=== PATIENT | female | born 1985 | race African-American/Black ===

== ENCOUNTER 2016-05-04 | Emergency (ER) | payer OTHER ==
--- NOTE | 2016-05-04 10:44 | ED ---
General Adult HPI - General Chief complaint: Dental/Oral Stated complaint: tooth pain Time Seen by Provider: 05/04/16 10:00 Source: patient, RN notes reviewed Mode of arrival: ambulatory Limitations: no limitations - History of Present Illness Initial comments: This is a 31-year-old female who presents emergency Department complaining of tooth pain. The tooth that is painful is the left bottom molar. Patient states been hurting for a few days but she is unable to get into her dentist until later this week. Patient denies any injury to that area. Patient denies any swelling patient denies any drainage. Patient denies any fever or chills. - Related Data Previous Rx's Medication Instructions Recorded Amoxicillin 500 mg PO Q8H #30 capsule 05/04/16 Ibuprofen [Motrin] 800 mg PO Q6HR PRN #20 tab 05/04/16 traMADol HCl [Ultram] 50 mg PO Q6H PRN #10 tab 05/04/16 Allergies Allergy/AdvReac Type Severity Reaction Status Date / Time No Known Allergies Allergy Verified 05/04/16 09:46 Review of Systems ROS Statement: Those systems with pertinent positive or pertinent negative responses have been documented in the HPI. ROS Other: All systems not noted in ROS Statement are negative. Past Medical History Past Medical History: No Reported History Additional Past Medical History / Comment(s): KIDNEY STONES History of Any Multi-Drug Resistant Organisms: None Reported Past Surgical History: Section, Cholecystectomy, Tubal Ligation Past Psychological History: Depression Smoking Status: Current every day smoker Past Alcohol Use History: Occasional Past Drug Use History: None Reported General Exam - General Exam Comments Initial Comments: GENERAL Patient is well-developed and well-nourished. I went into the room and the patient was sleeping I had to wake her up. EYES Patient's pupils are equal and round. Extraocular motion is intact Mouth Patient left lower molar had caries but it did not appear to be swollen around it and there was no abscess noted. SKIN Unremarkable NEURO The patient is alert and oriented 3 PYSCH Patient has normal interpersonal interactions. Limitations: no limitations Course Vital Signs 05/04/16 05/04/16 09:31 10:08 Temperature 98.3 F 97.8 F Pulse Rate 79 Respiratory 18 Rate Blood Pressure 104/56 O2 Sat by Pulse 100 Oximetry Disposition Clinical Impression: Dental caries, Pain, dental Disposition: HOME SELF-CARE Condition: Good Instructions: Dental Caries (ED), Toothache (ED) Additional Instructions: Patient needs to follow-up with a dentist. Prescriptions: Amoxicillin 500 mg PO Q8H #30 capsule Ibuprofen [Motrin] 800 mg PO Q6HR PRN #20 tab PRN Reason: Pain traMADol HCl [Ultram] 50 mg PO Q6H PRN #10 tab PRN Reason: When necessary for pain Referrals: None,Stated [Primary Care Provider] - 1-2 days Time of Disposition: 10:44
== END 2016-05-04 11:16 | disposition home or self-care (01) ==
CPT/HCPCS: 99282

== ENCOUNTER 2016-10-19 16:38 | Emergency (ER) | payer OTHER ==
[2016-10-19 16:56] VITALS: BP 124/81; PULSE 94; RESP 20; TEMP 99.3
--- NOTE | 2016-10-19 17:04 | ED ---
ENT HPI - General Chief complaint: Dental/Oral Stated complaint: Dental Pain Time Seen by Provider: 10/19/16 16:56 Source: patient, RN notes reviewed Mode of arrival: ambulatory Limitations: no limitations - History of Present Illness Initial comments: 31-year-old female presents to the emergency department with a chief complaint of right-sided dental pain. Patient states that this has been going on for the past week or so. She went to [facility] last night he started her on antibiotics as well as pain medication. Patient states that she was concerned because she still having pain. Patient denies any fever or chills. Patient denies any radiation in to the neck. Patient denies any pain over closing the mouth. Patient states that she has had a dentist appointment in a few weeks. Patient states she is wondering if she may be there something more she can take for the pain and discomfort. Patient denies any recent fever, chills, shortness of breath, chest pain, back pain, abdominal pain, nausea vomiting, numbness or tingling, dysuria or hematuria, constipation or diarrhea, headaches or visual changes, or any other current symptoms. - Related Data Previous Rx's Medication Instructions Recorded Ibuprofen [Motrin] 600 mg PO Q6HR PRN #20 tab 10/19/16 Allergies Allergy/AdvReac Type Severity Reaction Status Date / Time No Known Allergies Allergy Verified 10/19/16 16:57 Review of Systems ROS Statement: Those systems with pertinent positive or pertinent negative responses have been documented in the HPI. ROS Other: All systems not noted in ROS Statement are negative. Past Medical History Past Medical History: No Reported History Additional Past Medical History / Comment(s): KIDNEY STONES History of Any Multi-Drug Resistant Organisms: None Reported Past Surgical History: Section, Cholecystectomy, Tubal Ligation Past Psychological History: Depression Smoking Status: Current every day smoker Past Alcohol Use History: Occasional Past Drug Use History: None Reported General Exam Limitations: no limitations General appearance: alert, in no apparent distress Head exam: Present: atraumatic, normocephalic, normal inspection Eye exam: Present: normal appearance, PERRL, EOMI. Absent: scleral icterus, conjunctival injection, periorbital swelling ENT exam: Present: normal exam, mucous membranes moist, other (no sign of dental abscess. Patient does appear to have dental caries. No fracture noted.) Neck exam: Present: normal inspection. Absent: tenderness, meningismus, lymphadenopathy Respiratory exam: Present: normal lung sounds bilaterally. Absent: respiratory distress, wheezes, rales, rhonchi, stridor Cardiovascular Exam: Present: regular rate, normal rhythm, normal heart sounds. Absent: systolic murmur, diastolic murmur, rubs, gallop, clicks Neurological exam: Present: alert, oriented X3 Psychiatric exam: Present: normal affect, normal mood Skin exam: Present: warm, dry, intact, normal color. Absent: rash Course Vital Signs 10/19/16 16:55 Temperature 99.3 F Pulse Rate 94 Respiratory 20 Rate Blood Pressure 124/81 O2 Sat by Pulse 99 Oximetry Medical Decision Making - Medical Decision Making 31-year-old female presents emergency Department chief complaint of right-sided dental pain. At this time we did give the patient prescription for Motrin. We discussed continuing the antibiotic she was given as well as the other pain medication. We discussed return parameters and follow-up and all questions. They stated they understood and the on agreement with plan. This time they will be discharged home. Disposition Clinical Impression: Pain, dental Disposition: HOME SELF-CARE Condition: Stable Instructions: Toothache (ED) Additional Instructions: Please use medication as discussed. Please follow up with family doctor if symptoms have not improved over the next two days. Please return to the emergency room if your symptoms increase or worsen or for any other concerns. [facility] [place] [address] [phone] (existing clients only) For new clients: [phone] 1st consult: $50 (includes Xrays) Usually 30% less then private dentist for visits after. [employer] Have to pay $50 for Xrays anmd rest is covered. [phone] Prescriptions: Ibuprofen [Motrin] 600 mg PO Q6HR PRN #20 tab PRN Reason: Pain Referrals: Carla Rizvi MD [STAFF PHYSICIAN] - 1-2 days Time of Disposition: 17:04
== END 2016-10-19 17:17 | disposition home or self-care (01) ==
LOC: EC 16:38
DX: K02.9 Dental caries, unspecified (principal); K08.89 Other specified disorders of teeth and supporting structures; F17.200 Nicotine dependence, unspecified, uncomplicated
CPT/HCPCS: 99282

== ENCOUNTER 2016-12-12 14:03 | Emergency (ER) | payer OTHER ==
[2016-12-12] MEDS ORDERED: CIPROFLOXACIN 0.3% OPHTH SOLN 2.5 ML BTL BOTH EYES STA (14:17)
[2016-12-12 14:20] VITALS: BP 131/74; PULSE 73; RESP 20; TEMP 98.6
--- NOTE | 2016-12-12 14:45 | ED ---
Eye Problem HPI - General Chief complaint: Eye Problems Stated complaint: Poss Downing Eye Time Seen by Provider: 12/12/16 14:17 Source: patient, RN notes reviewed, old records reviewed Mode of arrival: ambulatory Limitations: no limitations - History of Present Illness Initial comments: Patient is a 31-year-old female chief complaint of being that she has pink eye. She reports that she has been having increased drainage from both of her eyes for the past 2 days. She reports is also started after she saw her children. She denies any visual changes. Patient reports that she had surgery on her eyes when she was in her to correct a lazy eye. - Related Data Previous Rx's Medication Instructions Recorded Ciprofloxacin Ophth Soln [Cipro 1 drops BOTH EYES Q4HR #1 bottle 12/12/16 Ophth Soln] Allergies Allergy/AdvReac Type Severity Reaction Status Date / Time No Known Allergies Allergy Verified 12/12/16 14:22 Review of Systems ROS Statement: Those systems with pertinent positive or pertinent negative responses have been documented in the HPI. ROS Other: All systems not noted in ROS Statement are negative. Past Medical History Past Medical History: No Reported History Additional Past Medical History / Comment(s): KIDNEY STONES History of Any Multi-Drug Resistant Organisms: None Reported Past Surgical History: Section, Cholecystectomy, Tubal Ligation Past Psychological History: Depression Smoking Status: Current every day smoker Past Alcohol Use History: Occasional Past Drug Use History: None Reported General Exam - General Exam Comments Initial Comments: 31-year-old female. No acute distress. Limitations: no limitations General appearance: alert, in no apparent distress Head exam: Present: atraumatic, normocephalic, normal inspection Eye exam: Present: normal appearance, PERRL, EOMI, conjunctival injection ( Minor bilateral conjunctival injection.). Absent: scleral icterus, periorbital swelling ENT exam: Present: normal exam, normal oropharynx, mucous membranes dry, mucous membranes moist Neck exam: Present: normal inspection. Absent: tenderness, meningismus, lymphadenopathy Respiratory exam: Present: normal lung sounds bilaterally. Absent: respiratory distress, wheezes, rales, rhonchi, stridor Cardiovascular Exam: Present: regular rate, normal rhythm, normal heart sounds. Absent: systolic murmur, diastolic murmur, rubs, gallop, clicks GI/Abdominal exam: Present: soft, normal bowel sounds. Absent: distended, tenderness, guarding, rebound, rigid Extremities exam: Present: normal inspection, full ROM, normal capillary refill. Absent: tenderness, pedal edema, joint swelling, calf tenderness Back exam: Present: normal inspection Neurological exam: Present: alert, oriented X3, CN II-XII intact Psychiatric exam: Present: normal affect, normal mood Skin exam: Present: warm, dry, intact, normal color. Absent: rash Course Vital Signs 12/12/16 14:15 Temperature 98.6 F Pulse Rate 73 Respiratory 20 Rate Blood Pressure 131/74 O2 Sat by Pulse 100 Oximetry Disposition Clinical Impression: Conjunctivitis Disposition: HOME SELF-CARE Condition: Good Instructions: Conjunctivitis (ED) Additional Instructions: Patient has a follow-up with the emergency medical technician/driver in the next 1-2 days. Return to emergency department if any alarming signs or symptoms occur. Prescriptions: Ciprofloxacin Ophth Soln [Cipro Ophth Soln] 1 drops BOTH EYES Q4HR #1 bottle Referrals: None,Stated [Primary Care Provider] - 1-2 days Maynor Yeh MD [STAFF PHYSICIAN] - 1-2 days Time of Disposition: 14:46
== END 2016-12-12 15:00 | disposition home or self-care (01) ==
LOC: EC 14:03
DX: H10.9 Unspecified conjunctivitis (principal); F17.200 Nicotine dependence, unspecified, uncomplicated
CPT/HCPCS: 99283

== ENCOUNTER 2017-02-17 10:10 | Emergency (ER) | payer OTHER ==
--- NOTE | 2017-02-17 11:10 | ED ---
General Adult HPI - General Chief complaint: Upper Respiratory Infection Stated complaint: bad cough/tooth ache Time Seen by Provider: 02/17/17 10:20 Source: patient, RN notes reviewed Mode of arrival: ambulatory Limitations: no limitations - History of Present Illness Initial comments: This is a 32-year-old female who presents emergency department for she's had a cough for 2 weeks and coughing up green sputum. Patient states she hasn't had a fever and she hasn't been short of breath but she cannot stop coughing. Coughing up sputum. Patient denies any chest pain or palpitations. Patient states she also has been anemic in the past about 5 months ago she needed blood. Patient states she is post to follow-up with her MACHINE CEMENTER and she has not. Patient states she continues to have heavy cycles. Patient states occasionally she gets up and she is a little dizzy but other than that she feels normal. - Related Data Previous Rx's Medication Instructions Recorded Azithromycin [Zithromax Tri-Gorge] 500 mg PO DAILY #3 tab 02/17/17 Allergies Allergy/AdvReac Type Severity Reaction Status Date / Time No Known Allergies Allergy Verified 02/17/17 10:28 Review of Systems ROS Statement: Those systems with pertinent positive or pertinent negative responses have been documented in the HPI. ROS Other: All systems not noted in ROS Statement are negative. Past Medical History Past Medical History: No Reported History Additional Past Medical History / Comment(s): KIDNEY STONES History of Any Multi-Drug Resistant Organisms: None Reported Past Surgical History: Section, Cholecystectomy, Tubal Ligation Past Psychological History: Depression Smoking Status: Current every day smoker Past Alcohol Use History: Occasional Past Drug Use History: None Reported General Exam - General Exam Comments Initial Comments: GENERAL: Patient is well-developed and well-nourished. Patient is nontoxic and well- hydrated and is in no acute distress. ENT: Neck is soft and supple. No significant lymphadenopathy is noted. Oropharynx is clear. Moist mucous membranes. Neck has full range of motion without eliciting any pain. There is no thyroid enlargement and no masses were felt. EYES: The sclera were anicteric and conjunctiva were pink and moist. Extraocular movements were intact and pupils were equal round and reactive to light. Eyelids were unremarkable. PULMONARY: Unlabored respirations. Good breath sounds bilaterally. No audible rales rhonchi or wheezing was noted. CARDIOVASCULAR: There is a regular rate and rhythm without any murmurs gallops or rubs. ABDOMEN: Soft and nontender with normal bowel sounds. No palpable organomegaly was noted. There is no palpable pulsatile mass. SKIN: Skin is clear with no lesions or rashes and otherwise unremarkable. NEUROLOGIC: Patient is alert and oriented x3. Cranial nerves II through XII are grossly intact. Motor and sensory are also intact. Normal speech, volume and content. Symmetrical smile. Cerebellar exam grossly intact. MUSCULOSKELETAL: Normal extremities with adequate strength and full range of motion. LYMPHATICS: No significant lymphadenopathy is noted PSYCHIATRIC: Normal psychiatric evaluation. Limitations: no limitations Course Vital Signs 02/17/17 10:18 Temperature 98.0 F Pulse Rate 74 Respiratory 18 Rate Blood Pressure 121/60 O2 Sat by Pulse 100 Oximetry Medical Decision Making - Medical Decision Making Patient's hemoglobin was 8.0. Patient states she's been chronically anemic but she hasn't followed up like she was told to. - Lab Data Result diagrams: 02/17/17 11:04 Lab Results 02/17/17 Range/Units 11:04 WBC 8.1 (3.8-10.6) k/uL RBC 3.66 L (3.80-5.40) m/uL Hgb 8.0 L (11.4-16.0) gm/dL Hct 29.1 L (34.0-46.0) % MCV 79.4 L (80.0-100.0) fL MCH 21.8 L (25.0-35.0) pg MCHC 27.4 L (31.0-37.0) g/dL RDW 15.8 H (11.5-15.5) % Plt Count 338 (150-450) k/uL Neutrophils % 60 % Lymphocytes % 30 % Monocytes % 5 % Eosinophils % 2 % Basophils % 0 % Neutrophils # 4.8 (1.3-7.7) k/uL Lymphocytes # 2.4 (1.0-4.8) k/uL Monocytes # 0.4 (0-1.0) k/uL Eosinophils # 0.2 (0-0.7) k/uL Basophils # 0.0 (0-0.2) k/uL Hypochromasia Marked Disposition Clinical Impression: Bronchitis, Chronic anemia Disposition: HOME SELF-CARE Condition: Good Instructions: Acute Bronchitis (ED) Additional Instructions: Patient needs to follow-up with an MACHINE CEMENTER as soon as possible. Patient is to return to the emergency department if she has any syncopal or near syncopal episodes or her symptoms worsen. Patient is also to return to the emergency department if her vaginal bleeding becomes worse. Patient also needs to get a primary medical care doctor and we gave her some names that she could possibly follow up with. Prescriptions: Azithromycin [Zithromax Tri-Gorge] 500 mg PO DAILY #3 tab Referrals: None,Stated [Primary Care Provider] - 1-2 days Time of Disposition: 11:32
[2017-02-17 11:13] LABS: Basophils % (A) 0 %; CH 21.8; CHCM 27.6; Eosinophils # (A) 0.2 k/uL (0-0.7); Eosinophils % (A) 2 %; HCT 29.1 % (34.0-46.0); HDW 2.45; Hypochromasia Marked; Luc % (Auto) 3; Lymphocytes # (A) 2.4 k/uL (1.0-4.8); Lymphocytes % (A) 30 %; MCH 21.8 pg (25.0-35.0); MCHC 27.4 g/dL (31.0-37.0); MCV 79.4 fL (80.0-100.0); Mean Platelet Volume 7.7; Monocytes # (A) 0.4 k/uL (0-1.0); Monocytes % (A) 5 %; Neutrophils # (A) 4.8 k/uL (1.3-7.7); Neutrophils % (A) 60 %; RBC 3.66 m/uL (3.80-5.40); RDW 15.8 % (11.5-15.5); WBC 8.1 k/uL (3.8-10.6); WBC (Perox) 7.96
[2017-02-17 11:43] VITALS: BP 107/59; PULSE 71; RESP 15; TEMP 97.4
== END 2017-02-17 12:03 | disposition home or self-care (01) ==
LOC: EC 10:10
DX: J40 Bronchitis, not specified as acute or chronic (principal); D64.9 Anemia, unspecified; F17.200 Nicotine dependence, unspecified, uncomplicated
CPT/HCPCS: 36415; 85025; 99283

== ENCOUNTER 2017-02-19 11:08 | Emergency (ER) | payer OTHER ==
[2017-02-19] MEDS ORDERED: HYDROcodone/APAP 5-325MG 1 EACH TAB PO STA (11:40)
[2017-02-19] MEDS ORDERED: IBUPROFEN 600 MG TAB PO STA (11:40)
[2017-02-19] MEDS ORDERED: AMOXICILLIN 875 MG TAB PO STA (11:40)
--- NOTE | 2017-02-19 11:50 | ED ---
General Adult HPI - General Chief complaint: Recheck/Abnormal Lab/Rx Stated complaint: DENTAL PAIN Time Seen by Provider: 02/19/17 11:25 Source: patient, RN notes reviewed Mode of arrival: ambulatory Limitations: no limitations - History of Present Illness Initial comments: This is a 32-year-old female who presents emergency Department with a past medical history significant for anemia. Patient states she was here the other day and she was anemic and she continues to be dizzy but no worse than she normally has been patient states she was trying to get an OB to decrease her menstrual flow so she is not chronically anemic. Patient comes in today however for ental pain in the bottom molar area. Patient states it started last night and has gotten worse today. Patient denies any area of swelling patient denies any fever patient denies any drainage. Patient states it hurts to touch or chew on. - Related Data Home Medications Medication Instructions Recorded Confirmed Ibuprofen [Motrin] 800 mg PO BID PRN 02/19/17 02/19/17 Previous Rx's Medication Instructions Recorded Amoxicillin 500 mg PO Q8H #30 capsule 02/19/17 Hydrocodone/Acetaminophen [Braggadocio 1 each PO Q4HR PRN #10 tab 02/19/17 5-325] Ibuprofen [Motrin] 600 mg PO Q6HR PRN #20 tab 02/19/17 Allergies Allergy/AdvReac Type Severity Reaction Status Date / Time No Known Allergies Allergy Verified 02/19/17 12:15 Review of Systems ROS Statement: Those systems with pertinent positive or pertinent negative responses have been documented in the HPI. ROS Other: All systems not noted in ROS Statement are negative. Past Medical History Past Medical History: No Reported History Additional Past Medical History / Comment(s): KIDNEY STONES History of Any Multi-Drug Resistant Organisms: None Reported Past Surgical History: Section, Cholecystectomy, Tubal Ligation Past Psychological History: Depression Smoking Status: Current every day smoker Past Alcohol Use History: None Reported Past Drug Use History: None Reported General Exam - General Exam Comments Initial Comments: GENERAL Patient is well-developed and well-nourished. Patient is in mild distress. EYES Patient's pupils are equal and round. Extraocular motion is intact MOUTH Patient complains of right lower molar pain no area of fluctuance nor swelling no drainage noted SKIN Unremarkable NEURO The patient is alert and oriented 3 PYSCH Patient has normal interpersonal interactions. MUSCULOSKELETAL All 4 times and full range of motion Limitations: no limitations Course Vital Signs 02/19/17 11:25 Temperature 98.1 F Pulse Rate 74 Respiratory 16 Rate Blood Pressure 118/57 O2 Sat by Pulse 100 Oximetry Medical Decision Making - Medical Decision Making patient's hemoglobin 7.8 it was 8 on her last visit. She knows that she needs to follow up with [facility] so that she can reduce the amount of bleeding during her menstrual cycles. - Lab Data Result diagrams: 02/19/17 11:48 Lab Results 02/19/17 Range/Units 11:48 WBC 8.1 (3.8-10.6) k/uL RBC 3.58 L (3.80-5.40) m/uL Hgb 7.8 L (11.4-16.0) gm/dL Hct 27.3 L (34.0-46.0) % MCV 76.2 L (80.0-100.0) fL MCH 21.9 L (25.0-35.0) pg MCHC 28.7 L (31.0-37.0) g/dL RDW 16.9 H (11.5-15.5) % Plt Count 337 (150-450) k/uL Neutrophils % 63 % Lymphocytes % 27 % Monocytes % 5 % Eosinophils % 2 % Basophils % 0 % Neutrophils # 5.1 (1.3-7.7) k/uL Lymphocytes # 2.2 (1.0-4.8) k/uL Monocytes # 0.4 (0-1.0) k/uL Eosinophils # 0.2 (0-0.7) k/uL Basophils # 0.0 (0-0.2) k/uL Hypochromasia Marked Anisocytosis Slight Microcytosis Slight Disposition Clinical Impression: Pain, dental Disposition: HOME SELF-CARE Condition: Good Instructions: Toothache (ED) Prescriptions: Amoxicillin 500 mg PO Q8H #30 capsule Hydrocodone/Acetaminophen [Braggadocio 5-325] 1 each PO Q4HR PRN #10 tab PRN Reason: Pain Ibuprofen [Motrin] 600 mg PO Q6HR PRN #20 tab PRN Reason: For pain Referrals: None,Stated [Primary Care Provider] - 1-2 days Time of Disposition: 12:25
[2017-02-19 12:11] LABS: Anisocytosis Slight; Basophils % (A) 0 %; CH 21.5; CHCM 28.3; Eosinophils # (A) 0.2 k/uL (0-0.7); Eosinophils % (A) 2 %; HCT 27.3 % (34.0-46.0); HDW 2.52; HGB 7.8 gm/dL (11.4-16.0); Hypochromasia Marked; Luc # (Auto) 0.19; Luc % (Auto) 2; Lymphocytes # (A) 2.2 k/uL (1.0-4.8); Lymphocytes % (A) 27 %; MCH 21.9 pg (25.0-35.0); MCHC 28.7 g/dL (31.0-37.0); MCV 76.2 fL (80.0-100.0); Mean Platelet Volume 8.6; Microcytosis Slight; Monocytes # (A) 0.4 k/uL (0-1.0); Monocytes % (A) 5 %; Neutrophils # (A) 5.1 k/uL (1.3-7.7); Neutrophils % (A) 63 %; RBC 3.58 m/uL (3.80-5.40); RDW 16.9 % (11.5-15.5); WBC 8.1 k/uL (3.8-10.6); WBC (Perox) 7.81
[2017-02-19 12:38] VITALS: BP 107/64; PULSE 72; RESP 15; TEMP 97.2
== END 2017-02-19 12:39 | disposition home or self-care (01) ==
LOC: EC 11:08
DX: K08.89 Other specified disorders of teeth and supporting structures (principal); R42 Dizziness and giddiness; F17.200 Nicotine dependence, unspecified, uncomplicated
CPT/HCPCS: 36415; 85025; 99283

== ENCOUNTER 2017-08-01 18:31 | Emergency (ER) | payer OTHER ==
[2017-08-01] MEDS ORDERED: KETOROLAC 30 MG/ML 1 ML VIAL IVP STA (19:08)
[2017-08-01] MEDS ORDERED: ONDANSETRON 4 MG/2 ML VIAL IVP STA (19:08)
[2017-08-01] MEDS ORDERED: SODIUM CHLORIDE 0.9% 1,000 ML IV STA (19:08)
--- NOTE | 2017-08-01 19:11 | ED ---
Abdominal Pain HPI - General Chief Complaint: Abdominal Pain Stated Complaint: Abd Pain Time Seen by Provider: 08/01/17 18:46 Source: patient, RN notes reviewed, old records reviewed Mode of arrival: ambulatory Limitations: no limitations - History of Present Illness Initial Comments: 32-year-old female persist emergency department states she complaint lower abdominal pain and cramping. She's been having 1 month of heavy vaginal bleeding. She's been off of her to push off for the past few months. Patient states that she has had no fevers or chills. She reports no vomiting. She states sometimes she feels dizzy and lightheaded. She reports that she is supposed to take iron pills that she is not taking them. She is at a postop from her PCP at the [facility]. She denies any dysuria hematuria. Normal bowel habits. - Related Data Home Medications Medication Instructions Recorded Confirmed buPROPion XL [Wellbutrin Xl] 150 mg PO DAILY 08/01/17 08/01/17 Previous Rx's Medication Instructions Recorded Ferrous Sulfate [Iron] 325 mg PO DAILY #20 tablet 08/01/17 traMADol HCl [Ultram] 50 mg PO Q4H PRN #12 tab 08/01/17 Allergies Allergy/AdvReac Type Severity Reaction Status Date / Time No Known Allergies Allergy Verified 08/01/17 19:20 Review of Systems ROS Statement: Those systems with pertinent positive or pertinent negative responses have been documented in the HPI. ROS Other: All systems not noted in ROS Statement are negative. Past Medical History Past Medical History: No Reported History Additional Past Medical History / Comment(s): KIDNEY STONES History of Any Multi-Drug Resistant Organisms: None Reported Past Surgical History: Section, Cholecystectomy, Tubal Ligation Past Psychological History: Depression Smoking Status: Current every day smoker Past Alcohol Use History: None Reported Past Drug Use History: None Reported General Exam - General Exam Comments Initial Comments: 32-year-old female. Alert and oriented. No acute distress. Limitations: no limitations General appearance: alert, in no apparent distress Head exam: Present: atraumatic, normocephalic, normal inspection Eye exam: Present: normal appearance, PERRL, EOMI. Absent: scleral icterus, conjunctival injection, periorbital swelling ENT exam: Present: normal exam, mucous membranes moist Neck exam: Present: normal inspection. Absent: tenderness, meningismus, lymphadenopathy Respiratory exam: Present: normal lung sounds bilaterally Cardiovascular Exam: Present: regular rate, normal rhythm, normal heart sounds. Absent: systolic murmur, diastolic murmur, rubs, gallop, clicks GI/Abdominal exam: Present: soft, tenderness (Suprapubic tenderness or lower quadrant tenderness.), normal bowel sounds. Absent: distended, guarding, rebound, rigid Extremities exam: Present: normal inspection, full ROM, normal capillary refill. Absent: tenderness, pedal edema, joint swelling, calf tenderness Back exam: Present: normal inspection Neurological exam: Present: alert, oriented X3, CN II-XII intact Psychiatric exam: Present: normal affect, normal mood Skin exam: Present: warm, dry, intact, normal color. Absent: rash Course Vital Signs 08/01/17 08/01/17 18:34 20:09 Temperature 97.3 F L Pulse Rate 62 51 L Respiratory 18 18 Rate Blood Pressure 113/73 107/72 O2 Sat by Pulse 99 100 Oximetry Medical Decision Making - Medical Decision Making Patient is a 32-year-old female presents raise her arm into complaint of abdominal pain, heavy vaginal bleeding for the past month. She reports the pains worsen or right lower quadrant. No dysuria. Patient was supposed to be on the double shop that she's been off it for the past few months. Patient's given IV fluids and lab work obtained. Normal hemoglobin. She has not been taking her iron pills. Patient's ultrasound shows evidence of a large ovarian cyst measuring 4 cm x 4 cm. Patient reported these results. We'll discharge this time with the patient for a referral for gynecology. She needs to be started back on her hormones. Discussed return parameters. All questions answered. Discharged with a short course of pain medicine. - Lab Data Result diagrams: 08/01/17 19:18 08/01/17 19:18 Lab Results 08/01/17 08/01/17 08/01/17 Range/Units 19:18 19:18 19:18 WBC 7.2 (3.8-10.6) k/uL RBC 4.23 (3.80-5.40) m/uL Hgb 10.7 L (11.4-16.0) gm/dL Hct 35.4 (34.0-46.0) % MCV 83.7 (80.0-100.0) fL MCH 25.3 (25.0-35.0) pg MCHC 30.2 L (31.0-37.0) g/dL RDW 14.7 (11.5-15.5) % Plt Count 254 (150-450) k/uL Neutrophils % 57 % Lymphocytes % 35 % Monocytes % 5 % Eosinophils % 2 % Basophils % 0 % Neutrophils # 4.1 (1.3-7.7) k/uL Lymphocytes # 2.5 (1.0-4.8) k/uL Monocytes # 0.4 (0-1.0) k/uL Eosinophils # 0.2 (0-0.7) k/uL Basophils # 0.0 (0-0.2) k/uL Hypochromasia Slight PT (9.0-12.0) sec INR (<1.2) APTT (22.0-30.0) sec Sodium 142 (137-145) mmol/L Potassium 3.9 (3.5-5.1) mmol/L Chloride 107 (98-107) mmol/L Carbon Dioxide 22 (22-30) mmol/L Anion Gap 13 mmol/L BUN 8 (7-17) mg/dL Creatinine 0.77 (0.52-1.04) mg/dL Est GFR (CKD-EPI)AfAm >90 (>60 ml/min/1.73 sqM) Est GFR (CKD-EPI)NonAf >90 (>60 ml/min/1.73 sqM) Glucose 96 (74-99) mg/dL Calcium 8.9 (8.4-10.2) mg/dL Total Bilirubin 0.3 (0.2-1.3) mg/dL AST 19 (14-36) U/L ALT 18 (9-52) U/L Alkaline Phosphatase 40 (38-126) U/L Total Protein 6.6 (6.3-8.2) g/dL Albumin 3.9 (3.5-5.0) g/dL Amylase 48 (30-110) U/L Lipase 173 (23-300) U/L Urine Color Urine Appearance (Clear) Urine pH (5.0-8.0) Ur Specific [place] (1.001-1.035) Urine Protein (Negative) Urine Glucose (UA) (Negative) Urine Ketones (Negative) Urine Blood (Negative) Urine Nitrite (Negative) Urine Bilirubin (Negative) Urine Urobilinogen (<2.0) mg/dL Ur Leukocyte Esterase (Negative) Urine RBC (0-5) /hpf Urine WBC (0-5) /hpf Ur Squamous Epith Cells (0-4) /hpf Calcium Oxalate Crystal (None) /hpf Hyaline Casts (0-2) /lpf Urine Mucus (None) /hpf Urine HCG, Qual Not Detected (Not Detectd) 08/01/17 08/01/17 Range/Units 19:18 19:18 WBC (3.8-10.6) k/uL RBC (3.80-5.40) m/uL Hgb (11.4-16.0) gm/dL Hct (34.0-46.0) % MCV (80.0-100.0) fL MCH (25.0-35.0) pg MCHC (31.0-37.0) g/dL RDW (11.5-15.5) % Plt Count (150-450) k/uL Neutrophils % % Lymphocytes % % Monocytes % % Eosinophils % % Basophils % % Neutrophils # (1.3-7.7) k/uL Lymphocytes # (1.0-4.8) k/uL Monocytes # (0-1.0) k/uL Eosinophils # (0-0.7) k/uL Basophils # (0-0.2) k/uL Hypochromasia PT 10.2 (9.0-12.0) sec INR 1.0 (<1.2) APTT 27.5 (22.0-30.0) sec Sodium (137-145) mmol/L Potassium (3.5-5.1) mmol/L Chloride (98-107) mmol/L Carbon Dioxide (22-30) mmol/L Anion Gap mmol/L BUN (7-17) mg/dL Creatinine (0.52-1.04) mg/dL Est GFR (CKD-EPI)AfAm (>60 ml/min/1.73 sqM) Est GFR (CKD-EPI)NonAf (>60 ml/min/1.73 sqM) Glucose (74-99) mg/dL Calcium (8.4-10.2) mg/dL Total Bilirubin (0.2-1.3) mg/dL AST (14-36) U/L ALT (9-52) U/L Alkaline Phosphatase (38-126) U/L Total Protein (6.3-8.2) g/dL Albumin (3.5-5.0) g/dL Amylase (30-110) U/L Lipase (23-300) U/L Urine Color Yellow Urine Appearance Cloudy H (Clear) Urine pH 5.5 (5.0-8.0) Ur Specific [place] 1.023 (1.001-1.035) Urine Protein Trace H (Negative) Urine Glucose (UA) Negative (Negative) Urine Ketones Negative (Negative) Urine Blood Moderate H (Negative) Urine Nitrite Negative (Negative) Urine Bilirubin Negative (Negative) Urine Urobilinogen <2.0 (<2.0) mg/dL Ur Leukocyte Esterase Moderate H (Negative) Urine RBC 10 H (0-5) /hpf Urine WBC 36 H (0-5) /hpf Ur Squamous Epith Cells 7 H (0-4) /hpf Calcium Oxalate Crystal Few H (None) /hpf Hyaline Casts 4 H (0-2) /lpf Urine Mucus Many H (None) /hpf Urine HCG, Qual (Not Detectd) - Radiology Data Radiology results: report reviewed Tiny endometrial echogenic foci could be a blood clot. Right large ovarian cyst. Slightly increased compared to old exam. Mild free fluid in the cul-de- sac. Right ovary measures 4.2 x 2.8 x 4.0 measured centimeters. Disposition Clinical Impression: Right ovarian cyst, Menorrhagia Disposition: HOME SELF-CARE Condition: Good Instructions: Ovarian Cyst (ED) Additional Instructions: Patient advised to follow-up with primary care provider and DEBT MANAGEMENT COUNSELOR. Return to the emergency department if any alarming signs or symptoms occur. Prescriptions: Ferrous Sulfate [Iron] 325 mg PO DAILY #20 tablet traMADol HCl [Ultram] 50 mg PO Q4H PRN #12 tab PRN Reason: Pain Is patient prescribed a controlled substance at d/c from ED?: No If prescribed controlled substance>3 days was MAPS reviewed?: No When asked, does pt state using other controlled substances?: No Referrals: Mariangel Schofield MD [Primary Care Provider] - 1-2 days Keyla Pan DO [Doctor of Osteopathic Medicine] - 1-2 days Time of Disposition: 20:51
[2017-08-01 19:34] LABS: Basophils % (A) 0 %; Eosinophils # (A) 0.2 k/uL (0-0.7); Eosinophils % (A) 2 %; HCT 35.4 % (34.0-46.0); HGB 10.7 gm/dL (11.4-16.0); Hypochromasia Slight; Lymphocytes # (A) 2.5 k/uL (1.0-4.8); Lymphocytes % (A) 35 %; MCH 25.3 pg (25.0-35.0); MCHC 30.2 g/dL (31.0-37.0); MCV 83.7 fL (80.0-100.0); Mean Platelet Volume 9.3; Monocytes # (A) 0.4 k/uL (0-1.0); Monocytes % (A) 5 %; Neutrophils # (A) 4.1 k/uL (1.3-7.7); Neutrophils % (A) 57 %; Platelet Count 254 k/uL (150-450); RBC 4.23 m/uL (3.80-5.40); RDW 14.7 % (11.5-15.5); WBC 7.2 k/uL (3.8-10.6)
[2017-08-01 19:38] LABS: Appearance,Urine Cloudy (Clear); Bilirubin,Urine Negative (Negative); Blood,Urine Moderate (Negative); Calcium Oxalate Crystals,Urine Few /hpf; Color,Urine Yellow; Glucose,Urine (UA) Negative (Negative); Hyaline Casts,Urine 4 /lpf (0-2); Ketones,Urine Negative (Negative); Leukocyte Esterase,Urine Moderate (Negative); Mucus,Urine Many /hpf; Nitrite,Urine Negative (Negative); PH, Urine 5.5 (5.0-8.0); Protein,Urine Trace (Negative); RBC,Urine 10 /hpf (0-5); Specific Gravity,Urine 1.023 (1.001-1.035); Squamous Epithelial Cell,Urine 7 /hpf (0-4); Urobilinogen,Urine <2.0 mg/dL (<2.0); WBC,Urine 36 /hpf (0-5)
[2017-08-01 19:43] LABS: ALT 18 U/L (9-52); AST 19 U/L (14-36); Albumin 3.9 g/dL (3.5-5.0); Alkaline Phosphatase 40 U/L (38-126); Amylase 48 U/L (30-110); Anion Gap 13 mmol/L; Blood Urea Nitrogen 8 mg/dL (7-17); Calcium 8.9 mg/dL (8.4-10.2); Carbon Dioxide 22 mmol/L (22-30); Chloride 107 mmol/L (98-107); Glucose 96 mg/dL (74-99); Lipase 173 U/L (23-300); Potassium 3.9 mmol/L (3.5-5.1); Sodium 142 mmol/L (137-145); Total Bilirubin 0.3 mg/dL (0.2-1.3); Total Protein 6.6 g/dL (6.3-8.2)
[2017-08-01 20:07] LABS: Partial Thromboplastin Time 27.5 sec (22.0-30.0); Prothrombin Time 10.2 sec (9.0-12.0)
[2017-08-01 20:11] VITALS: BP 107/72
--- NOTE | 2017-08-01 20:12 | US ---
EXAMINATION TYPE: US transvaginal DATE OF EXAM: 08/01/2017 COMPARISON: 01/31/2016 CLINICAL HISTORY: Pain. Pain and bleeding TECHNIQUE: Transvaginal (TV). EXAM MEASUREMENTS: Uterus: 8.8 x 4.7 x 6.4 cm Endometrial Stripe: 0.5 cm Right Ovary: 5.3 x 3.5 x 4.7 cm Left Ovary: 3.8 x 2.6 x 2.8 cm 1. Uterus: Anteverted Echogenic foci seen measuring .3 x .2 x .5 cm 2. Endometrium: wnl 3. Right Ovary: Cystic area seen measuring 4.2 x 2.8 x 4.0 cm increased in size from previous. 4. Left Ovary: Follicles seen Spectral, color and waveform doppler imaging shows good arterial and venous flow within the ovaries ; there is no evidence for ovarian torsion. 5. Bilateral Adnexa: wnl 6. Posterior cul-de-sac: Free fluid visualized. IMPRESSION: Tiny endometrial echogenic foci could be blood clot. Large right ovarian cyst. This is in creased slightly compared to old exam. Mild free fluid in the cul-de-sac.
[2017-08-01 21:05] VITALS: PULSE 60; RESP 19; TEMP 97
== END 2017-08-01 21:08 | disposition home or self-care (01) ==
LOC: EC 18:31
DX: N83.201 Unspecified ovarian cyst, right side (principal); N92.0 Excessive and frequent menstruation with regular cycle; F32.9 Major depressive disorder, single episode, unspecified; F17.200 Nicotine dependence, unspecified, uncomplicated; Z87.442 Personal history of urinary calculi; Z90.49 Acquired absence of other specified parts of digestive tract; Z98.51 Tubal ligation status; Z79.899 Other long term (current) drug therapy
CPT/HCPCS: 99284; 96374; 96375; 36415; 86900; 86901; 80053; 82150; 83690; 85025; 85610; 85730; 86850; 81001; 81025; 93975; 76830; J2405; J1885

== ENCOUNTER 2017-08-20 22:51 | Emergency (ER) | payer OTHER ==
[2017-08-20] MEDS ORDERED: ONDANSETRON 4 MG/2 ML VIAL IVP STA (23:14)
[2017-08-20] MEDS ORDERED: SODIUM CHLORIDE 0.9% 500 ML IV STA (23:14)
--- NOTE | 2017-08-20 23:25 | ED ---
General Adult HPI - General Chief complaint: Abdominal Pain Stated complaint: Abd pain Time Seen by Provider: 08/20/17 23:05 Source: patient, RN notes reviewed Mode of arrival: ambulatory Limitations: no limitations - History of Present Illness Initial comments: 32-year-old female presented for evaluation of epigastric abdominal pain. Pain began approximately 24 hours ago. Patient has had several episodes of vomiting. Denies any right upper quadrant pain. Denies any lower abdominal pain. She has had some vaginal bleeding, she is uncertain if she may be . She has been diagnosed with ovarian cyst and has had some intermittent vaginal bleeding. This is not her primary concern. She is concerned about her epigastric abdominal pain. Which is constant and dull in nature. - Related Data Home Medications Medication Instructions Recorded Confirmed buPROPion XL [Wellbutrin Xl] 150 mg PO DAILY 08/01/17 08/01/17 Previous Rx's Medication Instructions Recorded Ferrous Sulfate [Iron] 325 mg PO DAILY #20 tablet 08/01/17 traMADol HCl [Ultram] 50 mg PO Q4H PRN #12 tab 08/01/17 Allergies Allergy/AdvReac Type Severity Reaction Status Date / Time No Known Allergies Allergy Verified 08/20/17 22:57 Review of Systems ROS Statement: Those systems with pertinent positive or pertinent negative responses have been documented in the HPI. ROS Other: All systems not noted in ROS Statement are negative. Past Medical History Past Medical History: No Reported History Additional Past Medical History / Comment(s): KIDNEY STONES History of Any Multi-Drug Resistant Organisms: None Reported Past Surgical History: Section, Cholecystectomy, Tubal Ligation Past Psychological History: Depression Smoking Status: Current every day smoker Past Alcohol Use History: None Reported Past Drug Use History: None Reported General Exam Limitations: no limitations General appearance: alert, in no apparent distress Head exam: Present: atraumatic, normocephalic Eye exam: Present: normal appearance, PERRL ENT exam: Present: mucous membranes moist Neck exam: Present: normal inspection. Absent: tenderness, meningismus Respiratory exam: Present: normal lung sounds bilaterally. Absent: respiratory distress, wheezes Cardiovascular Exam: Present: regular rate, normal rhythm GI/Abdominal exam: Present: soft, tenderness (Mild epigastric tenderness, no right upper quadrant tenderness). Absent: distended Extremities exam: Present: normal inspection, normal capillary refill. Absent: pedal edema Neurological exam: Present: alert, oriented X3, CN II-XII intact. Absent: motor sensory deficit Psychiatric exam: Present: normal affect, normal mood Skin exam: Present: warm, dry, intact. Absent: cyanosis, diaphoretic Course Vital Signs 08/20/17 22:54 Temperature 98.1 F Pulse Rate 67 Respiratory 16 Rate Blood Pressure 123/76 O2 Sat by Pulse 99 Oximetry - Reevaluation(s) Reevaluation #1: 08/21/17 00:48 On reevaluation, patient is feeling better, no episodes of vomiting. Medical Decision Making - Medical Decision Making Laboratory studies reviewed with blood cell count normal, hemoglobin is 11 which is improved. CMP unremarkable. Patient does have her 30 rbc's on urinalysis with 74 white blood cells. This may be resulting from her vaginal bleeding. However there is more than predicted white blood cells. She is having no dysuria or urinary symptoms. Culture will be obtained. X-ray is negative for obstruction or free air. Past surgical history of cholecystectomy. Patient is feeling better on reevaluation, she will be discharged home - Lab Data Result diagrams: 08/20/17 23:32 08/20/17 23:32 Lab Results 08/20/17 08/20/17 08/20/17 Range/Units 23:32 23:32 23:32 WBC 9.0 (3.8-10.6) k/uL RBC 4.27 (3.80-5.40) m/uL Hgb 11.0 L (11.4-16.0) gm/dL Hct 36.2 (34.0-46.0) % MCV 84.9 (80.0-100.0) fL MCH 25.8 (25.0-35.0) pg MCHC 30.4 L (31.0-37.0) g/dL RDW 15.0 (11.5-15.5) % Plt Count 260 (150-450) k/uL Neutrophils % 57 % Lymphocytes % 36 % Monocytes % 4 % Eosinophils % 1 % Basophils % 0 % Neutrophils # 5.1 (1.3-7.7) k/uL Lymphocytes # 3.2 (1.0-4.8) k/uL Monocytes # 0.4 (0-1.0) k/uL Eosinophils # 0.1 (0-0.7) k/uL Basophils # 0.0 (0-0.2) k/uL Hypochromasia Slight Sodium 145 (137-145) mmol/L Potassium 4.5 (3.5-5.1) mmol/L Chloride 108 H (98-107) mmol/L Carbon Dioxide 23 (22-30) mmol/L Anion Gap 14 mmol/L BUN 18 H (7-17) mg/dL Creatinine 0.90 (0.52-1.04) mg/dL Est GFR (CKD-EPI)AfAm >90 (>60 ml/min/1.73 sqM) Est GFR (CKD-EPI)NonAf 85 (>60 ml/min/1.73 sqM) Glucose 95 (74-99) mg/dL Calcium 9.4 (8.4-10.2) mg/dL Total Bilirubin 0.5 (0.2-1.3) mg/dL AST 28 (14-36) U/L ALT 25 (9-52) U/L Alkaline Phosphatase 45 (38-126) U/L Total Protein 7.3 (6.3-8.2) g/dL Albumin 4.2 (3.5-5.0) g/dL Amylase 72 (30-110) U/L Lipase 234 (23-300) U/L Urine Color Urine Appearance (Clear) Urine pH (5.0-8.0) Ur Specific [place] (1.001-1.035) Urine Protein (Negative) Urine Glucose (UA) (Negative) Urine Ketones (Negative) Urine Blood (Negative) Urine Nitrite (Negative) Urine Bilirubin (Negative) Urine Urobilinogen (<2.0) mg/dL Ur Leukocyte Esterase (Negative) Urine RBC (0-5) /hpf Urine WBC (0-5) /hpf Urine Mucus (None) /hpf Urine HCG, Qual Not Detected (Not Detectd) 08/20/17 Range/Units 23:32 WBC (3.8-10.6) k/uL RBC (3.80-5.40) m/uL Hgb (11.4-16.0) gm/dL Hct (34.0-46.0) % MCV (80.0-100.0) fL MCH (25.0-35.0) pg MCHC (31.0-37.0) g/dL RDW (11.5-15.5) % Plt Count (150-450) k/uL Neutrophils % % Lymphocytes % % Monocytes % % Eosinophils % % Basophils % % Neutrophils # (1.3-7.7) k/uL Lymphocytes # (1.0-4.8) k/uL Monocytes # (0-1.0) k/uL Eosinophils # (0-0.7) k/uL Basophils # (0-0.2) k/uL Hypochromasia Sodium (137-145) mmol/L Potassium (3.5-5.1) mmol/L Chloride (98-107) mmol/L Carbon Dioxide (22-30) mmol/L Anion Gap mmol/L BUN (7-17) mg/dL Creatinine (0.52-1.04) mg/dL Est GFR (CKD-EPI)AfAm (>60 ml/min/1.73 sqM) Est GFR (CKD-EPI)NonAf (>60 ml/min/1.73 sqM) Glucose (74-99) mg/dL Calcium (8.4-10.2) mg/dL Total Bilirubin (0.2-1.3) mg/dL AST (14-36) U/L ALT (9-52) U/L Alkaline Phosphatase (38-126) U/L Total Protein (6.3-8.2) g/dL Albumin (3.5-5.0) g/dL Amylase (30-110) U/L Lipase (23-300) U/L Urine Color Yellow Urine Appearance Clear (Clear) Urine pH 6.5 (5.0-8.0) Ur Specific [place] 1.026 (1.001-1.035) Urine Protein Trace H (Negative) Urine Glucose (UA) Negative (Negative) Urine Ketones Negative (Negative) Urine Blood Large H (Negative) Urine Nitrite Negative (Negative) Urine Bilirubin Negative (Negative) Urine Urobilinogen 2.0 (<2.0) mg/dL Ur Leukocyte Esterase Moderate H (Negative) Urine RBC 130 H (0-5) /hpf Urine WBC 74 H (0-5) /hpf Urine Mucus Few H (None) /hpf Urine HCG, Qual (Not Detectd) Disposition Clinical Impression: Abdominal pain Disposition: HOME SELF-CARE Condition: Good Instructions: Abdominal Pain (ED) Is patient prescribed a controlled substance at d/c from ED?: No Referrals: Mariangel Schofield MD [Primary Care Provider] - 1-2 days Time of Disposition: 00:49
[2017-08-20 23:44] LABS: Basophils % (A) 0 %; Eosinophils # (A) 0.1 k/uL (0-0.7); Eosinophils % (A) 1 %; HCT 36.2 % (34.0-46.0); Hypochromasia Slight; Lymphocytes # (A) 3.2 k/uL (1.0-4.8); Lymphocytes % (A) 36 %; MCH 25.8 pg (25.0-35.0); MCHC 30.4 g/dL (31.0-37.0); MCV 84.9 fL (80.0-100.0); Mean Platelet Volume 9.3; Monocytes # (A) 0.4 k/uL (0-1.0); Monocytes % (A) 4 %; Neutrophils # (A) 5.1 k/uL (1.3-7.7); Neutrophils % (A) 57 %; Platelet Count 260 k/uL (150-450); RBC 4.27 m/uL (3.80-5.40)
[2017-08-20 23:56] LABS: ALT 25 U/L (9-52); AST 28 U/L (14-36); Albumin 4.2 g/dL (3.5-5.0); Alkaline Phosphatase 45 U/L (38-126); Amylase 72 U/L (30-110); Anion Gap 14 mmol/L; Blood Urea Nitrogen 18 mg/dL (7-17); Calcium 9.4 mg/dL (8.4-10.2); Carbon Dioxide 23 mmol/L (22-30); Chloride 108 mmol/L (98-107); Glucose 95 mg/dL (74-99); Lipase 234 U/L (23-300); Potassium 4.5 mmol/L (3.5-5.1); Sodium 145 mmol/L (137-145); Total Bilirubin 0.5 mg/dL (0.2-1.3); Total Protein 7.3 g/dL (6.3-8.2)
[2017-08-21 00:02] LABS: Appearance,Urine Clear (Clear); Bilirubin,Urine Negative (Negative); Blood,Urine Large (Negative); Color,Urine Yellow; Glucose,Urine (UA) Negative (Negative); Ketones,Urine Negative (Negative); Leukocyte Esterase,Urine Moderate (Negative); Mucus,Urine Few /hpf; Nitrite,Urine Negative (Negative); PH, Urine 6.5 (5.0-8.0); Protein,Urine Trace (Negative); RBC,Urine 130 /hpf (0-5); Specific Gravity,Urine 1.026 (1.001-1.035); WBC,Urine 74 /hpf (0-5)
--- NOTE | 2017-08-21 00:42 | XR ---
History abdominal pain. Comparison 03/29/2016. Technique 2 views. Upright abdomen. FINDINGS: There are clips from cholecystectomy. Lung bases are clear. Bowel gas pattern is normal. There is no sign of intestinal obstruction or pneumoperitoneum. Fecal pattern is normal. There is no evidence of a mass. There are no pathologic calcifications over the kidneys. CONCLUSION: Nonacute abdomen. No change.
[2017-08-21 01:16] VITALS: BP 113/58; PULSE 89; RESP 18; TEMP 98.7
== END 2017-08-21 01:16 | disposition home or self-care (01) ==
LOC: EC 22:51
DX: R10.13 Epigastric pain (principal); R11.10 Vomiting, unspecified; N93.9 Abnormal uterine and vaginal bleeding, unspecified; N83.209 Unspecified ovarian cyst, unspecified side; F32.9 Major depressive disorder, single episode, unspecified; F17.200 Nicotine dependence, unspecified, uncomplicated; Z79.899 Other long term (current) drug therapy; Z90.49 Acquired absence of other specified parts of digestive tract; Z98.51 Tubal ligation status
CPT/HCPCS: 36415; 80053; 82150; 83690; 85025; 81001; 81025; 87086; 74018; 99284; 96374; J2405

== ENCOUNTER 2017-08-27 19:56 | Emergency (ER) | payer OTHER ==
[2017-08-27 20:21] VITALS: BP 123/73; PULSE 64; RESP 18; TEMP 98.6
--- NOTE | 2017-08-27 21:25 | ED ---
ENT HPI - General Chief complaint: Dental/Oral Stated complaint: dental pain Time Seen by Provider: 08/27/17 21:15 Source: patient, RN notes reviewed Mode of arrival: ambulatory Limitations: no limitations - History of Present Illness Initial comments: This is a 32-year-old female who presents to the emergency department with chief complaint of dental pain. Patient states that approximately 3 days ago she fractured a left upper tooth. She states that since that time she has developed pain. Denies any drainage. Denies fevers or chills. She states that she does have an appointment scheduled with her dentist on September 08. She states that she has been taking ibuprofen with minimal relief. States that she has taken penicillin VK in the past with success. Denies chest pain or shortness of breath, abdominal pain, nausea or vomiting, radiation of pain to jaw or neck. - Related Data Home Medications Medication Instructions Recorded Confirmed buPROPion XL [Wellbutrin Xl] 150 mg PO DAILY 08/01/17 08/01/17 Previous Rx's Medication Instructions Recorded Ferrous Sulfate [Iron] 325 mg PO DAILY #20 tablet 08/01/17 traMADol HCl [Ultram] 50 mg PO Q4H PRN #12 tab 08/01/17 Penicillin V Potassium [Pen Vee K] 500 mg PO QID 10 Days tab 08/27/17 Allergies Allergy/AdvReac Type Severity Reaction Status Date / Time No Known Allergies Allergy Verified 08/27/17 20:21 Review of Systems ROS Statement: Those systems with pertinent positive or pertinent negative responses have been documented in the HPI. ROS Other: All systems not noted in ROS Statement are negative. Past Medical History Past Medical History: No Reported History Additional Past Medical History / Comment(s): KIDNEY STONES History of Any Multi-Drug Resistant Organisms: None Reported Past Surgical History: Section, Cholecystectomy, Tubal Ligation Past Psychological History: Depression Smoking Status: Current every day smoker Past Alcohol Use History: Occasional Past Drug Use History: None Reported General Exam - General Exam Comments Initial Comments: General: Awake and alert, well-developed; in no apparent distress. HEENT: Head atraumatic, normocephalic. Pupils are equal, round and reactive to light. Extraocular movements intact. Oropharynx moist without erythema or exudate. Tooth #12 is fractured. This is tender on palpation. No masses or areas of fluctuance on palpation of gumline. Neck: Supple. Normal ROM. Cardiovascular: Regular rate and rhythm. No murmurs, rubs or gallops. Chest symmetrical. Respiratory: Lungs clear to auscultation bilaterally. No wheezes, rales or rhonchi. Normal respiratory effort with no use of accessory muscles. Musculoskeletal: Normal ROM, no tenderness bilateral upper and lower extremities. Ambulating normally. Skin: [place], warm and dry without rashes or lesions. Neurological: Alert and oriented x3. CN II-XII grossly intact. Speech is fluent and answers are appropriate. No focal neuro deficits. Psychiatric: Normal mood and affect. No overt signs of depression or anxiety noted. Limitations: no limitations Course Vital Signs 08/27/17 20:20 Temperature 98.6 F Pulse Rate 64 Respiratory 18 Rate Blood Pressure 123/73 O2 Sat by Pulse 100 Oximetry Medical Decision Making - Medical Decision Making This is a 32-year-old female who presents to the emergency department with chief complaint of dental pain. Patient fractured tooth #12 approximately 3 days ago. She is now complaining of pain. No masses or areas of fluctuance noted. Patient will be started on penicillin VK. Recommended alternating use of Tylenol and Motrin for pain relief. She does have a follow-up appointment with her dentist scheduled for the end of the month. Recommended following up as scheduled. Patient's vital signs are stable and she is in no acute distress. She'll be discharged home at this time. All questions answered. Disposition Clinical Impression: Fracture of tooth Disposition: HOME SELF-CARE Condition: Good Instructions: Toothache (ED) Additional Instructions: May alternate the use of Tylenol and ibuprofen for pain relief. Please follow up with your dentist as scheduled. Please take medications as prescribed. Please follow up with primary care provider within 1-2 days. Return to emergency department if symptoms should worsen or any concerns arise. Prescriptions: Penicillin V Potassium [Pen Vee K] 500 mg PO QID 10 Days tab Is patient prescribed a controlled substance at d/c from ED?: No Referrals: Mariangel Schofield MD [Primary Care Provider] - 1-2 days Time of Disposition: 21:25
== END 2017-08-27 21:31 | disposition home or self-care (01) ==
LOC: EC 19:56
DX: S02.5XXA Fracture of tooth (traumatic), initial encounter for closed fracture (principal); F32.9 Major depressive disorder, single episode, unspecified; F17.200 Nicotine dependence, unspecified, uncomplicated; Z79.899 Other long term (current) drug therapy
CPT/HCPCS: 99282

== ENCOUNTER 2017-09-08 11:36 | Emergency (ER) | payer OTHER ==
--- NOTE | 2017-09-08 12:00 | ED ---
General Adult HPI - General Chief complaint: Chest Pain Stated complaint: Chest Pain Time Seen by Provider: 09/08/17 11:37 Source: patient, EMS, RN notes reviewed, old records reviewed Mode of arrival: EMS Limitations: no limitations - History of Present Illness Initial comments: 32 -year-old female presenting with right-sided thoracic chest pain and back pain. Patient denies any injury. Pain began approximately one hour prior to arrival. She did note some right anterior chest pain associated with this right arm pain. Denies any central chest pain. Denies difficulty breathing. Denies abdominal pain nausea or vomiting. Denies hematuria or dysuria. Denies fever or chills. Denies cough. - Related Data Previous Rx's Medication Instructions Recorded Ibuprofen [Motrin] 600 mg PO Q8HR PRN #24 tab 09/08/17 Allergies Allergy/AdvReac Type Severity Reaction Status Date / Time No Known Allergies Allergy Verified 09/08/17 12:31 Review of Systems ROS Statement: Those systems with pertinent positive or pertinent negative responses have been documented in the HPI. ROS Other: All systems not noted in ROS Statement are negative. Past Medical History Past Medical History: No Reported History Additional Past Medical History / Comment(s): KIDNEY STONES, PCOS History of Any Multi-Drug Resistant Organisms: None Reported Past Surgical History: Section, Cholecystectomy, Tubal Ligation Past Psychological History: Depression Smoking Status: Current every day smoker Past Alcohol Use History: Occasional Past Drug Use History: None Reported General Exam Limitations: no limitations General appearance: alert, in no apparent distress Head exam: Present: atraumatic, normocephalic Eye exam: Present: normal appearance, PERRL, EOMI ENT exam: Present: normal exam Neck exam: Present: normal inspection. Absent: tenderness, meningismus Respiratory exam: Present: normal lung sounds bilaterally. Absent: respiratory distress, wheezes, rales Cardiovascular Exam: Present: regular rate, normal rhythm GI/Abdominal exam: Present: soft. Absent: distended, tenderness Extremities exam: Present: normal inspection, normal capillary refill, other ( Right upper extremity, 2+ radial pulse, normal range of motion, no swelling or signs of infection). Absent: pedal edema Back exam: Present: paraspinal tenderness (Low thoracic paraspinal tenderness to palpation, no midline tenderness) Neurological exam: Present: alert, oriented X3, CN II-XII intact. Absent: motor sensory deficit Psychiatric exam: Present: normal affect, normal mood Skin exam: Present: warm, dry, intact. Absent: cyanosis, diaphoretic Course Vital Signs 09/08/17 09/08/17 11:37 13:15 Temperature 98.9 F Pulse Rate 67 73 Respiratory 18 18 Rate Blood Pressure 110/64 95/53 O2 Sat by Pulse 98 97 Oximetry EKG Findings - EKG Comments: EKG Findings:: EKG: Normal sinus rhythm, low voltage QRS no ST segment elevation. Ventricular rate 63, [place] interval 162 QRS duration 86, QTC 437 Medical Decision Making - Medical Decision Making 32-year-old female with thoracic paraspinal back pain. She did report some radiation to the right side of her chest and was brought in by EMS with chief complaint of chest pain. Pain originates in her back. It is worse with movement. It is reproducible on exam. Chest workup is obtained as patient did report this right-sided chest pain. This shows normal EKG chest x-ray is negative, no bony abnormality seen on chest x-ray. White blood cell count is 8.4, hemoglobin is 10.4 which appear stable for this patient. CMP within normal limits. Urinalysis is clear no signs of infection or hematuria, urine is negative. Patient will be prescribed Motrin. She will follow-up with her primary care physician. - Lab Data Result diagrams: 09/08/17 11:49 09/08/17 11:49 Lab Results 09/08/17 09/08/17 09/08/17 Range/Units 11:49 11:49 11:49 WBC 8.4 (3.8-10.6) k/uL RBC 3.85 (3.80-5.40) m/uL Hgb 10.4 L (11.4-16.0) gm/dL Hct 32.2 L (34.0-46.0) % MCV 83.7 (80.0-100.0) fL MCH 27.0 (25.0-35.0) pg MCHC 32.3 (31.0-37.0) g/dL RDW 15.0 (11.5-15.5) % Plt Count 239 (150-450) k/uL Neutrophils % 62 % Lymphocytes % 31 % Monocytes % 5 % Eosinophils % 1 % Basophils % 0 % Neutrophils # 5.2 (1.3-7.7) k/uL Lymphocytes # 2.6 (1.0-4.8) k/uL Monocytes # 0.4 (0-1.0) k/uL Eosinophils # 0.1 (0-0.7) k/uL Basophils # 0.0 (0-0.2) k/uL Hypochromasia Slight PT (9.0-12.0) sec INR (<1.2) APTT (22.0-30.0) sec Sodium 143 (137-145) mmol/L Potassium 3.6 (3.5-5.1) mmol/L Chloride 109 H (98-107) mmol/L Carbon Dioxide 21 L (22-30) mmol/L Anion Gap 13 mmol/L BUN 10 (7-17) mg/dL Creatinine 0.70 (0.52-1.04) mg/dL Est GFR (CKD-EPI)AfAm >90 (>60 ml/min/1.73 sqM) Est GFR (CKD-EPI)NonAf >90 (>60 ml/min/1.73 sqM) Glucose 98 (74-99) mg/dL Calcium 9.1 (8.4-10.2) mg/dL Magnesium 2.0 (1.6-2.3) mg/dL Total Bilirubin 0.8 (0.2-1.3) mg/dL AST 20 (14-36) U/L ALT 27 (9-52) U/L Alkaline Phosphatase 43 (38-126) U/L Total Creatine Kinase 89 (30-135) U/L CK-MB (CK-2) <0.2 (0.0-2.4) ng/mL CK-MB (CK-2) Rel Index Troponin I <0.012 (0.000-0.034) ng/mL Total Protein 6.5 (6.3-8.2) g/dL Albumin 3.7 (3.5-5.0) g/dL Urine Color Urine Appearance (Clear) Urine pH (5.0-8.0) Ur Specific [place] (1.001-1.035) Urine Protein (Negative) Urine Glucose (UA) (Negative) Urine Ketones (Negative) Urine Blood (Negative) Urine Nitrite (Negative) Urine Bilirubin (Negative) Urine Urobilinogen (<2.0) mg/dL Ur Leukocyte Esterase (Negative) Urine RBC (0-5) /hpf Urine WBC (0-5) /hpf Ur Squamous Epith Cells (0-4) /hpf Urine Mucus (None) /hpf Urine HCG, Qual (Not Detectd) 09/08/17 09/08/17 09/08/17 Range/Units 11:49 12:45 12:45 WBC (3.8-10.6) k/uL RBC (3.80-5.40) m/uL Hgb (11.4-16.0) gm/dL Hct (34.0-46.0) % MCV (80.0-100.0) fL MCH (25.0-35.0) pg MCHC (31.0-37.0) g/dL RDW (11.5-15.5) % Plt Count (150-450) k/uL Neutrophils % % Lymphocytes % % Monocytes % % Eosinophils % % Basophils % % Neutrophils # (1.3-7.7) k/uL Lymphocytes # (1.0-4.8) k/uL Monocytes # (0-1.0) k/uL Eosinophils # (0-0.7) k/uL Basophils # (0-0.2) k/uL Hypochromasia PT 10.9 (9.0-12.0) sec INR 1.1 (<1.2) APTT 27.0 (22.0-30.0) sec Sodium (137-145) mmol/L Potassium (3.5-5.1) mmol/L Chloride (98-107) mmol/L Carbon Dioxide (22-30) mmol/L Anion Gap mmol/L BUN (7-17) mg/dL Creatinine (0.52-1.04) mg/dL Est GFR (CKD-EPI)AfAm (>60 ml/min/1.73 sqM) Est GFR (CKD-EPI)NonAf (>60 ml/min/1.73 sqM) Glucose (74-99) mg/dL Calcium (8.4-10.2) mg/dL Magnesium (1.6-2.3) mg/dL Total Bilirubin (0.2-1.3) mg/dL AST (14-36) U/L ALT (9-52) U/L Alkaline Phosphatase (38-126) U/L Total Creatine Kinase (30-135) U/L CK-MB (CK-2) (0.0-2.4) ng/mL CK-MB (CK-2) Rel Index Troponin I (0.000-0.034) ng/mL Total Protein (6.3-8.2) g/dL Albumin (3.5-5.0) g/dL Urine Color Yellow Urine Appearance Clear (Clear) Urine pH 7.0 (5.0-8.0) Ur Specific [place] 1.019 (1.001-1.035) Urine Protein Negative (Negative) Urine Glucose (UA) Negative (Negative) Urine Ketones Negative (Negative) Urine Blood Negative (Negative) Urine Nitrite Negative (Negative) Urine Bilirubin Negative (Negative) Urine Urobilinogen 3.0 (<2.0) mg/dL Ur Leukocyte Esterase Small H (Negative) Urine RBC 1 (0-5) /hpf Urine WBC 9 H (0-5) /hpf Ur Squamous Epith Cells <1 (0-4) /hpf Urine Mucus Occasional H (None) /hpf Urine HCG, Qual Not Detected (Not Detectd) Disposition Clinical Impression: Back pain, Mechanical back pain Disposition: HOME SELF-CARE Instructions: Chest Pain (ED), Back Pain (ED) Prescriptions: Ibuprofen [Motrin] 600 mg PO Q8HR PRN #24 tab PRN Reason: Pain Is patient prescribed a controlled substance at d/c from ED?: No Referrals: Mariangel Schofield MD [Primary Care Provider] - 1-2 days Time of Disposition: 14:24
[2017-09-08 12:01] LABS: Basophils % (A) 0 %; Eosinophils # (A) 0.1 k/uL (0-0.7); Eosinophils % (A) 1 %; HCT 32.2 % (34.0-46.0); HGB 10.4 gm/dL (11.4-16.0); Hypochromasia Slight; Lymphocytes # (A) 2.6 k/uL (1.0-4.8); Lymphocytes % (A) 31 %; MCHC 32.3 g/dL (31.0-37.0); MCV 83.7 fL (80.0-100.0); Monocytes # (A) 0.4 k/uL (0-1.0); Monocytes % (A) 5 %; Neutrophils # (A) 5.2 k/uL (1.3-7.7); Neutrophils % (A) 62 %; Platelet Count 239 k/uL (150-450); RBC 3.85 m/uL (3.80-5.40); WBC 8.4 k/uL (3.8-10.6)
[2017-09-08 12:08] LABS: ALT 27 U/L (9-52); AST 20 U/L (14-36); Albumin 3.7 g/dL (3.5-5.0); Alkaline Phosphatase 43 U/L (38-126); Anion Gap 13 mmol/L; Blood Urea Nitrogen 10 mg/dL (7-17); Calcium 9.1 mg/dL (8.4-10.2); Carbon Dioxide 21 mmol/L (22-30); Chloride 109 mmol/L (98-107); Glucose 98 mg/dL (74-99); Potassium 3.6 mmol/L (3.5-5.1); Sodium 143 mmol/L (137-145); Total Bilirubin 0.8 mg/dL (0.2-1.3); Total Protein 6.5 g/dL (6.3-8.2)
[2017-09-08 12:14] LABS: INR 1.1 (<1.2); Prothrombin Time 10.9 sec (9.0-12.0)
[2017-09-08 12:31] LABS: Creatine Kinase 89 U/L (30-135)
[2017-09-08 12:44] LABS: Creatine Kinase MB <0.2 ng/mL (0.0-2.4); Troponin I <0.012 ng/mL (0.000-0.034)
[2017-09-08 13:04] LABS: Appearance,Urine Clear (Clear); Bilirubin,Urine Negative (Negative); Blood,Urine Negative (Negative); Color,Urine Yellow; Glucose,Urine (UA) Negative (Negative); Ketones,Urine Negative (Negative); Leukocyte Esterase,Urine Small (Negative); Mucus,Urine Occasional /hpf; Nitrite,Urine Negative (Negative); Protein,Urine Negative (Negative); RBC,Urine 1 /hpf (0-5); Specific Gravity,Urine 1.019 (1.001-1.035); Squamous Epithelial Cell,Urine <1 /hpf (0-4); WBC,Urine 9 /hpf (0-5)
--- NOTE | 2017-09-08 13:38 | XR ---
EXAMINATION TYPE: XR chest 2V DATE OF EXAM: 09/08/2017 COMPARISON: 02/18/2016 HISTORY: Chest and abdominal pain TECHNIQUE: Frontal and lateral views of the chest are obtained. FINDINGS: There is no focal air space opacity, pleural effusion, or pneumothorax seen. The cardiac silhouette size is within normal limits. The osseous structures are intact. IMPRESSION: No acute cardiopulmonary process, unchanged from the prior.
--- NOTE | 2017-09-08 13:53 | XR ---
Abdomen HISTORY: Pain Frontal view of the abdomen on 2 images correlated to prior exam 08/21/2017 There is no interval change. Mild spinal curvature noted. No evident bowel obstruction or pneumoperit oneum. Lung bases are clear. IMPRESSION: No significant abnormalities evident.
[2017-09-08 14:33] VITALS: BP 97/56; PULSE 60; RESP 16; TEMP 97.9
== END 2017-09-08 14:33 | disposition home or self-care (01) ==
LOC: EC 11:36
DX: M54.6 Pain in thoracic spine (principal); R07.89 Other chest pain; M79.601 Pain in right arm; F17.200 Nicotine dependence, unspecified, uncomplicated
CPT/HCPCS: 36415; 71046; 74018; 80053; 81001; 81025; 82550; 82553; 83735; 84484; 85025; 85610; 85730; 93005; 99285

== ENCOUNTER 2017-10-01 20:43 | Emergency (ER) | payer OTHER ==
[2017-10-01 21:19] VITALS: BP 115/76; PULSE 62; RESP 18; TEMP 98.4
--- NOTE | 2017-10-01 22:07 | ED ---
General Adult HPI - General Chief complaint: Dental/Oral Stated complaint: tooth ache Time Seen by Provider: 10/01/17 21:36 Source: patient, RN notes reviewed Mode of arrival: ambulatory Limitations: no limitations - History of Present Illness Initial comments: 32-year-old female presents to the emergency department for chief complaint of tooth pain 2 days. Patient states it is painful with hot and cold and to touch. Patient has been taking Motrin and Tylenol which helps somewhat with the pain. Patient denies swelling in the face. Patient denies difficulty swallowing or trouble breathing. Patient denies pain or stiffness in the neck. Patient states she does have a dentist and an appointment in 3 weeks. Patient denies fevers or chills at home. Patient has no other complaints at this time including shortness of breath, chest pain, abdominal pain, nausea or vomiting, headache, or visual changes. - Related Data Previous Rx's Medication Instructions Recorded Ibuprofen [Motrin] 600 mg PO Q8HR PRN #24 tab 09/08/17 Penicillin V Potassium [Pen Vee K] 500 mg PO Q6H 10 Days tablet 10/01/17 Allergies Allergy/AdvReac Type Severity Reaction Status Date / Time No Known Allergies Allergy Verified 10/01/17 21:19 Review of Systems ROS Statement: Those systems with pertinent positive or pertinent negative responses have been documented in the HPI. ROS Other: All systems not noted in ROS Statement are negative. Past Medical History Past Medical History: No Reported History Additional Past Medical History / Comment(s): KIDNEY STONES, PCOS History of Any Multi-Drug Resistant Organisms: None Reported Past Surgical History: Section, Cholecystectomy, Tubal Ligation Past Psychological History: Depression Smoking Status: Current every day smoker Past Alcohol Use History: Occasional Past Drug Use History: None Reported General Exam Limitations: no limitations General appearance: alert, in no apparent distress Head exam: Present: atraumatic, normocephalic, normal inspection Eye exam: Present: normal appearance, PERRL, EOMI. Absent: scleral icterus, conjunctival injection, periorbital swelling ENT exam: Present: mucous membranes moist, TM's normal bilaterally, normal external ear exam. Absent: normal oropharynx (Patient has a fractured tooth 31. No drainable abscess noted. Uvula midline. Throat patent), other (No swelling of the jaw face or neck) Neck exam: Present: normal inspection, full ROM (Full flexion and extension and rotation of the neck.). Absent: tenderness (No tenderness in the anterior or posterior neck. No tenderness in the cervical spine.), meningismus, lymphadenopathy Respiratory exam: Present: normal lung sounds bilaterally. Absent: respiratory distress, wheezes, rales, rhonchi, stridor Cardiovascular Exam: Present: regular rate, normal rhythm, normal heart sounds. Absent: systolic murmur, diastolic murmur, rubs, gallop, clicks Course Vital Signs 10/01/17 21:13 Temperature 98.4 F Pulse Rate 62 Respiratory 18 Rate Blood Pressure 115/76 O2 Sat by Pulse 99 Oximetry Medical Decision Making - Medical Decision Making 32-year-old female presents to the emergency department for a chief complaint of dental pain 2 days. Patient states she has a cracked tooth. Patient denies fevers or chills at home. No pain or stiffness in the neck. No swelling in the face. On exam there is a fractured tooth 31. No drainable abscess noted. Patient is afebrile in the emergency department. She will be treated with penicillin. She is to continue Motrin and Tylenol for pain. She is aware she can use ice as well on the area. Patient will try to call dentist to move appointment up. She will return to the emergency Department if she develops any worsening symptoms. Return precautions were discussed. Disposition Clinical Impression: Tooth infection Disposition: HOME SELF-CARE Condition: Good Instructions: Toothache (ED) Additional Instructions: Please take antibiotic as directed. Continue to take both Motrin and Tylenol for pain. Please follow-up with dentist at your appointment. Try to see if they will move the appointment up. Return to the emergency department if you have any worsening symptoms including fever or pain/stiffness in the neck. Prescriptions: Penicillin V Potassium [Pen Vee K] 500 mg PO Q6H 10 Days tablet Is patient prescribed a controlled substance at d/c from ED?: No Referrals: Joe Mendieta DO [STAFF PHYSICIAN] - 1-2 days Time of Disposition: 22:04
== END 2017-10-01 22:13 | disposition home or self-care (01) ==
LOC: EC 20:43
DX: K04.7 Periapical abscess without sinus (principal); S02.5XXA Fracture of tooth (traumatic), initial encounter for closed fracture; F17.200 Nicotine dependence, unspecified, uncomplicated; X58.XXXA Exposure to other specified factors, initial encounter
CPT/HCPCS: 99282

== ENCOUNTER 2018-01-14 17:39 | Emergency (ER) | payer OTHER ==
[2018-01-14 17:57] VITALS: BP 112/82; PULSE 64; RESP 20; TEMP 98.7
[2018-01-14] MEDS ORDERED: SODIUM CHLORIDE 0.9% 1,000 ML IV STA (19:57)
--- NOTE | 2018-01-15 15:14 | ED ---
General Adult HPI - General Chief complaint: Dizziness Stated complaint: Syncope/Dizzy/Finger Injury Time Seen by Provider: 01/14/18 19:38 Source: patient, RN notes reviewed Mode of arrival: ambulatory Limitations: no limitations - History of Present Illness Initial comments: 33-year-old female with a past medical history of PCOS and kidney stones presents to the emergency department for a chief complaint of syncope and hand injury. Patient states she has been feeling dizzy and was walking down stairs when she became syncopal. Patient states she believes she lost consciousness. Patient states she fell down about 5 stairs injuring her left hand. She states her left third finger is hurting her the most. Patient denies neck pain or head pain. Patient denies any back pain. Patient denies any headache. Patient has no other complaints at this time including shortness of breath, chest pain, abdominal pain, nausea or vomiting, headache, or visual changes. - Related Data Previous Rx's Medication Instructions Recorded Ibuprofen [Motrin] 600 mg PO Q8HR PRN #24 tab 09/08/17 Penicillin V Potassium [Pen Vee K] 500 mg PO Q6H 10 Days tablet 10/01/17 Allergies Allergy/AdvReac Type Severity Reaction Status Date / Time No Known Allergies Allergy Verified 01/14/18 17:57 Review of Systems ROS Statement: Those systems with pertinent positive or pertinent negative responses have been documented in the HPI. ROS Other: All systems not noted in ROS Statement are negative. Past Medical History Past Medical History: No Reported History Additional Past Medical History / Comment(s): KIDNEY STONES, PCOS History of Any Multi-Drug Resistant Organisms: None Reported Past Surgical History: Section, Cholecystectomy, Tubal Ligation Past Psychological History: Depression Smoking Status: Current every day smoker Past Alcohol Use History: Occasional Past Drug Use History: None Reported General Exam Limitations: no limitations General appearance: alert, in no apparent distress Head exam: Present: atraumatic, normocephalic, normal inspection Eye exam: Present: normal appearance, PERRL, EOMI. Absent: scleral icterus, conjunctival injection, periorbital swelling ENT exam: Present: normal exam, normal oropharynx, mucous membranes moist, TM's normal bilaterally, normal external ear exam Neck exam: Present: normal inspection, full ROM. Absent: tenderness, meningismus, lymphadenopathy Respiratory exam: Present: normal lung sounds bilaterally. Absent: respiratory distress, wheezes, rales, rhonchi, stridor Cardiovascular Exam: Present: regular rate, normal rhythm, normal heart sounds. Absent: systolic murmur, diastolic murmur, rubs, gallop, clicks GI/Abdominal exam: Present: soft, normal bowel sounds. Absent: distended, tenderness, guarding, rebound, rigid Extremities exam: Present: tenderness (Tenderness of the proximal phalanx of the left third digit. No scaphoid tenderness), normal capillary refill ( Capillary refill less than 2 seconds and radial pulse 2+), joint swelling (Mild edema noted over the left third proximal phalanx.), other (Sensation intact in the left upper extremity). Absent: full ROM (Patient has limited flexion of the left third finger. Otherwise full range of motion in the left hand. Full extension of the left third finger.) Neurological exam: Present: alert, oriented X3, CN II-XII intact Expanded Patient oriented to: Present: person, place, time Speech: Present: fluid speech Cranial nerves: EOM's Intact: Normal, Tongue Deviation: Normal, Nystagmus: Normal, Facial Sensation: Normal Cerebellar function: Finger to Nose: Normal, Heel to Hdez: Normal, Romberg: Normal Upper motor neuron: Pronator Drift: Normal Sensory exam: Upper Extremity Light Touch: Normal, Upper Extremity Pin Prick: Normal, Lower Extremity Light Touch: Normal, Lower Extremity Pin Prick: Normal Motor strength exam: RUE: 5, LUE: 5, RLE: 5, LLE: 5 Eye Response: (4) open spontaneously Motor Response: (6) obeys commands Verbal Response: (5) oriented Randall Total: 15 Psychiatric exam: Present: normal affect, normal mood Course Vital Signs 01/14/18 17:55 Temperature 98.7 F Pulse Rate 64 Respiratory 20 Rate Blood Pressure 112/82 O2 Sat by Pulse 99 Oximetry Medical Decision Making - Medical Decision Making CBC, CMP, urinalysis, hCG, x-rays and CT were ordered. Patient left before labs were drawn or imaging was started. Disposition Clinical Impression: Syncope Narrative: patient left ER without telling any staff Disposition: Left Against Medical Advice Referrals: None,Stated [Primary Care Provider] - 1-2 days Time of Disposition: 15:12
== END 2018-01-14 20:45 | disposition left against medical advice (07) ==
LOC: EC 17:39
DX: R55 Syncope and collapse (principal); R60.0 Localized edema; S69.92XA Unspecified injury of left wrist, hand and finger(s), initial encounter; F17.200 Nicotine dependence, unspecified, uncomplicated; W10.9XXA Fall (on) (from) unspecified stairs and steps, initial encounter; Y93.01 Activity, walking, marching and hiking
CPT/HCPCS: 99284

== ENCOUNTER 2018-02-09 12:40 | Emergency (ER) | payer OTHER ==
[2018-02-09 12:55] VITALS: BP 127/76; PULSE 76; RESP 18; TEMP 98.4
--- NOTE | 2018-02-09 13:04 | ED ---
Upper Extremity HPI - General Chief Complaint: Extremity Injury, Upper Stated Complaint: Finger pain Time Seen by Provider: 02/09/18 12:49 Source: patient, RN notes reviewed Mode of arrival: ambulatory Limitations: no limitations - History of Present Illness Initial Comments: This a 33-year-old female presents emergency department for evaluation of her right hand third digit finger. Patient states she injured it 2 weeks ago while at work. Patient states that she needs a letter stating that she can return to work for her finger pain. Patient states that machine came down and clamp dominant. She states that it was sore along the DIP region but she has no pain just for range of motion denies any paresthesias states that she has no complaints but need to return to work note - Related Data Previous Rx's Medication Instructions Recorded Ibuprofen [Motrin] 600 mg PO Q8HR PRN #24 tab 09/08/17 Penicillin V Potassium [Pen Vee K] 500 mg PO Q6H 10 Days tablet 10/01/17 Allergies Allergy/AdvReac Type Severity Reaction Status Date / Time No Known Allergies Allergy Verified 01/14/18 17:57 Review of Systems ROS Statement: Those systems with pertinent positive or pertinent negative responses have been documented in the HPI. ROS Other: All systems not noted in ROS Statement are negative. Past Medical History Past Medical History: No Reported History Additional Past Medical History / Comment(s): KIDNEY STONES, PCOS History of Any Multi-Drug Resistant Organisms: None Reported Past Surgical History: Section, Cholecystectomy, Tubal Ligation Past Psychological History: Depression Smoking Status: Current every day smoker Past Alcohol Use History: Occasional Past Drug Use History: None Reported General Exam General appearance: alert, in no apparent distress Respiratory exam: Present: normal lung sounds bilaterally. Absent: respiratory distress, wheezes, rales, rhonchi, stridor Cardiovascular Exam: Present: regular rate, normal rhythm, normal heart sounds. Absent: systolic murmur, diastolic murmur, rubs, gallop, clicks Extremities exam: Present: other (Right hand third digit full range of motion nontender neurovascular intact no obvious deformity Refill less than 2 seconds of all digits full strength) Course Vital Signs 02/09/18 12:52 Temperature 98.4 F Pulse Rate 76 Respiratory 18 Rate Blood Pressure 127/76 O2 Sat by Pulse 98 Oximetry Medical Decision Making - Medical Decision Making 33-year-old female presented for re-evaluation of her finger injury. Patient has no symptoms patient will be discharged with return to work note. Disposition Clinical Impression: Sprain of finger, right Disposition: HOME SELF-CARE Condition: Stable Instructions: Hand Sprain (ED) Additional Instructions: Please return to the Emergency Department if symptoms worsen or any other concerns. Is patient prescribed a controlled substance at d/c from ED?: No Referrals: None,Stated [Primary Care Provider] - 1-2 days Time of Disposition: 13:04
== END 2018-02-09 13:21 | disposition home or self-care (01) ==
LOC: EC 12:40
DX: S63.612A Unspecified sprain of right middle finger, initial encounter (principal); F17.200 Nicotine dependence, unspecified, uncomplicated; Z90.49 Acquired absence of other specified parts of digestive tract; Z98.51 Tubal ligation status; X58.XXXA Exposure to other specified factors, initial encounter; Y92.69 Other specified industrial and construction area as the place of occurrence of the external cause; Y99.0 Civilian activity done for income or pay
CPT/HCPCS: 99283

== ENCOUNTER 2018-03-08 15:06 | Emergency (ER) | payer OTHER ==
[2018-03-08 15:16] VITALS: BP 108/73; PULSE 60; RESP 20; TEMP 97.3
--- NOTE | 2018-03-08 15:54 | ED ---
URI HPI - General Chief Complaint: Upper Respiratory Infection Stated Complaint: Sore throat Time Seen by Provider: 03/08/18 15:24 Source: patient, RN notes reviewed Mode of arrival: ambulatory Limitations: no limitations - History of Present Illness Initial Comments: 33-year-old female presents emergency Department chief complaint cough congestion. Patient states symptoms have been present for last 5-6 days with no improvement. She states are worsening. She has tried Mucinex, Robitussin. She states she's had multiple sick contacts. No fever no chills. She states she has no chest pain or shortness of breath. Primary complains of nasal congestion sore throat. She states sore throat improves for the day. Patient has normal drug ALLERGIES. - Related Data Previous Rx's Medication Instructions Recorded Amoxicillin/Potassium Clav 1 tab PO Q12HR #20 tab 03/08/18 [Augmentin 875-125 Tablet] Allergies Allergy/AdvReac Type Severity Reaction Status Date / Time coconut Allergy Unknown Verified 03/08/18 15:16 Review of Systems ROS Statement: Those systems with pertinent positive or pertinent negative responses have been documented in the HPI. ROS Other: All systems not noted in ROS Statement are negative. Past Medical History Past Medical History: No Reported History Additional Past Medical History / Comment(s): KIDNEY STONES, PCOS History of Any Multi-Drug Resistant Organisms: None Reported Past Surgical History: Section, Cholecystectomy, Tubal Ligation Past Psychological History: Depression Smoking Status: Current every day smoker Past Alcohol Use History: Occasional Past Drug Use History: None Reported General Exam Limitations: no limitations General appearance: alert, in no apparent distress Head exam: Present: atraumatic, normocephalic, normal inspection Eye exam: Present: normal appearance, PERRL, EOMI. Absent: scleral icterus, conjunctival injection, periorbital swelling ENT exam: Present: mucous membranes moist, TM's normal bilaterally, normal external ear exam. Absent: normal oropharynx (Postnasal drainage) Neck exam: Present: normal inspection, full ROM. Absent: tenderness, meningismus, lymphadenopathy Respiratory exam: Present: normal lung sounds bilaterally. Absent: respiratory distress, wheezes, rales, rhonchi, stridor Cardiovascular Exam: Present: regular rate, normal rhythm, normal heart sounds. Absent: systolic murmur, diastolic murmur, rubs, gallop, clicks GI/Abdominal exam: Present: soft, normal bowel sounds. Absent: distended, tenderness, guarding, rebound, rigid Neurological exam: Present: alert, oriented X3, CN II-XII intact Skin exam: Present: warm, dry, intact, normal color. Absent: rash Course Vital Signs 03/08/18 15:14 Temperature 97.3 F L Pulse Rate 60 Respiratory 20 Rate Blood Pressure 108/73 O2 Sat by Pulse 99 Oximetry Medical Decision Making - Medical Decision Making 33-year-old female presented from for URI symptoms. Patient was treated for acute sinusitis, bronchitis. Patient started on Augmentin. Patient will continue tjyh-fdk-hjkmift medications. Return parameters were discussed. Disposition Clinical Impression: Bronchitis, Sinusitis Disposition: HOME SELF-CARE Condition: Stable Instructions: Upper Respiratory Infection (ED) Additional Instructions: Please return to the Emergency Department if symptoms worsen or any other concerns. Prescriptions: Amoxicillin/Potassium Clav [Augmentin 875-125 Tablet] 1 tab PO Q12HR #20 tab Is patient prescribed a controlled substance at d/c from ED?: No Referrals: None,Stated [Primary Care Provider] - 1-2 days Time of Disposition: 15:54
== END 2018-03-08 15:59 | disposition home or self-care (01) ==
LOC: EC 15:06
DX: J40 Bronchitis, not specified as acute or chronic (principal); J32.9 Chronic sinusitis, unspecified; F17.200 Nicotine dependence, unspecified, uncomplicated; Z91.018 Allergy to other foods
CPT/HCPCS: 99282

== ENCOUNTER 2018-03-30 03:51 | Emergency (ER) | payer OTHER ==
--- NOTE | 2018-03-30 04:06 | ED ---
Lower Extremity Injury HPI - General Chief Complaint: Extremity Injury, Lower Stated Complaint: ankle pain Time Seen by Provider: 03/30/18 04:05 Source: patient Mode of arrival: ambulatory Limitations: no limitations - History of Present Illness Initial Comments: Patient is a obese 33-year-old female who since the emergency department today for evaluation of left ankle pain. Patient had a ankle fracture last month, she is subsequently placed in a boot, patient states that today she did not want to wear her boot so she took it off. She says while he stepped off a curb funny and reports that she rolled her ankle. She's noticed some swelling and worsening pain in her ankle and wanted to have it reevaluated to ensure she didn 't break it again. - Related Data Home Medications Medication Instructions Recorded Confirmed QUEtiapine FUMARATE [SEROquel XR] 50 mg PO HS 03/30/18 03/30/18 buPROPion XL [Wellbutrin Xl] 150 mg PO DAILY 03/30/18 03/30/18 Allergies Allergy/AdvReac Type Severity Reaction Status Date / Time coconut Allergy Unknown Verified 03/08/18 15:16 Review of Systems ROS Statement: Those systems with pertinent positive or pertinent negative responses have been documented in the HPI. ROS Other: All systems not noted in ROS Statement are negative. Past Medical History Past Medical History: No Reported History Additional Past Medical History / Comment(s): KIDNEY STONES, PCOS History of Any Multi-Drug Resistant Organisms: None Reported Past Surgical History: Section, Cholecystectomy, Tubal Ligation Past Psychological History: Depression Smoking Status: Current every day smoker Past Alcohol Use History: Occasional Past Drug Use History: None Reported General Exam - General Exam Comments Initial Comments: Physical Exam GENERAL: Patient is well-developed and well-nourished. Patient is nontoxic and well- hydrated and is in no distress. HENT: Normocephalic, Atraumatic. EYES: PERRL, EOMI PULMONARY: Unlabored respirations. No audible rales rhonchi or wheezing was noted. CARDIOVASCULAR: There is a regular rate and rhythm without any murmurs gallops or rubs. ABDOMEN: Soft and nontender with normal bowel sounds. SKIN: Skin is clear with no lesions or rashes and otherwise unremarkable. : Deferred NEUROLOGIC: Patient is alert and oriented x3. Moving all extremities spontaneously MUSCULOSKELETAL: Normal extremities with adequate strength and full range of motion. Swelling of the left ankle, tenderness over the ATF PSYCHIATRIC: Normal psychiatric evaluation. Limitations: no limitations Limitations: no limitations Course Vital Signs 03/30/18 03/30/18 03:55 04:14 Temperature 97.7 F 97.8 F Pulse Rate 69 63 Respiratory 18 18 Rate Blood Pressure 103/71 117/67 O2 Sat by Pulse 100 99 Oximetry Medical Decision Making - Medical Decision Making The patient was seen and evaluated history is obtained from the patient X-ray was obtained which revealed no acute fracture or soft tissue swelling consistent with a sprain Patient does have booted bedside, was advised to wear the boot and follow-up with orthopedics. Rest, ice, compression and elevation were discussed. All questions pertaining to care were answered and the patient was discharged home in stable condition. Disposition Clinical Impression: Ankle sprain and strain Disposition: HOME SELF-CARE Instructions: Ankle Sprain (ED) Is patient prescribed a controlled substance at d/c from ED?: No Referrals: Mariangel Schofield MD [Primary Care Provider] - 1-2 days [facility] [Provider Group] - 1-2 days Time of Disposition: 04:43
--- NOTE | 2018-03-30 04:25 | XR ---
EXAMINATION TYPE: XR ankle limited LT DATE OF EXAM: 03/30/2018 COMPARISON: 02/23/2018 HISTORY: Ankle pain TECHNIQUE: 3 views. FINDINGS: There is soft tissue swelling over the lateral malleolus. Ankle mortise is anatomic. I see no fractu re nor dislocation. IMPRESSION: Soft tissue swelling. No fracture. Small plantar calcaneal spur.
[2018-03-30 05:10] VITALS: BP 123/73; PULSE 82; RESP 16; TEMP 98
== END 2018-03-30 05:10 | disposition home or self-care (01) ==
LOC: EC 03:51
DX: S96.912A Strain of unspecified muscle and tendon at ankle and foot level, left foot, initial encounter (principal); S93.402A Sprain of unspecified ligament of left ankle, initial encounter; F32.9 Major depressive disorder, single episode, unspecified; E66.9 Obesity, unspecified; Z68.32 Body mass index [BMI] 32.0-32.9, adult; F17.200 Nicotine dependence, unspecified, uncomplicated; Z79.899 Other long term (current) drug therapy; Z91.018 Allergy to other foods; X50.1XXA Overexertion from prolonged static or awkward postures, initial encounter
CPT/HCPCS: 99283

== ENCOUNTER → 2018-05-23 | Outpatient (CLI) | payer OTHER ==
[2018-05-23 10:04] LABS: Basophils # (A) 0.1 k/uL (0-0.2); Basophils % (A) 1 %; Eosinophils # (A) 0.2 k/uL (0-0.7); Eosinophils % (A) 2 %; HCT 32.3 % (34.0-46.0); HGB 9.6 gm/dL (11.4-16.0); Hypochromasia Marked; Lymphocytes % (A) 36 %; MCH 24.7 pg (25.0-35.0); MCHC 29.7 g/dL (31.0-37.0); MCV 83.2 fL (80.0-100.0); Mean Platelet Volume 8.5; Monocytes # (A) 0.3 k/uL (0-1.0); Monocytes % (A) 4 %; Neutrophils # (A) 4.6 k/uL (1.3-7.7); Neutrophils % (A) 56 %; Platelet Count 263 k/uL (150-450); RBC 3.88 m/uL (3.80-5.40); RDW 15.2 % (11.5-15.5); WBC 8.3 k/uL (3.8-10.6)
[2018-05-23 15:55] LABS: Albumin/Globulin Ratio 1.67 (1.60-3.17); Anion Gap 7.2 mmol/L (4.00-12.00); Carbon Dioxide 24.8 mmol/L (21.6-31.8); Globulin 2.4 g/dL (1.6-3.3); LDL Cholesterol,Calculated 53.4 mg/dL (0.0-131.0); Total Bilirubin 0.4 mg/dL (0.3-1.2); Total Protein 6.4 g/dL (6.2-8.2); VLDL Calculation 11.6 mg/dL (5.00-40.00)
[2018-05-23 16:55] LABS: HIV 1 AB Non-Reactive (Non-Reactive); HIV AB P24 Non-Reactive (Non-Reactive); HIV P24 AG Non-Reactive (Non-Reactive)
== END | disposition home or self-care (01) ==
LOC: LABWHC1 09:06
PROVIDERS: ATTEND Nurse Practitioner Family
DX: K59.01 Slow transit constipation (principal); F41.8 Other specified anxiety disorders; Z72.51 High risk heterosexual behavior
CPT/HCPCS: 36415; 80053; 80061; 82306; 84439; 84443; 85025; 86592; 86780; 87390

== ENCOUNTER 2018-08-29 08:56 | Emergency (ER) | payer OTHER ==
[2018-08-29] MEDS ORDERED: KETOROLAC 30 MG/ML 1 ML VIAL IVP STA (09:18)
[2018-08-29] MEDS ORDERED: PANTOPRAZOLE 40 MG/10 ML VIAL IVP STA (09:18)
[2018-08-29] MEDS ORDERED: SODIUM CHLORIDE 0.9% 1,000 ML IV STA (09:18)
[2018-08-29] MEDS ORDERED: ONDANSETRON 4 MG/2 ML VIAL IVP STA (09:18)
[2018-08-29] MEDS ORDERED: MAG HYDROX/AL HYDROX/SIMETH 30 ML, HYOSCYAMINE ELIXIR 10 ML, CIMETIDINE HCL 300 MG, LID... PO STA ×4 (09:20)
--- NOTE | 2018-08-29 09:27 | ED ---
Abdominal Pain HPI - General Chief Complaint: Abdominal Pain Stated Complaint: side & back pain Time Seen by Provider: 08/29/18 09:06 Source: patient, RN notes reviewed, old records reviewed Mode of arrival: ambulatory Limitations: no limitations - History of Present Illness Initial Comments: 33-year-old female presents unresponsive for evaluation for right upper quadrant and back pain. Patient states the symptoms started over the past 3 days. Patie nt history of kidney stones and PCOS. Patient states that her gallbladder is removed. She complains of nausea. She denies any associated waxing waning symptoms, and states that her pain feels different than previous kidney stones. Patient states that she's had normal urination and normal stools. Patient states that she has had frequent heartburn. She denies any chest pain or associated shortness of breath. - Related Data Previous Rx's Medication Instructions Recorded Cephalexin [Keflex] 500 mg PO Q8HR #30 cap 08/29/18 Famotidine [Pepcid] 20 mg PO BID #20 tablet 08/29/18 Ibuprofen [Motrin] 600 mg PO Q8HR PRN #20 tab 08/29/18 Ondansetron Odt [Zofran Odt] 4 mg PO Q8HR PRN #20 tab 08/29/18 Allergies Allergy/AdvReac Type Severity Reaction Status Date / Time coconut Allergy Unknown Verified 08/29/18 09:36 Review of Systems ROS Statement: Those systems with pertinent positive or pertinent negative responses have been documented in the HPI. ROS Other: All systems not noted in ROS Statement are negative. Past Medical History Past Medical History: No Reported History Additional Past Medical History / Comment(s): KIDNEY STONES, PCOS History of Any Multi-Drug Resistant Organisms: None Reported Past Surgical History: Section, Cholecystectomy, Tubal Ligation Past Psychological History: Depression Smoking Status: Current every day smoker Past Alcohol Use History: Occasional Past Drug Use History: None Reported General Exam - General Exam Comments Initial Comments: 33-year-old female. Alert and oriented. No distress. Limitations: no limitations Head exam: Present: atraumatic, normocephalic, normal inspection Eye exam: Present: normal appearance, PERRL, EOMI. Absent: scleral icterus, conjunctival injection, periorbital swelling ENT exam: Present: normal exam, mucous membranes moist Neck exam: Present: normal inspection. Absent: tenderness, meningismus, lymphadenopathy Respiratory exam: Present: normal lung sounds bilaterally. Absent: respiratory distress, wheezes, rales, rhonchi, stridor Cardiovascular Exam: Present: regular rate, normal rhythm, normal heart sounds. Absent: systolic murmur, diastolic murmur, rubs, gallop, clicks GI/Abdominal exam: Present: soft, tenderness (Epigastric tenderness, right upper quadrant and right flank tenderness), normal bowel sounds. Absent: distended, guarding, rebound, rigid Extremities exam: Present: normal inspection, full ROM, normal capillary refill. Absent: tenderness, pedal edema, joint swelling, calf tenderness Back exam: Present: normal inspection Neurological exam: Present: alert, oriented X3, CN II-XII intact Psychiatric exam: Present: normal affect, normal mood Skin exam: Present: warm, dry, intact, normal color. Absent: rash Course Vital Signs 08/29/18 09:03 Temperature 98.2 F Pulse Rate 69 Respiratory 20 Rate Blood Pressure 120/77 O2 Sat by Pulse 99 Oximetry Medical Decision Making - Medical Decision Making 33-year-old female presents today for evaluation for right sided back pain and abdominal pain and epigastric pain. She also complains of GERD-like symptoms. Patient was started on IV fluids labwork obtained. Urinalysis is positive for blood and white blood cells. Culture completed. Blood work was otherwise unremarkable. Surgical history includes tube ligation, no concern for at this time. Patient with significant hematuria and concern for infection CT was ordered to check for possible stone. At this time there is no obstructing stone she does have evidence of a prominent uterus and this renal lesion. Discussed further evaluation with ultrasound and Patient informed of this and can follow-up with her primary care doctor out patiently for the ultrasounds. Patient will be treated this time for pyelonephritis with Keflex given 2 g of Rocephin and emergency department. All questions were answered and return parameters were discussed. Discharging the Patient on an temperature medicine, antibiotic and Zofran. - Lab Data Result diagrams: 08/29/18 09:28 08/29/18 09:28 Lab Results 08/29/18 08/29/18 08/29/18 Range/Units 09:28 09:28 09:28 WBC 10.2 (3.8-10.6) k/uL RBC 4.07 (3.80-5.40) m/uL Hgb 9.9 L (11.4-16.0) gm/dL Hct 33.2 L (34.0-46.0) % MCV 81.8 (80.0-100.0) fL MCH 24.4 L (25.0-35.0) pg MCHC 29.9 L (31.0-37.0) g/dL RDW 15.2 (11.5-15.5) % Plt Count 254 (150-450) k/uL Neutrophils % 67 % Lymphocytes % 23 % Monocytes % 5 % Eosinophils % 2 % Basophils % 0 % Neutrophils # 6.9 (1.3-7.7) k/uL Lymphocytes # 2.4 (1.0-4.8) k/uL Monocytes # 0.5 (0-1.0) k/uL Eosinophils # 0.2 (0-0.7) k/uL Basophils # 0.0 (0-0.2) k/uL Hypochromasia Marked PT (9.0-12.0) sec INR (<1.2) APTT (22.0-30.0) sec Sodium 139 (137-145) mmol/L Potassium 4.2 (3.5-5.1) mmol/L Chloride 109 H (98-107) mmol/L Carbon Dioxide 24 (22-30) mmol/L Anion Gap 6 mmol/L BUN 19 H (7-17) mg/dL Creatinine 0.89 (0.52-1.04) mg/dL Est GFR (CKD-EPI)AfAm >90 (>60 ml/min/1.73 sqM) Est GFR (CKD-EPI)NonAf 86 (>60 ml/min/1.73 sqM) Glucose 89 (74-99) mg/dL Calcium 8.9 (8.4-10.2) mg/dL Total Bilirubin 0.4 (0.2-1.3) mg/dL AST 16 (14-36) U/L ALT 16 (9-52) U/L Alkaline Phosphatase 49 (38-126) U/L Total Protein 6.8 (6.3-8.2) g/dL Albumin 3.8 (3.5-5.0) g/dL Amylase 64 (30-110) U/L Lipase 255 (23-300) U/L Urine Color Yellow Urine Appearance Cloudy H (Clear) Urine pH 5.5 (5.0-8.0) Ur Specific [place] 1.028 (1.001-1.035) Urine Protein Trace H (Negative) Urine Glucose (UA) Negative (Negative) Urine Ketones Negative (Negative) Urine Blood Moderate H (Negative) Urine Nitrite Positive H (Negative) Urine Bilirubin Negative (Negative) Urine Urobilinogen <2.0 (<2.0) mg/dL Ur Leukocyte Esterase Small H (Negative) Urine RBC 170 H (0-5) /hpf Urine WBC 40 H (0-5) /hpf Ur Squamous Epith Cells 2 (0-4) /hpf Urine Bacteria Occasional H (None) /hpf Urine Mucus Rare H (None) /hpf 08/29/18 Range/Units 09:28 WBC (3.8-10.6) k/uL RBC (3.80-5.40) m/uL Hgb (11.4-16.0) gm/dL Hct (34.0-46.0) % MCV (80.0-100.0) fL MCH (25.0-35.0) pg MCHC (31.0-37.0) g/dL RDW (11.5-15.5) % Plt Count (150-450) k/uL Neutrophils % % Lymphocytes % % Monocytes % % Eosinophils % % Basophils % % Neutrophils # (1.3-7.7) k/uL Lymphocytes # (1.0-4.8) k/uL Monocytes # (0-1.0) k/uL Eosinophils # (0-0.7) k/uL Basophils # (0-0.2) k/uL Hypochromasia PT 9.6 (9.0-12.0) sec INR 0.9 (<1.2) APTT 26.1 (22.0-30.0) sec Sodium (137-145) mmol/L Potassium (3.5-5.1) mmol/L Chloride (98-107) mmol/L Carbon Dioxide (22-30) mmol/L Anion Gap mmol/L BUN (7-17) mg/dL Creatinine (0.52-1.04) mg/dL Est GFR (CKD-EPI)AfAm (>60 ml/min/1.73 sqM) Est GFR (CKD-EPI)NonAf (>60 ml/min/1.73 sqM) Glucose (74-99) mg/dL Calcium (8.4-10.2) mg/dL Total Bilirubin (0.2-1.3) mg/dL AST (14-36) U/L ALT (9-52) U/L Alkaline Phosphatase (38-126) U/L Total Protein (6.3-8.2) g/dL Albumin (3.5-5.0) g/dL Amylase (30-110) U/L Lipase (23-300) U/L Urine Color Urine Appearance (Clear) Urine pH (5.0-8.0) Ur Specific [place] (1.001-1.035) Urine Protein (Negative) Urine Glucose (UA) (Negative) Urine Ketones (Negative) Urine Blood (Negative) Urine Nitrite (Negative) Urine Bilirubin (Negative) Urine Urobilinogen (<2.0) mg/dL Ur Leukocyte Esterase (Negative) Urine RBC (0-5) /hpf Urine WBC (0-5) /hpf Ur Squamous Epith Cells (0-4) /hpf Urine Bacteria (None) /hpf Urine Mucus (None) /hpf - Radiology Data Radiology results: report reviewed 1 mm nonobstructing left renal calculus. Uterus appears prominent to correlate with pelvic ultrasound. Nonspecific gas pattern with no evidence of obstruction. Appendix is normal. Indeterminate left renal lesion by noncontrast technique. Ultrasound suggested. Disposition Clinical Impression: Epigastric abdominal pain, Pyelonephritis, Lesion of left [place] kidney Disposition: HOME SELF-CARE Condition: Good Instructions (If sedation given, give patient instructions): Urinary Tract Infe ction in Women (ED), Epigastric Pain (ED) Additional Instructions: Patient advised to take antibiotics as prescribed. Follow-up with your primary care physician about outpatient US of kidney and uterus. Return to the emergency department if any alarming signs or symptoms occur. Prescriptions: Cephalexin [Keflex] 500 mg PO Q8HR #30 cap Ibuprofen [Motrin] 600 mg PO Q8HR PRN #20 tab PRN Reason: Pain Famotidine [Pepcid] 20 mg PO BID #20 tablet Ondansetron Odt [Zofran Odt] 4 mg PO Q8HR PRN #20 tab PRN Reason: Nausea Is patient prescribed a controlled substance at d/c from ED?: No Referrals: Kendell Mejia Jr, [Primary Care Provider] - 1-2 days Time of Disposition: 11:34
[2018-08-29 09:49] LABS: Basophils % (A) 0 %; Eosinophils # (A) 0.2 k/uL (0-0.7); Eosinophils % (A) 2 %; HCT 33.2 % (34.0-46.0); HGB 9.9 gm/dL (11.4-16.0); Hypochromasia Marked; Lymphocytes # (A) 2.4 k/uL (1.0-4.8); Lymphocytes % (A) 23 %; MCH 24.4 pg (25.0-35.0); MCHC 29.9 g/dL (31.0-37.0); MCV 81.8 fL (80.0-100.0); Monocytes # (A) 0.5 k/uL (0-1.0); Monocytes % (A) 5 %; Neutrophils # (A) 6.9 k/uL (1.3-7.7); Neutrophils % (A) 67 %; Platelet Count 254 k/uL (150-450); RBC 4.07 m/uL (3.80-5.40); RDW 15.2 % (11.5-15.5); WBC 10.2 k/uL (3.8-10.6)
[2018-08-29 09:59] LABS: ALT 16 U/L (9-52); AST 16 U/L (14-36); Albumin 3.8 g/dL (3.5-5.0); Alkaline Phosphatase 49 U/L (38-126); Amylase 64 U/L (30-110); Anion Gap 6 mmol/L; Blood Urea Nitrogen 19 mg/dL (7-17); Calcium 8.9 mg/dL (8.4-10.2); Carbon Dioxide 24 mmol/L (22-30); Chloride 109 mmol/L (98-107); Glucose 89 mg/dL (74-99); Lipase 255 U/L (23-300); Potassium 4.2 mmol/L (3.5-5.1); Sodium 139 mmol/L (137-145); Total Bilirubin 0.4 mg/dL (0.2-1.3); Total Protein 6.8 g/dL (6.3-8.2)
[2018-08-29 10:18] LABS: INR 0.9 (<1.2); Partial Thromboplastin Time 26.1 sec (22.0-30.0); Prothrombin Time 9.6 sec (9.0-12.0)
--- NOTE | 2018-08-29 10:18 | XR ---
KUB HISTORY: Abdominal pain Frontal KUB submitted on 2 images, comparison to prior exam 09/08/2017 Surgical clips present in the right upper quadrant. Lung bases are clear. No evident pneumoperitoneum or bowel obstruction. There is mild spinal curvature. No pathologic calcification evident. Bone mine ralization is normal. There is retained fecal debris within the colon. IMPRESSION: Nonobstructive bowel gas pattern.
[2018-08-29 10:23] LABS: Appearance,Urine Cloudy (Clear); Bacteria,Urine Occasional /hpf; Bilirubin,Urine Negative (Negative); Blood,Urine Moderate (Negative); Color,Urine Yellow; Glucose,Urine (UA) Negative (Negative); Ketones,Urine Negative (Negative); Leukocyte Esterase,Urine Small (Negative); Mucus,Urine Rare /hpf; Nitrite,Urine Positive (Negative); PH, Urine 5.5 (5.0-8.0); Protein,Urine Trace (Negative); RBC,Urine 170 /hpf (0-5); Specific Gravity,Urine 1.028 (1.001-1.035); Squamous Epithelial Cell,Urine 2 /hpf (0-4); Urobilinogen,Urine <2.0 mg/dL (<2.0); WBC,Urine 40 /hpf (0-5)
[2018-08-29] MEDS ORDERED: cefTRIAXone IN SWFI 1,000 MG/10 ML SYRINGE IVP STA ×2 (10:25→10:26)
--- NOTE | 2018-08-29 11:11 | CT ---
EXAMINATION TYPE: CT abdomen pelvis wo con DATE OF EXAM: 08/29/2018 COMPARISON: None HISTORY: Back and flank pain with hematuria CT DLP: 835.7 mGycm Automated exposure control for dose reduction was used. TECHNIQUE: Helical acquisition of images was performed from the lung bases through the pelvis. FINDINGS: LUNG BASES: No significant abnormality is appreciated. LIVER/GB: Postcholecystectomy changes noted.. PANCREAS: No significant abnormality is seen. SPLEEN: No significant abnormality is seen. ADRENALS: No significant abnormality is seen. KIDNEYS: Punctate 1 mm calcification left kidney. There is a 2 cm hypodense lesion anterior margin le ft kidney indeterminate by noncontrast technique. No hydronephrosis.. ADENOPATHY: None visualized. OSSEOUS STRUCTURES: No significant abnormality is seen. BOWEL: No significant abnormality is seen. OTHER: Uterus appears prominent in size shape and should be correlated with pelvic ultrasound. IMPRESSION: 1. 1 mm nonobstructing left renal calculus. 2. Uterus appears prominent in size correlate with pelvic ultrasound. 3. Nonspecific gas pattern with no evidence of obstruction. Appendix normal. 4. Indeterminate left renal lesion by noncontrast technique. Ultrasound suggested.
[2018-08-29 11:54] VITALS: BP 129/68; PULSE 72; RESP 19; TEMP 97.8
== END 2018-08-29 11:54 | disposition home or self-care (01) ==
LOC: EC 08:56
DX: N12 Tubulo-interstitial nephritis, not specified as acute or chronic (principal); N28.9 Disorder of kidney and ureter, unspecified; F17.200 Nicotine dependence, unspecified, uncomplicated; Z91.018 Allergy to other foods; Z90.49 Acquired absence of other specified parts of digestive tract; Z98.51 Tubal ligation status
CPT/HCPCS: 36415; 80053; 82150; 83690; 85025; 85610; 85730; 81001; 87086; 87077; 87186; 74018; 74176; 99285; 96374; 96375 ×3; 96361; J2405; J0696; J1885; C9113

== ENCOUNTER 2018-10-24 15:33 | Emergency (ER) | payer OTHER ==
[2018-10-24 15:53] VITALS: BP 111/77; PULSE 78; RESP 18; TEMP 98.1
[2018-10-24] MEDS ORDERED: IPRATROPIUM-ALBUTEROL 3 ML NEB INHALATION STA (16:22)
--- NOTE | 2018-10-24 16:45 | XR ---
EXAMINATION: XR chest 2V DATE AND TIME: 10/24/2018 4:36 PM CLINICAL INDICATION: PHH; Pain TECHNIQUE: Departmental protocol COMPARISON: 09/08/2017 FINDINGS: The lungs are clear. The pleural spaces are negative. The cardiac silhouette is not enlarged. The remainder of the mediastinal silhouette is unremarkable. The skeletal structures and soft tissues are negative for acute findings. IMPRESSION: NO ACUTE PROCESS.
--- NOTE | 2018-10-24 17:48 | ED ---
URI HPI - General Chief Complaint: Upper Respiratory Infection Stated Complaint: Sore throat Time Seen by Provider: 10/24/18 16:17 Source: patient, RN notes reviewed Mode of arrival: ambulatory Limitations: no limitations - History of Present Illness Initial Comments: 33-year-old female presents to the emergency determine for chief complaint of cold. Patient states she has had a nonproductive cough for about 3 days. States she is also having a sore throat but denies any difficulty swallowing. Patient also complains of congestion and ear pressure. Denies any shortness of breath. Denies any chest pain. Denies any history of asthma but does admit to smoking.Patient has no other complaints at this time including shortness of breath, chest pain, abdominal pain, nausea or vomiting, headache, or visual changes. - Related Data Previous Rx's Medication Instructions Recorded predniSONE 50 mg PO DAILY #5 tablet 10/24/18 Allergies Allergy/AdvReac Type Severity Reaction Status Date / Time coconut Allergy Unknown Verified 10/24/18 17:05 Review of Systems ROS Statement: Those systems with pertinent positive or pertinent negative responses have been documented in the HPI. ROS Other: All systems not noted in ROS Statement are negative. Past Medical History Past Medical History: No Reported History Additional Past Medical History / Comment(s): KIDNEY STONES, PCOS History of Any Multi-Drug Resistant Organisms: None Reported Past Surgical History: Section, Cholecystectomy, Tubal Ligation Past Psychological History: Depression Smoking Status: Current every day smoker Past Alcohol Use History: Occasional Past Drug Use History: None Reported General Exam Limitations: no limitations General appearance: alert, in no apparent distress Head exam: Present: atraumatic, normocephalic, normal inspection Eye exam: Present: normal appearance, PERRL, EOMI. Absent: scleral icterus, conjunctival injection, periorbital swelling ENT exam: Present: normal exam, normal oropharynx, mucous membranes moist, TM's normal bilaterally, normal external ear exam Neck exam: Present: normal inspection, full ROM. Absent: tenderness, meningismus, lymphadenopathy Respiratory exam: Present: decreased breath sounds (Lungs sound tight bilaterally). Absent: respiratory distress, wheezes, rales, rhonchi, stridor Cardiovascular Exam: Present: regular rate, normal rhythm, normal heart sounds. Absent: systolic murmur, diastolic murmur, rubs, gallop, clicks GI/Abdominal exam: Present: soft, normal bowel sounds. Absent: distended, tenderness, guarding, rebound, rigid Neurological exam: Present: alert, oriented X3, CN II-XII intact Psychiatric exam: Present: normal affect, normal mood Course Vital Signs 10/24/18 15:51 Temperature 98.1 F Pulse Rate 78 Respiratory 18 Rate Blood Pressure 111/77 O2 Sat by Pulse 98 Oximetry Medical Decision Making - Medical Decision Making 33-year-old female presents to the emergency department for upper respiratory infection. Patient states she has had coughs or throat congestion for 3 days. No shortness of breath or chest pain. Vitals are stable. On exam lungs do sound diminished without wheezing. Patient is a smoker. Discussed smoking cessation for greater than 3 minutes with patient. Group A rapid strep is negative, culture pending. Chest x-ray shows no acute process. Patient was given a breathing treatment which did help her to feel somewhat better with her cough. Given diminished lung sounds patient will be given a steroid prescription. She will follow up with primary care in 1-2 days. She'll return here if she has any worsening symptoms. - Lab Data Lab Results 10/24/18 Range/Units 16:22 Group A Strep Rapid Negative (Negative) Disposition Clinical Impression: Cough Disposition: HOME SELF-CARE Condition: Good Instructions (If sedation given, give patient instructions): Upper Respiratory Infection (ED) Additional Instructions: Please take steroid as directed. Continue to take leon-xhy-izoivam cold medications. Please follow up with primary care in 1-2 days. Return here to the emergency Department if you're having any worsening symptoms. Prescriptions: predniSONE 50 mg PO DAILY #5 tablet Is patient prescribed a controlled substance at d/c from ED?: No Referrals: Kendell Mejia Jr, DO [Primary Care Provider] - 1-2 days Time of Disposition: 17:46
== END 2018-10-24 18:10 | disposition home or self-care (01) ==
LOC: EC 15:33
DX: R05 Cough (principal); R09.89 Other specified symptoms and signs involving the circulatory and respiratory systems; F17.200 Nicotine dependence, unspecified, uncomplicated; Z71.6 Tobacco abuse counseling; Z91.018 Allergy to other foods
CPT/HCPCS: 71046; 87081; 87430; 94640; 99284; 99406

== ENCOUNTER 2018-12-16 17:41 | Emergency (ER) | payer OTHER ==
[2018-12-16] MEDS ORDERED: SODIUM CHLORIDE 0.9% 500 ML 500 ML IV STA (17:58)
[2018-12-16 18:33] LABS: Appearance,Urine Cloudy (Clear); Bacteria,Urine Rare /hpf; Bilirubin,Urine Negative (Negative); Blood,Urine Trace (Negative); Color,Urine Yellow; Glucose,Urine (UA) Negative (Negative); Ketones,Urine Negative (Negative); Leukocyte Esterase,Urine Small (Negative); Mucus,Urine Few /hpf; Nitrite,Urine Negative (Negative); PH, Urine 6.5 (5.0-8.0); Protein,Urine Trace (Negative); RBC,Urine 3 /hpf (0-5); Specific Gravity,Urine 1.027 (1.001-1.035); Squamous Epithelial Cell,Urine 7 /hpf (0-4); WBC,Urine 12 /hpf (0-5)
[2018-12-16 18:36] LABS: ALT 13 U/L (9-52); AST 22 U/L (14-36); African American GFR (CKD) >90 (>60 ml/min/1.73 sqM); Albumin 4.2 g/dL (3.5-5.0); Alkaline Phosphatase 48 U/L (38-126); Anion Gap 10 mmol/L; Blood Urea Nitrogen 14 mg/dL (7-17); Calcium 9.3 mg/dL (8.4-10.2); Carbon Dioxide 24 mmol/L (22-30); Chloride 107 mmol/L (98-107); Glucose 106 mg/dL (74-99); Potassium 4.5 mmol/L (3.5-5.1); Sodium 141 mmol/L (137-145); Total Bilirubin 0.5 mg/dL (0.2-1.3); Total Protein 7.6 g/dL (6.3-8.2)
[2018-12-16 18:40] LABS: Anisocytosis Slight; Basophils # (A) 0.1 k/uL (0-0.2); Basophils % (A) 0 %; Eosinophils # (A) 0.2 k/uL (0-0.7); Eosinophils % (A) 1 %; HCT 32.8 % (34.0-46.0); HGB 10.3 gm/dL (11.4-16.0); Hypochromasia Slight; Lymphocytes % (A) 19 %; MCH 24.9 pg (25.0-35.0); MCHC 31.4 g/dL (31.0-37.0); MCV 79.1 fL (80.0-100.0); Mean Platelet Volume 8.3; Microcytosis Slight; Monocytes # (A) 0.4 k/uL (0-1.0); Monocytes % (A) 4 %; Neutrophils # (A) 7.7 k/uL (1.3-7.7); Neutrophils % (A) 73 %; Platelet Count 330 k/uL (150-450); RBC 4.15 m/uL (3.80-5.40); RDW 16.1 % (11.5-15.5); WBC 10.6 k/uL (3.8-10.6)
--- NOTE | 2018-12-16 18:46 | XR ---
EXAMINATION TYPE: XR KUB DATE OF EXAM: 12/16/2018 COMPARISON: 08/29/2018 HISTORY: Abdominal pain and bloating TECHNIQUE: 2 views upright FINDINGS: There is no sign of intestinal obstruction or pneumoperitoneum. Fecal pattern is normal. Th ere are clips from cholecystectomy. Lung bases are clear. IMPRESSION: Nonacute abdomen. No change.
--- NOTE | 2018-12-16 19:00 | ED ---
General Adult HPI - General Chief complaint: Abdominal Pain Stated complaint: abdominal pain Time Seen by Provider: 12/16/18 17:54 Source: patient, RN notes reviewed, old records reviewed Mode of arrival: ambulatory Limitations: no limitations - History of Present Illness Initial comments: 33-year-old female patient past history significant for cholecystectomy, tubal ligation presents ED chief complaint of approximately 3 days of bloating, mild nausea and waxing and waning vague epigastric, right upper quadrant pain. Patient also reports some vaginal bleeding. Patient reported that she is not her menses. Patient denies any dysuria. Patient denies any concern for STD. Patient states there is no chance she can be . Patient denies any other complaints at this time. Systemic: Pt denies fatigue, fever/chills, rash. Pt denies weakness, night sweats, weight loss. Neuro: Pt denies headache, visual disturbances, syncope or pre-syncope. HEENT: Pt denies ocular discharge or irritation, otalgia, rhinorrhea, pharyngitis or notable lymphadenopathy. Cardiopulmonary: Pt denies chest pain, SOB, heart palpitations, dyspnea on exertion. Abdominal/GI: Pt denies n/v/d. : Pt denies dysuria, burning w/ urination, frequency/urgency. Denies new onset urinary or bowel incontinence. MSK: Pt denies myalgia, loss of strength or function in extremities. Neuro: Pt denies new onset weakness, paresthesias. - Related Data Previous Rx's Medication Instructions Recorded predniSONE 50 mg PO DAILY #5 tablet 10/24/18 Allergies Allergy/AdvReac Type Severity Reaction Status Date / Time coconut Allergy Unknown Verified 10/24/18 17:05 Review of Systems ROS Statement: Those systems with pertinent positive or pertinent negative responses have been documented in the HPI. ROS Other: All systems not noted in ROS Statement are negative. Past Medical History Past Medical History: No Reported History Additional Past Medical History / Comment(s): KIDNEY STONES, PCOS History of Any Multi-Drug Resistant Organisms: None Reported Past Surgical History: Section, Cholecystectomy, Tubal Ligation Past Psychological History: Depression Smoking Status: Current every day smoker Past Alcohol Use History: Occasional Past Drug Use History: None Reported General Exam - General Exam Comments Initial Comments: Constitutional: NAD, AOX3, Pt has pleasant affect. HEENT: NC/AT, trachea midline, neck supple, no lymphadenopathy. Posterior pharynx non erythematous, without exudates. External ears appear normal, without discharge. Mucous membranes moist. Eyes PERRLA, EOM intact. There is no scleral icterus. No pallor noted. Cardiopulmonary: RRR, no murmurs, rubs or gallops, no JVD noted. Lungs CTAB in anterior and posterior [place]. No peripheral edema. Abdominal exam: Abdomen soft and non-distended. Abdomen non-tender to palpation in all 4 quadrants. Bowel sounds active in LLQ. No hepatosplenomegaly. No ecchymosis Neuro: CN II-XII grossly intact. No nuchal rigidity. No raccon eyes, no montenegro sign, no hemotympanum. No cervical spinal tenderness. MSK: No posterior calf tenderness bilaterally, homans sign negative bilaterally. Posterior tibialis and radial pulse +2 bilaterally. Sensation intact in upper and lower extremities. Full active ROM in upper and lower extremities, 5/5 st regnth. Limitations: no limitations Course Vital Signs 12/16/18 17:48 Temperature 98.9 F Pulse Rate 79 Respiratory 18 Rate Blood Pressure 121/79 O2 Sat by Pulse 99 Oximetry Medical Decision Making - Medical Decision Making 33-year-old female patient past history significant for cholecystectomy, tubal ligation presents ED chief complaint of approximately 3 days of bloating, mild nausea and waxing and waning vague epigastric, right upper quadrant pain. Patient also reports some vaginal bleeding. Patient reported that she is not her menses. Patient denies any dysuria. Patient denies any concern for STD. Patient states there is no chance she can be . Patient denies any other complaints at this time. Patient vital signs stable, afebrile. Physical exam didn't display acute pathology. Patient was recommended and declined pelvic exam. CBC, CMP non-impressive. HCG negative. UA contaminated. KUB did not display acute process. Patient will be discharged, follow-up with [facility] [employer] [facility] and primary care provider. Patient return here if condition worsens. Case discussed with Dr. Silva. - Lab Data Result diagrams: 12/16/18 18:12 12/16/18 18:12 Lab Results 12/16/18 12/16/18 12/16/18 Range/Units 18:12 18:12 18:12 WBC 10.6 (3.8-10.6) k/uL RBC 4.15 (3.80-5.40) m/uL Hgb 10.3 L (11.4-16.0) gm/dL Hct 32.8 L (34.0-46.0) % MCV 79.1 L (80.0-100.0) fL MCH 24.9 L (25.0-35.0) pg MCHC 31.4 (31.0-37.0) g/dL RDW 16.1 H (11.5-15.5) % Plt Count 330 (150-450) k/uL Neutrophils % 73 % Lymphocytes % 19 % Monocytes % 4 % Eosinophils % 1 % Basophils % 0 % Neutrophils # 7.7 (1.3-7.7) k/uL Lymphocytes # 2.0 (1.0-4.8) k/uL Monocytes # 0.4 (0-1.0) k/uL Eosinophils # 0.2 (0-0.7) k/uL Basophils # 0.1 (0-0.2) k/uL Hypochromasia Slight Anisocytosis Slight Microcytosis Slight Sodium 141 (137-145) mmol/L Potassium 4.5 (3.5-5.1) mmol/L Chloride 107 (98-107) mmol/L Carbon Dioxide 24 (22-30) mmol/L Anion Gap 10 mmol/L BUN 14 (7-17) mg/dL Creatinine 0.75 (0.52-1.04) mg/dL Est GFR (CKD-EPI)AfAm >90 (>60 ml/min/1.73 sqM) Est GFR (CKD-EPI)NonAf >90 (>60 ml/min/1.73 sqM) Glucose 106 H (74-99) mg/dL Plasma Lactic Acid Yoni 1.5 (0.7-2.0) mmol/L Calcium 9.3 (8.4-10.2) mg/dL Total Bilirubin 0.5 (0.2-1.3) mg/dL AST 22 (14-36) U/L ALT 13 (9-52) U/L Alkaline Phosphatase 48 (38-126) U/L Total Protein 7.6 (6.3-8.2) g/dL Albumin 4.2 (3.5-5.0) g/dL Lipase 190 (23-300) U/L Urine Color Urine Appearance (Clear) Urine pH (5.0-8.0) Ur Specific [place] (1.001-1.035) Urine Protein (Negative) Urine Glucose (UA) (Negative) Urine Ketones (Negative) Urine Blood (Negative) Urine Nitrite (Negative) Urine Bilirubin (Negative) Urine Urobilinogen (<2.0) mg/dL Ur Leukocyte Esterase (Negative) Urine RBC (0-5) /hpf Urine WBC (0-5) /hpf Ur Squamous Epith Cells (0-4) /hpf Urine Bacteria (None) /hpf Urine Mucus (None) /hpf Urine HCG, Qual (Not Detectd) 12/16/18 12/16/18 Range/Units 18:22 18:22 WBC (3.8-10.6) k/uL RBC (3.80-5.40) m/uL Hgb (11.4-16.0) gm/dL Hct (34.0-46.0) % MCV (80.0-100.0) fL MCH (25.0-35.0) pg MCHC (31.0-37.0) g/dL RDW (11.5-15.5) % Plt Count (150-450) k/uL Neutrophils % % Lymphocytes % % Monocytes % % Eosinophils % % Basophils % % Neutrophils # (1.3-7.7) k/uL Lymphocytes # (1.0-4.8) k/uL Monocytes # (0-1.0) k/uL Eosinophils # (0-0.7) k/uL Basophils # (0-0.2) k/uL Hypochromasia Anisocytosis Microcytosis Sodium (137-145) mmol/L Potassium (3.5-5.1) mmol/L Chloride (98-107) mmol/L Carbon Dioxide (22-30) mmol/L Anion Gap mmol/L BUN (7-17) mg/dL Creatinine (0.52-1.04) mg/dL Est GFR (CKD-EPI)AfAm (>60 ml/min/1.73 sqM) Est GFR (CKD-EPI)NonAf (>60 ml/min/1.73 sqM) Glucose (74-99) mg/dL Plasma Lactic Acid Yoni (0.7-2.0) mmol/L Calcium (8.4-10.2) mg/dL Total Bilirubin (0.2-1.3) mg/dL AST (14-36) U/L ALT (9-52) U/L Alkaline Phosphatase (38-126) U/L Total Protein (6.3-8.2) g/dL Albumin (3.5-5.0) g/dL Lipase (23-300) U/L Urine Color Yellow Urine Appearance Cloudy H (Clear) Urine pH 6.5 (5.0-8.0) Ur Specific [place] 1.027 (1.001-1.035) Urine Protein Trace H (Negative) Urine Glucose (UA) Negative (Negative) Urine Ketones Negative (Negative) Urine Blood Trace H (Negative) Urine Nitrite Negative (Negative) Urine Bilirubin Negative (Negative) Urine Urobilinogen 2.0 (<2.0) mg/dL Ur Leukocyte Esterase Small H (Negative) Urine RBC 3 (0-5) /hpf Urine WBC 12 H (0-5) /hpf Ur Squamous Epith Cells 7 H (0-4) /hpf Urine Bacteria Rare H (None) /hpf Urine Mucus Few H (None) /hpf Urine HCG, Qual Not Detected (Not Detectd) Disposition Clinical Impression: Abdominal pain, Vaginal bleeding Disposition: HOME SELF-CARE Condition: Stable Instructions (If sedation given, give patient instructions): Abdominal Pain (ED) Additional Instructions: Patient to adhere to previously discussed treatment plan and will take med ication(s) as directed. Patient to follow up with PCP in 1-2 days. Patient to return to ED if symptoms do not improve. Follow-up with primary care provider and [facility] [employer] [facility]. Return to ER if condition wor sens in any way. Is patient prescribed a controlled substance at d/c from ED?: No Referrals: Mariangel Schofield MD [Primary Care Provider] - 1-2 days Keyla Pan DO [Doctor of Osteopathic Medicine] - 1-2 days
[2018-12-16 19:38] VITALS: BP 117/79; PULSE 75; RESP 19; TEMP 98.5
== END 2018-12-16 19:38 | disposition home or self-care (01) ==
LOC: EC 17:41
DX: N93.9 Abnormal uterine and vaginal bleeding, unspecified (principal); R10.13 Epigastric pain; R10.11 Right upper quadrant pain; R11.0 Nausea; F17.200 Nicotine dependence, unspecified, uncomplicated; Z91.018 Allergy to other foods; Z90.49 Acquired absence of other specified parts of digestive tract; Z98.51 Tubal ligation status; Z53.20 Procedure and treatment not carried out because of patient's decision for unspecified reasons
CPT/HCPCS: 36415; 74018; 80053; 81001; 81025; 83605; 83690; 85025; 96360; 99284

== ENCOUNTER 2019-05-15 02:47 | Emergency (ER) | payer OTHER ==
[2019-05-15 02:57] VITALS: BP 120/83; PULSE 68; RESP 20; TEMP 97.9
[2019-05-15] MEDS ORDERED: KETOROLAC 30 MG/ML 1 ML VIAL IVP STA (03:17)
--- NOTE | 2019-05-15 03:41 | ED ---
General Adult HPI - General Chief complaint: Extremity Injury, Lower Stated complaint: R leg pain Time Seen by Provider: 05/15/19 03:11 Source: patient Mode of arrival: ambulatory Limitations: no limitations - History of Present Illness Initial comments: This patient is a 34-year-old woman with 2 main complaints. She states that for a number weeks she has been feeling fatigued and at times a little bit lightheaded. She states that she has history of previous anemia and is concerned that her blood counts may be dipping again. She states that she does have heavy periods and this is felt to be the cause of her anemia. She has not noted any change in bowel movements, including no bloody or dark tarry stools. No hematemesis or vomiting of coffee-ground material. She states the main thing that brought her here is that she is having some pains in the right calf and she was concerned about possibility of developing a blood clot there. Patient did not have any injury that she recalls to the right leg. She does not have weakness or numbness of the extremity. No chest symptoms, including no chest pain, shortness of breath, palpitations, hemoptysis. Onset/Timin -: days(s) Location: right, lower extremity Radiation: non-radiation Quality: aching Consistency: constant Improves with: none Worsens with: none Associated Symptoms: denies other symptoms Treatments Prior to Arrival: none - Related Data Previous Rx's Medication Instructions Recorded predniSONE 50 mg PO DAILY #5 tablet 10/24/18 Cyclobenzaprine [Flexeril] 10 mg PO TID PRN #15 tab 05/15/19 Ferrous Sulfate [Iron] 325 mg PO DAILY #20 tablet 05/15/19 Allergies Allergy/AdvReac Type Severity Reaction Status Date / Time coconut Allergy Unknown Verified 05/15/19 02:57 Review of Systems ROS Statement: Those systems with pertinent positive or pertinent negative responses have been documented in the HPI. ROS Other: All systems not noted in ROS Statement are negative. Constitutional: Denies: fever, chills, weakness Respiratory: Denies: cough, dyspnea, hemoptysis Cardiovascular: Denies: chest pain, palpitations, syncope Gastrointestinal: Denies: abdominal pain, vomiting, diarrhea, hematemesis, melena, hematochezia Musculoskeletal: Denies: back pain Neurological: Denies: headache, weakness, numbness Hematological/Lymphatic: Denies: easy bleeding Past Medical History Past Medical History: No Reported History Additional Past Medical History / Comment(s): KIDNEY STONES, PCOS History of Any Multi-Drug Resistant Organisms: None Reported Past Surgical History: Section, Cholecystectomy, Tubal Ligation Past Psychological History: Depression Smoking Status: Current every day smoker Past Alcohol Use History: Occasional Past Drug Use History: None Reported General Exam Limitations: no limitations General appearance: alert, in no apparent distress Head exam: Present: atraumatic, normocephalic Eye exam: Present: normal appearance. Absent: scleral icterus, conjunctival injection ENT exam: Present: normal oropharynx Respiratory exam: Present: normal lung sounds bilaterally. Absent: respiratory distress, wheezes, rales, rhonchi, stridor Cardiovascular Exam: Present: regular rate, normal rhythm, normal heart sounds. Absent: systolic murmur, diastolic murmur, rubs, gallop GI/Abdominal exam: Present: soft. Absent: distended, tenderness, guarding, rebound, rigid, mass Extremities exam: Present: normal inspection, full ROM, normal capillary refill, calf tenderness (Right leg), other (There is no palpable cord or Homans sign.). Absent: pedal edema Neurological exam: Present: alert. Absent: motor sensory deficit Skin exam: Present: warm, dry, intact, normal color. Absent: rash Course Vital Signs 05/15/19 02:52 Temperature 97.9 F Pulse Rate 68 Respiratory 20 Rate Blood Pressure 120/83 O2 Sat by Pulse 98 Oximetry Medical Decision Making - Lab Data Result diagrams: 05/15/19 03:45 05/15/19 03:45 Lab Results 05/15/19 05/15/19 05/15/19 Range/Units 03:45 03:45 03:45 WBC 9.3 (3.8-10.6) k/uL RBC 4.00 (3.80-5.40) m/uL Hgb 9.9 L (11.4-16.0) gm/dL Hct 32.9 L (34.0-46.0) % MCV 82.1 (80.0-100.0) fL MCH 24.7 L (25.0-35.0) pg MCHC 30.1 L (31.0-37.0) g/dL RDW 15.1 (11.5-15.5) % Plt Count 310 (150-450) k/uL Neutrophils % 60 % Lymphocytes % 31 % Monocytes % 4 % Eosinophils % 2 % Basophils % 1 % Neutrophils # 5.6 (1.3-7.7) k/uL Lymphocytes # 2.9 (1.0-4.8) k/uL Monocytes # 0.4 (0-1.0) k/uL Eosinophils # 0.2 (0-0.7) k/uL Basophils # 0.1 (0-0.2) k/uL Hypochromasia Moderate D-Dimer (<0.60) mg/L FEU Sodium 141 (137-145) mmol/L Potassium 3.8 (3.5-5.1) mmol/L Chloride 108 H (98-107) mmol/L Carbon Dioxide 25 (22-30) mmol/L Anion Gap 8 mmol/L BUN 13 (7-17) mg/dL Creatinine 0.90 (0.52-1.04) mg/dL Est GFR (CKD-EPI)AfAm >90 (>60 ml/min/1.73 sqM) Est GFR (CKD-EPI)NonAf 84 (>60 ml/min/1.73 sqM) Glucose 112 H (74-99) mg/dL Calcium 9.2 (8.4-10.2) mg/dL CK-MB (CK-2) 0.6 (0.0-2.4) ng/mL 05/15/19 Range/Units 03:45 WBC (3.8-10.6) k/uL RBC (3.80-5.40) m/uL Hgb (11.4-16.0) gm/dL Hct (34.0-46.0) % MCV (80.0-100.0) fL MCH (25.0-35.0) pg MCHC (31.0-37.0) g/dL RDW (11.5-15.5) % Plt Count (150-450) k/uL Neutrophils % % Lymphocytes % % Monocytes % % Eosinophils % % Basophils % % Neutrophils # (1.3-7.7) k/uL Lymphocytes # (1.0-4.8) k/uL Monocytes # (0-1.0) k/uL Eosinophils # (0-0.7) k/uL Basophils # (0-0.2) k/uL Hypochromasia D-Dimer 0.44 (<0.60) mg/L FEU Sodium (137-145) mmol/L Potassium (3.5-5.1) mmol/L Chloride (98-107) mmol/L Carbon Dioxide (22-30) mmol/L Anion Gap mmol/L BUN (7-17) mg/dL Creatinine (0.52-1.04) mg/dL Est GFR (CKD-EPI)AfAm (>60 ml/min/1.73 sqM) Est GFR (CKD-EPI)NonAf (>60 ml/min/1.73 sqM) Glucose (74-99) mg/dL Calcium (8.4-10.2) mg/dL CK-MB (CK-2) (0.0-2.4) ng/mL Disposition Clinical Impression: Anemia, Muscle strain Disposition: HOME SELF-CARE Condition: Good Instructions (If sedation given, give patient instructions): Muscle Strain (ED), Anemia (ED) Prescriptions: Cyclobenzaprine [Flexeril] 10 mg PO TID PRN #15 tab PRN Reason: Pain Ferrous Sulfate [Iron] 325 mg PO DAILY #20 tablet Is patient prescribed a controlled substance at d/c from ED?: No Referrals: Mariangel Schofield MD [Primary Care Provider] - 1-2 days
[2019-05-15 03:53] LABS: Basophils # (A) 0.1 k/uL (0-0.2); Basophils % (A) 1 %; Eosinophils # (A) 0.2 k/uL (0-0.7); Eosinophils % (A) 2 %; HCT 32.9 % (34.0-46.0); HGB 9.9 gm/dL (11.4-16.0); Hypochromasia Moderate; Lymphocytes # (A) 2.9 k/uL (1.0-4.8); Lymphocytes % (A) 31 %; MCH 24.7 pg (25.0-35.0); MCHC 30.1 g/dL (31.0-37.0); MCV 82.1 fL (80.0-100.0); Mean Platelet Volume 9.3; Monocytes # (A) 0.4 k/uL (0-1.0); Monocytes % (A) 4 %; Neutrophils # (A) 5.6 k/uL (1.3-7.7); Neutrophils % (A) 60 %; Platelet Count 310 k/uL (150-450); RDW 15.1 % (11.5-15.5); WBC 9.3 k/uL (3.8-10.6)
[2019-05-15 04:01] LABS: African American GFR (CKD) >90 (>60 ml/min/1.73 sqM); Anion Gap 8 mmol/L; Blood Urea Nitrogen 13 mg/dL (7-17); Calcium 9.2 mg/dL (8.4-10.2); Carbon Dioxide 25 mmol/L (22-30); Chloride 108 mmol/L (98-107); Glucose 112 mg/dL (74-99); Non-African American GFR(CKD) 84 (>60 ml/min/1.73 sqM); Potassium 3.8 mmol/L (3.5-5.1); Sodium 141 mmol/L (137-145)
== END 2019-05-15 04:44 | disposition home or self-care (01) ==
LOC: EC 02:47
DX: S86.911A Strain of unspecified muscle(s) and tendon(s) at lower leg level, right leg, initial encounter (principal); D64.9 Anemia, unspecified; N92.0 Excessive and frequent menstruation with regular cycle; F17.200 Nicotine dependence, unspecified, uncomplicated; Z91.018 Allergy to other foods; X50.9XXA Other and unspecified overexertion or strenuous movements or postures, initial encounter
CPT/HCPCS: 36415; 85379; 80048; 82553; 85025; 96374; 99283; J1885

== ENCOUNTER 2019-05-30 12:42 | Emergency (ER) | payer OTHER ==
[2019-05-30 12:45] VITALS: RESP 18
[2019-05-30] MEDS ORDERED: IPRATROPIUM-ALBUTEROL 3 ML NEB INHALATION STA (12:56)
[2019-05-30] MEDS ORDERED: ACETAMINOPHEN TAB 500 MG TAB PO STA (12:56)
--- NOTE | 2019-05-30 13:02 | ED ---
General Adult HPI - General Chief complaint: Fever Stated complaint: FEVER Time Seen by Provider: 05/30/19 12:44 Source: patient, EMS, RN notes reviewed Mode of arrival: EMS Limitations: no limitations - History of Present Illness Initial comments: 34 year old female with a past medical history of cholecystectomy, tubal ligation presents to the emergency department for a chief complaint of cough. Patient states she has had a cough for 5 days. States she has also had congestion. The patient has felt febrile but has not checked for a fever. She denies any chest pain. She does admit to mild shortness of breath. Patient states she has continued to smoke a her illness. She did try Mucinex without improvement. Patient has no other complaints at this time including chest pain, abdominal pain, nausea or vomiting, headache, or visual changes. - Related Data Previous Rx's Medication Instructions Recorded predniSONE 50 mg PO DAILY #5 tablet 10/24/18 Cyclobenzaprine [Flexeril] 10 mg PO TID PRN #15 tab 05/15/19 Ferrous Sulfate [Iron] 325 mg PO DAILY #20 tablet 05/15/19 Allergies Allergy/AdvReac Type Severity Reaction Status Date / Time coconut Allergy Unknown Verified 05/15/19 02:57 Review of Systems ROS Statement: Those systems with pertinent positive or pertinent negative responses have been documented in the HPI. ROS Other: All systems not noted in ROS Statement are negative. Past Medical History Past Medical History: No Reported History Additional Past Medical History / Comment(s): KIDNEY STONES, PCOS History of Any Multi-Drug Resistant Organisms: None Reported Past Surgical History: Section, Cholecystectomy, Tubal Ligation Past Psychological History: Depression Smoking Status: Current every day smoker Past Alcohol Use History: None Reported Past Drug Use History: None Reported General Exam Limitations: no limitations General appearance: alert, in no apparent distress Head exam: Present: atraumatic, normocephalic, normal inspection Eye exam: Present: normal appearance, PERRL, EOMI. Absent: scleral icterus, conjunctival injection, periorbital swelling ENT exam: Present: normal exam, mucous membranes moist, normal external ear exam Neck exam: Present: normal inspection, full ROM. Absent: tenderness, meningismus, lymphadenopathy Respiratory exam: Present: wheezes (Minimal wheezing noted). Absent: respiratory distress, rales, rhonchi, stridor Cardiovascular Exam: Present: regular rate, normal rhythm, normal heart sounds. Absent: systolic murmur, diastolic murmur, rubs, gallop, clicks GI/Abdominal exam: Present: soft, normal bowel sounds. Absent: distended, tenderness, guarding, rebound, rigid Neurological exam: Present: alert Course Vital Signs 05/30/19 05/30/19 05/30/19 12:42 12:45 13:00 Temperature 99.8 F H Pulse Rate 89 Respiratory 18 18 Rate Blood Pressure 119/84 O2 Sat by Pulse 99 Oximetry 05/30/19 05/30/19 13:03 13:10 Temperature Pulse Rate 90 90 Respiratory Rate Blood Pressure O2 Sat by Pulse Oximetry Procedures - Smoking Cessation Time Spent Discussing Smoking Cessation w/Patient (Minutes): 3 Patient Acknowledges Need for Cessation: Yes Medical Decision Making - Medical Decision Making Vitals are stable. Patient is well-appearing. She does have cough noted. There is minimal wheeze on exam. Patient was given DuoNeb. Discussed smoking cessation. No respiratory distress. Influenza B is detected. Chest x-ray shows findings stable compared to prior exam. There is no focal airspace opacity, pleural effusion, or pneumothorax. There is questionable prominence of pulmonary artery, patient will follow up with primary care for this. Patient was given Tylenol for fever. I recommended that she continue Motrin and Tylenol for fever. Patient is outside of the window of recommended Tamiflu initiation at this point. However she will be given steroids and an inhaler. Patient did not want to wait for these and it would get them filled at the pharmacy here in the hospital. She will return with any worsening symptoms. - Lab Data Lab Results 05/30/19 Range/Units 12:48 Influenza Type A RNA Not Detected (Not Detectd) Influenza Type B (PCR) Detected H (Not Detectd) Disposition Clinical Impression: Influenza Disposition: ADMITTED IP TO THIS HOSP Condition: Good Instructions (If sedation given, give patient instructions): Fever in Adults (ED), Influenza (ED) Additional Instructions: Please take tylenol for fever. Plenty of fluids. Follow-up with primary care for this as well as to review chest x-ray results. Return to the emergency department if you have any worsening symptoms. Is patient prescribed a controlled substance at d/c from ED?: No Referrals: Mariangel Schofield MD [Primary Care Provider] - 1-2 days Time of Disposition: 14:03
--- NOTE | 2019-05-30 13:38 | XR ---
EXAMINATION TYPE: XR chest 2V DATE OF EXAM: 05/30/2019 COMPARISON: Prior chest x-ray 10/24/2018 HISTORY: Shortness of breath, cough and fever TECHNIQUE: Frontal and lateral views of the chest are obtained. FINDINGS: There is no focal air space opacity, pleural effusion, or pneumothorax seen. The cardiac silhouette size is within normal limits. The osseous structures are intact, possible spinal curvatu re as on prior. There is questionable prominence of pulmonary artery. Surgical clips are present in t he right upper quadrant. IMPRESSION: Findings are stable compared to prior exam. No acute cardiopulmonary disease, additional findings above.
[2019-05-30 14:33] VITALS: BP 131/82; PULSE 82; TEMP 98
== END 2019-05-30 14:33 | disposition other institution (70) ==
LOC: EC 12:42
DX: J10.1 Influenza due to other identified influenza virus with other respiratory manifestations (principal); F17.200 Nicotine dependence, unspecified, uncomplicated; Z91.018 Allergy to other foods
CPT/HCPCS: 71046; 87502; 94640; 99285; 99406

== ENCOUNTER 2019-07-31 07:37 | Emergency (ER) | payer OTHER ==
[2019-07-31 07:42] VITALS: BP 135/93; PULSE 80; TEMP 97.8
[2019-07-31] MEDS ORDERED: ERYTHROMYCIN 5 MG/GM OPHTH OINT 3.5 GM TUBE LEFT EYE STA (08:06)
--- NOTE | 2019-07-31 08:08 | ED ---
General Adult HPI - General Chief complaint: Eye Problems Stated complaint: Eye Problems Time Seen by Provider: 07/31/19 07:43 Source: patient, RN notes reviewed Mode of arrival: ambulatory Limitations: no limitations - History of Present Illness Initial comments: Patient is a pleasant 34-year-old female presenting to the emergency Department with complaints of swelling of her left lower eyelid. Onset of symptoms was around 3 days ago and has worsened since that time. Patient does have some discomfort. No change in vision. The eyeball itself does not cause her problems. She has noticed no changes to the eyeball itself. No history of similar symptoms previously. Patient has used occasional warm compresses. No trauma. No fevers. No history of similar symptoms previously. - Related Data Previous Rx's Medication Instructions Recorded predniSONE 50 mg PO DAILY #5 tablet 10/24/18 Cyclobenzaprine [Flexeril] 10 mg PO TID PRN #15 tab 05/15/19 Ferrous Sulfate [Iron] 325 mg PO DAILY #20 tablet 05/15/19 Albuterol Inhaler (Bulk) [Ventolin 1 - 2 puff INHALATION Q6HR PRN #1 05/30/19 Hfa Inhaler (Bulk)] inhaler predniSONE 50 mg PO DAILY #5 tablet 05/30/19 Erythromycin Ophth Oint [Romycin 1 applic LEFT EYE QID #1 tube 07/31/19 Ophth Oint] Allergies Allergy/AdvReac Type Severity Reaction Status Date / Time coconut Allergy Unknown Verified 07/31/19 07:42 Review of Systems ROS Statement: Those systems with pertinent positive or pertinent negative responses have been documented in the HPI. ROS Other: All systems not noted in ROS Statement are negative. Constitutional: Denies: fever Eyes: Reports: as per HPI. Denies: eye discharge, vision change ENT: Denies: ear pain Respiratory: Denies: dyspnea Cardiovascular: Denies: chest pain Endocrine: Denies: fatigue Gastrointestinal: Denies: abdominal pain Genitourinary: Denies: dysuria Musculoskeletal: Denies: back pain Skin: Denies: rash Neurological: Denies: weakness Past Medical History Past Medical History: No Reported History Additional Past Medical History / Comment(s): KIDNEY STONES, PCOS History of Any Multi-Drug Resistant Organisms: None Reported Past Surgical History: Section, Cholecystectomy, Tubal Ligation Past Psychological History: Depression Smoking Status: Former smoker Past Alcohol Use History: None Reported Past Drug Use History: None Reported General Exam Limitations: no limitations General appearance: alert, in no apparent distress Head exam: Present: normocephalic Eye exam: Present: PERRL, EOMI, other (Lower medial eyelid with mild swelling and tenderness.). Absent: scleral icterus, conjunctival injection Neck exam: Present: normal inspection Respiratory exam: Present: normal lung sounds bilaterally Cardiovascular Exam: Present: regular rate, normal rhythm Neurological exam: Present: alert, CN II-XII intact Psychiatric exam: Present: normal affect, normal mood Skin exam: Present: normal color. Absent: rash Course Vital Signs 07/31/19 07:39 Temperature 97.8 F Pulse Rate 80 Respiratory 18 Rate Blood Pressure 135/93 O2 Sat by Pulse 98 Oximetry Disposition Clinical Impression: Stye Disposition: HOME SELF-CARE Condition: Stable Instructions (If sedation given, give patient instructions): Mariely (ED) Additional Instructions: Please follow-up with primary care physician in the next couple days for recheck. Return for visual changes, increased pain or swelling, fever, worsening or change in symptoms or other concerns. Continue warm compresses hourly Prescriptions: Erythromycin Ophth Oint [Romycin Ophth Oint] 1 applic LEFT EYE QID #1 tube Is patient prescribed a controlled substance at d/c from ED?: No Referrals: Mariangel Schofield MD [Primary Care Provider] - 1-2 days Time of Disposition: 08:07
[2019-07-31 08:24] VITALS: RESP 20
== END 2019-07-31 08:25 | disposition home or self-care (01) ==
LOC: EC 07:37
DX: H00.015 Hordeolum externum left lower eyelid (principal); Z91.018 Allergy to other foods; Z87.891 Personal history of nicotine dependence
CPT/HCPCS: 99283

== ENCOUNTER 2019-11-25 11:30 | Emergency (ER) | payer OTHER ==
[2019-11-25 11:36] VITALS: BP 101/71; PULSE 67; RESP 18; TEMP 98.4
[2019-11-25] MEDS ORDERED: KETOROLAC 15 MG/ML 1 ML VIAL IM STA (11:55)
--- NOTE | 2019-11-25 12:02 | ED ---
ENT HPI - General Chief complaint: Dental/Oral Stated complaint: Face Swelling Time Seen by Provider: 11/25/19 11:43 Source: patient Mode of arrival: ambulatory Limitations: no limitations - History of Present Illness Initial comments: Patient is a 34-year-old female presenting to emergency Department with complaints of left-sided facial swelling and pain started 2 days ago. She states she feels like it is coming from her tooth on the left side. She denies any fever, chills, nausea, vomiting. She states she has not seen a dentist. She denies being this time. She denies taking any pain medicines today. She has no further complaints at this time. Upon arrival to the ER, her vital signs are stable, afebrile. - Related Data Previous Rx's Medication Instructions Recorded predniSONE 50 mg PO DAILY #5 tablet 10/24/18 Cyclobenzaprine [Flexeril] 10 mg PO TID PRN #15 tab 05/15/19 Ferrous Sulfate [Iron] 325 mg PO DAILY #20 tablet 05/15/19 Albuterol Inhaler (Mhu) [Ventolin 1 - 2 puff INHALATION Q6HR PRN #1 05/30/19 Hfa Inhaler (Mhu)] inhaler predniSONE 50 mg PO DAILY #5 tablet 05/30/19 Erythromycin Ophth Oint [Romycin 1 applic LEFT EYE QID #1 tube 07/31/19 Ophth Oint] Hydrocodone/Acetaminophen [[place] 1 tab PO Q6HR PRN #10 tab 11/25/19 5-325] Penicillin V Potassium [Pen Vee K] 500 mg PO QID 7 Days #28 tablet 11/25/19 Allergies Allergy/AdvReac Type Severity Reaction Status Date / Time coconut Allergy Unknown Verified 11/25/19 11:36 Review of Systems ROS Statement: Those systems with pertinent positive or pertinent negative responses have been documented in the HPI. ROS Other: All systems not noted in ROS Statement are negative. Past Medical History Past Medical History: No Reported History Additional Past Medical History / Comment(s): KIDNEY STONES, PCOS History of Any Multi-Drug Resistant Organisms: None Reported Past Surgical History: Section, Cholecystectomy, Tubal Ligation Past Psychological History: Depression Smoking Status: Current every day smoker Past Alcohol Use History: Occasional Past Drug Use History: None Reported General Exam - General Exam Comments Initial Comments: GENERAL: Patient is well-developed and well-nourished. Patient is nontoxic and in no acute distress. HEAD: Atraumatic, normocephalic. EYES: Pupils equal round and reactive to light, extraocular movements intact, sclera anicteric, conjunctiva are normal. Eyelids were unremarkable. ENT: TMs normal, nares patent, oropharynx clear without exudates. Moist mucous membranes. Patient has erythema and pain with palpation on the upper left gum line, a top tooth #13-14. No visible abscess seen. Many dental caries. NECK: Normal range of motion, supple without lymphadenopathy or JVD. LUNGS: Unlabored respirations. Breath sounds clear to auscultation bilaterally and equal. No wheezes rales or rhonchi. HEART: Regular rate and rhythm without murmurs, rubs or gallops. ABDOMEN: Soft, nontender, normoactive bowel sounds. No guarding, no rebound. No masses appreciated. : Deferred MUSCULOSKELETAL: Normal extremities with adequate strength and normal range of motion, no pitting or edema. No clubbing or cyanosis. NEUROLOGICAL: Patient is alert and oriented x 3. Normal speech, normal gait. PSYCH: Normal mood, normal affect. SKIN: Warm, Dry, normal turgor, no rashes or lesions noted. Limitations: no limitations Course Vital Signs 11/25/19 11:34 Temperature 98.4 F Pulse Rate 67 Respiratory 18 Rate Blood Pressure 101/71 O2 Sat by Pulse 100 Oximetry Medical Decision Making - Medical Decision Making Patient is a 34-year-old female here for left sided dental pain and mild facial swelling 2 days. Her vital signs are stable, afebrile. There is no visible abscess seen on exam. Patient will be started on penicillin VK as well as pain medicine. I did discuss alternating with ibuprofen. She will be given Toradol injection here in the ER. She needs to follow up with a dentist soon as possible. Patient is in agreement with this plan of care. She is stable for discharge. Return parameters were discussed with the patient she verbalized understanding. Case discussed with Dr. Salazar. Disposition Clinical Impression: Dental abscess, Dental caries Disposition: HOME SELF-CARE Condition: Stable Instructions (If sedation given, give patient instructions): Dental Abscess (ED) Additional Instructions: Please return to the Emergency Department if symptoms worsen or any other concerns. Take antibiotic as prescribed. May alternate pain medicine with ibuprofen. Apply ice packs to the area. Follow-up with dentist. Please follow up with the [facility] dental [facility]. [facility] [place] [address]. Phone number for new patients or [phone] for existing patients. Prescriptions: Hydrocodone/Acetaminophen [[place] 5-325] 1 tab PO Q6HR PRN #10 tab PRN Reason: Pain Penicillin V Potassium [Pen Vee K] 500 mg PO QID 7 Days #28 tablet Is patient prescribed a controlled substance at d/c from ED?: Yes When asked, does pt state using other controlled substances?: No If prescribed controlled substance>3 days was MAPS reviewed?: Prescribed <3 Days If opioid is for acute pain is fill amount 7 days or less?: Yes If Rx opioid, was Start Talking consent form obtained?: Yes Referrals: Mariangel Schofield MD [Primary Care Provider] - 1-2 days
== END 2019-11-25 12:23 | disposition home or self-care (01) ==
LOC: EC 11:30
DX: K04.7 Periapical abscess without sinus (principal); K02.9 Dental caries, unspecified; F17.200 Nicotine dependence, unspecified, uncomplicated; Z91.018 Allergy to other foods
CPT/HCPCS: 96372; 99283; J1885

== ENCOUNTER 2019-11-28 10:23 | Emergency (ER) | payer OTHER ==
[2019-11-28] MEDS ORDERED: KETOROLAC 15 MG/ML 1 ML VIAL IM STA (10:37)
[2019-11-28] MEDS ORDERED: LIDOCAINE/EPINEPHR/TETRACAINE 5 ML BOTTLE TOPICAL STA (10:37)
--- NOTE | 2019-11-28 10:47 | ED ---
General Adult HPI - General Source: patient, RN notes reviewed Mode of arrival: ambulatory Limitations: no limitations <Martin Rosenthal - Last Filed: 11/28/19 11:24> <Agustina Marques - Last Filed: 11/28/19 22:37> - General Chief complaint: Dental/Oral Stated complaint: Facial swelling/ abscess tooth Time Seen by Provider: 11/28/19 10:30 - History of Present Illness Initial comments: 34-year-old female with a past medical history of kidney stones, [facility] presents to the emergency room for a chief complaint of dental pain. Patient reports she has had left upper dental for about 5 days now. States she was seen here 3 days ago and started on penicillin. States it has not seemed to help and she continues to have swelling in the upper face. She denies fevers or chills. Patient states she is taking [place] without relief. patient denies neck pain, fevers, trismus. Patient has no other complaints at this time including shortness of breath, chest pain, abdominal pain, nausea or vomiting, headache, or visual changes. (Martin Rosenthal) - Related Data Home Medications Medication Instructions Recorded Confirmed Ondansetron Odt [Zofran Odt] 4 mg PO Q8HR PRN 11/28/19 11/28/19 Previous Rx's Medication Instructions Recorded Hydrocodone/Acetaminophen [[place] 1 tab PO Q6HR PRN #10 tab 11/25/19 5-325] Penicillin V Potassium [Pen Vee K] 500 mg PO QID 7 Days #28 tablet 11/25/19 Clindamycin [Cleocin] 300 mg PO Q8H 7 Days #42 cap 11/28/19 Ibuprofen [Motrin] 600 mg PO Q8HR PRN #20 tab 11/28/19 Allergies Allergy/AdvReac Type Severity Reaction Status Date / Time coconut Allergy Unknown Verified 11/28/19 10:51 Review of Systems ROS Other: All systems not noted in ROS Statement are negative. <Martin Rosenthal - Last Filed: 11/28/19 11:24> ROS Other: All systems not noted in ROS Statement are negative. <Agustina Marques - Last Filed: 11/28/19 22:37> ROS Statement: Those systems with pertinent positive or pertinent negative responses have been documented in the HPI. Past Medical History Past Medical History: No Reported History Additional Past Medical History / Comment(s): KIDNEY STONES, PCOS History of Any Multi-Drug Resistant Organisms: None Reported Past Surgical History: Section, Cholecystectomy, Tubal Ligation Past Psychological History: Depression Smoking Status: Current every day smoker Past Alcohol Use History: Occasional Past Drug Use History: None Reported <Martin Rosenthal - Last Filed: 11/28/19 11:24> General Exam Limitations: no limitations General appearance: alert, in no apparent distress Head exam: Present: atraumatic, normocephalic, normal inspection Eye exam: Present: normal appearance, PERRL, EOMI. Absent: scleral icterus, conjunctival injection, periorbital swelling ENT exam: Present: normal exam, mucous membranes moist, TM's normal bilaterally, normal external ear exam. Absent: normal oropharynx (patient is abscess noted above tooth 13) Neck exam: Present: normal inspection, full ROM. Absent: tenderness, meningismus, lymphadenopathy Respiratory exam: Present: normal lung sounds bilaterally. Absent: respiratory distress, wheezes, rales, rhonchi, stridor Cardiovascular Exam: Present: regular rate, normal rhythm, normal heart sounds. Absent: systolic murmur, diastolic murmur, rubs, gallop, clicks Neurological exam: Present: alert <Martin Rosenthal - Last Filed: 11/28/19 11:24> Course Vital Signs 11/28/19 11/28/19 10:26 11:39 Temperature 98.3 F 98.1 F Pulse Rate 67 62 Respiratory 18 19 Rate Blood Pressure 121/85 125/99 O2 Sat by Pulse 100 99 Oximetry Procedures - Incision & Drainage Consent Obtained: verbal consent Indication: dental Site: oral I&D Drainage Obtained: Pus, Blood Patient Tolerated Procedure: well, no complications <Martin Rosenthal P - Last Filed: 11/28/19 11:24> Medical Decision Making <Martin Rosenthal - Last Filed: 11/28/19 11:24> <Agustina Marques - Last Filed: 11/28/19 22:37> - Medical Decision Making 18-gauge needle was used to incise the abscess above tooth 13. Pus was expelled. patient denies any chance of , Toradol given. patient was started on clindamycin, recommended discontinuing penicillin. (Martin Rosenthal) I was available for consultation in the emergency department. The history and physical exam were done by the midlevel provider. I was consulted for this patients care. I reviewed the case with the midlevel provider and based on their presentation of the patient, I agree with the assessment, medical decision making and plan of care as documented. Chart was dictated using [employer] dictation software. Attempts were made to correct any dictation errors however some typographical errors may persist. Patient was seen during a national state of emergency due to the Covid-19 pandemic. (Agustina Marques) Disposition Is patient prescribed a controlled substance at d/c from ED?: No Time of Disposition: 11:25 <Martin Rosenthal - Last Filed: 11/28/19 11:24> <Agustina Marques - Last Filed: 11/28/19 22:37> Clinical Impression: Dental abscess Disposition: HOME SELF-CARE Condition: Good Instructions (If sedation given, give patient instructions): Dental Abscess (ED) Additional Instructions: please discontinue penicillin. Take clindamycin instead. take Motrin and Tylenol for pain. Follow-up with your dentist as soon as possible. Return to the emergency room if you have any worsening symptoms. Prescriptions: Clindamycin [Cleocin] 300 mg PO Q8H 7 Days #42 cap Ibuprofen [Motrin] 600 mg PO Q8HR PRN #20 tab PRN Reason: Pain Referrals: Mariangel Schofield MD [Primary Care Provider] - 1-2 days
[2019-11-28 11:40] VITALS: BP 125/99; PULSE 62; RESP 19; TEMP 98.1
== END 2019-11-28 11:35 | disposition home or self-care (01) ==
LOC: EC 10:23
DX: K04.7 Periapical abscess without sinus (principal); F17.200 Nicotine dependence, unspecified, uncomplicated; Z91.018 Allergy to other foods
CPT/HCPCS: 99282; 41800; 96372; J1885

== ENCOUNTER 2020-01-08 15:49 | Emergency (ER) | payer OTHER ==
[2020-01-08 15:53] VITALS: BP 132/83; PULSE 69; RESP 18; TEMP 98.2
--- NOTE | 2020-01-08 16:15 | ED ---
General Adult HPI - General Chief complaint: Dental/Oral Stated complaint: dental abscess Time Seen by Provider: 01/08/20 15:54 Source: patient, RN notes reviewed Mode of arrival: ambulatory Limitations: no limitations - History of Present Illness Initial comments: 34-year-old female with a past medical history of kidney stones, PCOS presents for dental pain. Patient reports that she keeps getting dental infections in the same spot. States she was last on antibiotics 6 weeks ago. States that did treat her infection however about 5 days ago it started again. Patient denies fevers or chills, neck stiffness, difficulty swallowing, or trismus. Patient states she did have an appointment with her dentist however could not get a ride so did not attend.Patient has no other complaints at this time including shortness of breath, chest pain, abdominal pain, nausea or vomiting, headache, or visual changes. - Related Data Home Medications Medication Instructions Recorded Confirmed Ondansetron Odt [Zofran Odt] 4 mg PO Q8HR PRN 11/28/19 11/28/19 Previous Rx's Medication Instructions Recorded Hydrocodone/Acetaminophen [[place] 1 tab PO Q6HR PRN #10 tab 11/25/19 5-325] Penicillin V Potassium [Pen Vee K] 500 mg PO QID 7 Days #28 tablet 11/25/19 Clindamycin [Cleocin] 300 mg PO Q8H 7 Days #42 cap 11/28/19 Ibuprofen [Motrin] 600 mg PO Q8HR PRN #20 tab 11/28/19 Clindamycin [Cleocin] 300 mg PO Q8H 7 Days #42 cap 01/08/20 Allergies Allergy/AdvReac Type Severity Reaction Status Date / Time coconut Allergy Unknown Verified 11/28/19 10:51 Penicillins Allergy Rash/Hives Verified 01/08/20 15:53 Review of Systems ROS Statement: Those systems with pertinent positive or pertinent negative responses have been documented in the HPI. ROS Other: All systems not noted in ROS Statement are negative. Past Medical History Past Medical History: No Reported History Additional Past Medical History / Comment(s): KIDNEY STONES, PCOS History of Any Multi-Drug Resistant Organisms: None Reported Past Surgical History: Section, Cholecystectomy, Tubal Ligation Past Psychological History: Depression Smoking Status: Current every day smoker Past Alcohol Use History: Occasional Past Drug Use History: None Reported General Exam Limitations: no limitations General appearance: alert, in no apparent distress Head exam: Present: atraumatic, normocephalic, normal inspection Eye exam: Present: normal appearance, PERRL, EOMI. Absent: scleral icterus, conjunctival injection, periorbital swelling ENT exam: Present: normal exam, mucous membranes moist, TM's normal bilaterally, normal external ear exam. Absent: normal oropharynx (abscess at tooth 11, no trismus, neck stiffness, sublingual edema.) Neck exam: Present: normal inspection, full ROM. Absent: tenderness, meningismus, lymphadenopathy Respiratory exam: Present: normal lung sounds bilaterally. Absent: respiratory distress, wheezes, rales, rhonchi, stridor Cardiovascular Exam: Present: regular rate, normal rhythm, normal heart sounds. Absent: systolic murmur, diastolic murmur, rubs, gallop, clicks Course Vital Signs 01/08/20 15:50 Temperature 98.2 F Pulse Rate 69 Respiratory 18 Rate Blood Pressure 132/83 O2 Sat by Pulse 100 Oximetry Procedures - Incision & Drainage Consent Obtained: verbal consent Indication: dental abscess Site: oral Size (cm): 1 I&D Drainage Obtained: Pus Patient Tolerated Procedure: well, no complications (18 G needle used) Medical Decision Making - Medical Decision Making 18-gauge needle was used to incise and drain small abscess above tooth 11 which did expel purulent material. Patient was again started on clindamycin. She was last on the 6 weeks ago but is ALLERGIC to penicillin and does not know her reaction. At this point I discussed with patient that this is going to keep coming back and we cannot keep putting her on clindamycin as this does have GI side effects. Patient is agreeable to following up with her dentist as she likely needs a root canal. She is already established with a dentist. Patient will return here for any worsening symptoms in the meantime. Disposition Clinical Impression: Dental abscess Disposition: HOME SELF-CARE Condition: Good Instructions (If sedation given, give patient instructions): Dental Abscess (ED) Additional Instructions: Please follow-up with your dentist as soon as possible. Take antibiotic as directed. Return to the emergency room for any worsening symptoms. Prescriptions: Clindamycin [Cleocin] 300 mg PO Q8H 7 Days #42 cap Is patient prescribed a controlled substance at d/c from ED?: No Referrals: Mariangel Schofield MD [Primary Care Provider] - 1-2 days Time of Disposition: 16:13
== END 2020-01-08 16:23 | disposition home or self-care (01) ==
LOC: EC 15:49
DX: K04.7 Periapical abscess without sinus (principal); F17.200 Nicotine dependence, unspecified, uncomplicated; Z88.0 Allergy status to penicillin; Z91.018 Allergy to other foods; Z90.49 Acquired absence of other specified parts of digestive tract
CPT/HCPCS: 10060; 99282

== ENCOUNTER 2020-06-17 12:56 | Emergency (ER) | payer OTHER ==
[2020-06-17 13:23] VITALS: BP 129/83; PULSE 73; RESP 16; TEMP 98
[2020-06-17] MEDS ORDERED: MAG HYDROX/AL HYDROX/SIMETH 30 ML, HYOSCYAMINE ELIXIR 10 ML, LIDOCAINE VISCOUS 2% 10 ML PO STA ×3 (14:02)
--- NOTE | 2020-06-17 14:17 | ED ---
General Adult HPI - General Chief complaint: Fall Stated complaint: fall, arm/rib pain Time Seen by Provider: 06/17/20 13:29 Source: patient Mode of arrival: ambulatory Limitations: no limitations - History of Present Illness Initial comments: Patient is a 35-year-old female presenting to the emergency department with 2 separate complaints. Patient states she has a history of GERD and is having a lot of burning in her stomach. Patient states she does not take any medications for this. Patient is also complaining of rib pain after she fell a few days ago. Patient went to [facility] yesterday for same complaint, she did have x-rays which revealed no fractures. She still having some discomfort. She denies any fever or chills, no nausea or vomiting, no lower abdominal pain, no fever or chills. She has no further complaints. - Related Data Home Medications Medication Instructions Recorded Confirmed Ondansetron Odt [Zofran Odt] 4 mg PO Q8HR PRN 11/28/19 11/28/19 Previous Rx's Medication Instructions Recorded Hydrocodone/Acetaminophen [[place] 1 tab PO Q6HR PRN #10 tab 11/25/19 5-325] Penicillin V Potassium [Pen Vee K] 500 mg PO QID 7 Days #28 tablet 11/25/19 Clindamycin [Cleocin] 300 mg PO Q8H 7 Days #42 cap 11/28/19 Ibuprofen [Motrin] 600 mg PO Q8HR PRN #20 tab 11/28/19 Clindamycin [Cleocin] 300 mg PO Q8H 7 Days #42 cap 01/08/20 Omeprazole 20 mg PO DAILY #30 tablet. 06/17/20 Allergies Allergy/AdvReac Type Severity Reaction Status Date / Time coconut Allergy Unknown Verified 06/17/20 13:23 Penicillins Allergy Rash/Hives Verified 06/17/20 13:23 Review of Systems ROS Statement: Those systems with pertinent positive or pertinent negative responses have been documented in the HPI. ROS Other: All systems not noted in ROS Statement are negative. Past Medical History Past Medical History: No Reported History Additional Past Medical History / Comment(s): KIDNEY STONES, PCOS History of Any Multi-Drug Resistant Organisms: None Reported Past Surgical History: Section, Cholecystectomy, Tubal Ligation Past Psychological History: Depression Smoking Status: Current every day smoker Past Alcohol Use History: Occasional Past Drug Use History: None Reported General Exam - General Exam Comments Initial Comments: GENERAL: Patient is well-developed and well-nourished. Patient is nontoxic and in no acute distress. HEAD: Atraumatic, normocephalic. EYES: Pupils equal round and reactive to light, extraocular movements intact, sclera anicteric, conjunctiva are normal. Eyelids were unremarkable. ENT: TMs normal, nares patent, oropharynx clear without exudates. Moist mucous membranes. NECK: Normal range of motion, supple without lymphadenopathy or JVD. LUNGS: Unlabored respirations. Breath sounds clear to auscultation bilaterally and equal. No wheezes rales or rhonchi. HEART: Regular rate and rhythm without murmurs, rubs or gallops. ABDOMEN: Soft, mild pain in the epigastric region, no other areas of pain, normoactive bowel sounds. No guarding, no rebound. No masses appreciated. : Deferred MUSCULOSKELETAL: Normal extremities with adequate strength and normal range of motion, no pitting or edema. No clubbing or cyanosis. Pain with palpation of the right lateral ribs, no bruising. NEUROLOGICAL: Patient is alert and oriented x 3. Motor and sensory are also intact. Cranial nerves II through XII grossly intact. Symmetrical smile. Normal speech, normal gait. PSYCH: Normal mood, normal affect. SKIN: Warm, Dry, normal turgor, no rashes or lesions noted. Limitations: no limitations Course Vital Signs 06/17/20 13:20 Temperature 98.0 F Pulse Rate 73 Respiratory 16 Rate Blood Pressure 129/83 O2 Sat by Pulse 99 Oximetry Medical Decision Making - Medical Decision Making Patient 35-year-old female here with complaints of increase in her GERD symptoms, burning in her stomach as well as right lateral rib pain after she fell 3 days ago. She has already received x-rays of her right ribs, no fractures. I discussed with patient that her GERD is a chronic issue and she needs to be on medication for this. She states she has not seen a GI specialist for this. I will give her a GI cocktail here. We also discussed her rib contusion which will be painful for a few weeks. Recommended ibuprofen for that or Tylenol. She can use ice to the area. I will give her GI referral. She is stable for discharge and she is in agreement with this plan of care. He verbalized understanding. Case discussed Dr. Pena. Disposition Clinical Impression: Contusion of rib on right side, Chronic GERD Disposition: HOME SELF-CARE Condition: Stable Instructions (If sedation given, give patient instructions): Rib Contusion (ED) Additional Instructions: Please return to the Emergency Department if symptoms worsen or any other concerns. Use ice on the ribs, tylenol/motrin for pain Recommend omeprazole for your GERD. Follow-up with GI. Prescriptions: Omeprazole 20 mg PO DAILY #30 tablet.dr Is patient prescribed a controlled substance at d/c from ED?: No Referrals: Mariangel Schofield MD [Primary Care Provider] - 1-2 days Daron Segura MD [STAFF PHYSICIAN] - 1-2 days
== END 2020-06-17 14:43 | disposition home or self-care (01) ==
LOC: EC 12:56
DX: S20.211A Contusion of right front wall of thorax, initial encounter (principal); K21.9 Gastro-esophageal reflux disease without esophagitis; F17.200 Nicotine dependence, unspecified, uncomplicated; Z79.1 Long term (current) use of non-steroidal anti-inflammatories (NSAID); Z88.0 Allergy status to penicillin; Z79.899 Other long term (current) drug therapy; W19.XXXA Unspecified fall, initial encounter
CPT/HCPCS: 99283

== ENCOUNTER 2020-07-04 18:34 | Emergency (ER) | payer OTHER ==
[2020-07-04 18:52] VITALS: RESP 18
--- NOTE | 2020-07-04 19:40 | ED ---
General Adult HPI - General Chief complaint: Shortness of Breath Stated complaint: Covid exposure, headache, bodyaches Time Seen by Provider: 07/04/20 18:55 Source: patient, RN notes reviewed, old records reviewed Mode of arrival: ambulatory Limitations: no limitations - History of Present Illness Initial comments: 35-year-old female presenting for evaluation of cough, sore throat, nasal congestion, myalgia. Patient states that her mother was recently diagnosed with coronavirus. She states she's had symptoms for the past several days. No significant vomiting or diarrhea. She has cough but no dyspnea. She does complain of a headache as well as fever and chills. She is otherwise healthy with no chronic medical conditions. - Related Data Home Medications Medication Instructions Recorded Confirmed Ondansetron Odt [Zofran Odt] 4 mg PO Q8HR PRN 11/28/19 11/28/19 Previous Rx's Medication Instructions Recorded Hydrocodone/Acetaminophen [[place] 1 tab PO Q6HR PRN #10 tab 11/25/19 5-325] Penicillin V Potassium [Pen Vee K] 500 mg PO QID 7 Days #28 tablet 11/25/19 Clindamycin [Cleocin] 300 mg PO Q8H 7 Days #42 cap 11/28/19 Ibuprofen [Motrin] 600 mg PO Q8HR PRN #20 tab 11/28/19 Clindamycin [Cleocin] 300 mg PO Q8H 7 Days #42 cap 01/08/20 Omeprazole 20 mg PO DAILY #30 tablet. 06/17/20 Allergies Allergy/AdvReac Type Severity Reaction Status Date / Time coconut Allergy Unknown Verified 06/17/20 13:23 Penicillins Allergy Rash/Hives Verified 06/17/20 13:23 Review of Systems ROS Statement: Those systems with pertinent positive or pertinent negative responses have been documented in the HPI. ROS Other: All systems not noted in ROS Statement are negative. Past Medical History Past Medical History: No Reported History Additional Past Medical History / Comment(s): KIDNEY STONES, PCOS History of Any Multi-Drug Resistant Organisms: None Reported Past Surgical History: Section, Cholecystectomy, Tubal Ligation Past Psychological History: Depression Smoking Status: Current every day smoker Past Alcohol Use History: Occasional Past Drug Use History: None Reported General Exam Limitations: no limitations General appearance: alert, in no apparent distress Head exam: Present: atraumatic, normocephalic Eye exam: Present: normal appearance, PERRL ENT exam: Present: normal exam Neck exam: Present: normal inspection. Absent: tenderness, meningismus Respiratory exam: Present: normal lung sounds bilaterally. Absent: respiratory distress, wheezes Cardiovascular Exam: Present: regular rate, normal rhythm GI/Abdominal exam: Present: soft. Absent: distended, tenderness, guarding Extremities exam: Present: normal inspection, normal capillary refill. Absent: pedal edema Neurological exam: Present: alert, oriented X3, CN II-XII intact. Absent: motor sensory deficit Psychiatric exam: Present: normal affect, normal mood Skin exam: Present: warm, dry, intact. Absent: cyanosis, diaphoretic Course Vital Signs 07/04/20 07/04/20 18:49 19:13 Temperature 98.7 F Pulse Rate 72 Respiratory 18 18 Rate Blood Pressure 124/85 O2 Sat by Pulse 100 Oximetry Medical Decision Making - Medical Decision Making 35-year-old female with concern for coronavirus. Patient well-appearing with stable vitals. No respiratory distress, no hypoxia, lungs are clear. Patient is positive for coronavirus. She will quarantine at home. She will return with any respiratory issues. - Lab Data Lab Results 07/04/20 Range/Units 19:13 Coronavirus (PCR) Detected A (Not Detectd) Disposition Clinical Impression: COVID-19 Disposition: HOME SELF-CARE Condition: Good Instructions (If sedation given, give patient instructions): Coronavirus Disease 2019 (COVID-19) Is patient prescribed a controlled substance at d/c from ED?: No Referrals: Mariangel Schofield MD [Primary Care Provider] - 1-2 days Time of Disposition: 19:40
[2020-07-04 19:52] VITALS: BP 112/70; PULSE 80; TEMP 98.6
== END 2020-07-04 19:51 | disposition home or self-care (01) ==
LOC: EC 18:34
DX: U07.1 COVID-19 (principal); F32.9 Major depressive disorder, single episode, unspecified; F17.200 Nicotine dependence, unspecified, uncomplicated; Z88.0 Allergy status to penicillin
CPT/HCPCS: 87635; 99284

== ENCOUNTER 2020-11-17 16:35 | Emergency (ER) | payer OTHER ==
[2020-11-17 17:44] VITALS: TEMP 98.5
[2020-11-17 18:07] LABS: Basophils # (A) 0.1 k/uL (0-0.2); Basophils % (A) 1 %; Eosinophils # (A) 0.3 k/uL (0-0.7); Eosinophils % (A) 2 %; HCT 36.7 % (34.0-46.0); HGB 11.4 gm/dL (11.4-16.0); Hypochromasia Moderate; Lymphocytes # (A) 2.9 k/uL (1.0-4.8); Lymphocytes % (A) 27 %; MCH 25.2 pg (25.0-35.0); MCHC 31.1 g/dL (31.0-37.0); MCV 81.1 fL (80.0-100.0); Mean Platelet Volume 10.3; Monocytes # (A) 0.5 k/uL (0-1.0); Monocytes % (A) 5 %; Neutrophils # (A) 6.6 k/uL (1.3-7.7); Neutrophils % (A) 63 %; Platelet Count 303 k/uL (150-450); RBC 4.52 m/uL (3.80-5.40); RDW 14.7 % (11.5-15.5); WBC 10.6 k/uL (3.8-10.6)
[2020-11-17 18:16] LABS: Albumin 4.4 g/dL (3.5-5.0); Calcium 9.5 mg/dL (8.4-10.2); Potassium 3.9 mmol/L (3.5-5.1); Total Bilirubin 0.6 mg/dL (0.2-1.3); Total Protein 7.7 g/dL (6.3-8.2)
[2020-11-17 19:00] LABS: Appearance,Urine Clear (Clear); Bilirubin,Urine Negative (Negative); Blood,Urine Negative (Negative); Color,Urine Yellow; Glucose,Urine (UA) Negative (Negative); Ketones,Urine Negative (Negative); Leukocyte Esterase,Urine Negative (Negative); Nitrite,Urine Negative (Negative); Protein,Urine Trace (Negative); Specific Gravity,Urine 1.034 (1.001-1.035)
[2020-11-17 19:18] VITALS: RESP 18
[2020-11-17] MEDS ORDERED: KETOROLAC 15 MG/ML 1 ML VIAL IVP STA (19:32)
--- NOTE | 2020-11-17 21:11 | CT ---
EXAMINATION TYPE: CT abdomen pelvis w con DATE OF EXAM: 11/17/2020 COMPARISON: CT abdomen pelvis 08/29/2018 HISTORY: RLQ pain CT DLP: 1679.5 mGycm Automated exposure control for dose reduction was used. TECHNIQUE: Helical acquisition of images was performed from the lung bases through the pelvis. CONTRAST: Performed without Oral Contrast and with IV Contrast, patient injected with 100 mL of Isovue 300. FINDINGS: LUNG BASES: No significant abnormality is appreciated. LIVER/GB: Subcentimeter densities similar to prior. Cholecystectomy. PANCREAS: No significant abnormality is seen. SPLEEN: No significant abnormality is seen. ADRENALS: No significant abnormality is seen. KIDNEYS: Hypodensities of the bilateral kidneys some of which are too small to characterize but are f avored to represent cysts. No hydronephrosis. There is decompressed limiting assessment. FREE AIR: No free air is visualized. RETROPERITONEAL ADENOPATHY: None visualized REPRODUCTIVE ORGANS: The uterus appears prominent in size similar to prior. URINARY BLADDER: Decompressed. PELVIC ADENOPATHY: None OSSEOUS STRUCTURES: No significant abnormality is seen. BOWEL: Nondilated loops of large and small bowel. The appendix is visualized and is nondilated. OTHER: Fat-containing umbilical hernia. IMPRESSION: NO ACUTE PROCESS IN THE ABDOMEN OR PELVIS.
[2020-11-17 21:43] VITALS: BP 123/78; PULSE 68
--- NOTE | 2020-11-18 00:52 | ED ---
General Adult HPI - General Chief complaint: Nausea/Vomiting/Diarrhea Stated complaint: ovarian cyst Source: patient Mode of arrival: ambulatory Limitations: no limitations - History of Present Illness Initial comments: 35-year-old previously healthy female presents emergency room with reported right lower quadrant abdominal pain. She reports to brown vaginal discharge and diarrhea. Patient is concerned that the diarrhea is coming from her vagina. States that the symptoms started today while she was out shopping. Denies dysuria, hematuria or difficulty voiding. Admits concern for and sexually transmitted infections. Denies any fevers or chills. No nausea or vomiting. Did not take any medications for her symptoms. No history of similar in the past. No other alleviating, precipitating or modifying factors - Related Data Home Medications Medication Instructions Recorded Confirmed No Known Home Medications 11/17/20 11/17/20 Allergies Allergy/AdvReac Type Severity Reaction Status Date / Time coconut Allergy Unknown Verified 11/17/20 20:39 Penicillins Allergy Rash/Hives Verified 11/17/20 20:39 Review of Systems ROS Statement: Those systems with pertinent positive or pertinent negative responses have been documented in the HPI. ROS Other: All systems not noted in ROS Statement are negative. Past Medical History Past Medical History: No Reported History Additional Past Medical History / Comment(s): KIDNEY STONES, PCOS, History of Any Multi-Drug Resistant Organisms: None Reported Past Surgical History: Section, Cholecystectomy, Tubal Ligation Past Psychological History: Depression Smoking Status: Current every day smoker Past Alcohol Use History: Occasional Past Drug Use History: Marijuana General Exam Limitations: no limitations General appearance: alert, in no apparent distress Head exam: Present: atraumatic, normocephalic, normal inspection Eye exam: Present: normal appearance, PERRL, EOMI. Absent: scleral icterus, conjunctival injection, periorbital swelling ENT exam: Present: normal exam, mucous membranes moist Neck exam: Present: normal inspection. Absent: tenderness, meningismus, lymphadenopathy Respiratory exam: Present: normal lung sounds bilaterally. Absent: respiratory distress, wheezes, rales, rhonchi, stridor Cardiovascular Exam: Present: regular rate, normal rhythm, normal heart sounds. Absent: systolic murmur, diastolic murmur, rubs, gallop, clicks GI/Abdominal exam: Present: soft, normal bowel sounds. Absent: distended, tenderness, guarding, rebound, rigid Extremities exam: Present: normal inspection, full ROM, normal capillary refill. Absent: tenderness, pedal edema, joint swelling, calf tenderness Back exam: Present: normal inspection Neurological exam: Present: alert, oriented X3, CN II-XII intact Psychiatric exam: Present: normal affect, normal mood Skin exam: Present: warm, dry, intact, normal color. Absent: rash Course Vital Signs 11/17/20 11/17/20 17:40 21:00 Temperature 98.5 F Pulse Rate 63 68 Respiratory 18 Rate Blood Pressure 124/95 123/78 O2 Sat by Pulse 100 100 Oximetry Medical Decision Making - Medical Decision Making Upon arrival patient is placed into room 6. A thorough history and physical exam is performed. IV is established. Patient was given a dose of Toradol for pain control. Laboratory says her conducted and patient provides a urine sample. She did go over for CT of her abdomen and pelvis to evaluate for fistula. A CT is negative for any acute process. I did go back into the room to discuss results with the patient and perform a pelvic exam. Patient has eloped. - Lab Data Result diagrams: 11/17/20 17:58 11/17/20 17:58 Lab Results 11/17/20 11/17/20 11/17/20 Range/Units 17:58 17:58 18:48 WBC 10.6 (3.8-10.6) k/uL RBC 4.52 (3.80-5.40) m/uL Hgb 11.4 (11.4-16.0) gm/dL Hct 36.7 (34.0-46.0) % MCV 81.1 (80.0-100.0) fL MCH 25.2 (25.0-35.0) pg MCHC 31.1 (31.0-37.0) g/dL RDW 14.7 (11.5-15.5) % Plt Count 303 (150-450) k/uL MPV 10.3 Neutrophils % 63 % Lymphocytes % 27 % Monocytes % 5 % Eosinophils % 2 % Basophils % 1 % Neutrophils # 6.6 (1.3-7.7) k/uL Lymphocytes # 2.9 (1.0-4.8) k/uL Monocytes # 0.5 (0-1.0) k/uL Eosinophils # 0.3 (0-0.7) k/uL Basophils # 0.1 (0-0.2) k/uL Hypochromasia Moderate Sodium 139 (137-145) mmol/L Potassium 3.9 (3.5-5.1) mmol/L Chloride 107 (98-107) mmol/L Carbon Dioxide 23 (22-30) mmol/L Anion Gap 9 mmol/L BUN 13 (7-17) mg/dL Creatinine 0.98 (0.52-1.04) mg/dL Est GFR (CKD-EPI)AfAm 86 (>60 ml/min/1.73 sqM) Est GFR (CKD-EPI)NonAf 75 (>60 ml/min/1.73 sqM) Glucose 110 H (74-99) mg/dL Calcium 9.5 (8.4-10.2) mg/dL Total Bilirubin 0.6 (0.2-1.3) mg/dL AST 28 (14-36) U/L ALT 16 (4-34) U/L Alkaline Phosphatase 65 (38-126) U/L Total Protein 7.7 (6.3-8.2) g/dL Albumin 4.4 (3.5-5.0) g/dL Amylase 59 (30-110) U/L Lipase 190 (23-300) U/L Urine Color Yellow Urine Appearance Clear (Clear) Urine pH 6.0 (5.0-8.0) Ur Specific [place] 1.034 (1.001-1.035) Urine Protein Trace H (Negative) Urine Glucose (UA) Negative (Negative) Urine Ketones Negative (Negative) Urine Blood Negative (Negative) Urine Nitrite Negative (Negative) Urine Bilirubin Negative (Negative) Urine Urobilinogen 2.0 (<2.0) mg/dL Ur Leukocyte Esterase Negative (Negative) Urine HCG, Qual (Not Detectd) 11/17/20 Range/Units 18:48 WBC (3.8-10.6) k/uL RBC (3.80-5.40) m/uL Hgb (11.4-16.0) gm/dL Hct (34.0-46.0) % MCV (80.0-100.0) fL MCH (25.0-35.0) pg MCHC (31.0-37.0) g/dL RDW (11.5-15.5) % Plt Count (150-450) k/uL MPV Neutrophils % % Lymphocytes % % Monocytes % % Eosinophils % % Basophils % % Neutrophils # (1.3-7.7) k/uL Lymphocytes # (1.0-4.8) k/uL Monocytes # (0-1.0) k/uL Eosinophils # (0-0.7) k/uL Basophils # (0-0.2) k/uL Hypochromasia Sodium (137-145) mmol/L Potassium (3.5-5.1) mmol/L Chloride (98-107) mmol/L Carbon Dioxide (22-30) mmol/L Anion Gap mmol/L BUN (7-17) mg/dL Creatinine (0.52-1.04) mg/dL Est GFR (CKD-EPI)AfAm (>60 ml/min/1.73 sqM) Est GFR (CKD-EPI)NonAf (>60 ml/min/1.73 sqM) Glucose (74-99) mg/dL Calcium (8.4-10.2) mg/dL Total Bilirubin (0.2-1.3) mg/dL AST (14-36) U/L ALT (4-34) U/L Alkaline Phosphatase (38-126) U/L Total Protein (6.3-8.2) g/dL Albumin (3.5-5.0) g/dL Amylase (30-110) U/L Lipase (23-300) U/L Urine Color Urine Appearance (Clear) Urine pH (5.0-8.0) Ur Specific [place] (1.001-1.035) Urine Protein (Negative) Urine Glucose (UA) (Negative) Urine Ketones (Negative) Urine Blood (Negative) Urine Nitrite (Negative) Urine Bilirubin (Negative) Urine Urobilinogen (<2.0) mg/dL Ur Leukocyte Esterase (Negative) Urine HCG, Qual Not Detected (Not Detectd) Disposition Clinical Impression: Diarrhea, Abdominal pain Disposition: HOME SELF-CARE Condition: Stable Instructions (If sedation given, give patient instructions): Abdominal Pain (ED) Is patient prescribed a controlled substance at d/c from ED?: No Referrals: Mariangel Schofield MD [Primary Care Provider] - 1-2 days
== END 2020-11-17 21:36 | disposition home or self-care (01) ==
LOC: EC 16:35
DX: R19.7 Diarrhea, unspecified (principal); R10.31 Right lower quadrant pain; N89.8 Other specified noninflammatory disorders of vagina; F32.9 Major depressive disorder, single episode, unspecified; F12.90 Cannabis use, unspecified, uncomplicated; F17.200 Nicotine dependence, unspecified, uncomplicated; Z87.442 Personal history of urinary calculi; Z88.0 Allergy status to penicillin; Z90.49 Acquired absence of other specified parts of digestive tract
CPT/HCPCS: 36415; 80053; 82150; 83690; 85025; 81003; 81025; 74177; 99284; 96374; J1885; Q9967

== ENCOUNTER 2020-12-16 10:37 | Emergency (ER) | payer OTHER ==
[2020-12-16 10:48] VITALS: BP 129/91; PULSE 80; RESP 18; TEMP 97.8
[2020-12-16] MEDS ORDERED: CEPHALEXIN 500MG STARTER PACK 4 CAP BTL PO STA (11:33)
[2020-12-16] MEDS ORDERED: SULFAMETH-TMP DS STARTER PACK 2 TAB BTL PO STA (11:36)
[2020-12-16] MEDS ORDERED: IBUPROFEN 600 MG TAB PO STA (11:37)
--- NOTE | 2020-12-16 11:38 | ED ---
General Adult HPI - General Chief complaint: Skin/Abscess/Foreign Body Stated complaint: Injury-Head Time Seen by Provider: 12/16/20 11:04 Source: patient, RN notes reviewed Mode of arrival: ambulatory Limitations: no limitations - History of Present Illness Initial comments: 35-year-old female with a past medical history of kidney stones, PCOS presents to the emergency room for a chief complaint of scalp irritation. Patient states she noticed a bump on her scalp yesterday. States it is painful to touch. States it hurts to lay on. Patient denies fevers or chills. Denies headache. Patient has no other complaints at this time including shortness of breath, chest pain, abdominal pain, nausea or vomiting, headache, or visual changes. - Related Data Previous Rx's Medication Instructions Recorded Sulfamethox-Tmp 800-160Mg [Bactrim 1 tab PO Q12HR 7 Days #14 tab 12/16/20 DS 800-160 mg] Allergies Allergy/AdvReac Type Severity Reaction Status Date / Time coconut Allergy Unknown Verified 12/16/20 10:48 Penicillins Allergy Rash/Hives Verified 12/16/20 10:48 Review of Systems ROS Statement: Those systems with pertinent positive or pertinent negative responses have been documented in the HPI. ROS Other: All systems not noted in ROS Statement are negative. Past Medical History Past Medical History: No Reported History Additional Past Medical History / Comment(s): KIDNEY STONES, PCOS, History of Any Multi-Drug Resistant Organisms: None Reported Past Surgical History: Section, Cholecystectomy, Tubal Ligation Past Psychological History: Depression Smoking Status: Current every day smoker Past Alcohol Use History: Occasional Past Drug Use History: Marijuana General Exam Limitations: no limitations General appearance: alert, in no apparent distress Head exam: Present: atraumatic, other (She has a small less than 1 cm nodule noted on the back of the scalp without any erythema. No fluctuance.) Eye exam: Present: normal appearance, PERRL, EOMI. Absent: scleral icterus, conjunctival injection ENT exam: Present: normal exam, mucous membranes moist Neck exam: Present: normal inspection, full ROM. Absent: tenderness Respiratory exam: Present: normal lung sounds bilaterally. Absent: respiratory distress, wheezes Cardiovascular Exam: Present: regular rate, normal rhythm, normal heart sounds GI/Abdominal exam: Present: soft, normal bowel sounds. Absent: distended, tenderness Course Vital Signs 12/16/20 10:43 Temperature 97.8 F Pulse Rate 80 Respiratory 18 Rate Blood Pressure 129/91 O2 Sat by Pulse 98 Oximetry Medical Decision Making - Medical Decision Making Patient is 7 nodule notice scalp. There is no fluctuance or erythema. Patient likely has a folliculitis. However as it is in her hair we will treat her with oral antibiotics. She will need to follow up with primary care. She'll return here for any worsening symptoms. Disposition Clinical Impression: Folliculitis, Skin nodule Disposition: HOME SELF-CARE Condition: Good Instructions (If sedation given, give patient instructions): Folliculitis (ED) Prescriptions: Sulfamethox-Tmp 800-160Mg [Bactrim DS 800-160 mg] 1 tab PO Q12HR 7 Days #14 tab Is patient prescribed a controlled substance at d/c from ED?: No Referrals: Mariangel Schofield MD [Primary Care Provider] - 1-2 days Steve Humphrey MD [STAFF PHYSICIAN] - 1-2 days Time of Disposition: 11:36
== END 2020-12-16 12:05 | disposition home or self-care (01) ==
LOC: EC 10:37
DX: L73.8 Other specified follicular disorders (principal); R22.0 Localized swelling, mass and lump, head; F32.9 Major depressive disorder, single episode, unspecified; F17.200 Nicotine dependence, unspecified, uncomplicated; F12.90 Cannabis use, unspecified, uncomplicated; Z88.0 Allergy status to penicillin; Z87.442 Personal history of urinary calculi; Z90.49 Acquired absence of other specified parts of digestive tract; Z98.51 Tubal ligation status
CPT/HCPCS: 99282

== ENCOUNTER 2020-12-17 15:04 | Emergency (ER) | payer OTHER ==
[2020-12-17 15:31] VITALS: BP 132/99; PULSE 79; RESP 18; TEMP 98
[2020-12-17] MEDS ORDERED: ONDANSETRON 4 MG ODT STARTER PACK 2 TAB BTL PO STA (16:20)
[2020-12-17] MEDS ORDERED: KETOROLAC 15 MG/ML 1 ML VIAL IM STA (16:20)
--- NOTE | 2020-12-17 16:25 | ED ---
Recheck HPI - General Chief Complaint: Recheck/Abnormal Lab/Rx Stated Complaint: Revisit Headache Time Seen by Provider: 12/17/20 15:34 Source: patient Mode of arrival: ambulatory Limitations: no limitations - History of Present Illness Initial Comments: Patient is a 35-year-old female presenting to the emergency department for a recheck of bumps on the back of her head. Patient states she was here yesterday for same complaint, was told was folliculitis, started on antibiotics.. She continues to have a headache and the bump seems to be more painful. Patient was started on Bactrim yesterday, she has been unable to tolerate the medication due to nausea and vomiting. Patient denies any fevers or chills, no abdominal pain. She states she did not try any Tylenol or Motrin yet today. She has no further complaints. - Related Data Previous Rx's Medication Instructions Recorded Sulfamethox-Tmp 800-160Mg [Bactrim 1 tab PO Q12HR 7 Days #14 tab 12/16/20 DS 800-160 mg] Cephalexin [Keflex] 500 mg PO Q6HR 5 Days #20 cap 12/17/20 Allergies Allergy/AdvReac Type Severity Reaction Status Date / Time coconut Allergy Unknown Verified 12/17/20 15:29 Penicillins Allergy Rash/Hives Verified 12/17/20 15:29 Review of Systems ROS Statement: Those systems with pertinent positive or pertinent negative responses have been documented in the HPI. ROS Other: All systems not noted in ROS Statement are negative. Past Medical History Past Medical History: No Reported History Additional Past Medical History / Comment(s): KIDNEY STONES, PCOS, History of Any Multi-Drug Resistant Organisms: None Reported Past Surgical History: Section, Cholecystectomy, Tubal Ligation Past Psychological History: Depression Smoking Status: Current every day smoker Past Alcohol Use History: Occasional Past Drug Use History: Marijuana General Exam - General Exam Comments Initial Comments: GENERAL: Patient is well-developed and well-nourished. Patient is nontoxic and in no acute distress. HEAD: Atraumatic, normocephalic. EYES: Pupils equal round and reactive to light, extraocular movements intact, sclera anicteric, conjunctiva are normal. Eyelids were unremarkable. ENT: Moist mucous membranes. NECK: Normal range of motion, supple without lymphadenopathy or JVD. LUNGS: Unlabored respirations. Breath sounds clear to auscultation bilaterally and equal. No wheezes rales or rhonchi. HEART: Regular rate and rhythm without murmurs, rubs or gallops. ABDOMEN: Soft, nontender, normoactive bowel sounds. No guarding, no rebound. No masses appreciated. : Deferred MUSCULOSKELETAL: Normal extremities with adequate strength and normal range of motion, no pitting or edema. No clubbing or cyanosis. NEUROLOGICAL: Patient is alert and oriented x 3. Motor and sensory are also intact. Cranial nerves II through XII grossly intact. Symmetrical smile. Normal speech, normal gait. PSYCH: Normal mood, normal affect. SKIN: Warm, Dry, normal turgor, no rashes. Patient does have a known large follicle in the posterior scalp, there is some mild erythema, induration, no fluctuance or abscess noted. There is some mild drainage from this. Consistent with folliculitis. Limitations: no limitations Course Vital Signs 12/17/20 15:29 Temperature 98.0 F Pulse Rate 79 Respiratory 18 Rate Blood Pressure 132/99 O2 Sat by Pulse 98 Oximetry Medical Decision Making - Medical Decision Making She is a 35-year-old female here for recheck of a bump in the back of her head. She states antibiotics that she was prescribed yesterday is making her nauseous. She still has a headache. Patient's scalp was rechecked, this is consistent with folliculitis. I will switch patient's antibiotic, give her something for pain today as well as nausea. She'll follow-up with her primary care physician. She is in agreement with this plan of care and is stable for discharge. Disposition Clinical Impression: Skin nodule, Folliculitis Disposition: HOME SELF-CARE Condition: Stable Instructions (If sedation given, give patient instructions): Folliculitis (ED) Additional Instructions: Please return to the Emergency Department if symptoms worsen or any other concerns. Take antibiotics as prescribed. Take Tylenol or Motrin for headaches. May take Zofran for every 8 hours for nausea. Use warm compresses to the area to allow for drainage. Follow-up with your PCP. Prescriptions: Cephalexin [Keflex] 500 mg PO Q6HR 5 Days #20 cap Is patient prescribed a controlled substance at d/c from ED?: No Referrals: Mariangel Schofield MD [Primary Care Provider] - 1-2 days Time of Disposition: 16:24
== END 2020-12-17 17:06 | disposition home or self-care (01) ==
LOC: EC 15:04
DX: L73.9 Follicular disorder, unspecified (principal); F17.200 Nicotine dependence, unspecified, uncomplicated; F12.90 Cannabis use, unspecified, uncomplicated
CPT/HCPCS: 96372; 99283; J1885; S0119

== ENCOUNTER 2021-01-29 03:52 | Emergency (ER) | payer OTHER ==
[2021-01-29 03:56] VITALS: BP 131/79; PULSE 72; RESP 18; TEMP 97.9
[2021-01-29] MEDS ORDERED: Acetaminophen-Codeine 300-30mg TAB PO STA (03:58)
[2021-01-29] MEDS ORDERED: ACET/COD 300 MG/30 MG STARTER PACK 6 TAB BTL PO STA (03:58)
--- NOTE | 2021-01-29 03:58 | ED ---
ENT HPI - General Chief complaint: Dental/Oral Stated complaint: Dental Pain Time Seen by Provider: 01/29/21 03:54 Source: patient, RN notes reviewed, old records reviewed Mode of arrival: ambulatory Limitations: no limitations - History of Present Illness Initial comments: This is a 36-year-old female. Patient presents today for evaluation dental pain severe dental pain with history of dental disease dental caries and dental abscess. Patient has otherwise no significant complaints able to eat and drink without difficulty has no fevers. Patient is no medical history takes no significant medications MD complaint: tooth pain -: days(s) Location: tooth # Severity: severe Severity scale (1-10): 9 Quality: stabbing Consistency: constant Improves with: none Worsens with: none Context- Dental: history of dental caries, poor dental care Associated Symptoms: sore throat - Related Data Previous Rx's Medication Instructions Recorded Sulfamethox-Tmp 800-160Mg [Bactrim 1 tab PO Q12HR 7 Days #14 tab 12/16/20 DS 800-160 mg] Cephalexin [Keflex] 500 mg PO Q6HR 5 Days #20 cap 12/17/20 Clindamycin [Cleocin] 450 mg PO Q6H #28 cap 01/29/21 Allergies Allergy/AdvReac Type Severity Reaction Status Date / Time coconut Allergy Unknown Verified 01/29/21 03:56 Penicillins Allergy Rash/Hives Verified 01/29/21 03:56 Review of Systems ROS Statement: Those systems with pertinent positive or pertinent negative responses have been documented in the HPI. ROS Other: All systems not noted in ROS Statement are negative. Past Medical History Past Medical History: No Reported History Additional Past Medical History / Comment(s): KIDNEY STONES, PCOS, MRSA in mouth 01/29 History of Any Multi-Drug Resistant Organisms: MRSA Date of last positivie culture/infection: 12/29/20 MDRO Source:: mouth Past Surgical History: Section, Cholecystectomy, Tubal Ligation Past Psychological History: Depression Smoking Status: Current every day smoker Past Alcohol Use History: Occasional Past Drug Use History: Marijuana General Exam General appearance: alert, in no apparent distress Head exam: Present: atraumatic, normocephalic, normal inspection Eye exam: Present: normal appearance, PERRL, EOMI. Absent: scleral icterus, conjunctival injection, periorbital swelling ENT exam: Present: normal exam, mucous membranes moist, other (Severe rear molar pain) Neck exam: Present: normal inspection. Absent: tenderness, meningismus, lymphadenopathy Respiratory exam: Present: normal lung sounds bilaterally. Absent: respiratory distress, wheezes, rales, rhonchi, stridor Cardiovascular Exam: Present: regular rate, normal rhythm, normal heart sounds. Absent: systolic murmur, diastolic murmur, rubs, gallop, clicks GI/Abdominal exam: Present: soft, normal bowel sounds. Absent: distended, tenderness, guarding, rebound, rigid Extremities exam: Present: normal inspection, full ROM, normal capillary refill. Absent: tenderness, pedal edema, joint swelling, calf tenderness Back exam: Present: normal inspection Neurological exam: Present: alert, oriented X3, CN II-XII intact Psychiatric exam: Present: normal affect, normal mood Skin exam: Present: warm, dry, intact, normal color. Absent: rash Course Vital Signs 01/29/21 01/29/21 03:54 04:23 Temperature 97.9 F 97.9 F Pulse Rate 72 72 Respiratory 18 18 Rate Blood Pressure 131/79 131/79 O2 Sat by Pulse 98 98 Oximetry - Reevaluation(s) Reevaluation #1: Medical record is reviewed Patient symptoms are improved here in the ER Patient informed of results questions are answered Medical Decision Making - Medical Decision Making 36 female given pain control and antibiotics for dental abscess. At this time patient's in no distress and can be discharged home Disposition Clinical Impression: Pain, dental, Dental abscess, Dental caries Disposition: HOME SELF-CARE Condition: Good Instructions (If sedation given, give patient instructions): Dental Abscess (ED), Toothache (ED) Prescriptions: Clindamycin [Cleocin] 450 mg PO Q6H #28 cap Is patient prescribed a controlled substance at d/c from ED?: No Referrals: Mariangel Schofield MD [Primary Care Provider] - 1-2 days
[2021-01-29] MEDS ORDERED: IBUPROFEN 800 MG TAB PO STA (03:59)
[2021-01-29] MEDS: PENICILLIN VK 500MG STARTER 4 TAB BTL PO STA ×2 (04:09→04:22)
[2021-01-29] MEDS: PENICILLIN V POTASSIUM 250 MG TAB PO STA ×2 (04:10→04:22)
[2021-01-29] MEDS ORDERED: CLINDAMYCIN 150 MG CAP PO STA (04:13)
== END 2021-01-29 04:24 | disposition home or self-care (01) ==
LOC: EC 03:52
DX: K04.7 Periapical abscess without sinus (principal); K02.9 Dental caries, unspecified; F32.9 Major depressive disorder, single episode, unspecified; F17.200 Nicotine dependence, unspecified, uncomplicated; F12.90 Cannabis use, unspecified, uncomplicated; Z88.0 Allergy status to penicillin; Z87.442 Personal history of urinary calculi; Z90.49 Acquired absence of other specified parts of digestive tract; Z98.51 Tubal ligation status
CPT/HCPCS: 99282

== ENCOUNTER 2021-02-24 13:40 | Emergency (ER) | payer OTHER ==
[2021-02-24 14:27] VITALS: RESP 20; TEMP 98.8
[2021-02-24] MEDS ORDERED: KETOROLAC 15 MG/ML 1 ML VIAL IVP STA (16:58)
[2021-02-24] MEDS ORDERED: SODIUM CHLORIDE 0.9% 1,000 ML IV STA (16:58)
[2021-02-24] MEDS ORDERED: ONDANSETRON 4 MG/2 ML VIAL IVP STA (16:58)
[2021-02-24 17:22] LABS: Basophils % (A) 0 %; Eosinophils # (A) 0.1 k/uL (0-0.7); Eosinophils % (A) 1 %; HCT 32.9 % (34.0-46.0); Hypochromasia Slight; Lymphocytes # (A) 1.4 k/uL (1.0-4.8); Lymphocytes % (A) 14 %; MCH 24.3 pg (25.0-35.0); MCHC 30.5 g/dL (31.0-37.0); MCV 79.8 fL (80.0-100.0); Mean Platelet Volume 9.7; Monocytes # (A) 0.9 k/uL (0-1.0); Monocytes % (A) 9 %; Neutrophils # (A) 7.4 k/uL (1.3-7.7); Neutrophils % (A) 73 %; Platelet Count 221 k/uL (150-450); RBC 4.12 m/uL (3.80-5.40); RDW 14.4 % (11.5-15.5); WBC 10.2 k/uL (3.8-10.6)
[2021-02-24 17:38] LABS: ALT 21 U/L (4-34); AST 28 U/L (14-36); African American GFR (CKD) >90 (>60 ml/min/1.73 sqM); Alkaline Phosphatase 58 U/L (38-126); Amylase 46 U/L (30-110); Anion Gap 9 mmol/L; Blood Urea Nitrogen 9 mg/dL (7-17); Carbon Dioxide 22 mmol/L (22-30); Chloride 102 mmol/L (98-107); Glucose 132 mg/dL (74-99); Lipase 88 U/L (23-300); Non-African American GFR(CKD) >90 (>60 ml/min/1.73 sqM); Sodium 133 mmol/L (137-145); Total Bilirubin 0.7 mg/dL (0.2-1.3); Total Protein 7.5 g/dL (6.3-8.2)
[2021-02-24 17:42] LABS: Appearance,Urine Cloudy (Clear); Bacteria,Urine Many /hpf; Bilirubin,Urine Negative (Negative); Blood,Urine Moderate (Negative); Color,Urine Yellow; Glucose,Urine (UA) Negative (Negative); Ketones,Urine Negative (Negative); Leukocyte Esterase,Urine Large (Negative); Mucus,Urine Many /hpf; Nitrite,Urine Negative (Negative); Protein,Urine 1+ (Negative); RBC,Urine 5 /hpf (0-5); Specific Gravity,Urine 1.021 (1.001-1.035); Squamous Epithelial Cell,Urine 4 /hpf (0-4); WBC,Urine >182 /hpf (0-5)
--- NOTE | 2021-02-24 18:07 | XR ---
EXAMINATION TYPE: XR KUB DATE OF EXAM: 02/24/2021 5:25 PM CLINICAL HISTORY: Abdominal pain TECHNIQUE: Upright images of the abdomen and pelvis were obtained COMPARISON: 12/16/2018. FINDINGS: There is oral contrast versus radiopaque ingested oral material within the transverse colon . Nonspecific bowel gas pattern. No pneumoperitoneum. Right upper quadrant surgical clips. The lung b ases are clear. The osseous structures are intact. IMPRESSION: Nonspecific bowel gas pattern. Oral contrast versus radiopaque ingested material within the transvers e colon.
[2021-02-24] MEDS ORDERED: cefTRIAXone IN SWFI 1,000 MG/10 ML SYRINGE IVP STA (18:12)
--- NOTE | 2021-02-24 18:34 | ED ---
Abdominal Pain HPI - General Chief Complaint: Abdominal Pain Stated Complaint: ABD Pain,Headache Time Seen by Provider: 02/24/21 16:51 Source: patient, RN notes reviewed Mode of arrival: ambulatory Limitations: no limitations - History of Present Illness Initial Comments: Patient is a 36-year-old female complaining of generalized upper abdomen pain wrapping from side to side. She notes she was seen at [facility] 2 days ago got a computed tomography scan of labs with no acute findings or abnormal labs. She was told to take Tylenol for pain. Patient presents today with the same pain with no relief. She denied taking anything at home for the pain. She is otherwise well-appearing sitting up in bed playing on her phone. She denied any chest pain shortness of breath headache nausea vomiting diarrhea constipation fever fatigue chills. - Related Data Previous Rx's Medication Instructions Recorded Sulfamethox-Tmp 800-160Mg [Bactrim 1 each PO Q12HR #14 tab 02/24/21 Ds] Allergies Allergy/AdvReac Type Severity Reaction Status Date / Time coconut Allergy Unknown Verified 02/24/21 18:15 Penicillins Allergy Rash/Hives Verified 02/24/21 18:15 Review of Systems ROS Statement: Those systems with pertinent positive or pertinent negative responses have been documented in the HPI. ROS Other: All systems not noted in ROS Statement are negative. Past Medical History Past Medical History: No Reported History Additional Past Medical History / Comment(s): KIDNEY STONES, PCOS, MRSA in mouth 01/29 History of Any Multi-Drug Resistant Organisms: MRSA Date of last positivie culture/infection: 12/29/20 MDRO Source:: mouth Past Surgical History: Section, Cholecystectomy, Tubal Ligation Past Psychological History: Depression Smoking Status: Current every day smoker Past Alcohol Use History: Occasional Past Drug Use History: Marijuana General Exam Limitations: no limitations General appearance: alert, in no apparent distress, obese Head exam: Present: atraumatic, normocephalic, normal inspection Eye exam: Present: normal appearance, PERRL, EOMI. Absent: scleral icterus, conjunctival injection, periorbital swelling ENT exam: Present: normal exam, mucous membranes moist Neck exam: Present: normal inspection Respiratory exam: Present: normal lung sounds bilaterally. Absent: respiratory distress, wheezes, rales, rhonchi, stridor Cardiovascular Exam: Present: regular rate, normal rhythm, normal heart sounds. Absent: systolic murmur, diastolic murmur, rubs, gallop, clicks GI/Abdominal exam: Present: soft, normal bowel sounds. Absent: distended, tenderness, guarding, rebound, rigid Extremities exam: Present: normal inspection, full ROM, normal capillary refill. Absent: tenderness, pedal edema, joint swelling, calf tenderness Neurological exam: Present: alert, oriented X3 Psychiatric exam: Present: normal affect, normal mood Skin exam: Present: warm, dry, intact, normal color. Absent: rash Course Vital Signs 02/24/21 14:24 Temperature 98.8 F Pulse Rate 85 Respiratory 20 Rate Blood Pressure 90/58 O2 Sat by Pulse 98 Oximetry Medical Decision Making - Medical Decision Making 36-year-old female complaining of upper abdominal pain cough. Labs, Covid test, KUB, 1 L normal saline, 50 mg of Toradol, 4 mg of Zofran ordered. Labs: CBC and CMP unremarkable, urinalysis shows large amounts of white blood cells. 1 g Rocephin ordered. Antibiotics sent to pharmacy. Case discussed with Dr. Gutiérrez, patient can discharge home. Patient's vital signs are stable and she is agreeable with discharge home. - Lab Data Result diagrams: 02/24/21 17:06 02/24/21 17:06 Lab Results 02/24/21 02/24/21 02/24/21 Range/Units 17:06 17:06 17:06 WBC 10.2 (3.8-10.6) k/uL RBC 4.12 (3.80-5.40) m/uL Hgb 10.0 L (11.4-16.0) gm/dL Hct 32.9 L (34.0-46.0) % MCV 79.8 L (80.0-100.0) fL MCH 24.3 L (25.0-35.0) pg MCHC 30.5 L (31.0-37.0) g/dL RDW 14.4 (11.5-15.5) % Plt Count 221 (150-450) k/uL MPV 9.7 Neutrophils % 73 % Lymphocytes % 14 % Monocytes % 9 % Eosinophils % 1 % Basophils % 0 % Neutrophils # 7.4 (1.3-7.7) k/uL Lymphocytes # 1.4 (1.0-4.8) k/uL Monocytes # 0.9 (0-1.0) k/uL Eosinophils # 0.1 (0-0.7) k/uL Basophils # 0.0 (0-0.2) k/uL Hypochromasia Slight Sodium (137-145) mmol/L Potassium (3.5-5.1) mmol/L Chloride (98-107) mmol/L Carbon Dioxide (22-30) mmol/L Anion Gap mmol/L BUN (7-17) mg/dL Creatinine (0.52-1.04) mg/dL Est GFR (CKD-EPI)AfAm (>60 ml/min/1.73 sqM) Est GFR (CKD-EPI)NonAf (>60 ml/min/1.73 sqM) Glucose (74-99) mg/dL Calcium (8.4-10.2) mg/dL Total Bilirubin (0.2-1.3) mg/dL AST (14-36) U/L ALT (4-34) U/L Alkaline Phosphatase (38-126) U/L Total Protein (6.3-8.2) g/dL Albumin (3.5-5.0) g/dL Amylase (30-110) U/L Lipase (23-300) U/L Urine Color Yellow Urine Appearance Cloudy H (Clear) Urine pH 6.0 (5.0-8.0) Ur Specific [place] 1.021 (1.001-1.035) Urine Protein 1+ H (Negative) Urine Glucose (UA) Negative (Negative) Urine Ketones Negative (Negative) Urine Blood Moderate H (Negative) Urine Nitrite Negative (Negative) Urine Bilirubin Negative (Negative) Urine Urobilinogen 6.0 (<2.0) mg/dL Ur Leukocyte Esterase Large H (Negative) Urine RBC 5 (0-5) /hpf Urine WBC >182 H (0-5) /hpf Urine WBC Clumps Occasional H (None) /hpf Ur Squamous Epith Cells 4 (0-4) /hpf Urine Bacteria Many H (None) /hpf Urine Mucus Many H (None) /hpf Urine HCG, Qual Not Detected (Not Detectd) Coronavirus (PCR) (Not Detectd) 02/24/21 02/24/21 Range/Units 17:06 17:06 WBC (3.8-10.6) k/uL RBC (3.80-5.40) m/uL Hgb (11.4-16.0) gm/dL Hct (34.0-46.0) % MCV (80.0-100.0) fL MCH (25.0-35.0) pg MCHC (31.0-37.0) g/dL RDW (11.5-15.5) % Plt Count (150-450) k/uL MPV Neutrophils % % Lymphocytes % % Monocytes % % Eosinophils % % Basophils % % Neutrophils # (1.3-7.7) k/uL Lymphocytes # (1.0-4.8) k/uL Monocytes # (0-1.0) k/uL Eosinophils # (0-0.7) k/uL Basophils # (0-0.2) k/uL Hypochromasia Sodium 133 L (137-145) mmol/L Potassium 4.0 (3.5-5.1) mmol/L Chloride 102 (98-107) mmol/L Carbon Dioxide 22 (22-30) mmol/L Anion Gap 9 mmol/L BUN 9 (7-17) mg/dL Creatinine 0.80 (0.52-1.04) mg/dL Est GFR (CKD-EPI)AfAm >90 (>60 ml/min/1.73 sqM) Est GFR (CKD-EPI)NonAf >90 (>60 ml/min/1.73 sqM) Glucose 132 H (74-99) mg/dL Calcium 9.0 (8.4-10.2) mg/dL Total Bilirubin 0.7 (0.2-1.3) mg/dL AST 28 (14-36) U/L ALT 21 (4-34) U/L Alkaline Phosphatase 58 (38-126) U/L Total Protein 7.5 (6.3-8.2) g/dL Albumin 4.0 (3.5-5.0) g/dL Amylase 46 (30-110) U/L Lipase 88 (23-300) U/L Urine Color Urine Appearance (Clear) Urine pH (5.0-8.0) Ur Specific [place] (1.001-1.035) Urine Protein (Negative) Urine Glucose (UA) (Negative) Urine Ketones (Negative) Urine Blood (Negative) Urine Nitrite (Negative) Urine Bilirubin (Negative) Urine Urobilinogen (<2.0) mg/dL Ur Leukocyte Esterase (Negative) Urine RBC (0-5) /hpf Urine WBC (0-5) /hpf Urine WBC Clumps (None) /hpf Ur Squamous Epith Cells (0-4) /hpf Urine Bacteria (None) /hpf Urine Mucus (None) /hpf Urine HCG, Qual (Not Detectd) Coronavirus (PCR) Not Detected (Not Detectd) - Radiology Data Radiology results: report reviewed, image reviewed KUB: Nonspecific bowel gas pattern. Oral contrast versus radiopaque ingested material within the transverse colon. Disposition Clinical Impression: Pyelonephritis Disposition: HOME SELF-CARE Condition: Stable Instructions (If sedation given, give patient instructions): Urinary Tract Infection in Women (ED) Additional Instructions: Please return to the Emergency Department if symptoms worsen or any other c oncerns. Follow-up with primary care 1-2 days. Take antibiotics as prescribed until complete. Is patient prescribed a controlled substance at d/c from ED?: No Referrals: Mariangel Schofield MD [Primary Care Provider] - 1-2 days Time of Disposition: 18:33
[2021-02-24] MEDS ORDERED: SULFAMETHOX-TMP 800-160MG 1 EACH TAB PO STA (18:45)
[2021-02-24 18:55] VITALS: BP 106/70; PULSE 88
== END 2021-02-24 18:55 | disposition home or self-care (01) ==
LOC: EC 13:40
DX: N12 Tubulo-interstitial nephritis, not specified as acute or chronic (principal); F32.A Depression, unspecified; F17.200 Nicotine dependence, unspecified, uncomplicated; F12.90 Cannabis use, unspecified, uncomplicated; Z88.0 Allergy status to penicillin; Z87.442 Personal history of urinary calculi; Z90.49 Acquired absence of other specified parts of digestive tract; Z98.51 Tubal ligation status; Z20.822 Contact with and (suspected) exposure to COVID-19
CPT/HCPCS: 99284; 96374; 96375; 96361 ×2; 36415; 80053; 82150; 83690; 85025; 81001; 81025; 87086; 87635; 74018; J2405; J1885; 87077; 87186

== ENCOUNTER 2021-04-14 00:44 | Emergency (ER) | payer OTHER ==
[2021-04-14] MEDS ORDERED: traMADol 50 MG TAB PO STA (01:57)
[2021-04-14] MEDS ORDERED: IBUPROFEN 400 MG TAB PO STA (01:57)
--- NOTE | 2021-04-14 02:36 | ED ---
URI HPI - General Chief Complaint: Upper Respiratory Infection Stated Complaint: Weakness,Cough Time Seen by Provider: 04/14/21 00:52 Source: patient, EMS Mode of arrival: EMS Limitations: no limitations - History of Present Illness MD Complaint: fever, cough, rhinorrhea, nasal congestion Onset/Timin -: days(s) Consistency: constant Improves With: nothing Worsens With: nothing Context: sick contacts Associated Symptoms: fever, chills, myalgias, headache, rhinorrhea, nasal congestion Treatments Prior to Arrival: none - Related Data Previous Rx's Medication Instructions Recorded Sulfamethox-Tmp 800-160Mg [Bactrim 1 each PO Q12HR #14 tab 02/24/21 Ds] Allergies Allergy/AdvReac Type Severity Reaction Status Date / Time coconut Allergy Unknown Verified 04/14/21 00:51 Penicillins Allergy Rash/Hives Verified 04/14/21 00:51 Review of Systems ROS Statement: Those systems with pertinent positive or pertinent negative responses have been documented in the HPI. ROS Other: All systems not noted in ROS Statement are negative. Constitutional: Reports: fever, chills ENT: Reports: congestion Respiratory: Reports: cough. Denies: dyspnea, wheezes, hemoptysis Cardiovascular: Denies: chest pain, palpitations Gastrointestinal: Denies: abdominal pain, nausea, vomiting, diarrhea Genitourinary: Denies: dysuria, hematuria Musculoskeletal: Denies: back pain Skin: Denies: rash Neurological: Denies: headache, weakness, numbness Past Medical History Past Medical History: No Reported History Additional Past Medical History / Comment(s): KIDNEY STONES, PCOS, MRSA in mouth 01/29 History of Any Multi-Drug Resistant Organisms: MRSA Date of last positivie culture/infection: 12/29/20 MDRO Source:: mouth Past Surgical History: Section, Cholecystectomy, Tubal Ligation Past Psychological History: Depression Smoking Status: Current every day smoker Past Alcohol Use History: Occasional Past Drug Use History: Marijuana General Exam Limitations: no limitations General appearance: alert, in no apparent distress Head exam: Present: atraumatic, normocephalic Eye exam: Present: normal appearance. Absent: scleral icterus, conjunctival injection Neck exam: Present: normal inspection Respiratory exam: Present: normal lung sounds bilaterally. Absent: respiratory distress, wheezes, rales, rhonchi, stridor Cardiovascular Exam: Present: regular rate, normal rhythm, normal heart sounds. Absent: systolic murmur, diastolic murmur, rubs, gallop GI/Abdominal exam: Present: soft. Absent: distended, tenderness, guarding, rebound, rigid, mass Extremities exam: Present: normal inspection, normal capillary refill. Absent: pedal edema, calf tenderness Back exam: Present: normal inspection. Absent: CVA tenderness (R), CVA tenderness (L) Neurological exam: Present: alert Skin exam: Present: warm, dry, intact, normal color. Absent: rash Course Vital Signs 04/14/21 04/14/21 04/14/21 00:48 01:16 03:16 Temperature 100.9 F H 98.4 F Pulse Rate 87 99 78 Respiratory 24 15 18 Rate Blood Pressure 115/77 115/75 108/72 O2 Sat by Pulse 96 98 98 Oximetry Medical Decision Making - Lab Data Lab Results 04/14/21 04/14/21 Range/Units 01:08 01:08 Coronavirus (PCR) Detected A (Not Detectd) Influenza Type A RNA Not Detected (Not Detectd) Influenza Type B (PCR) Not Detected (Not Detectd) Disposition Clinical Impression: COVID-19, Mood disorder Disposition: HOME SELF-CARE Condition: Good Instructions (If sedation given, give patient instructions): Coronavirus Disease 2019 (COVID-19), Mood Disorders (ED) Is patient prescribed a controlled substance at d/c from ED?: No Referrals: Mariangel Schofield MD [Primary Care Provider] - 1-2 days
[2021-04-14 03:17] VITALS: PULSE 78; RESP 18; TEMP 98.4
[2021-04-14 03:19] VITALS: BP 108/72
== END 2021-04-14 03:16 | disposition home or self-care (01) ==
LOC: EC 00:44
DX: U07.1 COVID-19 (principal); F39 Unspecified mood [affective] disorder; F32.A Depression, unspecified; F17.200 Nicotine dependence, unspecified, uncomplicated; F12.90 Cannabis use, unspecified, uncomplicated; Z88.0 Allergy status to penicillin; Z87.442 Personal history of urinary calculi; Z90.49 Acquired absence of other specified parts of digestive tract; Z98.51 Tubal ligation status
CPT/HCPCS: 82075; 87502; 87635; 99284

== ENCOUNTER 2021-05-30 15:44 | Emergency (ER) | payer OTHER ==
[2021-05-30 16:06] VITALS: BP 132/92; PULSE 78; RESP 18; TEMP 98.3
[2021-05-30] MEDS ORDERED: LIDOCAINE 5% PATCH TOPICAL STA (17:39)
--- NOTE | 2021-05-30 17:47 | ED ---
General Adult HPI - General Chief complaint: Extremity Injury, Lower Stated complaint: L leg swelling Time Seen by Provider: 05/30/21 17:27 Source: patient Mode of arrival: ambulatory Limitations: no limitations - History of Present Illness Initial comments: This 36-year-old female presents to the emergency department with lateral side of left leg pain that began last night, chest pain that began today and generalized abdominal pain that began today. Patient states left leg pain is painful to touch along the outside of her left leg, she states it does run all the way down to just above her ankle. Patient denies ever having sciatica in her past. Patient states she does notice the lateral side of her left leg by her thigh does seem a little bit more swollen than her other thigh. After asking questions about her leg pain, patient also states that she has been experiencing episodic chest pain along with abdominal pain that began earlier this morning. Patient states her leg pain along with her chest pain is 8/10. Patient describes the pain as being right in the middle of her chest and aching. Patient states his abdominal pain is generalized and cannot locate one specific spot. Patient denies any shortness of breath, nausea, vomiting, diarrhea, back pain, loss of bowel or bladder, change in bowel or bladder habits, dizziness, lightheadedness, headache, change in vision, blurred vision. - Related Data Previous Rx's Medication Instructions Recorded Sulfamethox-Tmp 800-160Mg [Bactrim 1 each PO Q12HR #14 tab 02/24/21 Ds] Allergies Allergy/AdvReac Type Severity Reaction Status Date / Time coconut Allergy Unknown Verified 05/30/21 16:02 Penicillins Allergy Rash/Hives Verified 05/30/21 16:02 Review of Systems ROS Statement: Those systems with pertinent positive or pertinent negative responses have been documented in the HPI. ROS Other: All systems not noted in ROS Statement are negative. Past Medical History Past Medical History: No Reported History Additional Past Medical History / Comment(s): KIDNEY STONES, PCOS, MRSA in mouth 01/29 History of Any Multi-Drug Resistant Organisms: MRSA Date of last positivie culture/infection: 12/29/20 MDRO Source:: mouth Past Surgical History: Section, Cholecystectomy, Tubal Ligation Past Psychological History: Depression Smoking Status: Current every day smoker Past Alcohol Use History: Occasional Past Drug Use History: None Reported General Exam Limitations: no limitations General appearance: alert, in no apparent distress Head exam: Present: atraumatic, normocephalic Eye exam: Present: normal appearance, PERRL, EOMI Pupils: Present: normal accommodation ENT exam: Present: mucous membranes moist Neck exam: Present: full ROM. Absent: tenderness, meningismus, lymphadenopathy, thyromegaly Respiratory exam: Present: normal lung sounds bilaterally. Absent: respiratory distress, wheezes, rales, rhonchi, stridor Cardiovascular Exam: Present: regular rate, normal rhythm, normal heart sounds. Absent: systolic murmur, diastolic murmur, rubs, gallop, clicks GI/Abdominal exam: Present: soft, normal bowel sounds, other (No tenderness to palpation). Absent: distended, tenderness, guarding, rebound, rigid Extremities exam: Present: normal inspection, full ROM, tenderness (Lateral side of left leg tender to palpation just below left hip down to ankle. No calf tenderness to palpation. No erythema, warmth, swelling or any sign of infection present), normal capillary refill. Absent: pedal edema, joint swelling, calf tenderness Back exam: Present: normal inspection. Absent: tenderness, CVA tenderness (R), CVA tenderness (L), muscle spasm, paraspinal tenderness, vertebral tenderness Neurological exam: Present: alert, oriented X3, CN II-XII intact Psychiatric exam: Present: normal affect, normal mood Skin exam: Present: warm, dry, intact, normal color. Absent: rash Course Vital Signs 05/30/21 16:02 Temperature 98.3 F Pulse Rate 78 Respiratory 18 Rate Blood Pressure 132/92 O2 Sat by Pulse 100 Oximetry Medical Decision Making - Medical Decision Making This 36-year-old female presented to the emergency department with left lateral leg pain, chest pain and abdominal pain. Patient eloped before IV placement or any imaging was obtained. Patient was stable, AAOx3. Patient was able to comprehend everything that I told her and I did review testing and imaging that we were going to perform before patient left. Patient was able to make her own decisions. Patient did not inform us before leaving. She did likely have sciatica, however without labs and imaging I'm not sure the cause of chest pain or abdominal pain. Disposition Clinical Impression: Sciatica, Chest pain, Abdominal pain Disposition: Left Against Medical Advice Condition: Stable Instructions (If sedation given, give patient instructions): Abdominal Pain (ED), Chest Pain (ED), Sciatica (ED) Is patient prescribed a controlled substance at d/c from ED?: No Referrals: Mariangel Schofield MD [Primary Care Provider] - 1-2 days
[2021-05-30] MEDS ORDERED: SODIUM CHLORIDE 0.9% 1,000 ML IV STA (18:03)
[2021-05-30] MEDS ORDERED: ASPIRIN 81 MG PO STA (18:03)
[2021-05-30] MEDS ORDERED: ONDANSETRON 4 MG/2 ML VIAL IVP STA (18:03)
[2021-05-30] MEDS ORDERED: MAG HYDROX/AL HYDROX/SIMETH 30 ML, HYOSCYAMINE ELIXIR 10 ML, LIDOCAINE VISCOUS 2% 10 ML PO STA ×3 (18:16)
== END 2021-05-30 18:40 | disposition left against medical advice (07) ==
LOC: EC 15:44
DX: M62.838 Other muscle spasm (principal); R07.9 Chest pain, unspecified; R10.84 Generalized abdominal pain; F17.200 Nicotine dependence, unspecified, uncomplicated
CPT/HCPCS: 99284

== ENCOUNTER 2021-07-02 17:28 | Emergency (ER) | payer OTHER ==
[2021-07-02 18:53] VITALS: BP 115/77; PULSE 68; RESP 18; TEMP 98
== END 2021-07-02 19:19 ==
LOC: EC 17:28
DX: Z53.21 Procedure and treatment not carried out due to patient leaving prior to being seen by health care provider (principal)
CPT/HCPCS: 99499

== ENCOUNTER 2021-10-25 16:44 | Emergency (ER) | payer OTHER ==
[2021-10-25 17:54] LABS: Appearance,Urine Cloudy (Clear); Bilirubin,Urine Negative (Negative); Blood,Urine Negative (Negative); Color,Urine Yellow; Glucose,Urine (UA) Negative (Negative); Hyaline Casts,Urine 9 /lpf (0-2); Ketones,Urine Trace (Negative); Leukocyte Esterase,Urine Moderate (Negative); Mucus,Urine Many /hpf; Nitrite,Urine Positive (Negative); Protein,Urine 1+ (Negative); RBC,Urine 12 /hpf (0-5); Specific Gravity,Urine 1.029 (1.001-1.035); Squamous Epithelial Cell,Urine 28 /hpf (0-4); WBC,Urine 16 /hpf (0-5)
--- NOTE | 2021-10-25 18:10 | XR ---
EXAMINATION TYPE: XR KUB DATE OF EXAM: 10/25/2021 COMPARISON: 02/24/2021 HISTORY: Abdominal pain TECHNIQUE: 2 views upright FINDINGS: There is no sign of intestinal obstruction or pneumoperitoneum. Fecal pattern is normal. No evidence of a mass. There are no pathologic calcifications over the kidneys. There are clips from ch olecystectomy. Lung bases are clear. IMPRESSION: Nonacute abdomen. No change.
[2021-10-25] MEDS ORDERED: SODIUM CHLORIDE 0.9% 2,000 ML IV STA (19:26)
[2021-10-25] MEDS ORDERED: ONDANSETRON 4 MG/2 ML VIAL IVP STA (19:27)
[2021-10-25] MEDS ORDERED: HYDROmorphone 0.5 MG/0.5 ML SYRINGE IVP STA (19:27)
[2021-10-25 21:12] LABS: Basophils % (A) 0 %; Eosinophils # (A) 0.1 k/uL (0-0.7); Eosinophils % (A) 1 %; HGB 10.8 gm/dL (11.4-16.0); Hypochromasia Marked; Lymphocytes # (A) 2.6 k/uL (1.0-4.8); Lymphocytes % (A) 25 %; MCV 79.8 fL (80.0-100.0); Mean Platelet Volume 9.4; Monocytes # (A) 0.3 k/uL (0-1.0); Monocytes % (A) 3 %; Neutrophils % (A) 69 %; Platelet Count 339 k/uL (150-450); RBC 4.52 m/uL (3.80-5.40); RDW 15.6 % (11.5-15.5); WBC 10.1 k/uL (3.8-10.6)
[2021-10-25 21:38] LABS: ALT 16 U/L (4-34); AST 26 U/L (14-36); African American GFR (CKD) >90 (>60 ml/min/1.73 sqM); Albumin 4.6 g/dL (3.5-5.0); Alkaline Phosphatase 63 U/L (38-126); Amylase 72 U/L (30-110); Anion Gap 10 mmol/L; Blood Urea Nitrogen 11 mg/dL (7-17); Calcium 9.7 mg/dL (8.4-10.2); Carbon Dioxide 24 mmol/L (22-30); Chloride 105 mmol/L (98-107); Glucose 94 mg/dL (74-99); Lipase 242 U/L (23-300); Non-African American GFR(CKD) 88 (>60 ml/min/1.73 sqM); Sodium 139 mmol/L (137-145); Total Bilirubin 0.4 mg/dL (0.2-1.3)
--- NOTE | 2021-10-25 22:24 | CT ---
EXAMINATION TYPE: CT abdomen pelvis wo con DATE OF EXAM: 10/25/2021 COMPARISON: 11/17/2020 HISTORY: lower abd pian CT DLP: 1131.4 mGycm Automated exposure control for dose reduction was used. Images obtained from the diaphragm to the floor the pelvis with no contrast. Lung bases are clear. No pleural effusion. Heart size is normal. There is no pericardial effusion. Li soy spleen and stomach pancreas appear intact. There are clips from cholecystectomy. The bile ducts a re not dilated. There is no adrenal mass. Kidneys have normal size. There is 3 cm cortical cyst anterior left kidney. No retroperitoneal adenopathy. No hydronephrosis. Appendix is lateral and appears normal. Ureters ar e not dilated. Bladder distends smoothly. No inguinal hernia. The uterus is anteverted. No pelvic mas s. No free fluid in the pelvis. There is no mesenteric edema. No ascites or free air. No sign of a bowel obstruction. The lumbar vert ebrae have normal alignment. Posterior elements are intact with no compression fracture. The bony pel vis is intact. Hip joints are intact. IMPRESSION: Normal appendix. Small left renal cortical cyst. No sign of acute abdomen and pelvis. No adverse olivas ge compared to old exam.
[2021-10-25] MEDS ORDERED: SULFAMETHOX-TMP 800-160MG 1 EACH TAB PO STA (22:30)
--- NOTE | 2021-10-25 22:34 | ED ---
Abdominal Pain HPI - General Chief Complaint: Abdominal Pain Stated Complaint: Abd Pain Time Seen by Provider: 10/25/21 18:55 Source: patient Mode of arrival: ambulatory Limitations: no limitations - History of Present Illness Initial Comments: Patient is a 36-year-old female with past medical history significant for urinary tract infection, kidney stones, tubal ligation, and hysterectomy who presents to the emergency department with a chief complaint of lower abdominal pain. Patient states the symptoms started 2 days ago in the right and left lower abdomen, severe in nature. Reports nausea without vomiting. She denies fever, chills, shortness of breath, chest pain, back pain, and blood in the urine. Does admit to burning with urination and increased urinary urgency. Denies history of kidney infection. Last bowel movement was yesterday which patient states was normal in volume and consistency, nonbloody. - Related Data Previous Rx's Medication Instructions Recorded Phenazopyridine [Pyridium] 200 mg PO TID #12 tablet 10/25/21 Sulfamethox-Tmp 800-160Mg [Bactrim 1 each PO Q12HR 3 Days #6 tab 10/25/21 Ds] Allergies Allergy/AdvReac Type Severity Reaction Status Date / Time coconut Allergy Unknown Verified 10/25/21 21:33 Penicillins Allergy Rash/Hives Verified 10/25/21 21:33 Review of Systems ROS Statement: Those systems with pertinent positive or pertinent negative responses have been documented in the HPI. ROS Other: All systems not noted in ROS Statement are negative. Past Medical History Past Medical History: No Reported History Additional Past Medical History / Comment(s): KIDNEY STONES, PCOS, MRSA in mouth 01/29 History of Any Multi-Drug Resistant Organisms: MRSA Date of last positivie culture/infection: 12/29/20 MDRO Source:: mouth Past Surgical History: Section, Cholecystectomy, Tubal Ligation Past Psychological History: Depression Smoking Status: Current every day smoker Past Alcohol Use History: Occasional Past Drug Use History: None Reported General Exam Limitations: no limitations General appearance: alert, in no apparent distress Head exam: Present: atraumatic, normocephalic, normal inspection Eye exam: Present: normal appearance, PERRL, EOMI. Absent: scleral icterus, conjunctival injection, periorbital swelling Respiratory exam: Present: normal lung sounds bilaterally. Absent: respiratory distress, wheezes, rales, rhonchi, stridor Cardiovascular Exam: Present: regular rate, normal rhythm, normal heart sounds. Absent: systolic murmur, diastolic murmur, rubs, gallop, clicks GI/Abdominal exam: Present: soft, tenderness (RLQ), normal bowel sounds. Absent: distended, guarding, rebound, rigid Back exam: Absent: CVA tenderness (R), CVA tenderness (L) Neurological exam: Present: alert, oriented X3, CN II-XII intact Psychiatric exam: Present: normal affect, normal mood Skin exam: Present: warm, dry, intact, normal color. Absent: rash Course Vital Signs 10/25/21 10/25/21 17:25 23:19 Temperature 98.9 F 97.6 F Pulse Rate 71 82 Respiratory 20 18 Rate Blood Pressure 125/85 132/102 O2 Sat by Pulse 98 98 Oximetry Medical Decision Making - Medical Decision Making This is a 36-year-old female who presents with lower abdominal pain and nausea. Thorough history and examination were performed. Patient is well-appearing. Vitals stable. Afebrile. The abdomen is soft. There is moderate tenderness to palpation of the right lower quadrant. At this time acute abdominal process cannot be ruled out. I will obtain laboratory studies and CT of the abdomen and pelvis with contrast. Nurses were unable to obtain IV access. Dr. Wilson was able to obtain IV access ultrasound-guided. Labs were drawn however patient stated the IV was too painful for IV contrast CT. CT of the abdomen and pelvis without contrast was obtained. CBC and CMP are relatively unremarkable. Urinalysis likely indicated of infection with positive nitrites however is contaminated by squamous cells. CT of the abdomen and pelvis is negative for acute process. Results discussed with patient. Patient has penicillin allergy. She will be discharged with Bactrim and Pyridium for urinary tract infection. She is to follow-up with primary care provider in one to 2 days. Return parameters discussed. Patient verbalizes understanding and is agreeable to this plan. Dr. Wilson is my attending. - Lab Data Result diagrams: 10/25/21 21:02 10/25/21 21:02 Lab Results 10/25/21 10/25/21 10/25/21 Range/Units 17:41 17:42 21:02 WBC 10.1 (3.8-10.6) k/uL RBC 4.52 (3.80-5.40) m/uL Hgb 10.8 L (11.4-16.0) gm/dL Hct 36.0 (34.0-46.0) % MCV 79.8 L (80.0-100.0) fL MCH 24.0 L (25.0-35.0) pg MCHC 30.0 L (31.0-37.0) g/dL RDW 15.6 H (11.5-15.5) % Plt Count 339 (150-450) k/uL MPV 9.4 Neutrophils % 69 % Lymphocytes % 25 % Monocytes % 3 % Eosinophils % 1 % Basophils % 0 % Neutrophils # 7.0 (1.3-7.7) k/uL Lymphocytes # 2.6 (1.0-4.8) k/uL Monocytes # 0.3 (0-1.0) k/uL Eosinophils # 0.1 (0-0.7) k/uL Basophils # 0.0 (0-0.2) k/uL Hypochromasia Marked Sodium (137-145) mmol/L Potassium (3.5-5.1) mmol/L Chloride (98-107) mmol/L Carbon Dioxide (22-30) mmol/L Anion Gap mmol/L BUN (7-17) mg/dL Creatinine (0.52-1.04) mg/dL Est GFR (CKD-EPI)AfAm (>60 ml/min/1.73 sqM) Est GFR (CKD-EPI)NonAf (>60 ml/min/1.73 sqM) Glucose (74-99) mg/dL Calcium (8.4-10.2) mg/dL Total Bilirubin (0.2-1.3) mg/dL AST (14-36) U/L ALT (4-34) U/L Alkaline Phosphatase (38-126) U/L Total Protein (6.3-8.2) g/dL Albumin (3.5-5.0) g/dL Amylase (30-110) U/L Lipase (23-300) U/L Urine Color Yellow Urine Appearance Cloudy H (Clear) Urine pH 6.0 (5.0-8.0) Ur Specific [place] 1.029 (1.001-1.035) Urine Protein 1+ H (Negative) Urine Glucose (UA) Negative (Negative) Urine Ketones Trace H (Negative) Urine Blood Negative (Negative) Urine Nitrite Positive H (Negative) Urine Bilirubin Negative (Negative) Urine Urobilinogen 2.0 (<2.0) mg/dL Ur Leukocyte Esterase Moderate H (Negative) Urine RBC 12 H (0-5) /hpf Urine WBC 16 H (0-5) /hpf Ur Squamous Epith Cells 28 H (0-4) /hpf Hyaline Casts 9 H (0-2) /lpf Urine Mucus Many H (None) /hpf Urine HCG, Qual Not Detected (Not Detectd) 10/25/21 Range/Units 21:02 WBC (3.8-10.6) k/uL RBC (3.80-5.40) m/uL Hgb (11.4-16.0) gm/dL Hct (34.0-46.0) % MCV (80.0-100.0) fL MCH (25.0-35.0) pg MCHC (31.0-37.0) g/dL RDW (11.5-15.5) % Plt Count (150-450) k/uL MPV Neutrophils % % Lymphocytes % % Monocytes % % Eosinophils % % Basophils % % Neutrophils # (1.3-7.7) k/uL Lymphocytes # (1.0-4.8) k/uL Monocytes # (0-1.0) k/uL Eosinophils # (0-0.7) k/uL Basophils # (0-0.2) k/uL Hypochromasia Sodium 139 (137-145) mmol/L Potassium 4.0 (3.5-5.1) mmol/L Chloride 105 (98-107) mmol/L Carbon Dioxide 24 (22-30) mmol/L Anion Gap 10 mmol/L BUN 11 (7-17) mg/dL Creatinine 0.86 (0.52-1.04) mg/dL Est GFR (CKD-EPI)AfAm >90 (>60 ml/min/1.73 sqM) Est GFR (CKD-EPI)NonAf 88 (>60 ml/min/1.73 sqM) Glucose 94 (74-99) mg/dL Calcium 9.7 (8.4-10.2) mg/dL Total Bilirubin 0.4 (0.2-1.3) mg/dL AST 26 (14-36) U/L ALT 16 (4-34) U/L Alkaline Phosphatase 63 (38-126) U/L Total Protein 8.0 (6.3-8.2) g/dL Albumin 4.6 (3.5-5.0) g/dL Amylase 72 (30-110) U/L Lipase 242 (23-300) U/L Urine Color Urine Appearance (Clear) Urine pH (5.0-8.0) Ur Specific [place] (1.001-1.035) Urine Protein (Negative) Urine Glucose (UA) (Negative) Urine Ketones (Negative) Urine Blood (Negative) Urine Nitrite (Negative) Urine Bilirubin (Negative) Urine Urobilinogen (<2.0) mg/dL Ur Leukocyte Esterase (Negative) Urine RBC (0-5) /hpf Urine WBC (0-5) /hpf Ur Squamous Epith Cells (0-4) /hpf Hyaline Casts (0-2) /lpf Urine Mucus (None) /hpf Urine HCG, Qual (Not Detectd) Disposition Clinical Impression: Urinary tract infection Disposition: HOME SELF-CARE Condition: Good Instructions (If sedation given, give patient instructions): Urinary Tract Infection in Women (ED) Additional Instructions: Take antibiotic as directed. Use Pyridium for pain. Follow-up with primary care provider in one to 2 days. Return to the emergency department if you experience new, concerning, or worsening symptoms. Prescriptions: Sulfamethox-Tmp 800-160Mg [Bactrim Ds] 1 each PO Q12HR 3 Days #6 tab Phenazopyridine [Pyridium] 200 mg PO TID #12 tablet Is patient prescribed a controlled substance at d/c from ED?: No Referrals: Mariangel Schofield MD [Primary Care Provider] - 1-2 days Time of Disposition: 22:34
[2021-10-25] MEDS ORDERED: PHENAZOPYRIDINE 200 MG TAB PO STA (22:35)
[2021-10-25 23:20] VITALS: BP 132/102; PULSE 82; RESP 18; TEMP 97.6
== END 2021-10-25 23:20 | disposition home or self-care (01) ==
LOC: EC 16:44
DX: N39.0 Urinary tract infection, site not specified (principal); F17.200 Nicotine dependence, unspecified, uncomplicated; Z88.0 Allergy status to penicillin; Z91.018 Allergy to other foods
CPT/HCPCS: 36415; 80053; 82150; 83690; 85025; 81001; 81025; 87086; 87077; 87186; 74018; 74176; 99284; 96374; 96375; 96361; J2405; J1170

== ENCOUNTER 2021-10-29 14:51 | Observation (INO) | payer OTHER ==
[2021-10-29] MEDS ORDERED: PANTOPRAZOLE 40 MG/10 ML VIAL IVP STA (15:22)
[2021-10-29] MEDS ORDERED: ONDANSETRON 4 MG/2 ML VIAL IVP STA (15:23)
[2021-10-29] MEDS ORDERED: SODIUM CHLORIDE 0.9% 1,000 ML IV STA (15:23)
[2021-10-29] MEDS ORDERED: KETOROLAC 15 MG/ML 1 ML VIAL IVP STA (15:23)
[2021-10-29] MEDS ORDERED: cefTRIAXone IN SWFI 1,000 MG/10 ML SYRINGE IVP STA (15:26)
--- NOTE | 2021-10-29 16:25 | ED ---
Abdominal Pain HPI - General Chief Complaint: Abdominal Pain Stated Complaint: Abdominal Pain, Lower back Pain Time Seen by Provider: 10/29/21 15:12 Source: patient Mode of arrival: wheelchair Limitations: no limitations - History of Present Illness Initial Comments: 36-year-old female presents emergency department for epigastric pain. States that the pain started this morning when she awoke. The last night she was drinking heavily because it was her brother's birthday. States that she normally does not drink daily. She had 2 episodes of vomiting this morning. Nonbilious and nonbloody. Pain does not radiate. She was in the emergency department on the for lower abdominal pain which she states has now migrated up to her back. She was diagnosed with urinary tract infection and started on Bactrim. Received a call today stating that her antibiotic needed be adjusted as her culture results showed resistance to Bactrim. She has not s tarted taking any medication. She did not attempt to take any medications for her epigastric pain. She is status post cholecystectomy. No history of peptic ulcers. Has never had an EGD. No other alleviating, or modifying factors. - Related Data Previous Rx's Medication Instructions Recorded Calcium Carbonate [Tums] 500 mg PO TID PRN tab 10/30/21 Cephalexin [Keflex] 500 mg PO Q8HR 4 Days #12 cap 10/30/21 Pantoprazole [Protonix] 40 mg PO DAILY 30 Days #30 tab 10/30/21 Allergies Allergy/AdvReac Type Severity Reaction Status Date / Time coconut Allergy Unknown Verified 11/02/21 13:49 Penicillins Allergy Rash/Hives Verified 11/02/21 13:49 Review of Systems ROS Statement: Those systems with pertinent positive or pertinent negative responses have been documented in the HPI. ROS Other: All systems not noted in ROS Statement are negative. Past Medical History Past Medical History: No Reported History Additional Past Medical History / Comment(s): KIDNEY STONES, PCOS, MRSA in mouth 01/29 History of Any Multi-Drug Resistant Organisms: MRSA Date of last positivie culture/infection: 12/29/20 MDRO Source:: mouth Past Surgical History: Section, Cholecystectomy, Tubal Ligation Past Psychological History: Depression Smoking Status: Current every day smoker Past Alcohol Use History: Occasional Past Drug Use History: None Reported - Past Family History Mother Family Medical History: Liver Disease General Exam Limitations: no limitations General appearance: alert, in no apparent distress Head exam: Present: atraumatic, normocephalic, normal inspection Eye exam: Present: normal appearance, PERRL, EOMI. Absent: scleral icterus, conjunctival injection, periorbital swelling ENT exam: Present: normal exam, mucous membranes moist Neck exam: Present: normal inspection. Absent: tenderness, meningismus, lymphadenopathy Respiratory exam: Present: normal lung sounds bilaterally. Absent: respiratory distress, wheezes, rales, rhonchi, stridor Cardiovascular Exam: Present: regular rate, normal rhythm, normal heart sounds. Absent: systolic murmur, diastolic murmur, rubs, gallop, clicks GI/Abdominal exam: Present: soft, tenderness (Epigastric), normal bowel sounds. Absent: distended, guarding, rebound, rigid Extremities exam: Present: normal inspection, full ROM, normal capillary refill. Absent: tenderness, pedal edema, joint swelling, calf tenderness Back exam: Present: normal inspection Neurological exam: Present: alert, oriented X3, CN II-XII intact Psychiatric exam: Present: normal affect, normal mood Skin exam: Present: warm, dry, intact, normal color. Absent: rash Course Vital Signs 10/29/21 10/29/21 10/29/21 15:05 17:16 19:06 Temperature 98.0 F Pulse Rate 60 54 L 60 Respiratory 22 18 17 Rate Blood Pressure 106/64 117/67 114/71 O2 Sat by Pulse 99 100 100 Oximetry 10/29/21 20:00 Temperature Pulse Rate 60 Respiratory 16 Rate Blood Pressure 122/78 O2 Sat by Pulse 100 Oximetry Medical Decision Making - Medical Decision Making Upon arrival patient was placed in room 23. A thorough history and physical exam was performed. IV access was established. Patient was given a liter bolus of normal saline, 15 mg of Toradol, 4 mg of Zofran, 40 mg of Protonix and 1 g of Rocephin for her UTI. Laboratory studies are repeated. Patient is reevaluated and continues to have epigastric pain and nausea. She was given a dose of morphine 4 mg and a GI cocktail. Patient reevaluated once again. Complains of continued pain, nausea and addition of chest pain. EKG and trop onin obtained at this time. Did recommend admission for inability to control her symptoms. Patient agreed to this. Spoke with Dr. Wilkins who will admit the patient. - Lab Data Result diagrams: 10/30/21 04:15 10/30/21 04:15 Lab Results 10/29/21 10/29/21 10/29/21 Range/Units 14:00 16:00 16:00 WBC 9.2 (3.8-10.6) k/uL RBC 4.40 (3.80-5.40) m/uL Hgb 10.1 L (11.4-16.0) gm/dL Hct 34.6 (34.0-46.0) % MCV 78.5 L (80.0-100.0) fL MCH 22.9 L (25.0-35.0) pg MCHC 29.2 L (31.0-37.0) g/dL RDW 15.7 H (11.5-15.5) % Plt Count 290 (150-450) k/uL MPV 9.2 Neutrophils % 55 % Lymphocytes % 34 % Monocytes % 5 % Eosinophils % 2 % Basophils % 1 % Neutrophils # 5.1 (1.3-7.7) k/uL Lymphocytes # 3.2 (1.0-4.8) k/uL Monocytes # 0.5 (0-1.0) k/uL Eosinophils # 0.2 (0-0.7) k/uL Basophils # 0.1 (0-0.2) k/uL Hypochromasia Marked Microcytosis Slight Sodium 137 (137-145) mmol/L Potassium 4.0 (3.5-5.1) mmol/L Chloride 107 (98-107) mmol/L Carbon Dioxide 21 L (22-30) mmol/L Anion Gap 9 mmol/L BUN 13 (7-17) mg/dL Creatinine 0.81 (0.52-1.04) mg/dL Est GFR (CKD-EPI)AfAm >90 (>60 ml/min/1.73 sqM) Est GFR (CKD-EPI)NonAf >90 (>60 ml/min/1.73 sqM) Glucose 85 (74-99) mg/dL Plasma Lactic Acid [place] (0.7-2.0) mmol/L Calcium 9.4 (8.4-10.2) mg/dL Total Bilirubin 0.8 (0.2-1.3) mg/dL AST 23 (14-36) U/L ALT 14 (4-34) U/L Alkaline Phosphatase 62 (38-126) U/L Troponin I (0.000-0.034) ng/mL Total Protein 7.6 (6.3-8.2) g/dL Albumin 4.1 (3.5-5.0) g/dL Lipase 167 (23-300) U/L Urine Color Urine Appearance (Clear) Urine pH (5.0-8.0) Ur Specific [place] (1.001-1.035) Urine Protein (Negative) Urine Glucose (UA) (Negative) Urine Ketones (Negative) Urine Blood (Negative) Urine Nitrite (Negative) Urine Bilirubin (Negative) Urine Urobilinogen (<2.0) mg/dL Ur Leukocyte Esterase (Negative) Urine RBC (0-5) /hpf Urine WBC (0-5) /hpf Ur Squamous Epith Cells (0-4) /hpf Urine Bacteria (None) /hpf Urine Mucus (None) /hpf 10/29/21 10/29/21 10/29/21 Range/Units 16:00 16:00 16:18 WBC (3.8-10.6) k/uL RBC (3.80-5.40) m/uL Hgb (11.4-16.0) gm/dL Hct (34.0-46.0) % MCV (80.0-100.0) fL MCH (25.0-35.0) pg MCHC (31.0-37.0) g/dL RDW (11.5-15.5) % Plt Count (150-450) k/uL MPV Neutrophils % % Lymphocytes % % Monocytes % % Eosinophils % % Basophils % % Neutrophils # (1.3-7.7) k/uL Lymphocytes # (1.0-4.8) k/uL Monocytes # (0-1.0) k/uL Eosinophils # (0-0.7) k/uL Basophils # (0-0.2) k/uL Hypochromasia Microcytosis Sodium (137-145) mmol/L Potassium (3.5-5.1) mmol/L Chloride (98-107) mmol/L Carbon Dioxide (22-30) mmol/L Anion Gap mmol/L BUN (7-17) mg/dL Creatinine (0.52-1.04) mg/dL Est GFR (CKD-EPI)AfAm (>60 ml/min/1.73 sqM) Est GFR (CKD-EPI)NonAf (>60 ml/min/1.73 sqM) Glucose (74-99) mg/dL Plasma Lactic Acid [place] 1.0 (0.7-2.0) mmol/L Calcium (8.4-10.2) mg/dL Total Bilirubin (0.2-1.3) mg/dL AST (14-36) U/L ALT (4-34) U/L Alkaline Phosphatase (38-126) U/L Troponin I <0.012 (0.000-0.034) ng/mL Total Protein (6.3-8.2) g/dL Albumin (3.5-5.0) g/dL Lipase (23-300) U/L Urine Color Yellow Urine Appearance Clear (Clear) Urine pH 6.0 (5.0-8.0) Ur Specific [place] 1.029 (1.001-1.035) Urine Protein Trace H (Negative) Urine Glucose (UA) Negative (Negative) Urine Ketones Negative (Negative) Urine Blood Negative (Negative) Urine Nitrite Negative (Negative) Urine Bilirubin Negative (Negative) Urine Urobilinogen 3.0 (<2.0) mg/dL Ur Leukocyte Esterase Moderate H (Negative) Urine RBC 4 (0-5) /hpf Urine WBC 16 H (0-5) /hpf Ur Squamous Epith Cells 4 (0-4) /hpf Urine Bacteria Few H (None) /hpf Urine Mucus Many H (None) /hpf - EKG Data EKG Comments: EKG demonstrates sinus bradycardia with rate of 57. [place] interval of 171. QRS 93. QTC 419. No acute ST segment elevations or depressions concerning for ischemic changes Repeat EKG done at 1815 demonstrates sinus bradycardia with rate of 51. W[place] interval 165. QRS 101. QTC 409. No acute ST segment elevations or depressions Disposition Clinical Impression: Nausea & vomiting, Epigastric pain, Chest pain Disposition: ADMITTED IP TO THIS [facility] Condition: Stable Is patient prescribed a controlled substance at d/c from ED?: No Time of Disposition: 18:36 Decision to Admit Reason: Admit from EC Decision Date: 10/29/21 Decision Time: 18:36
[2021-10-29 16:44] LABS: Basophils # (A) 0.1 k/uL (0-0.2); Basophils % (A) 1 %; Eosinophils # (A) 0.2 k/uL (0-0.7); Eosinophils % (A) 2 %; HCT 34.6 % (34.0-46.0); HGB 10.1 gm/dL (11.4-16.0); Hypochromasia Marked; Lymphocytes # (A) 3.2 k/uL (1.0-4.8); Lymphocytes % (A) 34 %; MCH 22.9 pg (25.0-35.0); MCHC 29.2 g/dL (31.0-37.0); MCV 78.5 fL (80.0-100.0); Mean Platelet Volume 9.2; Microcytosis Slight; Monocytes # (A) 0.5 k/uL (0-1.0); Monocytes % (A) 5 %; Neutrophils # (A) 5.1 k/uL (1.3-7.7); Neutrophils % (A) 55 %; Platelet Count 290 k/uL (150-450); RDW 15.7 % (11.5-15.5); WBC 9.2 k/uL (3.8-10.6)
[2021-10-29 16:47] LABS: Appearance,Urine Clear (Clear); Bacteria,Urine Few /hpf; Bilirubin,Urine Negative (Negative); Blood,Urine Negative (Negative); Color,Urine Yellow; Glucose,Urine (UA) Negative (Negative); Ketones,Urine Negative (Negative); Leukocyte Esterase,Urine Moderate (Negative); Mucus,Urine Many /hpf; Nitrite,Urine Negative (Negative); Protein,Urine Trace (Negative); RBC,Urine 4 /hpf (0-5); Specific Gravity,Urine 1.029 (1.001-1.035); Squamous Epithelial Cell,Urine 4 /hpf (0-4); WBC,Urine 16 /hpf (0-5)
[2021-10-29] MEDS ORDERED: MORPHINE SULFATE 4 MG/ML SYRINGE IVP STA (17:12)
[2021-10-29 17:51] LABS: ALT 14 U/L (4-34); AST 23 U/L (14-36); African American GFR (CKD) >90 (>60 ml/min/1.73 sqM); Albumin 4.1 g/dL (3.5-5.0); Alkaline Phosphatase 62 U/L (38-126); Anion Gap 9 mmol/L; Blood Urea Nitrogen 13 mg/dL (7-17); Calcium 9.4 mg/dL (8.4-10.2); Carbon Dioxide 21 mmol/L (22-30); Chloride 107 mmol/L (98-107); Glucose 85 mg/dL (74-99); Non-African American GFR(CKD) >90 (>60 ml/min/1.73 sqM); Sodium 137 mmol/L (137-145); Total Bilirubin 0.8 mg/dL (0.2-1.3); Total Protein 7.6 g/dL (6.3-8.2)
[2021-10-29] MEDS ORDERED: MAG HYDROX/AL HYDROX/SIMETH 30 ML, HYOSCYAMINE ELIXIR 10 ML, LIDOCAINE VISCOUS 2% 10 ML PO STA ×3 (18:34)
[2021-10-29] MEDS ORDERED: ACETAMINOPHEN TAB 325 MG TAB PO PRN (18:37)
[2021-10-29] MEDS ORDERED: ONDANSETRON 4 MG/2 ML VIAL IVP PRN (18:37)
[2021-10-29] MEDS ORDERED: NALOXONE 0.4 MG/ML 1 ML VIAL IV PRN (18:37)
[2021-10-29] MEDS: SODIUM CHLORIDE 0.9% 1,000 ML IV SCH (18:55)
[2021-10-29 20:03] VITALS: RESP 16
[2021-10-29] MEDS: CALCIUM CARBONATE 500 MG CHEWABLE PO PRN (21:16)
[2021-10-29] MEDS: MORPHINE SULFATE 4 MG/ML SYRINGE IV PRN (21:27)
[2021-10-30] MEDS: KETOROLAC 15 MG/ML 1 ML VIAL IVP PRN ×2 (00:27→07:56)
[2021-10-30] MEDS: SODIUM CHLORIDE 0.9% 1,000 ML IV SCH ×2 (02:46→11:26)
[2021-10-30] MEDS ORDERED: LORazepam 2 MG/ML INJ IV PRN ×3 (02:48)
--- NOTE | 2021-10-30 02:50 | P.HPIM ---
History of Present Illness H&P Date: 10/29/21 The patient is a 36-year-old female with a PMH of alcohol abuse who presents to the emergency room with complaints of abdominal pain. The patient reports that she woke up this morning with epigastric abdominal discomfort. Reports that she had been drinking heavily over the past few days, and had drank a pint of hard liquor the night prior to the onset of symptoms as she was celebrating a birthda y. Reports drinking daily over the past several years, half pint at least. She reports that the abdominal pain is epigastric, aching in nature, 10 out of 10 on maximal intensity, occurring intermittently, lasting for a few minutes at a time, with no alleviating or exacerbating features, with associated nausea and a single episode of vomiting, nonbloody. Denied experiencing fever, diarrhea, chest discomfort, shortness of breath, cough. Of note, the patient was seen in the emergency room on 10/25 with urinary complaints as well as abdominal pain. She was diagnosed with UTI and was discharged home on Bactrim, which the patient never took. She was contacted to return to the emergency room as her urine culture resulted with Bactrim resistant E. coli. The patient denied urinary complaints at the time of interview. Patient denied history of peptic ulcer disease or having gotten an EGD. EKG in the emergency room reveals sinus bradycardia at [address]/T-wave changes noted as reviewed by me. Laboratory evaluation was remarkable for MCV of 78.5, lipase 167, with troponin less than 0.012. Review of systems: Pertinent positives and negatives as discussed in HPI, a complete review of systems was performed and all other systems are negative. Physical examination: General: non toxic, no distress, appears older than stated age, normal weight Derm: no unusual rashes/lesions, warm Head: atraumatic, normocephalic, symmetric Eyes: EOMI, no lid lag, anicteric sclera, pupils equal round reactive to light ENT: Nose and ears atraumatic Neck: No cervical lymphadenopathy, trachea midline, supple Mouth: no lip lesion, mucus membranes moist Cardiovascular: S1S2 reg, no murmur, positive dorsalis pedis pulse bilateral, no edema Lungs: CTA bilateral, no rhonchi, no rales, no accessory muscle use Abdominal: soft, epigastric tenderness to palpation, no guarding Ext: muscle strength 5 out of 5 in all 4 extremities grossly, no gross muscle atrophy, no contractures, Neuro: CN II-XI grossly intact, no gross focal neuro deficits Psych: Alert, oriented, appropriate affect Assessment/plan Abdominal pain, suspected gastritis in setting of EtOH abuse -Pain control -Antiemetics -IV fluids -Clear liquid diet for now UTI -Continue with ceftriaxone EtOH abuse -[facility] protocol -Advised on importance of cessation -Thiamine -IV fluids -Monitor electrolytes DVT prophylaxis -Heparin subcu The patient is admitted with an anticipated less than 2 midnight stay for evaluation of abdominal pain CODE STATUS: Full Code Discussed with: Patient Anticipated discharge date: in am Anticipated discharge place: Home Past Medical History Past Medical History: No Reported History Additional Past Medical History / Comment(s): KIDNEY STONES, PCOS, MRSA in mouth 01/29 History of Any Multi-Drug Resistant Organisms: MRSA Date of last positivie culture/infection: 12/29/20 MDRO Source:: mouth Past Surgical History: Section, Cholecystectomy, Tubal Ligation Past Psychological History: Depression Smoking Status: Current every day smoker Past Alcohol Use History: Occasional Past Drug Use History: None Reported - Past Family History Mother Family Medical History: Liver Disease Medications and Allergies Home Medications Medication Instructions Recorded Confirmed Type No Known Home Medications 10/29/21 10/29/21 History Allergies Allergy/AdvReac Type Severity Reaction Status Date / Time coconut Allergy Unknown Verified 10/29/21 16:56 Penicillins Allergy Rash/Hives Verified 10/29/21 16:56 Physical Exam Vitals: Vital Signs Temp Pulse Pulse Resp BP BP Pulse Ox 10/29/21 20:31 97.8 F 54 L 16 118/77 100 10/29/21 20:00 60 16 122/78 100 10/29/21 19:06 60 17 114/71 100 10/29/21 17:16 54 L 18 117/67 100 10/29/21 15:05 98.0 F 60 22 106/64 99 Intake and Output 10/29/21 10/29/21 10/30/21 14:59 22:59 06:59 Other: Voiding Method Bedside Commode # Voids 1 Weight 90.718 kg Results CBC & Chem 7: 10/29/21 16:00 10/29/21 14:00 Labs: Abnormal Lab Results - Last 24 Hours (Table) 10/29/21 10/29/21 10/29/21 Range/Units 14:00 16:00 16:18 Hgb 10.1 L (11.4-16.0) gm/dL MCV 78.5 L (80.0-100.0) fL MCH 22.9 L (25.0-35.0) pg MCHC 29.2 L (31.0-37.0) g/dL RDW 15.7 H (11.5-15.5) % Carbon Dioxide 21 L (22-30) mmol/L Urine Protein Trace H (Negative) Ur Leukocyte Esterase Moderate H (Negative) Urine WBC 16 H (0-5) /hpf Urine Bacteria Few H (None) /hpf Urine Mucus Many H (None) /hpf Microbiology - Last 24 Hours (Table) 10/29/21 16:18 Urine Culture - Preliminary Urine,Voided
[2021-10-30] MEDS ORDERED: THIAMINE 100 MG/ML 2 ML VIAL IM ONE (03:00)
[2021-10-30] MEDS: MORPHINE SULFATE 4 MG/ML SYRINGE IV PRN (05:30)
[2021-10-30] MEDS ORDERED: SODIUM CHLORIDE 0.9% 1,000 ML IV ONE (07:30)
[2021-10-30] MEDS: CALCIUM CARBONATE 500 MG CHEWABLE PO PRN (07:41)
[2021-10-30] MEDS ORDERED: HEPARIN SODIUM,PORCINE/PF 5,000 UNIT/0.5 ML SYRINGE SQ SCH (08:00)
[2021-10-30 08:54] LABS: Basophils # (A) 0.04 X 10*3/uL (0.00-0.10); Basophils % (A) 0.5 %; Eosinophils # (A) 0.23 X 10*3/uL (0.04-0.35); HCT 30.6 % (37.2-46.3); HGB 8.7 g/dL (12.0-15.0); Immature Grans, Automated 0.3 %; Lymphocytes # (A) 2.69 X 10*3/uL (0.90-5.00); Lymphocytes % (A) 34.6 %; MCH 22.1 pg (27.0-32.0); MCHC 28.4 g/dL (32.0-37.0); MCV 77.9 fL (80.0-97.0); Mean Platelet Volume 11.6 fL (9.5-12.2); Monocytes # (A) 0.54 X 10*3/uL (0.20-1.00); Monocytes % (A) 6.9 %; NRBC Per 100 WBC 0 /100 WBCS (0.0-0.0); Neutrophils # (A) 4.25 X 10*3/uL (1.80-7.70); Neutrophils % (A) 54.7 %; Platelet Count 255 X 10*3/uL (140-440); RBC 3.93 X 10*6/uL (4.10-5.20); RDW 17.2 % (11.5-14.5); WBC 7.77 X 10*3/uL (4.50-10.00)
[2021-10-30] MEDS ORDERED: PANTOPRAZOLE 40 MG/10 ML VIAL IV SCH (09:00)
[2021-10-30] MEDS ORDERED: MULTIVITAMINS, THERA 1 EACH TAB PO SCH (09:00)
[2021-10-30 09:06] LABS: African American GFR (CKD) 109.9 (60.0-200.0); Anion Gap 5.5 mmol/L (10.00-18.00); Blood Urea Nitrogen 10.4 mg/dL (9.0-27.0); Calcium 8.4 mg/dL (8.7-10.3); Carbon Dioxide 22.5 mmol/L (20.0-27.5); Non-African American GFR(CKD) 94.8 (60.0-200.0); Potassium 4.5 mmol/L (3.5-5.5)
[2021-10-30 09:08] VITALS: PULSE 58; TEMP 98
[2021-10-30 09:52] VITALS: BP 106/70
[2021-10-30] MEDS ORDERED: MAG HYDROX/AL HYDROX/SIMETH 30 ML, HYOSCYAMINE ELIXIR 10 ML, LIDOCAINE VISCOUS 2% 10 ML PO ONE ×3 (11:30)
--- NOTE | 2021-10-30 14:39 | P.DS ---
Providers Date of admission: 10/29/21 18:37 Expected date of discharge: 10/30/21 Attending physician: Honorio Zambrano MD Primary care physician: [facility] Course: Discharge Diagnosis: Gastritis in setting of alcohol abuse, received vigorous IV fluid hydration along with pain management and anti-emetics. Patient was given GI cocktail consisting of Maalox, hyoscyamine, and lidocaine which resulted in resolution of previously reported epigastric/abdominal pain. Patient was strongly encouraged to stop drinking alcohol, she was started on daily PPI with Protonix and instruc kalpesh to follow up outpatient with GI specialist, Dr. Lai. GERD, started on daily PPI Protonix and patient to follow up outpatient with GI specialist, Dr. Lai. Alcoholism with daily EtOH abuse along with binge drinking episodes, patient strongly encouraged on the importance of alcohol cessation and the risks associated with continued use. Patient strongly encouraged to attend inpatient drug and alcohol rehabilitation Center. Patient given resources to follow up with AA meetings, community resources, outpatient counseling, and inpatient substance abuse facilities. Chronic iron deficiency anemia, recommend cessation of all alcohol use and follow up outpatient with GI specialist, Dr. Lai. E. coli UTI, received a dose of IV antibiotic Rocephin and being discharged home on oral Keflex 500 mg every 8 hours 4 days. Hospital Course: Patient is a very pleasant 36-year-old female with a past medical history of alcohol abuse and chronic iron deficiency anemia. She presented to the emergency department with a chief complaint of epigastric pain after reporting a weeklong soto in which patient reports drinking in excess of at least 1 pint of hard liquor nightly, patient reports this was more than double of her daily alcohol use in which she reports drinking approximately a half a pint or more a day times several years.. Patient reports after binging on alcohol she developed epigastric pain accompanied by nausea and 1 episode of vomiting. She denied hematemesis or coffee-ground emesis. In addition patient was reporting urinary complaints including frequency and urgency. Recent urine culture on 10/25/21 positive for E. coli UTI resistant to Bactrim. Patient was seen and fully evaluated in the emergency department. CBC consistent with chronic iron deficiency anemia with hemoglobin 10.1, MCV 78.5, and MCH of 22.9 with baseline hemoglobin of 9. CMP showing no significant abnormalities. Troponin negative at less than 0.012. Urinalysis positive for infection. As stated above urine culture drawn on 10/25/21 was positive for E. coli resistant to Bactrim. Patient was started on IV antibiotic Rocephin for treatment of UTI and given 2 L IV fluid bolus and admitted under our services to observation for overnight monitoring. Initially patient placed on clear liquid diet and tolerated well. She reported she continued to have mild burning and was given a GI cocktail in which she reports resulted in resolution of previously reported epigastric burning/pain. Patient's diet was then increased to low fat. Patient tolerated oral intake well. Patient is medically stable at this time, she will be started on a PPI Protonix and instructed if epigastric pain with gastric reflux returns it is strongly advised that she follow up outpatient with a GI specialist, Dr. Lai. Vital signs stable. Blood pressure 106/70, heart rate 64, respiratory rate 16, and SpO2 of 99% on room air. Patient is medically stable for discharge home. Patient to follow up outpatient with PCP in 1-2 days and with feeder operator in 1 week if needed. Patient was strongly encouraged to stop drinking alcohol she was given resources on AA meetings, community resources, outpatient counseling, and inpatient substance abuse facilities. Physical examination: Patient seen and examined at bedside. She denied having any further episodes of nausea or vomiting and denies experiencing any diarrhea. Patient denied ever experiencing any hematemesis hemoptysis, melena, or hematochezia. Patient does have chronic iron deficiency anemia likely secondary to long-standing history of alcoholism. Patient was strongly encouraged to stop drinking alcohol. Vital signs reviewed and stable. General: Nontoxic, no distress and appears stated age. Derm: Skin warm and dry, normal coloration for ethnicity. Head: Atraumatic, normocephalic and symmetric. Eyes: EOMs intact, no lid lag, and anicteric sclera Mouth: no lip lesions, mucus membranes moist Cardiovascular: regular rate and rhythm with normal S1S2, no murmur, positive posterior tibial pulses bilaterally, and cap refill < 2 seconds. Lungs: Respirations even, regular, and unlabored on room air. Lungs CTA bilaterally, no rhonchi, no rales, no wheezing, and no accessory muscle usage. Abdominal: soft, nontender to palpation, no guarding, no appreciable organomegaly Ext: ROM intact. No gross muscle atrophy, no edema, no contractures Neuro: Speech clear, face symmetrical and CN II-XII grossly intact with no noted focal neuro deficits Psych: Alert and oriented to person, place, time, and situation. Appropriate and pleasant affect. A total of 32 minutes of time were spent preparing this complex discharge summary. Pt was discharged on 10/30/21 at 1:44 PM I reviewed the documentation as provided by the KEY above, who is the original author of this note. I agree with the documented assessment and plan, with the following changes: none Patient Condition at Discharge: Stable Plan - Discharge Summary New Discharge Prescriptions: New Pantoprazole [Protonix] 40 mg PO DAILY 30 Days #30 tab Calcium Carbonate [Tums] 500 mg PO TID PRN tab PRN Reason: Heartburn No Action Cephalexin [Keflex] 500 mg PO Q8HR 2 Days cap Prazosin [Minipress] 1 mg PO HS 30 Days cap Sertraline [Zoloft] 100 mg PO DAILY 30 Days tab ARIPiprazole [Abilify] 10 mg PO HS 30 Days tab Nicotine 14Mg/24Hr Patch [Habitrol] 1 patch TRANSDERM DAILY 30 Days patch Discharge Medication List Calcium Carbonate [Tums] 500 mg PO TID PRN tab 10/30/21 [Rx] Pantoprazole [Protonix] 40 mg PO DAILY 30 Days #30 tab 10/30/21 [Rx] ARIPiprazole [Abilify] 10 mg PO HS 30 Days tab 11/05/21 [Rx] Cephalexin [Keflex] 500 mg PO Q8HR 2 Days cap 11/05/21 [Rx] Nicotine 14Mg/24Hr Patch [Habitrol] 1 patch TRANSDERM DAILY 30 Days patch 11/05/21 [Rx] Prazosin [Minipress] 1 mg PO HS 30 Days cap 11/05/21 [Rx] Sertraline [Zoloft] 100 mg PO DAILY 30 Days tab 11/05/21 [Rx] Follow up Appointment(s)/Referral(s): Karen Lai MD [STAFF PHYSICIAN] - 12/09/21 3:45 pm Mariangel Schofield MD [Primary Care Provider] - 1-2 days Patient Instructions/Handouts: Gastritis (DC), GERD (Gastroesophageal Reflux Disease) (DC), Abuse of Alcohol (DC) Activity/Diet/Wound Care/Special Instructions: Activity: As tolerated. Take breaks as needed. Diet: Heart healthy and carb consistent diet. Avoid salts, or foods with hidden salts such as canned or boxed foods and frozen dinners. Extra salt makes your heart work harder and traps the fluid in your body for longer. Special Instructions: Take all of your medications as directed and remember to keep all of your doctor's appointments and follow-up as needed. Strongly advise avoidance of ALL alcoholic beverages, recommend outpatient drug and alcohol rehabilitation center. You are being started on PPI, protonix, for your reflux. If you continue to have reflux while on this medication I advise you to make an appointment with a feeder operator as we discussed for further evaluation. I also recommend that you follow up with feeder operator for continued monitoring/management of your chronic iron deficiency anemia, this is likely secondary to daily alcohol abuse however it is strongly advised to follow-up as you may need further evaluation. Thank you for allowing us to participate in your care, it was truly a pleasure having you for our patient!!! Discharge/Stand Alone Forms: AA Meetings [facility], Community Resources, Outpatient Counseling, Inp Substance Abuse Facilities Discharge Disposition: HOME SELF-CARE
[2021-10-30] MEDS ORDERED: THIAMINE 100 MG TAB PO SCH (17:30)
[2021-10-31] MEDS ORDERED: PANTOPRAZOLE 40 MG TABLET PO SCH (07:30)
== END 2021-10-30 14:50 | disposition home or self-care (01) ==
LOC: EC 14:51 → 6NMEDSUR 18:37
PROVIDERS: ADMIT Family Medicine; ATTEND Family Medicine
DX: F10.20 Alcohol dependence, uncomplicated (principal); Z71.41 Alcohol abuse counseling and surveillance of alcoholic; D50.9 Iron deficiency anemia, unspecified; R35.0 Frequency of micturition; R39.15 Urgency of urination; N39.0 Urinary tract infection, site not specified; B96.20 Unspecified Escherichia coli [E. coli] as the cause of diseases classified elsewhere; F17.200 Nicotine dependence, unspecified, uncomplicated; F32.A Depression, unspecified; K21.9 Gastro-esophageal reflux disease without esophagitis; Z16.29 Resistance to other single specified antibiotic; Z86.14 Personal history of Methicillin resistant Staphylococcus aureus infection; Z90.49 Acquired absence of other specified parts of digestive tract; E28.2 Polycystic ovarian syndrome; Z98.891 History of uterine scar from previous surgery; Z98.51 Tubal ligation status; Z83.79 Family history of other diseases of the digestive system; Z88.0 Allergy status to penicillin; Z91.018 Allergy to other foods
CPT/HCPCS: 96376 ×3; 96361 ×2; 96365; 96366; 96372; 96375; 99285; 36415; 93005; 80053; 80048; 83605; 83690; 84484 ×2; 85025 ×2; 81001; 87040; 87086; 87077; 87186; G0378 ×2; J2270 ×2; J3411; J2405; J0696 ×2; J1885 ×2; C9113 ×2; J1644

== ENCOUNTER 2021-11-02 08:51 | Inpatient (IN) | payer MEDICAID, OTHER ==
--- NOTE | 2021-11-02 10:59 | ED ---
Psych HPI - General Chief Complaint: Psychiatric Symptoms Stated Complaint: Suicidal, Mental Health Time Seen by Provider: 11/02/21 08:55 Source: patient Mode of arrival: ambulatory - History of Present Illness Initial Comments: 36 year old female with past medical history of PCOS, MRSA presents emergency department with the report that she's been feeling suicidal. States that she has a history of depression and normally follows with [facility]. She was discharged from [facility] as she did not have a ride there. She takes several medications for depression however has been out of medication. She also recently just lost her mom. States that when she is on the psychiatric medications that she feels better. This morning she was so depressed that she took a razor to her left forearm and made a superficial abrasion. She denies any other attempts at harming herself. No homicidal ideations. No drug or alcohol use. No concern for . Her tetanus is up-to-date. No other alleviating, precipitating or modifying factors - Related Data Previous Rx's Medication Instructions Recorded Calcium Carbonate [Tums] 500 mg PO TID PRN tab 10/30/21 Cephalexin [Keflex] 500 mg PO Q8HR 4 Days #12 cap 10/30/21 Pantoprazole [Protonix] 40 mg PO DAILY 30 Days #30 tab 10/30/21 Allergies Allergy/AdvReac Type Severity Reaction Status Date / Time coconut Allergy Unknown Verified 11/02/21 13:49 Penicillins Allergy Rash/Hives Verified 11/02/21 13:49 Review of Systems ROS Statement: Those systems with pertinent positive or pertinent negative responses have been documented in the HPI. ROS Other: All systems not noted in ROS Statement are negative. Past Medical History Past Medical History: No Reported History Additional Past Medical History / Comment(s): KIDNEY STONES, PCOS, MRSA in mouth 01/29 History of Any Multi-Drug Resistant Organisms: MRSA Date of last positivie culture/infection: 12/29/20 MDRO Source:: mouth Past Surgical History: Section, Cholecystectomy, Tubal Ligation Past Psychological History: Depression Smoking Status: Current every day smoker Past Alcohol Use History: Occasional Past Drug Use History: None Reported - Past Family History Mother Family Medical History: Liver Disease General Exam Limitations: no limitations General appearance: alert, in no apparent distress Head exam: Present: atraumatic, normocephalic, normal inspection Eye exam: Present: normal appearance, PERRL, EOMI. Absent: scleral icterus, conjunctival injection, periorbital swelling ENT exam: Present: normal exam, mucous membranes moist Neck exam: Present: normal inspection. Absent: tenderness, meningismus, lymphadenopathy Respiratory exam: Present: normal lung sounds bilaterally. Absent: respiratory distress, wheezes, rales, rhonchi, stridor Cardiovascular Exam: Present: regular rate, normal rhythm, normal heart sounds. Absent: systolic murmur, diastolic murmur, rubs, gallop, clicks GI/Abdominal exam: Present: soft, normal bowel sounds. Absent: distended, tenderness, guarding, rebound, rigid Extremities exam: Present: normal inspection, full ROM, normal capillary refill. Absent: tenderness, pedal edema, joint swelling, calf tenderness Back exam: Present: normal inspection Neurological exam: Present: alert, oriented X3, CN II-XII intact Psychiatric exam: Present: depressed Skin exam: Present: warm, dry, normal color, other (self inflicted superficial abrasion left anterior forearm - 8 cm in length. no bleeding or exposure of subcut tissue 2+ radial pulse). Absent: rash Course Vital Signs 11/02/21 11/02/21 08:52 16:49 Temperature 98.3 F 98.1 F Pulse Rate 77 Pulse Rate [ 58 L Left] Respiratory 18 14 Rate Blood Pressure 146/99 Blood Pressure 116/76 [Right Arm] O2 Sat by Pulse 99 99 Oximetry Medical Decision Making - Medical Decision Making Upon arrival patient was placed in room 13. Thorough history and physical exam was performed. Patient is cleared for EPS evaluation at this time. - Lab Data Result diagrams: 11/03/21 09:44 11/03/21 09:44 Lab Results 11/02/21 11/02/21 11/02/21 Range/Units 13:49 13:49 13:49 Urine HCG, Qual Not Detected (Not Detectd) Urine Opiates Screen Detected H (NotDetected) Ur Oxycodone Screen Not Detected (NotDetected) Urine Methadone Screen Not Detected (NotDetected) Ur Propoxyphene Screen Not Detected (NotDetected) Ur Barbiturates Screen Not Detected (NotDetected) U Tricyclic Antidepress Not Detected (NotDetected) Ur Phencyclidine Scrn Not Detected (NotDetected) Ur Amphetamines Screen Not Detected (NotDetected) U Methamphetamines Scrn Not Detected (NotDetected) U Benzodiazepines Scrn Not Detected (NotDetected) Urine Cocaine Screen Detected H (NotDetected) U Marijuana (THC) Screen Not Detected (NotDetected) Coronavirus (PCR) Not Detected (Not Detectd) Disposition Clinical Impression: Depression Disposition: TRANSFER TO PSYCH HOSP/UNIT Condition: Stable Is patient prescribed a controlled substance at d/c from ED?: No
[2021-11-02 14:43] LABS: Amphetamine Screen,Urine Not Detected (NotDetected); Barbiturate Screen,Urine Not Detected (NotDetected); Benzodiazepines Screen,Urine Not Detected (NotDetected); Cocaine Screen,Urine Detected (NotDetected); Methadone Screen, Urine Not Detected (NotDetected); Opiate Screen,Urine Detected (NotDetected); Oxycodone Screen, Urine Not Detected (NotDetected); Phencyclidine Screen,Urine Not Detected (NotDetected); Tricyclic Antidepressant,Urine Not Detected (NotDetected); Urn Cannabinoid Scrn Not Detected (NotDetected)
[2021-11-02] MEDS ORDERED: LORazepam 1 MG TAB PO PRN (15:39)
[2021-11-02] MEDS ORDERED: MAGNESIUM HYDROXIDE 2,400 MG/10 ML CUP PO PRN (15:39)
[2021-11-02] MEDS ORDERED: LORazepam 1 MG/0.5 ML VIAL IM PRN (15:41)
[2021-11-02] MEDS: NICOTINE 14MG/24HR PATCH TRANSDERM SCH (17:54)
[2021-11-02] MEDS ORDERED: LORazepam 2 MG/ML INJ IM PRN (18:02)
[2021-11-02 21:07] VITALS: RESP 16
[2021-11-02] MEDS: ACETAMINOPHEN TAB 325 MG TAB PO PRN (21:52)
[2021-11-02] MEDS: CALCIUM CARBONATE 500 MG CHEWABLE PO PRN (21:52)
[2021-11-03] MEDS: PANTOPRAZOLE 40 MG TABLET PO SCH (08:41)
[2021-11-03] MEDS: NICOTINE 14MG/24HR PATCH TRANSDERM SCH (08:41)
[2021-11-03] MEDS ORDERED: SERTRALINE 50 MG TAB PO STA (10:24)
[2021-11-03] MEDS ORDERED: ARIPiprazole 5 MG TAB PO STA (10:25)
[2021-11-03 10:39] LABS: Anisocytosis Slight; Basophils % (A) 0 %; Eosinophils # (A) 0.1 k/uL (0-0.7); Eosinophils % (A) 2 %; HGB 9.7 gm/dL (11.4-16.0); Hypochromasia Marked; Lymphocytes # (A) 1.6 k/uL (1.0-4.8); Lymphocytes % (A) 24 %; MCH 22.9 pg (25.0-35.0); MCHC 28.5 g/dL (31.0-37.0); MCV 80.2 fL (80.0-100.0); Mean Platelet Volume 9.5; Monocytes # (A) 0.4 k/uL (0-1.0); Monocytes % (A) 6 %; Neutrophils # (A) 4.6 k/uL (1.3-7.7); Neutrophils % (A) 67 %; Platelet Count 268 k/uL (150-450); RBC 4.24 m/uL (3.80-5.40); RDW 16.1 % (11.5-15.5); WBC 6.9 k/uL (3.8-10.6)
[2021-11-03 10:58] LABS: ALT 14 U/L (4-34); AST 20 U/L (14-36); African American GFR (CKD) >90 (>60 ml/min/1.73 sqM); Albumin 3.9 g/dL (3.5-5.0); Alkaline Phosphatase 54 U/L (38-126); Anion Gap 7 mmol/L; Blood Urea Nitrogen 9 mg/dL (7-17); Calcium 8.8 mg/dL (8.4-10.2); Carbon Dioxide 23 mmol/L (22-30); Chloride 108 mmol/L (98-107); Glucose 104 mg/dL (74-99); Non-African American GFR(CKD) 90 (>60 ml/min/1.73 sqM); Potassium 4.3 mmol/L (3.5-5.1); Sodium 138 mmol/L (137-145); Total Bilirubin 0.4 mg/dL (0.2-1.3)
[2021-11-03] MEDS: ACETAMINOPHEN TAB 325 MG TAB PO PRN ×2 (13:28→17:48)
[2021-11-03] MEDS: MAG HYDROX/AL HYDROX/SIMETH 30 ML CUP PO PRN (13:28)
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
[2021-11-03 14:28] LABS: Chol/HDL Ratio 2.65 Ratio; LDL Cholesterol,Calculated 56.4 mg/dL (0.0-131.0)
--- NOTE | 2021-11-03 14:40 | P.MDCNMH ---
History of Present Illness H&P Date: 11/03/21 This is a pleasant 36-year-old female who presented to the emergency department with feelings of suicidal ideation and increased depression. Patient reports she has been out of medications and normally sees Dr. Donna Rodriguez although has not seen her in a few months. Patient has past medical history of depression, kidney stones, PCO S, MRSA in the mouth, and recent urinary tract infection. Patient reports that she smokes approximately 5 cigarettes per day, occasionally drinks alcohol, and denies any other illicit drug use. Patient feeling increasingly depressed and attempted to cut her skin although a superficial and came to the ER for further evaluation. Patient is alert and oriented 3 on exam and reports that she was recently described and antibiotic for urinary tract infection and missed her doses yesterday from being in the ER. Will resume as patient is taking Keflex to complete the course. Basic labs were reviewed and within normal limits, hemoglobin is slightly low at 9.7, and urine drug screen was positive for opiates and cocaine. Covid was negative and urine HCC is negative. Review Of Systems: Constitutional: No fever, no chills, no night sweats. No weight change. No weakness, fatigue or lethargy. No daytime sleepiness. EENT: No headache. No blurred vision or double vision, no loss of vision. No loss of Hearing, no ringing in the ears, no dizziness. No nasal drainage or congestion. No epistaxis. No sore throat. Lungs: No shortness of breath, cough, no sputum production. No wheezing. Cardiovascular: No chest pain, no lower extremity edema. No palpitations. No paroxysmal nocturnal dyspnea. No orthopnea. No lightheadedness or dizziness. No syncopal episodes. Abdominal: No abdominal pain. No nausea, vomiting. No diarrhea. No constipat ion. No bloody or tarry stools.. No loss of appetite. Genitourinary: No dysuria, increased frequency, urgency. No urinary retention. She reports recent UTI and was started on antibiotics Musculoskeletal: No myalgias. No muscle weakness, no gait dysfunction, no frequent falls. No back pain. No neck pain. Integumentary: No wounds, no lesions. No rash or pruritus. No unusual bruising. No change in hair or nails. Neurologic: No aphasia. No facial droop. No change in mentation. No head injury. No headache. No paralysis. No paresthesia. Psychiatric: Reports depression. Reports increased anxiety. Reports occasional mood swings. Reports feelings of being overwhelmed with suicidal thoughts intermittently Endocrine: No abnormal blood sugars. No weight change. No excessive sweating or thirst. No cold intolerance. PHYSICAL EXAMINATION: GENERAL: The patient is alert and oriented x4, Well developed, well nourished. HEENT: Pupils are round and equally reacting to light. EOMI. no scleral icterus. No conjunctival pallor. Normocephalic, atraumatic. No pharyngeal erythema. No thyromegaly. CARDIOVASCULAR: S1 and S2 muffled PULMONARY: Breath sounds are clear with no wheezing or rhonchi noted ABDOMEN: soft. Nontender on exam. obese. non-distended, normoactive bowel sounds. No palpable organomegaly. MUSCULOSKELETAL: No joint swelling or deformity. EXTREMITIES: No cyanosis, clubbing, or pedal edema. NEUROLOGICAL: Gross neurological examination did not reveal any focal deficits. SKIN: No rashes. Assessment: Depression Suicidal ideation Recent urinary tract infection, started on antibiotics in the outpatient setting Continued ongoing nicotine abuse Positive cocaine in urine drug screen History of kidney stones History of PCO S Full code Plan: Recommend to continue with current medications and management per psychiatric services. Patient follows with Dr. Donna Rodriguez in the outpatient setting although has not seen her in a few months and also follows with [facility] in the outpatient setting. Patient having increasing thoughts of depression and reports to being out of medications over the last few weeks to months. Patient reports to smoking approximately 5 cigarettes per day and denied illicit drug use although urine drug screen showing positive for cocaine. Labs reviewed and within normal limits. Patient also reports she was recently started on Keflex for UTI although did not take yesterday's doses due to being in the ER. Will resume Keflex and other appropriate home medications have been resumed. Encourage the patient to continue to work with psychiatry on medication adjustments and compliance of medications and also go to group meetings and participate on 3 W. The impression and plan of care has been dictated by Caterina Castanon, nurse practitioner as directed. Dr. Whitney MD I have performed a history and examination and MDM of this patient, discussed the same with the dictator, and agree with the dictator's assessment and plan as written ,documented as a scribe. Based on total visit time, I have performed more than 50% of the visit. Any additional findings or plans will be noted. Past Medical History Past Medical History: No Reported History Additional Past Medical History / Comment(s): KIDNEY STONES, PCOS, MRSA in mouth 01/29 History of Any Multi-Drug Resistant Organisms: MRSA Date of last positivie culture/infection: 12/29/20 MDRO Source:: mouth Past Surgical History: Section, Cholecystectomy, Tubal Ligation Past Psychological History: Depression Smoking Status: Current every day smoker Past Alcohol Use History: Occasional Past Drug Use History: None Reported - Past Family History Mother Family Medical History: Liver Disease Medications and Allergies Home Medications Medication Instructions Recorded Confirmed Type Calcium Carbonate [Tums] 500 mg PO TID PRN tab 10/30/21 11/02/21 Rx Cephalexin [Keflex] 500 mg PO Q8HR 4 Days #12 cap 10/30/21 11/02/21 Rx Pantoprazole [Protonix] 40 mg PO DAILY 30 Days #30 tab 10/30/21 11/02/21 Rx Allergies Allergy/AdvReac Type Severity Reaction Status Date / Time coconut Allergy Unknown Verified 11/02/21 13:49 Penicillins Allergy Rash/Hives Verified 11/02/21 13:49 Physical Exam Vitals: Vital Signs Temp Pulse Resp BP BP Pulse Ox 11/03/21 07:15 97.7 F 64 117/72 11/02/21 21:06 96.7 F L 68 16 116/76 98 11/02/21 16:49 98.1 F 58 L 14 116/76 99 Intake and Output 11/02/21 11/03/21 11/03/21 22:59 06:59 14:59 Other: Weight 109.996 kg Cranial Nerve Examination - Cranial Nerves Cranial Nerve I- Olfactory: Intact Cranial Nerve II- Optic: Intact Cranial Nerve III- Oculomotor: Intact Cranial Nerve IV- Trochlear: Intact Cranial Nerve V- Trigeminal: Intact Cranial Nerve - Abducens: Intact Cranial Nerve VII- Facial: Intact Cranial Nerve VIII- Auditory: Intact Cranial Nerve IX- Glossopharyngeal: Intact Cranial Nerve X- Vagus: Intact Cranial Nerve XI- Accessory: Intact Cranial Nerve XII- Hypoglossal: Intact Results CBC & Chem 7: 11/03/21 09:44 11/03/21 09:44 Labs: Abnormal Lab Results - Last 24 Hours (Table) 11/02/21 Range/Units 13:49 Urine Opiates Screen Detected H (NotDetected) Urine Cocaine Screen Detected H (NotDetected)
[2021-11-03] MEDS: CEPHALEXIN 500 MG CAP PO SCH ×2 (16:11→23:15)
[2021-11-03] MEDS: PRAZOSIN 1 MG CAP PO SCH (20:56)
[2021-11-03] MEDS: CALCIUM CARBONATE 500 MG CHEWABLE PO PRN (20:57)
[2021-11-04] MEDS: NICOTINE 14MG/24HR PATCH TRANSDERM SCH (08:56)
[2021-11-04] MEDS: PANTOPRAZOLE 40 MG TABLET PO SCH (08:56)
[2021-11-04] MEDS: CEPHALEXIN 500 MG CAP PO SCH ×2 (08:57→15:30)
[2021-11-04] MEDS ORDERED: SERTRALINE 25 MG TAB PO SCH (09:00)
[2021-11-04] MEDS ORDERED: ARIPiprazole 5 MG TAB PO SCH (09:00)
[2021-11-04] MEDS: MAG HYDROX/AL HYDROX/SIMETH 30 ML CUP PO PRN (10:51)
[2021-11-04] MEDS: ACETAMINOPHEN TAB 325 MG TAB PO PRN (10:51)
--- NOTE | 2021-11-04 11:57 | P.PN ---
Progress Note - Text Progress Note Date: 11/04/21 Interval History: Patient was seen wandering the hallways and was directable and agreeable to speak with typewriter repairer in the office. The patient reports that she is feeling significantly better today. She reports that she has been attending group. She is currently denying any suicidal or homicidal ideation, intention, and/or plan. She is not reporting any auditory or visual hallucinations. Any paranoia or other delusions. Patient has been adherent with her medication and is not endorsing any significant side effects at this time. She currently reports no issues regarding her sleep or appetite. Mental Status Exam: General Appearance: Patient appears to be stated age is alert, directable, and cooperative. Mildly disheveled. Dyed blonde hair. Multiple tattoos. Behavior: Patient is calmly seated without any agitated behavior. Eye contact is improved and appropriate. Speech: Patient's speech is fluent and nonpressured. Mood/Affect: Mood is improving mildly, affect is congruent and constricted. Suicidality/Homicidality: Patient reports no suicidal or homicidal ideation, intention, and/or plan. Perceptions: Patient denies any visual hallucinations and denies any auditory hallucinations Though content/process: There is no evidence of any delusional thought content and thought process is linear and goal-directed. Memory and concentration: AOX3, grossly intact for the purposes of this session Judgment and insight: Improving mildly Vital Signs Temp 97.7 F 11/04/21 08:54 Pulse 88 11/04/21 08:54 Resp 16 11/04/21 08:54 BP 119/69 11/04/21 08:54 Pulse Ox 98 11/04/21 08:54 FiO2 Laboratory Results - Last 24 Hours 11/03/21 11/03/21 09:44 09:[address] Glu mg/dL 96 Hemoglobin A1c 5.0 Triglycerides 79.50 Cholesterol 116.00 LDL Cholesterol, Calc 56.4 VLDL Cholesterol, Calc 15.90 HDL Cholesterol 43.70 Cholesterol/HDL Ratio 2.65 Assessment Major depressive disorder, recurrent, severe Borderline personality disorder PTSD Tobacco use disorder Plan: -Patient continues to meet criteria for inpatient psychiatric admission for symptom stabilization and safety. Patient has signed adult voluntary form and medication consent and was placed in patient's chart. -Medications: Increase Zoloft 75 mg by mouth daily for depression/anxiety/PTSD - increase to 100 mg tomorrow. Increase Abilify to 7.5 mg by mouth daily for mood augmentation - increase to 10 mg tomorrow. -When necessary Ativan and Haldol for agitation/aggression. -NRT - nicotine patch -SW on board for discharge planning. Encouraged the patient to participate in milieu.
[2021-11-04] MEDS: PRAZOSIN 1 MG CAP PO SCH (20:56)
[2021-11-04] MEDS: CALCIUM CARBONATE 500 MG CHEWABLE PO PRN (20:57)
[2021-11-05] MEDS: CEPHALEXIN 500 MG CAP PO SCH ×2 (02:33→08:35)
[2021-11-05 07:16] VITALS: BP 138/78; PULSE 69; TEMP 97.9
[2021-11-05] MEDS: PANTOPRAZOLE 40 MG TABLET PO SCH (08:35)
[2021-11-05] MEDS: NICOTINE 14MG/24HR PATCH TRANSDERM SCH (08:36)
[2021-11-05] MEDS: CALCIUM CARBONATE 500 MG CHEWABLE PO PRN (08:36)
[2021-11-05] MEDS ORDERED: SERTRALINE 100 MG TAB PO SCH (09:00)
[2021-11-05] MEDS ORDERED: ARIPiprazole 10 MG TAB PO SCH (09:00)
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
== END 2021-11-05 10:25 | disposition home or self-care (01) | DRG 885 ==
LOC: EC 08:51 → 3MHU 15:38
PROVIDERS: ADMIT Psychiatry & Neurology Psychiatry; ATTEND Psychiatry & Neurology Psychiatry
DX: F33.2 Major depressive disorder, recurrent severe without psychotic features (principal); R45.851 Suicidal ideations; F20.9 Schizophrenia, unspecified; F60.3 Borderline personality disorder; F43.10 Post-traumatic stress disorder, unspecified; S61.512A Laceration without foreign body of left wrist, initial encounter; X78.9XXA Intentional self-harm by unspecified sharp object, initial encounter; E28.2 Polycystic ovarian syndrome; F17.210 Nicotine dependence, cigarettes, uncomplicated; Z62.819 Personal history of unspecified abuse in childhood; Z20.822 Contact with and (suspected) exposure to COVID-19; Z63.0 Problems in relationship with spouse or partner; Z88.0 Allergy status to penicillin; Z91.018 Allergy to other foods; Z87.442 Personal history of urinary calculi; Z86.14 Personal history of Methicillin resistant Staphylococcus aureus infection; Z90.49 Acquired absence of other specified parts of digestive tract; Z98.51 Tubal ligation status; Z98.890 Other specified postprocedural states; Z81.8 Family history of other mental and behavioral disorders
CPT/HCPCS: 80053; 80061; 80306; 81025; 82075; 83036; 84443; 85025; 87635; 99285

== ENCOUNTER 2023-01-30 20:21 | Emergency (ER) | payer OTHER ==
[2023-01-30 23:12] LABS: Basophils % (A) 0 %; Eosinophils # (A) 0.1 k/uL (0-0.7); Eosinophils % (A) 1 %; HCT 40.5 % (34.0-46.0); HGB 12.3 gm/dL (11.4-16.0); Hypochromasia Moderate; Lymphocytes # (A) 2.4 k/uL (1.0-4.8); Lymphocytes % (A) 24 %; MCH 26.1 pg (25.0-35.0); MCHC 30.5 g/dL (31.0-37.0); MCV 85.7 fL (80.0-100.0); Mean Platelet Volume 10.3; Monocytes # (A) 0.5 k/uL (0-1.0); Monocytes % (A) 5 %; Neutrophils # (A) 6.8 k/uL (1.3-7.7); Neutrophils % (A) 68 %; Platelet Count 228 k/uL (150-450); RBC 4.73 m/uL (3.80-5.40); RDW 14.6 % (11.5-15.5); WBC 10.1 k/uL (3.8-10.6)
[2023-01-30 23:29] LABS: ALT 18 U/L (4-34); AST 22 U/L (14-36); African American GFR (CKD) >90 (>60 ml/min/1.73 sqM); Albumin 4.6 g/dL (3.5-5.0); Alkaline Phosphatase 51 U/L (38-126); Anion Gap 12 mmol/L; Blood Urea Nitrogen 10 mg/dL (7-17); Calcium 9.9 mg/dL (8.4-10.2); Carbon Dioxide 24 mmol/L (22-30); Chloride 107 mmol/L (98-107); Glucose 85 mg/dL (74-99); Non-African American GFR(CKD) >90 (>60 ml/min/1.73 sqM); Sodium 143 mmol/L (137-145); Total Bilirubin 0.5 mg/dL (0.2-1.3); Total Protein 8.1 g/dL (6.3-8.2)
[2023-01-30 23:31] LABS: Amphetamine Screen,Urine Detected (NotDetected); Barbiturate Screen,Urine Not Detected (NotDetected); Benzodiazepines Screen,Urine Not Detected (NotDetected); Cocaine Screen,Urine Detected (NotDetected); Methadone Screen, Urine Not Detected (NotDetected); Opiate Screen,Urine Not Detected (NotDetected); Oxycodone Screen, Urine Not Detected (NotDetected); Phencyclidine Screen,Urine Not Detected (NotDetected); Tricyclic Antidepressant,Urine Not Detected (NotDetected); Urn Cannabinoid Scrn Not Detected (NotDetected)
[2023-01-30 23:36] LABS: Appearance,Urine Cloudy (Clear); Bilirubin,Urine Negative (Negative); Blood,Urine Negative (Negative); Calcium Oxalate Crystals,Urine Many /hpf; Color,Urine Yellow; Glucose,Urine (UA) Negative (Negative); Hyaline Casts,Urine 3 /lpf (0-2); Ketones,Urine Negative (Negative); Leukocyte Esterase,Urine Small (Negative); Mucus,Urine Many /hpf; Nitrite,Urine Negative (Negative); Protein,Urine 1+ (Negative); RBC,Urine 3 /hpf (0-5); Specific Gravity,Urine 1.027 (1.001-1.035); Squamous Epithelial Cell,Urine 2 /hpf (0-4); WBC,Urine 29 /hpf (0-5)
--- NOTE | 2023-01-31 02:42 | ED ---
Psych HPI - General Chief Complaint: Psychiatric Symptoms Stated Complaint: Suicidal Time Seen by Provider: 01/30/23 21:07 Source: patient Mode of arrival: ambulatory - History of Present Illness Initial Comments: 38-year-old female with reported past medical history of bipolar disorder, schizophrenia who presents to the emergency department reporting suicidal ideations. She states that she has been depressed for the past 5 days. Tonight she took a knife out and attempted to cut her wrists. The knife was taken away by a friend and friend called EMS. She states that she has been previously hospitalized for her mood. She was placed on medications approximately one year ago. She never found a doctor and therefore did not have her medications refilled. She currently does not follow with a counselor or psychiatrist. She admits to drinking alcohol and smoking marijuana. Patient not currently intoxicated. She did not inflict any lacerations. She denies any other attempts. Denies homicidal ideations. No hallucinations. No other alleviating, precipitating or modifying factors - Related Data Home Medications Medication Instructions Recorded Confirmed No Known Home Medications 06/01/22 01/31/23 Allergies Allergy/AdvReac Type Severity Reaction Status Date / Time coconut Allergy Unknown Verified 01/31/23 08:13 Penicillins Allergy Rash/Hives Verified 01/31/23 08:13 Review of Systems ROS Statement: Those systems with pertinent positive or pertinent negative responses have been documented in the HPI. ROS Other: All systems not noted in ROS Statement are negative. Past Medical History Past Medical History: No Reported History Additional Past Medical History / Comment(s): KIDNEY STONES, PCOS, MRSA in mouth 01/29 History of Any Multi-Drug Resistant Organisms: MRSA Date of last positivie culture/infection: 12/29/20 MDRO Source:: mouth Past Surgical History: Section, Cholecystectomy, Tubal Ligation Past Psychological History: Depression Smoking Status: Current every day smoker Past Alcohol Use History: Occasional Past Drug Use History: None Reported - Past Family History Mother Family Medical History: Liver Disease General Exam Limitations: no limitations General appearance: alert, in no apparent distress Head exam: Present: atraumatic, normocephalic, normal inspection Eye exam: Present: normal appearance, PERRL, EOMI. Absent: scleral icterus, conjunctival injection, periorbital swelling ENT exam: Present: normal exam, mucous membranes moist Neck exam: Present: normal inspection. Absent: tenderness, meningismus, lymphadenopathy Respiratory exam: Present: normal lung sounds bilaterally. Absent: respiratory distress, wheezes, rales, rhonchi, stridor Cardiovascular Exam: Present: regular rate, normal rhythm, normal heart sounds. Absent: systolic murmur, diastolic murmur, rubs, gallop, clicks GI/Abdominal exam: Present: soft, normal bowel sounds. Absent: distended, tenderness, guarding, rebound, rigid Extremities exam: Present: normal inspection, full ROM, normal capillary refill. Absent: tenderness, pedal edema, joint swelling, calf tenderness Back exam: Present: normal inspection Neurological exam: Present: alert, oriented X3, CN II-XII intact Psychiatric exam: Present: depressed, flat affect Skin exam: Present: warm, dry, intact, normal color, other (Patient does have healed self-inflicted lacerations to the left forearm. No new lacerations). Absent: rash Course Vital Signs 01/30/23 01/31/23 01/31/23 20:24 01:00 20:00 Temperature 99.0 F 98.0 F Pulse Rate 98 70 68 Respiratory 18 18 18 Rate Blood Pressure 139/90 122/80 114/80 O2 Sat by Pulse 98 98 99 Oximetry 02/01/23 02/01/23 02/02/23 14:10 21:00 10:23 Temperature 98.0 F 99.2 F 98.7 F Pulse Rate 62 64 68 Respiratory 16 18 18 Rate Blood Pressure 116/76 120/81 110/68 O2 Sat by Pulse 97 98 99 Oximetry Medical Decision Making - Medical Decision Making Was pt. sent in by a medical professional or institution (, PA, JAVASCRIPT ENGINEER, urgent care, hospital, or [facility]...) When possible be specific @ -No Did you speak to anyone other than the patient for history (EMS, parent, family, police, friend...)? What history was obtained from this source @ -No Did you review nursing and triage notes (agree or disagree)? Why? @ -I reviewed and agree with nursing and triage notes Were old charts reviewed (outside hosp., previous admission, EMS record, old EKG, old radiological studies, urgent care reports/EKG's, [facility] records)? Report findings @ -No old charts were reviewed Differential Diagnosis (chest pain, altered mental status, abdominal pain women, abdominal pain men, vaginal bleeding, weakness, fever, dyspnea, syncope, headache, dizziness, GI bleed, back pain, seizure, CVA, palpatations, mental health, musculoskeletal)? @ -Differential Mental Health Depression, anxiety, bipolar, psychosis, schizophrenia, borderline personality, situational depression, adjustment disorder, behavioral disorder, brain tumor, malingering, substance abuse, encephalopathy, medication reaction, dementia, hypothyroidism, degenerative neurologic disorder, lupus.... This is not meant to be all-inclusive list EKG interpreted by me (3pts min.). @ -Not completed X-rays interpreted by me (1pt min.). @ -None done CT interpreted by me (1pt min.). @ -None done U/S interpreted by me (1pt. min.). @ -None done What testing was considered but not performed or refused? (CT, X-rays, U/S, labs)? Why? @ -None What meds were considered but not given or refused? Why? @ -None Did you discuss the management of the patient with other professionals (prof mistys i.e. , PA, JAVASCRIPT ENGINEER, lab, RT, psych nurse, psychiatric social worker, foot gatherer, teacher, fisheries technical officer, telephonic case manager)? Give summary @ -Spoke with the EPS nurse who will evaluate the patient Was smoking cessation discussed for >3mins.? @ -No Was critical care preformed (if so, how long)? @ -No Were there social determinants of health that impacted care today? How? (Homelessness, low income, unemployed, alcoholism, drug addiction, transportation, low edu. Level, literacy, decrease access to med. care, longterm, rehab)? @ -No Was there de-escalation of care discussed even if they declined (Discuss DNR or withdrawal of care, Hospice)? DNR status @ -No What co-morbidities impacted this encounter? (DM, HTN, Smoking, COPD, CAD, Cancer, CVA, ARF, Chemo, Hep., AIDS, mental health diagnosis, sleep apnea, morbid obesity)? @ -Schizophrenia, bipolar Was patient admitted / discharged? Hospital course, mention meds given and route, prescriptions, significant lab abnormalities, going to OR and other pertinent info. @ -Upon arrival patient was placed into room 14. Thorough history and physical exam was performed. Patient is sober. She does report to suicidal ideations with a plan to cut her wrists. She does require EPS evaluation at this time. EPS does evaluate the patient however we are awaiting the recommendations Undiagnosed new problem with uncertain prognosis? @ -No Drug Therapy requiring intensive monitoring for toxicity (Heparin, Nitro, Insulin, Cardizem)? @ -No Were any procedures done? @ -No Diagnosis/symptom? @ -Acute depression, acute suicidal ideation Acute, or Chronic, or Acute on Chronic? @ -acute Uncomplicated (without systemic symptoms) or Complicated (systemic symptoms)? @ -Complicated Side effects of treatment? @ -No Exacerbation, Progression, or Severe Exacerbation? @ -No Poses a threat to life or bodily function? How? (Chest pain, USA, MD, pneumonia, PE, COPD, DKA, ARF, appy, cholecystitis, CVA, Diverticulitis, Homicidal, Suicidal, threat to staff... and all critical care pts) @ -Yes patient is actively suicidal - Lab Data Result diagrams: 01/30/23 22:41 01/30/23 22:41 Lab Results 01/30/23 01/30/23 01/30/23 Range/Units 22:08 22:08 22:41 WBC 10.1 (3.8-10.6) k/uL RBC 4.73 (3.80-5.40) m/uL Hgb 12.3 (11.4-16.0) gm/dL Hct 40.5 (34.0-46.0) % MCV 85.7 (80.0-100.0) fL MCH 26.1 (25.0-35.0) pg MCHC 30.5 L (31.0-37.0) g/dL RDW 14.6 (11.5-15.5) % Plt Count 228 (150-450) k/uL MPV 10.3 Neutrophils % 68 % Lymphocytes % 24 % Monocytes % 5 % Eosinophils % 1 % Basophils % 0 % Neutrophils # 6.8 (1.3-7.7) k/uL Lymphocytes # 2.4 (1.0-4.8) k/uL Monocytes # 0.5 (0-1.0) k/uL Eosinophils # 0.1 (0-0.7) k/uL Basophils # 0.0 (0-0.2) k/uL Hypochromasia Moderate Sodium (137-145) mmol/L Potassium (3.5-5.1) mmol/L Chloride (98-107) mmol/L Carbon Dioxide (22-30) mmol/L Anion Gap mmol/L BUN (7-17) mg/dL Creatinine (0.52-1.04) mg/dL Est GFR (CKD-EPI)AfAm (>60 ml/min/1.73 sqM) Est GFR (CKD-EPI)NonAf (>60 ml/min/1.73 sqM) Glucose (74-99) mg/dL Calcium (8.4-10.2) mg/dL Total Bilirubin (0.2-1.3) mg/dL AST (14-36) U/L ALT (4-34) U/L Alkaline Phosphatase (38-126) U/L Total Protein (6.3-8.2) g/dL Albumin (3.5-5.0) g/dL Urine Color Yellow Urine Appearance Cloudy H (Clear) Urine pH 6.0 (5.0-8.0) Ur Specific [place] 1.027 (1.001-1.035) Urine Protein 1+ H (Negative) Urine Glucose (UA) Negative (Negative) Urine Ketones Negative (Negative) Urine Blood Negative (Negative) Urine Nitrite Negative (Negative) Urine Bilirubin Negative (Negative) Urine Urobilinogen 3.0 (<2.0) mg/dL Ur Leukocyte Esterase Small H (Negative) Urine RBC 3 (0-5) /hpf Urine WBC 29 H (0-5) /hpf Ur Squamous Epith Cells 2 (0-4) /hpf Calcium Oxalate Crystal Many H (None) /hpf Hyaline Casts 3 H (0-2) /lpf Urine Mucus Many H (None) /hpf Urine HCG, Qual Not Detected (Not Detectd) Urine Opiates Screen Not Detected (NotDetected) Ur Oxycodone Screen Not Detected (NotDetected) Urine Methadone Screen Not Detected (NotDetected) Ur Propoxyphene Screen Not Detected (NotDetected) Ur Barbiturates Screen Not Detected (NotDetected) U Tricyclic Antidepress Not Detected (NotDetected) Ur Phencyclidine Scrn Not Detected (NotDetected) Ur Amphetamines Screen Detected H (NotDetected) U Methamphetamines Scrn Detected H (NotDetected) U Benzodiazepines Scrn Not Detected (NotDetected) Urine Cocaine Screen Detected H (NotDetected) U Marijuana (THC) Screen Not Detected (NotDetected) Coronavirus (PCR) (Not Detectd) 01/30/23 01/30/23 Range/Units 22:41 22:41 WBC (3.8-10.6) k/uL RBC (3.80-5.40) m/uL Hgb (11.4-16.0) gm/dL Hct (34.0-46.0) % MCV (80.0-100.0) fL MCH (25.0-35.0) pg MCHC (31.0-37.0) g/dL RDW (11.5-15.5) % Plt Count (150-450) k/uL MPV Neutrophils % % Lymphocytes % % Monocytes % % Eosinophils % % Basophils % % Neutrophils # (1.3-7.7) k/uL Lymphocytes # (1.0-4.8) k/uL Monocytes # (0-1.0) k/uL Eosinophils # (0-0.7) k/uL Basophils # (0-0.2) k/uL Hypochromasia Sodium 143 (137-145) mmol/L Potassium 4.0 (3.5-5.1) mmol/L Chloride 107 (98-107) mmol/L Carbon Dioxide 24 (22-30) mmol/L Anion Gap 12 mmol/L BUN 10 (7-17) mg/dL Creatinine 0.79 (0.52-1.04) mg/dL Est GFR (CKD-EPI)AfAm >90 (>60 ml/min/1.73 sqM) Est GFR (CKD-EPI)NonAf >90 (>60 ml/min/1.73 sqM) Glucose 85 (74-99) mg/dL Calcium 9.9 (8.4-10.2) mg/dL Total Bilirubin 0.5 (0.2-1.3) mg/dL AST 22 (14-36) U/L ALT 18 (4-34) U/L Alkaline Phosphatase 51 (38-126) U/L Total Protein 8.1 (6.3-8.2) g/dL Albumin 4.6 (3.5-5.0) g/dL Urine Color Urine Appearance (Clear) Urine pH (5.0-8.0) Ur Specific [place] (1.001-1.035) Urine Protein (Negative) Urine Glucose (UA) (Negative) Urine Ketones (Negative) Urine Blood (Negative) Urine Nitrite (Negative) Urine Bilirubin (Negative) Urine Urobilinogen (<2.0) mg/dL Ur Leukocyte Esterase (Negative) Urine RBC (0-5) /hpf Urine WBC (0-5) /hpf Ur Squamous Epith Cells (0-4) /hpf Calcium Oxalate Crystal (None) /hpf Hyaline Casts (0-2) /lpf Urine Mucus (None) /hpf Urine HCG, Qual (Not Detectd) Urine Opiates Screen (NotDetected) Ur Oxycodone Screen (NotDetected) Urine Methadone Screen (NotDetected) Ur Propoxyphene Screen (NotDetected) Ur Barbiturates Screen (NotDetected) U Tricyclic Antidepress (NotDetected) Ur Phencyclidine Scrn (NotDetected) Ur Amphetamines Screen (NotDetected) U Methamphetamines Scrn (NotDetected) U Benzodiazepines Scrn (NotDetected) Urine Cocaine Screen (NotDetected) U Marijuana (THC) Screen (NotDetected) Coronavirus (PCR) Not Detected (Not Detectd) Disposition Clinical Impression: Major depressive disorder, Suicidal ideation Disposition: TRANSFER TO PSYCH HOSP/UNIT Condition: Stable Is patient prescribed a controlled substance at d/c from ED?: No Referrals: None,Stated [Primary Care Provider] - 1-2 days
[2023-02-01 21:53] VITALS: RESP 18
[2023-02-02 10:43] VITALS: BP 110/68; PULSE 68; TEMP 98.7
== END 2023-02-02 19:05 ==
LOC: EC 20:21
DX: F32.9 Major depressive disorder, single episode, unspecified (principal); R45.851 Suicidal ideations; F17.200 Nicotine dependence, unspecified, uncomplicated; Z86.59 Personal history of other mental and behavioral disorders; Z88.0 Allergy status to penicillin; Z90.49 Acquired absence of other specified parts of digestive tract; Z91.018 Allergy to other foods; Z20.822 Contact with and (suspected) exposure to COVID-19
CPT/HCPCS: 36415; 80053; 80306; 81001; 81025; 85025; 87635; 99285

== ENCOUNTER 2024-01-05 09:55 | Emergency (ER) | payer OTHER ==
[2024-01-05 10:00] VITALS: RESP 18; TEMP 98
[2024-01-05] MEDS: ONDANSETRON 4 MG/2 ML VIAL IM STA (10:54)
--- NOTE | 2024-01-05 11:06 | ED ---
URI HPI - General Chief Complaint: Upper Respiratory Infection Stated Complaint: poss allergic reaction Time Seen by Provider: 01/05/24 10:00 Source: patient, RN notes reviewed Mode of arrival: ambulatory Limitations: no limitations - History of Present Illness Initial Comments: This is a 38-year-old female presenting with runny nose, cough, eyelid swelling, tongue swelling, recurring chest pain (8 out of 10), dizziness, headache, nausea, vomiting x 5 days. Patient states she was seen at [facility] yesterday and tested negative for COVID-19, states chest x-ray was normal. Denies receiving treatment before being discharged. Endorses Motrin use with minimal relief. Denies recent sick contact. Denies difficulty breathing, difficulty swallowing, visual changes, constipation, diarrhea, radiating pain. Onset/Timin -: days(s) Severity scale (1-10): 8 - Related Data Previous Rx's Medication Instructions Recorded Doxycycline [Vibramycin] 100 mg PO BID 7 Days #14 capsule 01/05/24 Ibuprofen [Motrin] 600 mg PO Q8HR PRN #20 tab 01/05/24 Ondansetron [Zofran] 4 mg PO Q8HR PRN #10 tab 01/05/24 Allergies Allergy/AdvReac Type Severity Reaction Status Date / Time coconut Allergy Unknown Verified 01/05/24 10:00 Penicillins Allergy Rash/Hives Verified 01/05/24 10:00 Review of Systems ROS Statement: Those systems with pertinent positive or pertinent negative responses have been documented in the HPI. ROS Other: All systems not noted in ROS Statement are negative. Cardiovascular: Reports: chest pain Gastrointestinal: Reports: nausea, vomiting Past Medical History Past Medical History: No Reported History Additional Past Medical History / Comment(s): KIDNEY STONES, PCOS, MRSA in mouth 01/29 History of Any Multi-Drug Resistant Organisms: MRSA Date of last positivie culture/infection: 12/29/20 MDRO Source:: mouth Past Surgical History: Section, Cholecystectomy, Tubal Ligation Past Psychological History: Depression Smoking Status: Current every day smoker Past Alcohol Use History: Occasional Past Drug Use History: None Reported - Past Family History Mother Family Medical History: Liver Disease General Exam Limitations: no limitations General appearance: alert, in no apparent distress Eye exam: Present: normal appearance, PERRL, EOMI, periorbital swelling (Positive left upper eyelid moderate edema, erythema, exquisite tenderness. Negative obvious hordeolum, eye discharge, crusting). Absent: scleral icterus, conjunctival injection ENT exam: Present: other (Positive frontal and maxillary sinus tenderness. Negative nasal discharge, negative glossal edema, negative oropharyngeal edema) Neck exam: Present: normal inspection. Absent: tenderness, meningismus, lymphadenopathy Respiratory exam: Present: normal lung sounds bilaterally. Absent: respiratory distress, wheezes, rales, rhonchi, stridor Cardiovascular Exam: Present: regular rate, normal rhythm, normal heart sounds. Absent: systolic murmur, diastolic murmur, rubs, gallop, clicks GI/Abdominal exam: Present: soft, normal bowel sounds. Absent: distended, tenderness, guarding, rebound, rigid Course Vital Signs 01/05/24 01/05/24 01/05/24 09:57 10:58 11:10 Temperature 98 F Pulse Rate 92 Pulse Rate [ 89 Apical] Respiratory 18 18 Rate Blood Pressure 120/89 O2 Sat by Pulse 99 Oximetry Medical Decision Making - Medical Decision Making Was pt. sent in by a medical professional or institution (, PA, INDEPENDENT FREIGHT AGENT, urgent care, hospital, or skilled nursing...) When possible be specific @ -No Did you speak to anyone other than the patient for history (EMS, parent, family, police, friend...)? What history was obtained from this source @ -No Did you review nursing and triage notes (agree or disagree)? Why? @ -I reviewed and agree with nursing and triage notes Were old charts reviewed (outside hosp., previous admission, EMS record, old EKG, old radiological studies, urgent care reports/EKG's, skilled nursing records)? Report findings @ -No old charts were reviewed Differential Diagnosis (chest pain, altered mental status, abdominal pain women, abdominal pain men, vaginal bleeding, weakness, fever, dyspnea, syncope, headache, dizziness, GI bleed, back pain, seizure, CVA, palpatations, mental he alth, musculoskeletal)? @ -Upper respiratory infection, COVID-19, influenza, AMI, gastroenteritis, preseptal cellulitis, acute sinusitis, angioedema, EKG interpreted by me (3pts min.). @ -Normal sinus rhythm. 69 bpm, JESSY 164, QTc 422. X-rays interpreted by me (1pt min.). @ -None done CT interpreted by me (1pt min.). @ -None done U/S interpreted by me (1pt. min.). @ -None done What testing was considered but not performed or refused? (CT, X-rays, U/S, labs)? Why? @ -None What meds were considered but not given or refused? Why? @ -None Did you discuss the management of the patient with other professionals (professionals i.e. DrNick, PA, INDEPENDENT FREIGHT AGENT, lab, RT, psych nurse, nephrology social worker, outdoor advertising leasing agent, teacher, airfield services officer, case management assistant)? Give summary @ -No Was smoking cessation discussed for >3mins.? @ -No Was critical care preformed (if so, how long)? @ -No Were there social determinants of health that impacted care today? How? (Homelessness, low income, unemployed, alcoholism, drug addiction, transpo rtation, low edu. Level, literacy, decrease access to med. care, [facility], rehab)? @ -No Was there de-escalation of care discussed even if they declined (Discuss DNR or withdrawal of care, Hospice)? DNR status @ -No What co-morbidities impacted this encounter? (DM, HTN, Smoking, COPD, CAD, Cancer, CVA, ARF, Chemo, Hep., AIDS, mental health diagnosis, sleep apnea, morbid obesity)? @ -None Was patient admitted / discharged? Hospital course, mention meds given and route, prescriptions, significant lab abnormalities, going to OR and other pertinent info. @ -Discharge. Patient was swabbed diagnosed with COVID-19. Patient symptoms treated with 500 mL normal saline, Zofran, Toradol and Benadryl IM with relief noted by patient. Patient prescribed doxycycline for preseptal cellulitis, Zofran for nausea vomiting and Motrin for headache. Undiagnosed new problem with uncertain prognosis? @ -No Drug Therapy requiring intensive monitoring for toxicity (Heparin, Nitro, Insulin, Cardizem)? @ -No Were any procedures done? @ -No Diagnosis/symptom? @ -Covid-19, preseptal cellulitis Acute, or Chronic, or Acute on Chronic? @ -Acute Uncomplicated (without systemic symptoms) or Complicated (systemic symptoms)? @ -Uncomplicated Side effects of treatment? @ -No Exacerbation, Progression, or Severe Exacerbation? @ -No Poses a threat to life or bodily function? How? (Chest pain, USA, [place], pneumonia, PE, COPD, DKA, ARF, appy, cholecystitis, CVA, Diverticulitis, Homicidal, Suicidal, threat to staff... and all critical care pts) @ -No - Differential Diagnosis COVID-19, URI, acute sinusitis, blepharitis, preseptal cellulitis, AMI - Lab Data Lab Results 01/05/24 01/05/24 Range/Units 10:53 10:53 Influenza Type A RNA Not Detected (Not Detectd) Influenza Type B (PCR) Not Detected (Not Detectd) RSV (PCR) Negative (Negative) SARS-CoV-2 (PCR) Detected A (Not Detectd) - EKG Data -: EKG Interpreted by Fl EKG shows normal: sinus rhythm Rate: normal EKG Comments: Sinus rhythm. No ectopy seen, negative ST elevation, ST depression. EKG reviewed by Dr. Marques with no concerns found. Interpretation: normal EKG Critical Care Time Critical Care Time: No Disposition Clinical Impression: Preseptal cellulitis of left upper eyelid, URI (upper respiratory infection), Gastroenteritis, COVID-19 Disposition: HOME SELF-CARE Condition: Good Instructions (If sedation given, give patient instructions): Coronavirus Disease 2019 (COVID-19) Additional Instructions: Please return to the Emergency Department if symptoms worsen or any other concerns. Prescriptions: Ibuprofen [Motrin] 600 mg PO Q8HR PRN #20 tab PRN Reason: Pain Doxycycline [Vibramycin] 100 mg PO BID 7 Days #14 capsule Ondansetron [Zofran] 4 mg PO Q8HR PRN #10 tab PRN Reason: Nausea Is patient prescribed a controlled substance at d/c from ED?: No Referrals: [facility] [NON-STAFF] - 1-2 days [facility] [NON-STAFF] - 1-2 days None,Stated [Primary Care Provider] - 1-2 days Forms: Area PCPs Time of Disposition: 11:12
[2024-01-05] MEDS: SODIUM CHLORIDE 0.9% 500 ML 500 ML IV STA (11:34)
[2024-01-05] MEDS: KETOROLAC 15 MG/ML 1 ML VIAL IVP STA ×2 (11:37→12:23)
[2024-01-05] MEDS: METOCLOPRAMIDE 5 MG/ML 2 ML VIAL IVP STA (11:37)
[2024-01-05] MEDS: diphenhydrAMINE 50 MG/ML 1 ML VIAL IVP STA (12:24)
[2024-01-05] MEDS: SODIUM CHLORIDE 0.9% 1,000 ML IV STA (12:27)
[2024-01-05 12:52] VITALS: BP 125/79; PULSE 88
== END 2024-01-05 13:11 | disposition home or self-care (01) ==
LOC: EC 09:55
CPT/HCPCS: 87502; 87634; 87635; 93005; 96361; 96372; 96374; 96375; 96376; 99283

== ENCOUNTER 2024-04-12 19:19 | Inpatient (IN) | payer OTHER, MEDICAID ==
--- NOTE | 2024-04-12 19:56 | ED ---
Psych HPI - General Source: patient, RN notes reviewed Mode of arrival: ambulatory <Jamir Peña - Last Filed: 04/12/24 19:55> <Krystyna Thompson - Last Filed: 04/13/24 19:22> - General Chief Complaint: Psychiatric Symptoms Stated Complaint: mental health Time Seen by Provider: 04/12/24 19:55 - History of Present Illness Initial Comments: Quick note: Patient is a 39-year-old female presented to the ER for evaluation of depression. Patient admits to suicidal ideation denies plan. Denies homicidal ideations. Patient does report using meth last use last night. Denies any alcohol or other drug use. Patient does admit to auditory hallucinations. Patient would like help getting into rehabilitation for meth use. She denies any current fever, cough, congestion, chest pain, shortness of breath. (Jamir Peña) 39-year-old female presenting with chief complaint of depression. patient reports history of schizophrenia. She also has history of meth use, last use last night. She states that she feels like she does not have anyone and she is feeling stressed. Currently homeless. She denies to me any suicidal or homicidal ideation. No physical complaints at this time. (Krystyna Thompson) - Related Data Previous Rx's Medication Instructions Recorded Doxycycline [Vibramycin] 100 mg PO BID 7 Days #14 capsule 01/05/24 Ibuprofen [Motrin] 600 mg PO Q8HR PRN #20 tab 01/05/24 Ondansetron [Zofran] 4 mg PO Q8HR PRN #10 tab 01/05/24 Nitrofurantoin Monohyd/M-Cryst 100 mg PO Q12HR 5 Days #10 cap 04/12/24 [Macrobid] Allergies Allergy/AdvReac Type Severity Reaction Status Date / Time chocolate Allergy Anaphylaxis Verified 04/13/24 03:59 coconut Allergy Unknown Verified 04/12/24 19:31 Penicillins Allergy Rash/Hives Verified 04/12/24 19:31 Review of Systems ROS Other: All systems not noted in ROS Statement are negative. <Jamir Peña - Last Filed: 04/12/24 19:55> ROS Other: All systems not noted in ROS Statement are negative. <Krystyna Thompson - Last Filed: 04/13/24 19:22> ROS Statement: Those systems with pertinent positive or pertinent negative responses have been documented in the HPI. Past Medical History Past Medical History: No Reported History Additional Past Medical History / Comment(s): KIDNEY STONES, PCOS, MRSA in mouth 01/29 History of Any Multi-Drug Resistant Organisms: MRSA Date of last positivie culture/infection: 12/29/20 MDRO Source:: mouth Past Surgical History: Section, Cholecystectomy, Tubal Ligation Past Psychological History: Depression Smoking Status: Current every day smoker Past Alcohol Use History: Occasional Past Drug Use History: Methamphetamine - Past Family History Mother Family Medical History: Liver Disease <Jamir Peña - Last Filed: 04/12/24 19:55> General Exam Limitations: no limitations <Jamir Peña - Last Filed: 04/12/24 19:55> Limitations: no limitations General appearance: alert, in no apparent distress Head exam: Present: atraumatic, normocephalic, normal inspection Eye exam: Present: normal appearance, EOMI Neck exam: Present: normal inspection. Absent: meningismus Respiratory exam: Absent: respiratory distress Cardiovascular Exam: Present: regular rate Neurological exam: Present: alert, oriented X3 Psychiatric exam: Present: normal affect, normal mood Skin exam: Present: warm, dry <Krystyna Thompson - Last Filed: 04/13/24 19:22> - General Exam Comments Initial Comments: Visual Physical Exam Vital signs reviewed General: Well-appearing, nontoxic, no acute distress. Head: Normocephalic, atraumatic Eyes: PERRLA, EOMI ENT: Airway patent Chest: Nonlabored breathing Skin: No visual rash, normal skin tone Neuro: Alert and oriented 3 Musculoskeletal: No gross abnormalities (Jamir Peña) Course Vital Signs 04/12/24 19:29 Temperature 98.3 F Pulse Rate 80 Respiratory 18 Rate Blood Pressure 149/96 O2 Sat by Pulse 98 Oximetry Medical Decision Making <Jamir Peña - Last Filed: 04/12/24 19:55> <Krystyna Thompson - Last Filed: 04/13/24 19:22> - Medical Decision Making I performed the quick note portion of this chart. Electronically signed by Jamir Peña PA-C (Jamir Peña) Was pt. sent in by a medical professional or institution ([facility], [facility], urgent care, hospital, or half-way...) When possible be specific @ -No Did you speak to anyone other than the patient for history (EMS, parent, family, police, friend...)? What history was obtained from this source @ -No Did you review nursing and triage notes (agree or disagree)? Why? @ -I reviewed and agree with nursing and triage notes Were old charts reviewed (outside hosp., previous admission, EMS record, old EKG, old radiological studies, urgent care reports/EKG's, half-way records)? Report findings @ -No old charts were reviewed Differential Diagnosis (chest pain, altered mental status, abdominal pain women, abdominal pain men, vaginal bleeding, weakness, fever, dyspnea, syncope, headache, dizziness, GI bleed, back pain, seizure, CVA, palpatations, mental health, musculoskeletal)? @ -Differential Mental Health Depression, anxiety, bipolar, psychosis, schizophrenia, borderline personality, situational depression, adjustment disorder, behavioral disorder, brain tumor, malingering, substance abuse, encephalopathy, medication reaction, dementia, hypothyroidism, degenerative neurologic disorder, lupus.... This is not meant to be all-inclusive list EKG interpreted by me (3pts min.). @ -As above X-rays interpreted by me (1pt min.). @ -None done CT interpreted by me (1pt min.). @ -None done U/S interpreted by me (1pt. min.). @ -None done What testing was considered but not performed or refused? (CT, X-rays, U/S, labs)? Why? @ -None What meds were considered but not given or refused? Why? @ -None Did you discuss the management of the patient with other professionals (professionals i.e. [facility], [facility], lab, RT, psych nurse, hospice social worker, supervisor stone, teacher, hospital security officer, bottle caser)? Give summary @ -I spoke with EPS who recommends admission Was smoking cessation discussed for >3mins.? @ -No Was critical care preformed (if so, how long)? @ -No Were there social determinants of health that impacted care today? How? (Homelessness, low income, unemployed, alcoholism, drug addiction, transportation, low edu. Level, literacy, decrease access to med. care, nursing home, rehab)? @ -No Was there de-escalation of care discussed even if they declined (Discuss DNR or withdrawal of care, Hospice)? DNR status @ -No What co-morbidities impacted this encounter? (DM, HTN, Smoking, COPD, CAD, Cancer, CVA, ARF, Chemo, Hep., AIDS, mental health diagnosis, sleep apnea, morbid obesity)? @ -None Was patient admitted / discharged? Hospital course, mention meds given and route, prescriptions, significant lab abnormalities, going to OR and other pertinent info. @ -39-year-old female with history of schizophrenia and meth use presenting with chief complaint of depression. History and physical examination are conducted. Patient has a possible UTI with moderate blood and leukocytes, st ates that she was recently being treated for 1 and may not have been completely cleared. She is given a dose of Macrobid. Negative hCG. Urine toxicology positive for amphetamines, methamphetamines, benzodiazepines, cocaine. she is evaluated by EPS who determines are appropriate for inpatient management. Patient signed herself in to be admitted. I discussed this case my attending Dr. Posadas Undiagnosed new problem with uncertain prognosis? @ -No Drug Therapy requiring intensive monitoring for toxicity (Heparin, Nitro, Insulin, Cardizem)? @ -No Were any procedures done? @ -No Diagnosis/symptom? @ -Depression, polysubstance abuse Acute, or Chronic, or Acute on Chronic? @ -Acute on chronic Uncomplicated (without systemic symptoms) or Complicated (systemic symptoms)? @ -Complicated Side effects of treatment? @ -No Exacerbation, Progression, or Severe Exacerbation? @ -No Poses a threat to life or bodily function? How? (Chest pain, USA, NH, pneumonia, PE, COPD, DKA, ARF, appy, cholecystitis, CVA, Diverticulitis, Homicidal, Suicidal, threat to staff... and all critical care pts) @ -yes (Krystyna Thompson) - Lab Data Lab Results 04/12/24 04/12/24 04/12/24 Range/Units 20:55 20:55 20:55 Urine Color Yellow Urine Appearance Cloudy H (Clear) Urine pH 6.0 (5.0-8.0) Ur Specific [place] 1.030 (1.001-1.035) Urine Protein 1+ H (Negative) Urine Glucose (UA) Negative (Negative) Urine Ketones Negative (Negative) Urine Blood Moderate H (Negative) Urine Nitrite Negative (Negative) Urine Bilirubin Negative (Negative) Urine Urobilinogen 4.0 (<2.0) mg/dL Ur Leukocyte Esterase Moderate H (Negative) Urine RBC 59 H (0-5) /hpf Urine WBC 34 H (0-5) /hpf Ur Squamous Epith Cells 2 (0-4) /hpf Calcium Oxalate Crystal Few H (None) /hpf Urine Mucus Many H (None) /hpf Urine HCG, Qual Not Detected (Not Detectd) Urine Opiates Screen Not Detected (NotDetected) Ur Oxycodone Screen Not Detected (NotDetected) Urine Methadone Screen Not Detected (NotDetected) Ur Barbiturates Screen Not Detected (NotDetected) U Tricyclic Antidepress Not Detected (NotDetected) Ur Phencyclidine Scrn Not Detected (NotDetected) Ur Amphetamines Screen Detected H (NotDetected) U Methamphetamines Scrn Detected H (NotDetected) U Benzodiazepines Scrn Detected H (NotDetected) Urine Cocaine Screen Detected H (NotDetected) U Marijuana (THC) Screen Not Detected (NotDetected) Influenza Type A (PCR) (Not Detectd) Influenza Type B (PCR) (Not Detectd) RSV (PCR) (Not Detectd) SARS-CoV-2 (PCR) (Not Detectd) 04/13/24 Range/Units 00:30 Urine Color Urine Appearance (Clear) Urine pH (5.0-8.0) Ur Specific [place] (1.001-1.035) Urine Protein (Negative) Urine Glucose (UA) (Negative) Urine Ketones (Negative) Urine Blood (Negative) Urine Nitrite (Negative) Urine Bilirubin (Negative) Urine Urobilinogen (<2.0) mg/dL Ur Leukocyte Esterase (Negative) Urine RBC (0-5) /hpf Urine WBC (0-5) /hpf Ur Squamous Epith Cells (0-4) /hpf Calcium Oxalate Crystal (None) /hpf Urine Mucus (None) /hpf Urine HCG, Qual (Not Detectd) Urine Opiates Screen (NotDetected) Ur Oxycodone Screen (NotDetected) Urine Methadone Screen (NotDetected) Ur Barbiturates Screen (NotDetected) U Tricyclic Antidepress (NotDetected) Ur Phencyclidine Scrn (NotDetected) Ur Amphetamines Screen (NotDetected) U Methamphetamines Scrn (NotDetected) U Benzodiazepines Scrn (NotDetected) Urine Cocaine Screen (NotDetected) U Marijuana (THC) Screen (NotDetected) Influenza Type A (PCR) Not Detected (Not Detectd) Influenza Type B (PCR) Not Detected (Not Detectd) RSV (PCR) Not Detected (Not Detectd) SARS-CoV-2 (PCR) Not Detected (Not Detectd) Disposition <Jamir Peña - Last Filed: 04/12/24 19:55> Is patient prescribed a controlled substance at d/c from ED?: No Time of Disposition: 00:27 <Krystyna Thompson - Last Filed: 04/13/24 19:22> Clinical Impression: Depression, Polysubstance use disorder Disposition: ADMITTED IP TO THIS HOSP Condition: Fair
[2024-04-12 21:42] LABS: Amphetamine Screen,Urine Detected (NotDetected); Barbiturate Screen,Urine Not Detected (NotDetected); Benzodiazepines Screen,Urine Detected (NotDetected); Cocaine Screen,Urine Detected (NotDetected); Methadone Screen, Urine Not Detected (NotDetected); Opiate Screen,Urine Not Detected (NotDetected); Oxycodone Screen, Urine Not Detected (NotDetected); Phencyclidine Screen,Urine Not Detected (NotDetected); Tricyclic Antidepressant,Urine Not Detected (NotDetected); Urn Cannabinoid Scrn Not Detected (NotDetected)
[2024-04-12 22:13] LABS: Appearance,Urine Cloudy (Clear); Bilirubin,Urine Negative (Negative); Blood,Urine Moderate (Negative); Calcium Oxalate Crystals,Urine Few /hpf; Color,Urine Yellow; Glucose,Urine (UA) Negative (Negative); Ketones,Urine Negative (Negative); Leukocyte Esterase,Urine Moderate (Negative); Mucus,Urine Many /hpf; Nitrite,Urine Negative (Negative); Protein,Urine 1+ (Negative); RBC,Urine 59 /hpf (0-5); Squamous Epithelial Cell,Urine 2 /hpf (0-4); WBC,Urine 34 /hpf (0-5)
[2024-04-13] MEDS ORDERED: HALOPERIDOL LACTATE 5 MG/ML 1 ML VIAL IM PRN (02:35)
[2024-04-13] MEDS ORDERED: LORazepam 2 MG/ML INJ IM PRN (02:35)
[2024-04-13] MEDS ORDERED: IBUPROFEN 600 MG TAB PO PRN (02:35)
[2024-04-13] MEDS ORDERED: haloperidoL 5 MG TAB PO PRN (02:35)
[2024-04-13] MEDS: LORazepam 1 MG TAB PO PRN (03:27)
[2024-04-13] MEDS ORDERED: MAG HYDROX/AL HYDROX/SIMETH 355 ML BOTTLE PO PRN (08:00)
[2024-04-13] MEDS: NICOTINE 14MG/24HR PATCH TRANSDERM SCH (09:05)
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
[2024-04-13] MEDS: DULoxetine HCL 30 MG CAPSULE.DR PO SCH (20:47)
[2024-04-13] MEDS: PRAZOSIN 1 MG CAP PO SCH (20:47)
[2024-04-14] MEDS: buPROPion XL 150 MG TAB.ER.24H PO SCH (09:06)
--- NOTE | 2024-04-14 12:24 | P.PN ---
Progress Note - Text Progress Note Date: 04/14/24 Dictation was produced using [employer] dictation software. Please excuse any grammatical, word or spelling errors. Interval history: Patient was seen in the hallway and was directable and agreeable to speak with the magnetic tape typewriter operator in the office for psychiatric follow-up. Pt states that she is feeling "fine" reported that depression and anxiety are at the moderate side, which she reported both at 6/10. She denied any current suicidal or homicidal thoughts, intention or plan. She admitted to fine sleep last night. She reported that her appetite is "so-so." She states that she has been took her medications and denied any side effects. She reported that she has been depressed for a long time, and her sister called the police, she states that she is homeless, denied any having any family around, reported that she used to live with her aunt. Reported that she is keeping to herself in the unit, and did not group, pt was encouraged to do so. She reported that she has been seeing shadows since she has been drugs, "meth" reported that she last used meth yesterday. She denied any auditory hallucination. She appear depressed, answering questions by one or two words. Pt was encouraged to participate in the milieu. Mental status exam: General Appearance: Patient appears to be stated age is alert, directable, and attempts to cooperate. Patient appears to have poor hygiene and grooming. Behavior: Patient is seated without any agitated behavior. Speech: Patient's speech is fluent and nonpressured. Mood/Affect: Patient reports their mood is "depressed", affect is flat, congruent and constricted. Suicidality/Homicidality: Patient denies having any homicidal ideation, intent, or plan. Denies any suicidal ideations, intent, or plan Perceptions: Patient reports seeing "shadows" at times, denied any auditory hallucination. No command hallucinations. Though content/process: There is no evidence of any delusional thought content and thought process is linear and goal-directed. Memory and concentration: AOX3, grossly intact for the purposes of this session. Able to recall recent and remote events with accuracy. Judgment and insight: Poor Impression" - Major depressive disorder, recurrent, severe - Stimulant use disorder, severe - History of PTSD Assessment/Plan: Continue with current diagnosis. Patient continues to meet criteria for inpatient psychiatric admission for symptom stabilization and safety. Patient will be maintained on current psychotropic medication regimen. Monitor for medication compliance and for any psychotropic medication side effects. Will continue to monitor ongoing response to treatment. Encouraged participation in milieu.
[2024-04-14] MEDS: LORazepam 1 MG TAB PO PRN (16:50)
[2024-04-14] MEDS ORDERED: NICOTINE GUM (POLACRILEX) 2 MG GUM BUCCAL PRN (17:57)
[2024-04-15 07:24] LABS: Basophils % (A) 0 %; Eosinophils # (A) 0.1 k/uL (0-0.7); Eosinophils % (A) 2 %; HGB 10.1 gm/dL (11.4-16.0); Lymphocytes # (A) 2.9 k/uL (1.0-4.8); Lymphocytes % (A) 45 %; MCH 27.8 pg (25.0-35.0); MCHC 31.6 g/dL (31.0-37.0); Mean Platelet Volume 9.1; Monocytes # (A) 0.3 k/uL (0-1.0); Monocytes % (A) 4 %; Neutrophils % (A) 46 %; Platelet Count 252 k/uL (150-450); RBC 3.64 m/uL (3.80-5.40); RDW 14.7 % (11.5-15.5); WBC 6.5 k/uL (3.8-10.6)
[2024-04-15 07:56] LABS: ALT 27 U/L (4-34); AST 28 U/L (14-36); African American GFR (CKD) >90 (>60 ml/min/1.73 sqM); Albumin 3.3 g/dL (3.5-5.0); Alkaline Phosphatase 45 U/L (38-126); Anion Gap 6 mmol/L; Bilirubin,Unconjugated 0.6 mg/dL (0.0-1.1); Blood Urea Nitrogen 13 mg/dL (7-17); Calcium 8.6 mg/dL (8.4-10.2); Carbon Dioxide 26 mmol/L (22-30); Chloride 107 mmol/L (98-107); Glucose 90 mg/dL (74-99); Non-African American GFR(CKD) 88 (>60 ml/min/1.73 sqM); Potassium 4.3 mmol/L (3.5-5.1); Sodium 139 mmol/L (137-145); Total Bilirubin 0.5 mg/dL (0.2-1.3); Total Protein 5.9 g/dL (6.3-8.2)
[2024-04-15 09:04] LABS: Bilirubin, Delta -0.1 mg/dL (0.0-0.2)
--- NOTE | 2024-04-15 12:11 | P.PN ---
Progress Note - Text Progress Note Date: 04/15/24 Dictation was produced using [employer] dictation software. Please excuse any grammatical, word or spelling errors. Interval history: Patient was seen in the hallway and was directable and agreeable to speak with the advertising copywriter in the office for psychiatric follow-up. She states that she is feeling okay today, states that her mood "fine." She reported that depression and anxiety continues to be at the moderate side, she rated depression at 5/10, and anxiety at 8/10. She denied any current suicidal or homicidal thoughts, intention or plan. She denied any current AVH. She states that she slept well overnight, denied nightmares last night. She states that she is getting along well with everyone here, reported that she did not attend any group yet, she was encouraged to attend the groups. She admitted to good appetite. She states that she has been taking her medication, she denied any side effects. Psychoeducation was provided into substance use and patient states that she want to go to rehab following this hospitalization, reported that she attended rehab few years ago, and it was helping till her mother 3 years ago, she started to use again. Pt was encouraged to participate in the milieu. Mental status exam: General Appearance: Patient appears to be stated age is alert, directable, and attempts to cooperate. Patient appears to have poor hygiene and grooming. Behavior: Patient is seated without any agitated behavior. Speech: Patient's speech is fluent and nonpressured. Mood/Affect: Patient reports their mood is "depressed", affect is flat, congruent and constricted. Suicidality/Homicidality: Patient denies having any homicidal ideation, intent, or plan. Denies any suicidal ideations, intent, or plan Perceptions: Patient reports seeing "shadows" at times, denied any auditory hallucination. No command hallucinations. Though content/process: There is no evidence of any delusional thought content and thought process is linear and goal-directed. Memory and concentration: AOX3, grossly intact for the purposes of this session. Able to recall recent and remote events with accuracy. Judgment and insight: Poor Impression" - Major depressive disorder, recurrent, severe - Stimulant use disorder, severe - History of PTSD Assessment/Plan: Continue with current diagnosis. Patient continues to meet criteria for inpatient psychiatric admission for symptom stabilization and safety. Patient will be maintained on current psychotropic medication regimen. Monitor for medication compliance and for any psychotropic medication side effects. Will continue to monitor ongoing response to treatment. Encouraged participation in milieu. Education was provided into substance use and patient reported that she would like to go to inpatient substance use rehab following this hospitalization. research worker encyclopedia to arrange for inpatient rehab placement following this hospitalization.
[2024-04-15 23:11] LABS: Chol/HDL Ratio 3.18 Ratio; LDL Cholesterol,Calculated 65.4 mg/dL (0.0-131.0)
--- NOTE | 2024-04-16 17:20 | P.PN ---
Progress Note - Text Progress Note Date: 04/16/24 Interval history: Patient was seen isolating to her room and laying in bed, and was directable and agreeable to speak with the sign writer hand in her room. She reports her mood is "so-so", still feeling somewhat depressed. She reports her sleep is good and appetite is decreased. She states she called the [facility] today for rehab and was told there is a "long wait". She denied any current suicidal or homicidal thoughts, intention or plan. She denied any current AVH. She reports medication compliance and denies side effects. Pt was encouraged to participate in the milieu. Mental status exam: General Appearance: Patient appears to be stated age, poor hygiene and grooming, dressed in hospital gown, hair wrapped, laying under bed covers Behavior: Patient is laying in bed on her side. Speech: Patient's speech is fluent and non-pressured, soft tone. Mood/Affect: Patient reports their mood is "so-so", affect is congruent and constricted. Suicidality/Homicidality: Patient denies having any homicidal ideation, intent, or plan. Denies any suicidal ideations, intent, or plan Perceptions: Patient denies auditory or visual hallucinations. Though content/process: There is no evidence of any delusional thought content and thought process is linear and goal-directed. Memory and concentration: AOX3, grossly intact for the purposes of this session. Judgment and insight: Improving slightly Impression" - Major depressive disorder, recurrent, severe - Stimulant use disorder, severe - History of PTSD Assessment/Plan: Continue with current diagnosis. Patient continues to meet criteria for inpatient psychiatric admission for symptom stabilization and safety. Increase Cymbalta from 30 mg QHS to 30 mg BID for depression/anxiety. Monitor for medication compliance and for any psychotropic medication side effects. Will continue to monitor ongoing response to treatment. Encouraged participation in milieu. Education was provided into substance use and patient reported that she would like to go to inpatient substance use rehab following this hospitalization. ordnance equipment worker to arrange for inpatient rehab placement following this hospitalization.
[2024-04-16] MEDS: DULoxetine HCL 30 MG CAPSULE.DR PO SCH (20:27)
[2024-04-17 07:17] VITALS: RESP 16
[2024-04-17] MEDS: ONDANSETRON ODT 4 MG TAB PO PRN (10:25)
[2024-04-17] MEDS: ACETAMINOPHEN TAB 325 MG TAB PO PRN (10:25)
[2024-04-17] MEDS: MAGNESIUM HYDROXIDE 2,400 MG/30 ML CUP PO PRN (10:26)
--- NOTE | 2024-04-17 13:56 | P.PN ---
Progress Note - Text Progress Note Date: 04/17/24 Interval History: Patient was seen in her bed and was directable and agreeable to speak with fuentes davis in the office. She states experiencing withdrawal symptoms described as nausea and headache. She states she is still on board for going to rehab however has not been able to get in contact with access and will do this today. She does note that her depression is better and that she slept well. She has gone to rehab before and is hopeful to be able to get into [facility]. At this time patient denies any suicidal or homicidal ideations, intent or plan. Patient denies any auditory, visual hallucinations and denies any paranoia or delusions. Patient denies any side effects from the medications and has been compliant with meds. Mental Status Exam: General Appearance: Patient appears to be stated age is alert, directable, and cooperative. Behavior: Patient is calmly seated without any agitated behavior. Speech: Patient's speech is fluent and nonpressured. Mood/Affect: Mood is improving mildly, affect is congruent and constricted. Suicidality/Homicidality: Patient denies having any suicidal or homicidal ideation intent or plan. Perceptions: Patient denies any visual hallucinations and denies any auditory hallucinations Though content/process: There is no evidence of any delusional thought content and thought process is linear and goal-directed. Memory and concentration: AOX3, grossly intact for the purposes of this session Judgment and insight: Improving mildly Assessment Major depressive disorder, recurrent, severe Stimulant use disorder, severe History of PTSD Plan: -Patient continues to meet criteria for inpatient psychiatric admission for symptom stabilization and safety. Patient has signed adult voluntary form and medication consent and was placed in patient's chart. -Medications: Continue Cymbalta 30 mg twice daily for depression/anxiety, Wellbutrin XL 150 mg daily for depression, prazosin 1 mg at bedtime for nightmares -When necessary Ativan and Haldol for agitation/aggression. -Labs: Reviewed -SW on board for discharge planning. Encouraged the patient to participate in milieu. Anticipate discharge to rehab versus [facility] tomorrow
[2024-04-17] MEDS: diphenhydrAMINE 25 MG CAP PO PRN (17:22)
[2024-04-17] MEDS: NICOTINE GUM (POLACRILEX) 2 MG GUM BUCCAL PRN (20:37)
[2024-04-17] MEDS: NICOTINE 21MG/24HR PATCH TRANSDERM SCH (21:11)
[2024-04-17] MEDS: BENZOCAINE 20 % GEL 11.9 GM TUBE MM ONE (22:09)
--- NOTE | 2024-04-18 03:13 | P.MDCNMH ---
<Evette Abad - Last Filed: 04/18/24 03:04> History of Present Illness H&P Date: 04/18/24 Patient is a 39-year-old female with history of depression, trauma, and substance abuse who presented to the ER on 04/12/2024 for evaluation of her depression and she was admitted to the mental health unit. [facility] physicians consulted for medical management. Patient reports some tenderness in right lower leg, but denies any trauma or swelling. Patient denies any chest pain, shortness of breath, abdominal pain, nausea, vomiting, urinary or bowel complaints. WBC 10.9, hemoglobin 14.6, creatinine 0.75, LDL 49.6, total cholest kisha 129, urine toxicology positive for amphetamines, methamphetamines, benzos, cocaine, marijuana. Pertinent positives and negatives as discussed in HPI, a complete review of systems was performed and all other systems are negative. Patient seen and examined at bedside. Physical examination: Vital signs reviewed General: nontoxic, no distress, appears at stated age Derm: warm, dry, intact Head: atraumatic, normocephalic, symmetric Eyes: anicteric sclera Mouth: no lip lesion, mucus membranes moist Cardiovascular: S1 S2 reg, no murmur Lungs: CTA bilateral, no rhonchi, no rales, no accessory muscle use Abdominal: soft, non-tender to palpation, nondistended Extremities: No cyanosis, clubbing, or pedal edema. Mild tenderness of right kumar, no notable bruising, swelling. Neuro: Alert, Oriented to person, time and place, Gross neurological examination did not reveal any focal deficits. Cranial nerves II to XII grossly intact. Bilateral upper and lower extremity muscle strength intact and sensation intact. Psych: well appearing, appropriate affect Assessment/Plan: Depression Trauma Substance abuse Management per primary team psych CIWA protocol in place CODE STATUS: Full code Patient has been medically optimized. Thank you for this consultation. Past Medical History Past Medical History: No Reported History Additional Past Medical History / Comment(s): KIDNEY STONES, PCOS, MRSA in mouth 01/29 History of Any Multi-Drug Resistant Organisms: MRSA Date of last positivie culture/infection: 12/29/20 MDRO Source:: mouth Past Surgical History: Section, Cholecystectomy, Tubal Ligation Past Psychological History: Depression Smoking Status: Current every day smoker, Vaper Past Alcohol Use History: Occasional Past Drug Use History: Methamphetamine - Past Family History Mother Family Medical History: Liver Disease Medications and Allergies Home Medications Medication Instructions Recorded Confirmed Type Doxycycline [Vibramycin] 100 mg PO BID 7 Days #14 capsule 01/05/24 Rx Ibuprofen [Motrin] 600 mg PO Q8HR PRN #20 tab 01/05/24 Rx Ondansetron [Zofran] 4 mg PO Q8HR PRN #10 tab 01/05/24 Rx Nitrofurantoin Monohyd/M-Cryst 100 mg PO Q12HR 5 Days #10 cap 04/12/24 Rx [Macrobid] Allergies Allergy/AdvReac Type Severity Reaction Status Date / Time chocolate Allergy Anaphylaxis Verified 04/13/24 03:59 coconut Allergy Unknown Verified 04/12/24 19:31 Penicillins Allergy Rash/Hives Verified 04/12/24 19:31 Physical Exam Vitals: Vital Signs Temp Pulse Resp BP Pulse Ox 04/17/24 20:35 70 114/82 99 04/17/24 06:41 97.7 F 62 16 113/75 97 Results CBC & Chem 7: 04/15/24 07:08 04/15/24 07:08 <Nghia Deshpande M - Last Filed: 04/18/24 05:17> Physical Exam Vitals: Vital Signs Temp Pulse Resp BP Pulse Ox 04/17/24 20:35 70 114/82 99 04/17/24 06:41 97.7 F 62 16 113/75 97 Cranial Nerve Examination - Cranial Nerves Cranial Nerve II- Optic: Intact Cranial Nerve III- Oculomotor: Intact Cranial Nerve IV- Trochlear: Intact Cranial Nerve V- Trigeminal: Intact Cranial Nerve - Abducens: Intact Cranial Nerve VII- Facial: Intact Cranial Nerve VIII- Auditory: Intact Cranial Nerve IX- Glossopharyngeal: Intact Cranial Nerve X- Vagus: Intact Cranial Nerve XI- Accessory: Intact Cranial Nerve XII- Hypoglossal: Intact Results CBC & Chem 7: 04/15/24 07:08 04/15/24 07:08
--- NOTE | 2024-04-18 11:39 | P.PN ---
Progress Note - Text Progress Note Date: 04/18/24 Interval History: Patient was seen laying in bed and was directable and agreeable to speak with comic book writer in the office. She states feeling tired today due to issues staying asleep. She states taking a as needed Ativan but this was not effective and that trazodone previously caused her to break out in a rash. She states still not being able to find a place to stay in the interim while she waits to hear back from the rehab however did state that she may be able to stay with a family friend but will follow-up with this today. She reports mild withdrawal symptoms described as nausea today but states as needed Zofran is effective. At this time patient denies any suicidal or homicidal ideations, intent or plan. Patient denies any auditory, visual hallucinations and denies any paranoia or delusions. Patient denies any side effects from the medications and has been compliant with meds. Mental Status Exam: General Appearance: Patient appears to be stated age is alert, directable, and cooperative. She is dressed in a hospital gown with fair hygiene Behavior: Patient is calmly seated without any agitated behavior. Speech: Patient's speech is fluent and nonpressured. Mood/Affect: Mood is improving mildly, affect is congruent and constricted. Suicidality/Homicidality: Patient denies having any suicidal or homicidal ideation intent or plan. Perceptions: Patient denies any visual hallucinations and denies any auditory hallucinations Though content/process: There is no evidence of any delusional thought content and thought process is linear and goal-directed. Memory and concentration: AOX3, grossly intact for the purposes of this session Judgment and insight: Improving mildly Assessment Major depressive disorder, recurrent, severe Stimulant use disorder, severe History of PTSD Plan: -Patient continues to meet criteria for inpatient psychiatric admission for symptom stabilization and safety. Patient has signed adult voluntary form and medication consent and was placed in patient's chart. -Medications: Start Vistaril 50 mg at bedtime for insomnia continue Cymbalta 30 mg twice daily for depression/anxiety, Wellbutrin XL 150 mg daily for depression, prazosin 1 mg at bedtime for nightmares -When necessary Ativan and Haldol for agitation/aggression. -Labs: Reviewed -SW on board for discharge planning. Encouraged the patient to participate in milieu. Anticipate discharge to snf versus friend on Tuesday. Paperwork faxed over to [facility] for rehab
[2024-04-18] MEDS: LORazepam 1 MG TAB PO PRN (14:52)
[2024-04-18] MEDS: hydrOXYzine pamoate 25 MG CAP PO SCH (21:00)
--- NOTE | 2024-04-19 10:56 | P.PN ---
Progress Note - Text Progress Note Date: 04/19/24 Interval History: Patient was seen laying in bed and was directable and agreeable to speak with information writer in the room. She states her withdrawal symptoms have improved and that as needed Ativan has been helpful. She continues to report sleep difficulties however of note patient is often seen asleep in room during encounters. She states she wishes to go to [facility] for rehab once discharged given her substance use. She reports good appetite. At this time patient denies any suicidal or homicidal ideations, intent or plan. Patient denies any auditory, visual hallucinations and denies any paranoia or delusions. Patient denies any side effects from the medications and has been compliant with meds. Mental Status Exam: General Appearance: Patient appears to be stated age is alert, directable, and cooperative. Behavior: Patient is calmly laying without any agitated behavior. Speech: Patient's speech is fluent and nonpressured. Mood/Affect: Mood is improving mildly, affect is congruent and constricted. Suicidality/Homicidality: Patient denies having any suicidal or homicidal id eation intent or plan. Perceptions: Patient denies any visual hallucinations and denies any auditory hallucinations Though content/process: There is no evidence of any delusional thought content and thought process is linear and logical. Memory and concentration: AOX3, grossly intact for the purposes of this session Judgment and insight: Improving mildly Assessment Major depressive disorder, recurrent, severe Stimulant use disorder, severe History of PTSD Plan: -Patient continues to meet criteria for inpatient psychiatric admission for symptom stabilization and safety. Patient has signed adult voluntary form and medication consent and was placed in patient's chart. -Medications: Increase Vistaril to 100 mg at bedtime for insomnia, continue Cymbalta 30 mg twice daily for depression/anxiety, Wellbutrin XL 150 mg daily for depression, prazosin 1 mg at bedtime for nightmares -When necessary Ativan and Haldol for agitation/aggression. -Labs: Reviewed -SW on board for discharge planning. Encouraged the patient to participate in milieu. Anticipate discharge to alf tomorrow. Patient will be going to [facility] for rehab from there once a bed is open
[2024-04-19] MEDS: hydrOXYzine pamoate 25 MG CAP PO SCH (20:35)
[2024-04-20 07:09] VITALS: BP 101/64; PULSE 76; TEMP 97.9
--- NOTE | 2024-04-20 12:26 | P.DS ---
Providers Date of admission: 04/13/24 02:24 Expected date of discharge: 04/20/24 Attending physician: Alanis Gutiérrez MD Consults: 04/13/24 02:35 Consult Physician Routine Consulting Provider: Sarah Physician Consult Reason/Comments: H & P Do you want consulting provider notified?: Already Contacted Primary care physician: Stated None - Discharge Diagnosis(es) (1) Major depressive disorder Current Visit: Yes Status: Acute Priority: High (2) Stimulant use disorder Current Visit: Yes Status: Acute Priority: High (3) PTSD (post-traumatic stress disorder) Current Visit: Yes Status: Chronic Priority: Medium Hospital Course: Admission HPI: Admission note was completed by Dr. Grissom "Ms. Modesta Camacho is a 39-year-old woman with a history of major depressive disorder, extensive trauma, and substance abuse who presented to the ER on 04/12/2024 for evaluation of dep ression. She reports that she has been significantly depressed since the sudden loss of her mom from suicide about 2 years ago. She since that time has experienced the loss of her grandmother and her favorite aunt which have contributed to an overall decline in her functioning and a significant increase in substance use. She has been using meth on a daily basis for the last year, sometimes using cocaine, and at times drinking 1/5 in a binge drinking episode on a monthly basis. In regards to her mood she explained that she is "depressed" and "sick of being by myself". She is currently homeless following a dispute with her ceric and aunt who she had been intermittently residing with since being discharged from another psychiatric hospital in October 2023. Regarding her symptoms she describes difficulty with sleep sometimes sleeping too much sometimes not be able to sleep at all. She does not find kindra in anything. She experiences significant self blame and excessive guilt and notices that her energy level is chronically very low. She has a history of ADHD diagnosed at age 11 and was previously treated with Adderall; she has not been treated recently and thus is struggling with concentration impairment. She describes a significant decrease in appetite particularly in the context of active methamphetamine use; she had not eaten for several days prior to being admitted to the hospital. She denies suicidal ideation, intent, or plan at present but did feel suicidal after she came into the ER yesterday. Denies homicidal ideation, intent, or plan. In addition to depressive symptoms she describes sometimes experiencing mumbled voices that she cannot fully make out. These do not command her to take any actions. She also sometimes sees "shadows" in the face of her mother. She denies seeing any bugs, creatures, or other people. She denies having had any period of time during which she had a decreased need for sleep and an excessive amount of energy or irritability that resulted in an increase in activity. She does experience frequent nightmares related to seeing her mom on the ventilator. She also sometimes has intrusive thoughts about these memories. Following her discharge from another psychiatric hospital she had been on Wellbutrin and Duloxetine. Ever she did not engage with any outpatient treatment and thus has not been on these medications in several months." Hospital course: Upon admission to the unit patient was directable and agreeable to commence treatment and signed adult voluntary form.. Patient got along well with other patients on the unit and followed unit protocol. Patient notably was pretty isolated during her stay, often seen in her room. Patient was compliant with the medications and denied any side effects throughout hospital course. Patient was started on Cymbalta 30 mg twice daily for depression/anxiety, Wellbutrin XL 150 mg daily for depression, Vistaril increased to 100 mg at bedtime for insomnia, prazosin 1 mg at bedtime for nightmares. Patient spoke of her stressors and engaged in therapy both group and individual. Patient was also seen by medical team for history and physical exam. Throughout the course of the hospitalization patient gradually improved with regards to mood, anxiety, sleep and returned back to their baseline level of functioning. On the day of discharge patient denied any suicidal or homicidal ideations intent or plan denied any auditory or visual hallucinations. The patient denied any access to guns or weapons. Patient denied any paranoia and did not endorse any delusions. Patient does have a significant history of substance abuse and was counseled on abstaining from all substances including alcohol and marijuana. Patient ended up agreeing to inpatient subtance rehab. Patient wished to be discharged to [facility] however her insurance not accepted there and she was accepted at [facility] instead however the [place] location was in the process of moving locations. SW is working on seeing if [facility] in [place] has beds available. In the meantime [facility] pending bed availability at [facility]. Patient was also counseled on the medications and need for regular compliance and was encouraged to follow-up with their outpatient appointment for mental health and also for primary care. Mental status exam: General Appearance: Patient appears to be stated age is alert, pleasant, and cooperative. Patient is in no acute distress and has fair hygiene and grooming Behavior: Patient is calmly lying without any agitated behavior. Speech: Patient's speech is fluent and nonpressured. Mood/Affect: Patient reports their mood is "good", affect is congruent and euthymic. Suicidality/Homicidality: Patient denies having any suicidal or homicidal ideation intent or plan. Perceptions: Patient denies any auditory or visual hallucinations. Though content/process: There is no evidence of any delusional thought content and thought process is linear and goal-directed. Memory and concentration: AOX3, grossly intact for the purposes of this session. Can spell "WORLD" backwards correctly. Judgment and insight: Chronically poor, however has improved with guarded prognosis Impression: Major depressive disorder, recurrent, severe Stimulant use disorder, severe PTSD Plan: -Continue with discharge today as patient has improved and stabilized psychiatrically and is not currently an imminent threat to themself and/or others. Patient will remain at chronically elevated risk for harm to self and/or others due to their impulsivity and substance abuse. -Continue medications: Vistaril 100 mg at bedtime, Cymbalta 30 mg twice daily, Wellbutrin XL 150 mg daily, prazosin 1 mg at bedtime -Patient was counseled on the need for medication compliance and appropriate follow-up at mental health and also primary care for medical issues. Patient verbalized understanding and agreed. -Social work to help coordinate patients discharge today. also to ensure safe home environment that guns/weapons are either removed from the home or locked away. Social work also to arrange for patients follow up appointments for psychiatric care along with follow up with primary care provider. -Patient counseled on abstaining from recreational drugs and marijuana and alcohol. Was informed/educated on the adverse effects on their physical and men nina health. Patient verbally agreed and understood. Patient was accepted at [facility] however the [place] location was in the process of moving, social work to follow-up with [facility] to see if any beds are open there -Patient was instructed to return to the hospital or seek immediate medical care if their psychiatric or medical symptoms do worsen or reoccur. Abnormal Labs 04/12/24 04/12/24 04/15/24 20:55 20:55 07:08 RBC 3.64 L Hgb 10.1 L Hct 32.0 L Delta Bilirubin Total Protein Albumin HDL Cholesterol Urine Appearance Cloudy H Urine Protein 1+ H Urine Blood Moderate H Ur Leukocyte Esterase Moderate H Urine RBC 59 H Urine WBC 34 H Calcium Oxalate Crystal Few H Urine Mucus Many H Ur Amphetamines Screen Detected H U Methamphetamines Scrn Detected H U Benzodiazepines Scrn Detected H Urine Cocaine Screen Detected H 04/15/24 07:08 RBC Hgb Hct Delta Bilirubin -0.1 L Total Protein 5.9 L Albumin 3.3 L HDL Cholesterol 35.20 L Urine Appearance Urine Protein Urine Blood Ur Leukocyte Esterase Urine RBC Urine WBC Calcium Oxalate Crystal Urine Mucus Ur Amphetamines Screen U Methamphetamines Scrn U Benzodiazepines Scrn Urine Cocaine Screen Vital Signs Temp 97.9 F 04/20/24 07:08 Pulse 76 04/20/24 07:08 Resp 16 04/20/24 07:08 BP 101/64 04/20/24 07:08 Pulse Ox 98 04/20/24 07:08 FiO2 Allergies Allergy/AdvReac Type Severity Reaction Status Date / Time chocolate Allergy Anaphylaxis Verified 04/13/24 03:59 coconut Allergy Unknown Verified 04/12/24 19:31 Penicillins Allergy Rash/Hives Verified 04/12/24 19:31 Patient Condition at Discharge: Stable Plan - Discharge Summary Discharge Rx Participant: No New Discharge Prescriptions: New Nicotine 21Mg/24Hr Patch [Habitrol] 1 patch TRANSDERM DAILY patch hydrOXYzine pamoate [Vistaril] 100 mg PO HS 30 Days #120 cap buPROPion XL [Wellbutrin XL] 150 mg PO DAILY 30 Days #30 tab Nitrofurantoin Monohyd/M-Cryst [Macrobid] 100 mg PO Q12HR 5 Days #10 cap DULoxetine HCL [Cymbalta] 30 mg PO BID 30 Days #60 cap Prazosin [Minipress] 1 mg PO HS 30 Days #30 cap Nicotine Gum (Polacrilex) [Nicorette] 2 mg BUCCAL Q4HR PRN pieceofgum PRN Reason: Nicotine Cravings Discontinued Doxycycline [Vibramycin] 100 mg PO BID 7 Days #14 capsule Ibuprofen [Motrin] 600 mg PO Q8HR PRN #20 tab PRN Reason: Pain Ondansetron [Zofran] 4 mg PO Q8HR PRN #10 tab PRN Reason: Nausea Discharge Medication List Nitrofurantoin Monohyd/M-Cryst [Macrobid] 100 mg PO Q12HR 5 Days #10 cap 04/12/24 [Rx] DULoxetine HCL [Cymbalta] 30 mg PO BID 30 Days #60 cap 04/20/24 [Rx] Nicotine 21Mg/24Hr Patch [Habitrol] 1 patch TRANSDERM DAILY patch 04/20/24 [Rx] Nicotine Gum (Polacrilex) [Nicorette] 2 mg BUCCAL Q4HR PRN pieceofgum 04/20/24 [Rx] Prazosin [Minipress] 1 mg PO HS 30 Days #30 cap 04/20/24 [Rx] buPROPion XL [Wellbutrin XL] 150 mg PO DAILY 30 Days #30 tab 04/20/24 [Rx] hydrOXYzine pamoate [Vistaril] 100 mg PO HS 30 Days #120 cap 04/20/24 [Rx] Follow up Appointment(s)/Referral(s): Mariangel Schofield MD [STAFF PHYSICIAN] - 1-2 days Patient Instructions/Handouts: Depression (DC) Activity/Diet/Wound Care/Special Instructions: [facility] Discharge Info Avoid the use of street drugs and alcohol. Take all medications as prescribed. When you are in need of refills on your medications, please contact your outpatient medical provider and/or outpatient psychiatrist. Please go to your scheduled outpatient appointments for aftercare treatment. If symptoms return or become worse, call the crisis line at or and/or visit the nearest emergency room for assistance. National Suicide and Crisis Lifeline - call or text 486 Discharge Disposition: HOME SELF-CARE
== END 2024-04-20 15:36 | disposition home or self-care (01) | DRG 885 ==
LOC: EC 19:19 → 3MHU 04-13 02:24
PROVIDERS: ADMIT Psychiatry & Neurology Psychiatry; ATTEND Psychiatry & Neurology Psychiatry
DX: F33.2 Major depressive disorder, recurrent severe without psychotic features (principal); F15.13 Other stimulant abuse with withdrawal; Z59.00 Homelessness unspecified; F41.9 Anxiety disorder, unspecified; F43.10 Post-traumatic stress disorder, unspecified; F17.290 Nicotine dependence, other tobacco product, uncomplicated; F17.210 Nicotine dependence, cigarettes, uncomplicated; F60.3 Borderline personality disorder; E28.2 Polycystic ovarian syndrome; G47.00 Insomnia, unspecified; F51.5 Nightmare disorder; Z63.4 Disappearance and death of family member; Z65.3 Problems related to other legal circumstances; Z71.51 Drug abuse counseling and surveillance of drug abuser; Z63.8 Other specified problems related to primary support group; Z79.899 Other long term (current) drug therapy; Z87.442 Personal history of urinary calculi; Z91.51 Personal history of suicidal behavior; Z11.52 Encounter for screening for COVID-19; Z88.0 Allergy status to penicillin; Z86.14 Personal history of Methicillin resistant Staphylococcus aureus infection
CPT/HCPCS: 80053; 80061; 80306; 81001; 81025; 82075; 82248; 83036; 84443; 85025; 87086; 87636; 99285

== ENCOUNTER 2024-05-04 01:10 | Inpatient (IN) | payer OTHER, MEDICAID ==
--- NOTE | 2024-05-04 01:28 | ED ---
Psych HPI - General Chief Complaint: Psychiatric Symptoms Stated Complaint: Mental Health Time Seen by Provider: 05/04/24 01:13 Source: patient, RN notes reviewed Mode of arrival: EMS Limitations: no limitations - History of Present Illness Initial Comments: This is a 39-year-old female who presents to the emergency department for psychiatric evaluation. Patient reports increasing depression with suicidal ideations. Patient denies any plans. She was discharged from [facility] earlier this month but did not feel like she was ready to go home. States that the only medication she is taking is Wellbutrin on occasions, she does not like how the other ones make her feel. Denies any homicidal ideations or auditory/visual hallucinations. MD Complaint: suicidal ideation, feels depressed - Related Data Previous Rx's Medication Instructions Recorded Nitrofurantoin Monohyd/M-Cryst 100 mg PO Q12HR 5 Days #10 cap 04/12/24 [Macrobid] DULoxetine HCL [Cymbalta] 30 mg PO BID 30 Days #60 cap 04/20/24 Nicotine 21Mg/24Hr Patch [Habitrol] 1 patch TRANSDERM DAILY patch 04/20/24 Nicotine Gum (Polacrilex) 2 mg BUCCAL Q4HR PRN pieceofgum 04/20/24 [Nicorette] Prazosin [Minipress] 1 mg PO HS 30 Days #30 cap 04/20/24 buPROPion XL [Wellbutrin XL] 150 mg PO DAILY 30 Days #30 tab 04/20/24 hydrOXYzine pamoate [Vistaril] 100 mg PO HS 30 Days #120 cap 04/20/24 Allergies Allergy/AdvReac Type Severity Reaction Status Date / Time chocolate Allergy Anaphylaxis Verified 05/04/24 01:17 coconut Allergy Unknown Verified 05/04/24 01:17 Penicillins Allergy Rash/Hives Verified 05/04/24 01:17 Review of Systems ROS Statement: Those systems with pertinent positive or pertinent negative responses have been documented in the HPI. ROS Other: All systems not noted in ROS Statement are negative. Past Medical History Past Medical History: No Reported History Additional Past Medical History / Comment(s): KIDNEY STONES, PCOS, MRSA in mouth 01/29 History of Any Multi-Drug Resistant Organisms: MRSA Date of last positivie culture/infection: 12/29/20 MDRO Source:: mouth Past Surgical History: Section, Cholecystectomy, Tubal Ligation Past Psychological History: Depression Smoking Status: Current every day smoker, Vaper Past Alcohol Use History: Occasional Past Drug Use History: Methamphetamine - Past Family History Mother Family Medical History: Liver Disease General Exam Limitations: no limitations General appearance: alert, in no apparent distress Head exam: Present: atraumatic, normocephalic, normal inspection Respiratory exam: Present: normal lung sounds bilaterally. Absent: respiratory distress, wheezes, rales, rhonchi, stridor Cardiovascular Exam: Present: regular rate, normal rhythm Neurological exam: Present: alert, oriented X3, CN II-XII intact Psychiatric exam: Present: depressed, flat affect, suicidal ideation. Absent: homicidal ideation Skin exam: Present: warm, dry, intact, normal color. Absent: rash Course Vital Signs 05/04/24 05/04/24 01:12 05:03 Temperature 97.8 F 97.8 F Pulse Rate 86 Pulse Rate [ 79 Pulse Oximetery ] Respiratory 17 16 Rate Blood Pressure 128/78 Blood Pressure 118/73 [Right Arm] O2 Sat by Pulse 92 L 97 Oximetry Medical Decision Making - Medical Decision Making This is a 39-year-old female who presents to the emergency department for psy chiatric evaluation. Was pt. sent in by a medical professional or institution? @ -No Did you speak to anyone other than the patient for history? @ -No Did you review nursing and triage notes? @ -Yes, and I agree, it is accurate with regards to the patient's symptoms. Were old charts reviewed? @ -No Differential Diagnosis? @ -Differential Mental Health Depression, anxiety, bipolar, psychosis, schizophrenia, borderline personality, situational depression, adjustment disorder, behavioral disorder, brain tumor, malingering, substance abuse, encephalopathy, medication reaction, dementia, hypothyroidism, degenerative neurologic disorder, lupus.... This is not meant to be all-inclusive list EKG interpreted by me (3pts min.)? @ -Not obtained X-rays interpreted by me (1pt min.)? @ -Not obtained CT interpreted by me (1pt min.)? @ -Not obtained U/S interpreted by me (1pt. min.)? @ -Not obtained What testing was considered but not performed? (CT, X-rays, U/S, labs)? Why? @ -None What meds were considered but not given? Why? @ -None Did you discuss the management of the patient with other professionals? @ -Yes, Luke with EPS, who advised that the patient meets criteria for inpatient psychiatric hospitalization due to active suicidal ideations. Did you reconcile home meds? @ -No Was smoking cessation discussed for >3mins.? @ -No Was critical care preformed (if so, how long)? @ -No Were there social determinants of health that impacted care today? How? (Homelessness, low income, unemployed, alcoholism, drug addiction, transportation, low edu. Level, literacy, decrease access to med. care, shelter, rehab)? @ -No Was there de-escalation of care discussed even if they declined? (Discuss DNR or withdrawal of care, Hospice)? @ -No What co-morbidities impacted this encounter? (DM, HTN, Smoking, COPD, CAD, Cancer, CVA, Hep., AIDS, mental health diagnosis, sleep apnea, morbid obesity)? @ -Major depressive disorder, PTSD, substance abuse Was patient admitted / discharged? @ -Admitted. Patient's BAT was 0.048, which is within the legal limits and she was cleared for EPS evaluation. UDS negative. UA not suggestive of infection. Patient evaluated by EPS and found to meet criteria for inpatient psychiatric hospitalization due to active suicidal ideations. Patient admitted to [facility] for further psychiatric care. Case discussed with ED attending, Dr. Marques. Undiagnosed new problem with uncertain prognosis? @ -None Drug Therapy requiring intensive monitoring for toxicity (Heparin, Nitro, Insulin, Cardizem)? @ -None Were any procedures done? @ -None Diagnosis/symptom? @ -Suicidal ideations, increasing depression Acute, or Chronic, or Acute on Chronic? @ -Acute Uncomplicated (without systemic symptoms) or Complicated (systemic symptoms)? @ -Complicated Side effects of treatment? @ -None Exacerbation, Progression, or Severe Exacerbation] @ -Not applicable Poses a threat to life or bodily function? @ -Yes, the suicidal ideations can lead to - Lab Data Lab Results 05/04/24 05/04/24 05/04/24 Range/Units 01:30 01:30 01:30 Urine Color Light Yellow Urine Appearance Clear (Clear) Urine pH 6.0 (5.0-8.0) Ur Specific [place] 1.026 (1.001-1.035) Urine Protein Negative (Negative) Urine Glucose (UA) Negative (Negative) Urine Ketones Negative (Negative) Urine Blood Small H (Negative) Urine Nitrite Negative (Negative) Urine Bilirubin Negative (Negative) Urine Urobilinogen <2.0 (<2.0) mg/dL Ur Leukocyte Esterase Negative (Negative) Urine RBC 6 H (0-5) /hpf Urine WBC 10 H (0-5) /hpf Ur Squamous Epith Cells 3 (0-4) /hpf Amorphous Sediment Occasional H (None) /hpf Urine Bacteria Rare H (None) /hpf Urine Mucus Few H (None) /hpf Urine HCG, Qual Not Detected (Not Detectd) Urine Opiates Screen Not Detected (NotDetected) Ur Oxycodone Screen Not Detected (NotDetected) Urine Methadone Screen Not Detected (NotDetected) Ur Barbiturates Screen Not Detected (NotDetected) U Tricyclic Antidepress Not Detected (NotDetected) Ur Phencyclidine Scrn Not Detected (NotDetected) Ur Amphetamines Screen Not Detected (NotDetected) U Methamphetamines Scrn Not Detected (NotDetected) U Benzodiazepines Scrn Not Detected (NotDetected) Urine Cocaine Screen Not Detected (NotDetected) U Marijuana (THC) Screen Not Detected (NotDetected) SARS-CoV-2 (PCR) Not Detected (Not Detectd) Disposition Clinical Impression: Suicidal ideation, Major depressive disorder with current active episode Disposition: TRANSFER TO PSYCH HOSP/UNIT
[2024-05-04 01:53] LABS: Amorphous Sediment,Urine Occasional /hpf; Appearance,Urine Clear (Clear); Bacteria,Urine Rare /hpf; Bilirubin,Urine Negative (Negative); Blood,Urine Small (Negative); Color,Urine Light Yellow; Glucose,Urine (UA) Negative (Negative); Ketones,Urine Negative (Negative); Leukocyte Esterase,Urine Negative (Negative); Mucus,Urine Few /hpf; Nitrite,Urine Negative (Negative); Protein,Urine Negative (Negative); RBC,Urine 6 /hpf (0-5); Specific Gravity,Urine 1.026 (1.001-1.035); Squamous Epithelial Cell,Urine 3 /hpf (0-4); Urobilinogen,Urine <2.0 mg/dL (<2.0); WBC,Urine 10 /hpf (0-5)
[2024-05-04 02:05] LABS: Amphetamine Screen,Urine Not Detected (NotDetected); Barbiturate Screen,Urine Not Detected (NotDetected); Benzodiazepines Screen,Urine Not Detected (NotDetected); Cocaine Screen,Urine Not Detected (NotDetected); Methadone Screen, Urine Not Detected (NotDetected); Opiate Screen,Urine Not Detected (NotDetected); Oxycodone Screen, Urine Not Detected (NotDetected); Phencyclidine Screen,Urine Not Detected (NotDetected); Tricyclic Antidepressant,Urine Not Detected (NotDetected); Urn Cannabinoid Scrn Not Detected (NotDetected)
[2024-05-04] MEDS ORDERED: MAG HYDROX/AL HYDROX/SIMETH 355 ML BOTTLE PO PRN (05:14)
[2024-05-04] MEDS ORDERED: HALOPERIDOL LACTATE 5 MG/ML 1 ML VIAL IM PRN (05:14)
[2024-05-04] MEDS ORDERED: LORazepam 2 MG/ML INJ IM PRN (05:14)
[2024-05-04] MEDS ORDERED: MAGNESIUM HYDROXIDE 2,400 MG/30 ML CUP PO PRN (05:14)
[2024-05-04] MEDS: NICOTINE 14MG/24HR PATCH TRANSDERM SCH (09:14)
[2024-05-04] MEDS: NITROFURANTOIN MONOHYD/M-CRYST 100 MG CAP PO SCH (09:14)
[2024-05-04] MEDS: LORazepam 1 MG TAB PO PRN (09:15)
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
[2024-05-04] MEDS: SERTRALINE 25 MG TAB PO SCH (12:54)
--- NOTE | 2024-05-04 14:32 | P.MDCNMH ---
History of Present Illness H&P Date: 05/04/24 History of present illness; patient 39-year-old lady with past medical history significant depression up in the ER for psychiatric evaluation. Patient was only recently discharged from inpatient psych after being treated for depression. Patient has been noting that she is getting more more depressed, having feeling of hopelessness. Patient also having suicidal thoughts. Denies any homicidal thoughts. There are no complaint of auditory or visual hallucinations. Patient admits to being a cutter, and was planning to cut herself.. Initial lab work done in the ER showed UA showed urine WBC 10, urine nitrate negative, leukocyte esterase negative Urine drug screen negative COVID-19 not detected Patient been to inpatient psych REVIEW OF SYSTEMS: CONSTITUTIONAL: No fever, no malaise, no fatigue. HEENT: No recent visual problems or hearing problems. Denied any sore throat. CARDIOVASCULAR: No chest pain, orthopnea, PND, no palpitations, no syncope. PULMONARY: No shortness of breath, no cough, no hemoptysis. GASTROINTESTINAL: No diarrhea, no nausea, no vomiting, no abdominal pain. NEUROLOGICAL: No headaches, no weakness, no numbness. HEMATOLOGICAL: Denies any bleeding or petechiae. GENITOURINARY: Denies any burning micturition, frequency, or urgency. MUSCULOSKELETAL/RHEUMATOLOGICAL: Denies any joint pain, swelling, or any muscle pain. ENDOCRINE: Denies any polyuria or polydipsia. The rest of the 14-point review of systems is negative. PHYSICAL EXAMINATION: GENERAL: The patient is alert and oriented x3, not in any acute distress. Well developed, well nourished. HEENT: Pupils are round and equally reacting to light. EOMI. No scleral icterus. No conjunctival pallor. Normocephalic, atraumatic. No pharyngeal erythema. No thyromegaly. CARDIOVASCULAR: S1 and S2 present. No murmurs, rubs, or gallops. PULMONARY: Chest is clear to auscultation, no wheezing or crackles. ABDOMEN: Soft, nontender, nondistended, normoactive bowel sounds. No palpable organomegaly. MUSCULOSKELETAL: No joint swelling or deformity. EXTREMITIES: No cyanosis, clubbing, or pedal edema. NEUROLOGICAL: Gross neurological examination did not reveal any focal deficits. SKIN: No rashes. Assessment and plan Major depression Stimulant use disorder, History of PTSD Monitor vital signs Elopement precaution Suicide precaution Continue psych meds per psychiatry team Labs and medication were reviewed.. Continue same treatment. Continue with symptomatic treatment. Resume home medication. Monitor labs and vitals. DVT and GI prophylaxis. Further recommendations as per clinical course of the patient Dictation was produced using [employer] dictation software. please excuse any gramm atical, word or spelling errors. Past Medical History Past Medical History: No Reported History Additional Past Medical History / Comment(s): KIDNEY STONES, PCOS, MRSA in mouth 01/29 History of Any Multi-Drug Resistant Organisms: MRSA Date of last positivie culture/infection: 12/29/20 MDRO Source:: mouth Past Surgical History: Section, Cholecystectomy, Tubal Ligation Past Psychological History: Depression Smoking Status: Current every day smoker, Vaper Past Alcohol Use History: Occasional Past Drug Use History: Methamphetamine - Past Family History Mother Family Medical History: Liver Disease Medications and Allergies Home Medications Medication Instructions Recorded Confirmed Type Nitrofurantoin Monohyd/M-Cryst 100 mg PO Q12HR 5 Days #10 cap 04/12/24 Rx [Macrobid] DULoxetine HCL [Cymbalta] 30 mg PO BID 30 Days #60 cap 04/20/24 Rx Nicotine 21Mg/24Hr Patch [Habitrol] 1 patch TRANSDERM DAILY patch 04/20/24 Rx Nicotine Gum (Polacrilex) 2 mg BUCCAL Q4HR PRN pieceofgum 04/20/24 Rx [Nicorette] Prazosin [Minipress] 1 mg PO HS 30 Days #30 cap 04/20/24 Rx buPROPion XL [Wellbutrin XL] 150 mg PO DAILY 30 Days #30 tab 04/20/24 Rx hydrOXYzine pamoate [Vistaril] 100 mg PO HS 30 Days #120 cap 04/20/24 Rx Allergies Allergy/AdvReac Type Severity Reaction Status Date / Time chocolate Allergy Anaphylaxis Verified 05/04/24 01:17 coconut Allergy Unknown Verified 05/04/24 01:17 Penicillins Allergy Rash/Hives Verified 05/04/24 01:17 Physical Exam Vitals: Vital Signs Temp Pulse Pulse Resp BP BP Pulse Ox 05/04/24 05:43 98.8 F 83 18 101/67 98 05/04/24 05:03 97.8 F 79 16 118/73 97 05/04/24 01:12 97.8 F 86 17 128/78 92 L Intake and Output 05/03/24 05/04/24 05/04/24 22:59 06:59 14:59 Other: Weight 97.522 kg Cranial Nerve Examination - Cranial Nerves Cranial Nerve I- Olfactory: Intact Cranial Nerve II- Optic: Intact (Cranial nerves II to XII intact) Cranial Nerve III- Oculomotor: Intact (Cranial nerves II to XII intact) Cranial Nerve IV- Trochlear: Intact Cranial Nerve V- Trigeminal: Intact Cranial Nerve - Abducens: Intact Cranial Nerve VII- Facial: Intact Cranial Nerve VIII- Auditory: Intact Cranial Nerve IX- Glossopharyngeal: Intact Cranial Nerve X- Vagus: Intact Cranial Nerve XI- Accessory: Intact Cranial Nerve XII- Hypoglossal: Intact Results Labs: Abnormal Lab Results - Last 24 Hours (Table) 05/04/24 Range/Units 01:30 Urine Blood Small H (Negative) Urine RBC 6 H (0-5) /hpf Urine WBC 10 H (0-5) /hpf Amorphous Sediment Occasional H (None) /hpf Urine Bacteria Rare H (None) /hpf Urine Mucus Few H (None) /hpf
[2024-05-04] MEDS: ACETAMINOPHEN TAB 325 MG TAB PO PRN (17:01)
[2024-05-04] MEDS: PRAZOSIN 1 MG CAP PO SCH (19:42)
[2024-05-04] MEDS: QUEtiapine 25 MG TAB PO SCH (19:43)
[2024-05-04] MEDS: haloperidoL 5 MG TAB PO PRN (19:43)
[2024-05-04] MEDS: traZODone HCL 50 MG TAB PO PRN (20:10)
[2024-05-04] MEDS: IBUPROFEN 600 MG TAB PO PRN (20:10)
--- NOTE | 2024-05-05 11:47 | P.PN ---
Progress Note - Text Progress Note Date: 05/05/24 Interval history: Patient was seen laying in bed today and was directable and agreeable to speak with proposal writer. She continues to endorse depression and anxiety. Claims that she did start taking the medications not reporting any side effects at this time. We spoke about increasing medications which she is okay with. She did not relay any other concerns except for her UTI. She claims that she is having some discomfort in her back. Claims that she was able to sleep fairly last night. Has a improving appetite. At this time patient denies any suicidal or homicidal ideations intent or plan. Denies any Auditory or visual hallucinations. Patient denies any side effects from the medications and has been compliant with meds. Mental status exam: General Appearance: Patient appears to be stated age is alert, directable, and cooperative. Hygiene hygiene and grooming improving Behavior: No agitated behavior. Patient is calm and directable Speech: Patient's speech is fluent and nonpressured. Mood/Affect: Mood is improving mildly, affect is congruent and constricted. Suicidality/Homicidality: Patient denies having any suicidal or homicidal ideation intent or plan. Perceptions: Patient denies any auditory or visual hallucinations. Though content/process: There is no evidence of any delusional thought content and thought process is linear and goal-directed. [place] Memory and concentration: AOX3, grossly intact for the purposes of this session Judgment and insight: improving mildly Assessment/Plan: Continue with current diagnosis. Patient continues to meet criteria for inpatient psychiatric admission for symptom stabilization and safety. Patient will be maintained on current psychotropic medication regimen, with the exception of increasing Seroquel and Zoloft. Will check CBC with differential and comprehensive panel tomorrow morning. Monitor for medication c ompliance and for any psychotropic medication side effects. Will continue to monitor ongoing response to treatment. Encouraged participation in milieu.
[2024-05-05] MEDS: QUEtiapine 50 MG TAB PO SCH (20:55)
[2024-05-06] MEDS: SERTRALINE 50 MG TAB PO SCH ×2 (08:42→20:39)
[2024-05-06 08:43] LABS: Glucose,Whole Blood 142 mg/dL (70-110)
[2024-05-06 08:58] VITALS: RESP 16
[2024-05-06 10:13] LABS: Basophils % (A) 0 %; Eosinophils # (A) 0.2 k/uL (0-0.7); Eosinophils % (A) 2 %; HCT 30.7 % (34.0-46.0); HGB 9.5 gm/dL (11.4-16.0); Hypochromasia Marked; Lymphocytes # (A) 2.1 k/uL (1.0-4.8); Lymphocytes % (A) 32 %; MCH 27.7 pg (25.0-35.0); MCV 89.4 fL (80.0-100.0); Mean Platelet Volume 8.9; Monocytes # (A) 0.4 k/uL (0-1.0); Monocytes % (A) 7 %; Neutrophils # (A) 3.6 k/uL (1.3-7.7); Neutrophils % (A) 56 %; Platelet Count 226 k/uL (150-450); RBC 3.44 m/uL (3.80-5.40); RDW 14.8 % (11.5-15.5); WBC 6.5 k/uL (3.8-10.6)
[2024-05-06 10:47] LABS: ALT 14 U/L (4-34); AST 18 U/L (14-36); African American GFR (CKD) >90 (>60 ml/min/1.73 sqM); Albumin 3.3 g/dL (3.5-5.0); Alkaline Phosphatase 47 U/L (38-126); Anion Gap 5 mmol/L; Blood Urea Nitrogen 12 mg/dL (7-17); Calcium 8.5 mg/dL (8.4-10.2); Carbon Dioxide 25 mmol/L (22-30); Chloride 108 mmol/L (98-107); Glucose 82 mg/dL (74-99); Non-African American GFR(CKD) 86 (>60 ml/min/1.73 sqM); Potassium 4.3 mmol/L (3.5-5.1); Sodium 138 mmol/L (137-145); Total Bilirubin 0.6 mg/dL (0.2-1.3); Total Protein 5.8 g/dL (6.3-8.2)
--- NOTE | 2024-05-06 11:45 | P.PN ---
Progress Note - Text Progress Note Date: 05/06/24 Interval history: Patient was seen laying in bed today and was directable and agreeable to speak with medical underwriter. She claims today that she is doing a bit better. Continues to have a disheveled appearance, was speaking about discharge planning claims that she might be able to go to her brother's house in the meantime. States that she is still interested in calling rehab tomorrow. Claims that she still feels that she has poor motivation, will try to go to some groups today and participate. Claims that she did start taking the medications not reporting any side effects at this time. Claims that she was able to sleep fairly last night. Has a improving appetite. At this time patient denies any suicidal or homicidal ideations intent or plan. Denies any Auditory or visual hallucinations. Patient denies any side effects from the medications and has been compliant with meds. Mental status exam: General Appearance: Patient appears to be stated age is alert, directable, and cooperative. Hygiene hygiene and grooming improving Behavior: No agitated behavior. Patient is calm and directable Speech: Patient's speech is fluent and nonpressured. Mood/Affect: Mood is improving mildly, affect is congruent and constricted. Improving mildly Suicidality/Homicidality: Patient denies having any suicidal or homicidal ideation intent or plan. Perceptions: Patient denies any auditory or visual hallucinations. Though content/process: There is no evidence of any delusional thought content and thought process is linear and goal-directed. [place] Memory and concentration: AOX3, grossly intact for the purposes of this session Judgment and insight: improving mildly Assessment/Plan: Continue with current diagnosis. Patient continues to meet criteria for inpatient psychiatric admission for symptom stabilization and safety. Patient will be maintained on current psychotropic medication regimen. White blood cell count normal. Vital signs have been stable. Continue with antibiotics for UTI. Monitor for medication compliance and for any psychotropic medication side effects. Will continue to monitor ongoing response to treatment. Encouraged participation in milieu.
--- NOTE | 2024-05-07 11:25 | P.PN ---
Progress Note - Text Progress Note Date: 05/07/24 Interval history: Patient was seen wandering the hallways and was directable and agreeable to s peak with marketing underwriter. She appears to have improvement in her affect today. Claims she is doing a bit better overall. Was requesting Nicorette gum today. States that she is trying to go to some groups now interacting with others on the unit. States that she slept fairly last night. She was asking about different anxiety medications was agreeable to try BuSpar today. She claims that she was not excepted to [facility] due to insurance and would rather be discharged to her brother's house from the unit. She is not reporting any side effects at this time. Claims that she was able to sleep fairly last night. Has a improving appetite. At this time patient denies any suicidal or homicidal ideations intent or plan. Denies any Auditory or visual hallucinations. Patient denies any side effects from the medications and has been compliant with meds. Mental status exam: General Appearance: Patient appears to be stated age is alert, directable, and cooperative. Hygiene hygiene and grooming improving Behavior: No agitated behavior. Patient is calm and directable, more cooperative today Speech: Patient's speech is fluent and nonpressured. Mood/Affect: Mood is improving mildly, affect is congruent and constricted. Improving mildly Suicidality/Homicidality: Patient denies having any suicidal or homicidal ideation intent or plan. Perceptions: Patient denies any auditory or visual hallucinations. Though content/process: There is no evidence of any delusional thought content and thought process is linear and goal-directed. Memory and concentration: AOX3, grossly intact for the purposes of this session Judgment and insight: improving mildly Assessment/Plan: Continue with current diagnosis. Patient continues to meet criteria for inpatient psychiatric admission for symptom stabilization and safety. Patient will be maintained on current psychotropic medication regimen. Continue with antibiotics for UTI. Added BuSpar 15 mg 3 times daily as needed for anxiety. Added Nicorette as needed gum. Monitor for medication compliance and for any psychotropic medication side effects. Will continue to monitor ongoing response to treatment. Encouraged participation in milieu. Patient apparently is not excepted to [facility], would prefer to be discharged to her brother's house likely discharge Tuesday.
[2024-05-07] MEDS: BENZOCAINE 20% HEMORRHOIDAL OINT 28GM RECTAL SCH (12:19)
[2024-05-07] MEDS: busPIRone HCl 5 MG TAB PO PRN (12:20)
[2024-05-07] MEDS: NICOTINE GUM (POLACRILEX) 2 MG GUM BUCCAL PRN (12:20)
[2024-05-07] MEDS: traZODone HCL 50 MG TAB PO SCH (20:33)
--- NOTE | 2024-05-08 12:12 | P.PN ---
Progress Note - Text Progress Note Date: 05/08/24 Interval history: Patient was seen wandering the hallways and was directable and agreeable to s peak with entry writer. She appears to have improvement in her affect today, he states that she is feeling more positive today about her situation. Claims that she is still waiting for [facility] to review her application and exceptor. Claims she is doing a bit better overall, was however claiming that she is still having some flank pain, was agreeable to give another urinary sample. States that she is trying to go to some groups now interacting with others on the unit. States that she slept fairly last night. Has a fair appetite. She is not reporting any side effects at this time. At this time patient denies any suicidal or homicidal ideations intent or plan. Denies any Auditory or visual hallucinations. Patient denies any side effects from the medications and has been compliant with meds. Mental status exam: General Appearance: Patient appears to be stated age is alert, directable, and cooperative. Hygiene hygiene and grooming improving Behavior: No agitated behavior. Patient is calm and directable, more cooperative today Speech: Patient's speech is fluent and nonpressured. Mood/Affect: Mood is improving mildly, affect is congruent and constricted. Improving mildly Suicidality/Homicidality: Patient denies having any suicidal or homicidal ideation intent or plan. Perceptions: Patient denies any auditory or visual hallucinations. Though content/process: There is no evidence of any delusional thought content and thought process is linear and goal-directed. More future oriented today Memory and concentration: AOX3, grossly intact for the purposes of this session Judgment and insight: improving mildly Assessment/Plan: Continue with current diagnosis. Patient continues to meet criteria for inpatient psychiatric admission for symptom stabilization and safety. Patient will be maintained on current psychotropic medication regimen. Continue with antibiotics for UTI. will order another UA. decrease BuSpar 10 mg 3 times daily as needed for anxiety. Monitor for medication compliance and for any psychotropic medication side effects. Will continue to monitor ongoing response to treatment. Encouraged participation in milieu. Patient apparently is now waiting for [facility] for acceptance to inpatient rehab.
[2024-05-08] MEDS: busPIRone HCl 10 MG TAB PO PRN (12:28)
[2024-05-08] MEDS: DOCUSATE 100 MG CAP PO SCH (12:28)
[2024-05-08 18:57] LABS: Appearance,Urine Clear (Clear); Bilirubin,Urine Negative (Negative); Blood,Urine Moderate (Negative); Color,Urine Yellow; Glucose,Urine (UA) Negative (Negative); Ketones,Urine Negative (Negative); Leukocyte Esterase,Urine Trace (Negative); Mucus,Urine Few /hpf; Nitrite,Urine Negative (Negative); Protein,Urine Negative (Negative); RBC,Urine 140 /hpf (0-5); Specific Gravity,Urine 1.027 (1.001-1.035); Squamous Epithelial Cell,Urine 1 /hpf (0-4); WBC,Urine 10 /hpf (0-5)
[2024-05-09 07:06] VITALS: BP 105/68; PULSE 80; TEMP 98.1
--- NOTE | 2024-05-09 11:05 | P.DS ---
Providers Date of admission: 05/04/24 04:25 Expected date of discharge: 05/09/24 Attending physician: Joe Dutta MD Consults: 05/04/24 05:14 Consult Physician Routine Consulting Provider: Soha Christensen Consult Reason/Comments: Medical managment Do you want consulting provider notified?: Yes, Notify in am Primary care physician: Mariangel Schofield - Discharge Diagnosis(es) (1) Major depressive disorder without psychotic features Current Visit: Yes Status: Acute Priority: High (2) History of posttraumatic stress disorder (PTSD) Current Visit: Yes Status: Acute Priority: Medium (3) Stimulant use disorder Current Visit: Yes Status: Acute Priority: Medium (4) Nicotine dependence Current Visit: Yes Status: Acute Priority: Low Hospital Course: Admission HPI: Admission note was completed by telegraphic typewriter installer "patient is a 39 year old woman with a history of depression, trauma. she is currently homeless, she is single she has 3 kids. Patient was seen today for psychiatric evaluation by telegraphic typewriter installer. Patient presented to the ER yesterday for evaluation, was seen by EPS and as per note "Pt. presents as sad and depressed. Pt. was discharged from this facility recently and has been non-compliant with medications. Pt. states "The meds made me feel worse. They made my depression worse and I'm feeling suicidal". Pt. also states "I need to have different meds". Pt unable to tell telegraphic typewriter installer what m edications she is prescribed." Patient was seen today laying in bed agreeable to speak to telegraphic typewriter installer however wanted to stay at the bedside. She appears to be disheveled in appearance. Fairly soft tone of voice, was endorsing severe depression and suicidal thoughts before coming into the hospital. Claims that she has a history of cutting and was planning on cutting herself if she did not get help. Claims that she was just released from the unit about 2 weeks ago and claims that "I need my medications fixed". Claims that she stopped taking them several days ago because she was feeling "more depressed" and also stated that she was feeling "like a zombie". Claims that other stressors in her life include being homeless, stable place to stay at this time. Claims that her appetite is poor sleep has been on and off. States that she did not follow-up with [facility]. She is denying any current suicidal or homicidal ideations intent or plan, denies any auditory or visual hallucinations. Not endorsing any manic symptoms at this time denying any delusions or not endorsing any paranoia. Her urine drug screen was negative, claims that she does have a history of using methamphetamines, her last use was about a month ago. Denies any other recreational drug use cigarettes marijuana or alcohol." Hospital course: Upon admission to the unit patient was directable and agreeable to commence treatment and signed adult voluntary form. Patient was initially isolative, depressed however with time of treatment she eventually got along well with other patients on the unit and followed unit protocol. Patient was compliant with the medications and denied any side effects throughout hospital course. Patient was started on home dose of prazosin 1 mg nightly for trauma related nightmares, Zoloft 50 mg daily for mood/anxiety, Seroquel 50 mg nightly for mood adjunct/mood stabilization/insomnia, trazodone 50 mg nightly as needed for sleep. Patient spoke of her stressors and engaged in therapy both group and individual. Patient was also seen by medical team for history and physical exam. Patient was found to have a urinary tract infection, started on Macrobid for antibiotic treatment. Throughout the course of the hospitalization patient gradually improved with regards to mood, anxiety, suicidal thoughts, energy level, sleep and became more future oriented with improved insight and judgment. On the day of discharge patient denied any suicidal or homicidal ideations intent or plan denied any auditory or visual hallucinations. Patient endorsed wanting to live for their health and family. The patient denied any access to guns or weapons. Patient denied any paranoia and did not endorse any delusions. Patient does have a significant history of substance abuse and was counseled on abstaining from all substances including alcohol and marijuana. Patient elected to do outpatient substance use treatment program through their outpatient provider. Patient attempted to call the access line for rehab intake however she is currently being waitlisted and claims that she would rather be discharged to her sister's house today and wait for it. Patient was also counseled on the medications and need for regular compliance and was encouraged to follow-up with their outpatient appointment for mental health and also for primary care. Prior to discharge a family meeting will be arranged by social media marketing manager to answer any questions and ensure safety upon discharge incuding making sure that guns/weapons are either removed from the home or locked away. Mental status exam: General Appearance: Patient appears to be tall, stated age is alert, pleasant, and cooperative. Patient is in no acute distress and has improved hygiene and grooming Behavior: Patient is calmly seated without any agitated behavior. Speech: Patient's speech is fluent and nonpressured. Mood/Affect: Patient reports their mood is "good", affect is congruent and euthymic. Suicidality/Homicidality: Patient denies having any suicidal or homicidal ideation intent or plan. Perceptions: Patient denies any auditory or visual hallucinations. Though content/process: There is no evidence of any delusional thought content and thought process is linear and goal-directed. More future oriented Memory and concentration: AOX3, grossly intact for the purposes of this session. Can spell "WORLD" backwards correctly. Judgment and insight: Chronically poor, however has improved with guarded prognosis Impression: Major depressive disorder, recurrent, severe without psychotic features Stimulant use disorder History of PTSD Nicotine dependence Plan: -Continue with discharge today as patient has improved and stabilized psychiatrically and is not currently an imminent threat to themself and/or others. Patient will remain at chronically elevated risk for harm to self and/or others due to their impulsivity and substance abuse. -Continue medications: Prazosin 1 mg nightly for trauma related nightmares, Zoloft 50 mg qhs for mood/anxiety, Seroquel 50 mg nightly for mood adjunct/stabilization/insomnia, trazodone 50 mg nightly for insomnia/mood. BuSpar 15 mg twice daily as needed for anxiety. -Patient was counseled on the need for medication compliance and appropriate follow-up at mental health and also primary care for medical issues. Patient verbalized understanding and agreed. -Social work to help coordinate patients discharge today as she will did be discharged to her sister's house, social media marketing manager will help arrange a ride today. also to ensure safe home environment that guns/weapons are either removed from the home or locked away. Social work also to arrange for patients follow up appointments with [facility] for psychiatric care along with follow up with primary care provider. -Patient counseled on abstaining from recreational drugs and marijuana and alcohol. Was informed/educated on the adverse effects on their physical and mental health. Patient verbally agreed and understood. -Patient was instructed to return to the hospital or seek immediate medical care if their psychiatric or medical symptoms do worsen or reoccur. Allergies Allergy/AdvReac Type Severity Reaction Status Date / Time chocolate Allergy Anaphylaxis Verified 05/04/24 01:17 coconut Allergy Unknown Verified 05/04/24 01:17 Penicillins Allergy Rash/Hives Verified 05/04/24 01:17 Laboratory Results WBC 6.5 k/uL (3.8-10.6) 05/06/24 09:54 RBC 3.44 m/uL (3.80-5.40) L 05/06/24 09:54 Hgb 9.5 gm/dL (11.4-16.0) L 05/06/24 09:54 Hct 30.7 % (34.0-46.0) L 05/06/24 09:54 MCV 89.4 fL (80.0-100.0) 05/06/24 09:54 MCH 27.7 pg (25.0-35.0) 05/06/24 09:54 MCHC 31.0 g/dL (31.0-37.0) 05/06/24 09:54 RDW 14.8 % (11.5-15.5) 05/06/24 09:54 Plt Count 226 k/uL (150-450) 05/06/24 09:54 MPV 8.9 05/06/24 09:54 Neutrophils % 56 % 05/06/24 09:54 Lymphocytes % 32 % 05/06/24 09:54 Monocytes % 7 % 05/06/24 09:54 Eosinophils % 2 % 05/06/24 09:54 Basophils % 0 % 05/06/24 09:54 Neutrophils # 3.6 k/uL (1.3-7.7) 05/06/24 09:54 Lymphocytes # 2.1 k/uL (1.0-4.8) 05/06/24 09:54 Monocytes # 0.4 k/uL (0-1.0) 05/06/24 09:54 Eosinophils # 0.2 k/uL (0-0.7) 05/06/24 09:54 Basophils # 0.0 k/uL (0-0.2) 05/06/24 09:54 Hypochromasia Marked 05/06/24 09:54 Sodium 138 mmol/L (137-145) 05/06/24 09:54 Potassium 4.3 mmol/L (3.5-5.1) 05/06/24 09:54 Chloride 108 mmol/L (98-107) H 05/06/24 09:54 Carbon Dioxide 25 mmol/L (22-30) 05/06/24 09:54 Anion Gap 5 mmol/L 05/06/24 09:54 BUN 12 mg/dL (7-17) 05/06/24 09:54 Creatinine 0.86 mg/dL (0.52-1.04) 05/06/24 09:54 Est GFR (CKD-EPI)AfAm >90 (>60 ml/min/1.73 sqM) 05/06/24 09:54 Est GFR (CKD-EPI)NonAf 86 (>60 ml/min/1.73 sqM) 05/06/24 09:54 Glucose 82 mg/dL (74-99) 05/06/24 09:54 POC Glucose (mg/dL) 142 mg/dL (70-110) H 05/06/24 08:41 POC Glu Nickel Operator ID Spencer Crisostomo 05/06/24 08:41 Calcium 8.5 mg/dL (8.4-10.2) 05/06/24 09:54 Total Bilirubin 0.6 mg/dL (0.2-1.3) 05/06/24 09:54 AST 18 U/L (14-36) 05/06/24 09:54 ALT 14 U/L (4-34) 05/06/24 09:54 Alkaline Phosphatase 47 U/L (38-126) 05/06/24 09:54 Troponin I <0.012 ng/mL (0.000-0.034) 05/06/24 09:54 Total Protein 5.8 g/dL (6.3-8.2) L 05/06/24 09:54 Albumin 3.3 g/dL (3.5-5.0) L 05/06/24 09:54 Urine Color Yellow 05/08/24 18:43 Urine Appearance Clear (Clear) 05/08/24 18:43 Urine pH 6.0 (5.0-8.0) 05/08/24 18:43 Ur Specific [place] 1.027 (1.001-1.035) 05/08/24 18:43 Urine Protein Negative (Negative) 05/08/24 18:43 Urine Glucose (UA) Negative (Negative) 05/08/24 18:43 Urine Ketones Negative (Negative) 05/08/24 18:43 Urine Blood Moderate (Negative) H 05/08/24 18:43 Urine Nitrite Negative (Negative) 05/08/24 18:43 Urine Bilirubin Negative (Negative) 05/08/24 18:43 Urine Urobilinogen 2.0 mg/dL (<2.0) 05/08/24 18:43 Ur Leukocyte Esterase Trace (Negative) H 05/08/24 18:43 Urine RBC 140 /hpf (0-5) H 05/08/24 18:43 Urine WBC 10 /hpf (0-5) H 05/08/24 18:43 Ur Squamous Epith Cells 1 /hpf (0-4) 05/08/24 18:43 Amorphous Sediment Occasional /hpf (None) H 05/04/24 01:30 Urine Bacteria Rare /hpf (None) H 05/04/24 01:30 Urine Mucus Few /hpf (None) H 05/08/24 18:43 Urine HCG, Qual Not Detected (Not Detectd) 05/04/24 01:30 Urine Opiates Screen Not Detected (NotDetected) 05/04/24 01:30 Ur Oxycodone Screen Not Detected (NotDetected) 05/04/24 01:30 Urine Methadone Screen Not Detected (NotDetected) 05/04/24 01:30 Ur Barbiturates Screen Not Detected (NotDetected) 05/04/24 01:30 U Tricyclic Antidepress Not Detected (NotDetected) 05/04/24 01:30 Ur Phencyclidine Scrn Not Detected (NotDetected) 05/04/24 01:30 Ur Amphetamines Screen Not Detected (NotDetected) 05/04/24 01:30 U Methamphetamines Scrn Not Detected (NotDetected) 05/04/24 01:30 U Benzodiazepines Scrn Not Detected (NotDetected) 05/04/24 01:30 Urine Cocaine Screen Not Detected (NotDetected) 05/04/24 01:30 U Marijuana (THC) Screen Not Detected (NotDetected) 05/04/24 01:30 SARS-CoV-2 (PCR) Not Detected (Not Detectd) 05/04/24 01:30 Vital Signs Temp 98.1 F 05/09/24 07:05 Pulse 80 05/09/24 07:05 Resp 16 05/08/24 06:36 BP 105/68 05/09/24 07:05 Pulse Ox 99 05/09/24 07:05 FiO2 Patient Condition at Discharge: Stable Plan - Discharge Summary Discharge Rx Participant: Yes New Discharge Prescriptions: New traZODone HCL [Desyrel] 50 mg PO HS 30 Days #30 tab Nitrofurantoin Monohyd/M-Cryst [Macrobid] 100 mg PO BID 14 Days #14 cap Nicotine Gum (Polacrilex) [Nicorette] 2 mg BUCCAL Q4HR PRN 30 Days #180 pieceofgum PRN Reason: Nicotine Cravings busPIRone HCL [Buspar] 15 mg PO BID PRN 30 Days #120 tablet PRN Reason: Anxiety Docusate [Colace] 100 mg PO DAILY 30 Days #30 cap QUEtiapine [SEROquel] 50 mg PO HS 30 Days #30 tab Sertraline [Zoloft] 50 mg PO HS 30 Days #30 tab Continue Prazosin [Minipress] 1 mg PO HS 30 Days #30 cap Discontinued Nicotine 21Mg/24Hr Patch [Habitrol] 1 patch TRANSDERM DAILY patch hydrOXYzine pamoate [Vistaril] 100 mg PO HS 30 Days #120 cap buPROPion XL [Wellbutrin XL] 150 mg PO DAILY 30 Days #30 tab Nitrofurantoin Monohyd/M-Cryst [Macrobid] 100 mg PO Q12HR 5 Days #10 cap DULoxetine HCL [Cymbalta] 30 mg PO BID 30 Days #60 cap Nicotine Gum (Polacrilex) [Nicorette] 2 mg BUCCAL Q4HR PRN pieceofgum PRN Reason: Nicotine Cravings Discharge Medication List Docusate [Colace] 100 mg PO DAILY 30 Days #30 cap 05/09/24 [Rx] Nicotine Gum (Polacrilex) [Nicorette] 2 mg BUCCAL Q4HR PRN 30 Days #180 pieceofgum 05/09/24 [Rx] Nitrofurantoin Monohyd/M-Cryst [Macrobid] 100 mg PO BID 14 Days #14 cap 05/09/24 [Rx] Prazosin [Minipress] 1 mg PO HS 30 Days #30 cap 05/09/24 [Rx] QUEtiapine [SEROquel] 50 mg PO HS 30 Days #30 tab 05/09/24 [Rx] Sertraline [Zoloft] 50 mg PO HS 30 Days #30 tab 05/09/24 [Rx] busPIRone HCL [Buspar] 15 mg PO BID PRN 30 Days #120 tablet 05/09/24 [Rx] traZODone HCL [Desyrel] 50 mg PO HS 30 Days #30 tab 05/09/24 [Rx] Follow up Appointment(s)/Referral(s): Mariangel Schofield MD [Primary Care Provider] - 1-2 days Activity/Diet/Wound Care/Special Instructions: [facility] Discharge Info Avoid the use of street drugs and alcohol. Take all medications as prescribed. When you are in need of refills on your medications, please contact your outpatient medical provider and/or outpatient psychiatrist. Please go to your scheduled outpatient appointments for aftercare treatment. If symptoms return or become worse, call the crisis line at or and/or visit the nearest emergency room for assistance. National Suicide and Crisis Lifeline - call or text 652 Discharge Disposition: HOME SELF-CARE
== END 2024-05-09 15:20 | disposition home or self-care (01) | DRG 885 ==
LOC: EC 01:10 → 3MHU 04:25
PROVIDERS: ADMIT Psychiatry & Neurology Psychiatry; ATTEND Psychiatry & Neurology Psychiatry
DX: F33.2 Major depressive disorder, recurrent severe without psychotic features (principal); R45.851 Suicidal ideations; Z91.148 Patient's other noncompliance with medication regimen for other reason; F15.20 Other stimulant dependence, uncomplicated; N39.0 Urinary tract infection, site not specified; Z59.00 Homelessness unspecified; E28.2 Polycystic ovarian syndrome; F41.9 Anxiety disorder, unspecified; F17.290 Nicotine dependence, other tobacco product, uncomplicated; F43.10 Post-traumatic stress disorder, unspecified; G47.00 Insomnia, unspecified; Z79.899 Other long term (current) drug therapy; Z87.442 Personal history of urinary calculi; Z91.51 Personal history of suicidal behavior; Z91.52 Personal history of nonsuicidal self-harm; Z88.0 Allergy status to penicillin; Z71.51 Drug abuse counseling and surveillance of drug abuser; Z71.89 Other specified counseling; Z28.21 Immunization not carried out because of patient refusal
CPT/HCPCS: 80053; 80306; 81001; 81025; 82075; 84484; 85025; 87635; 93005; 99285

== ENCOUNTER 2024-05-15 13:12 | Emergency (ER) | payer OTHER ==
[2024-05-15 13:49] VITALS: BP 136/88; PULSE 66; RESP 20; TEMP 98.4
--- NOTE | 2024-05-15 13:49 | ED ---
General Adult HPI - General Chief complaint: Upper Respiratory Infection Stated complaint: mrsa, chest pain Time Seen by Provider: 05/15/24 13:34 Source: patient, RN notes reviewed, old records reviewed Mode of arrival: ambulatory Limitations: no limitations - History of Present Illness Initial comments: 39-year-old female with concern for MRSA infection in the mouth. Patient states she has had cough and congestion for the past several days. She has been seen at outside hospital with similar complaints. No fever. No difficulty breathing. No lower extremity pain or swelling. No vomiting. - Related Data Previous Rx's Medication Instructions Recorded Docusate [Colace] 100 mg PO DAILY 30 Days #30 cap 05/09/24 Nicotine Gum (Polacrilex) 2 mg BUCCAL Q4HR PRN 30 Days #180 05/09/24 [Nicorette] pieceofgum Nitrofurantoin Monohyd/M-Cryst 100 mg PO BID 14 Days #14 cap 05/09/24 [Macrobid] Prazosin [Minipress] 1 mg PO HS 30 Days #30 cap 05/09/24 QUEtiapine [SEROquel] 50 mg PO HS 30 Days #30 tab 05/09/24 Sertraline [Zoloft] 50 mg PO HS 30 Days #30 tab 05/09/24 busPIRone HCL [Buspar] 15 mg PO BID PRN 30 Days #120 05/09/24 tablet traZODone HCL [Desyrel] 50 mg PO HS 30 Days #30 tab 05/09/24 Allergies Allergy/AdvReac Type Severity Reaction Status Date / Time chocolate Allergy Anaphylaxis Verified 05/15/24 13:17 coconut Allergy Unknown Verified 05/15/24 13:17 Penicillins Allergy Rash/Hives Verified 05/15/24 13:17 Review of Systems ROS Statement: Those systems with pertinent positive or pertinent negative responses have been documented in the HPI. ROS Other: All systems not noted in ROS Statement are negative. Past Medical History Past Medical History: No Reported History Additional Past Medical History / Comment(s): KIDNEY STONES, PCOS, MRSA in mouth 01/29 History of Any Multi-Drug Resistant Organisms: MRSA Date of last positivie culture/infection: 12/29/20 MDRO Source:: mouth Past Surgical History: Section, Cholecystectomy, Tubal Ligation Past Psychological History: Depression Smoking Status: Current every day smoker, Vaper Past Alcohol Use History: Occasional Past Drug Use History: Marijuana, Methamphetamine - Past Family History Mother Family Medical History: Liver Disease General Exam Limitations: no limitations General appearance: alert, in no apparent distress Head exam: Present: atraumatic, normocephalic Eye exam: Present: normal appearance, PERRL ENT exam: Present: normal exam, other (I do not see any oral lesions, no erythema) Neck exam: Present: normal inspection. Absent: tenderness, meningismus Respiratory exam: Present: normal lung sounds bilaterally. Absent: respiratory distress, wheezes Cardiovascular Exam: Present: regular rate, normal rhythm GI/Abdominal exam: Present: soft. Absent: distended, tenderness, guarding Extremities exam: Present: normal inspection, normal capillary refill Neurological exam: Present: alert, oriented X3 Psychiatric exam: Present: normal affect, normal mood Skin exam: Present: warm Course Vital Signs 05/15/24 13:48 Temperature 98.4 F Pulse Rate 66 Respiratory 20 Rate Blood Pressure 136/88 O2 Sat by Pulse 100 Oximetry Medical Decision Making - Medical Decision Making Was pt. sent in by a medical professional or institution (, PA, DIRECTOR OF RADIO SERVICES, urgent care, hospital, or assisted...) When possible be specific @ -No Did you speak to anyone other than the patient for history (EMS, parent, family, police, friend...)? What history was obtained from this source @ -No Did you review nursing and triage notes (agree or disagree)? Why? @ -I reviewed and agree with nursing and triage notes Were old charts reviewed (outside hosp., previous admission, EMS record, old EKG, old radiological studies, urgent care reports/EKG's, assisted records)? Report findings @ -No old charts were reviewed Differential Diagnosis: Upper respiratory infection, dental infection, intraoral lesion EKG interpreted by me (3pts min.). @ -As above X-rays interpreted by me (1pt min.). @ -None done CT interpreted by me (1pt min.). @ -None done U/S interpreted by me (1pt. min.). @ -None done What testing was considered but not performed or refused? (CT, X-rays, U/S, labs)? Why? @ -None What meds were considered but not given or refused? Why? @ -None Did you discuss the management of the patient with other professionals (professionals i.e. , PA, DIRECTOR OF RADIO SERVICES, lab, RT, psych nurse, social service assistant, wage conciliator, teacher, commissioned fire officer, behavioral health case manager)? Give summary @ -No Was smoking cessation discussed for >3mins.? @ -No Was critical care preformed (if so, how long)? @ -No Were there social determinants of health that impacted care today? How? (Homelessness, low income, unemployed, alcoholism, drug addiction, transportation, low edu. Level, literacy, decrease access to med. care, correction, rehab)? @ -No Was there de-escalation of care discussed even if they declined (Discuss DNR or withdrawal of care, Hospice)? DNR status @ -No What co-morbidities impacted this encounter? (DM, HTN, Smoking, COPD, CAD, Cancer, CVA, ARF, Chemo, Hep., AIDS, mental health diagnosis, sleep apnea, morbid obesity)? @ -None Was patient admitted / discharged? Hospital course, mention meds given and route, prescriptions, significant lab abnormalities, going to OR and other pertinent info. @ -[39-year-old female presents with concern for oral infection. I do not see any signs of infection on exam. She has had cough and cold symptoms and flu, RSV and COVID test is performed in the emergency department. Vital signs stable, should follow-up with primary care provider. Undiagnosed new problem with uncertain prognosis? @ -No Drug Therapy requiring intensive monitoring for toxicity (Heparin, Nitro, Insulin, Cardizem)? @ -No Were any procedures done? @ -No Diagnosis/symptom? @ -Upper respiratory infection Acute, or Chronic, or Acute on Chronic? @ -Acute Uncomplicated (without systemic symptoms) or Complicated (systemic symptoms)? @ -Default Side effects of treatment? @ -No Exacerbation, Progression, or Severe Exacerbation? @ -No Poses a threat to life or bodily function? How? (Chest pain, [place], AR, pneumonia, PE, COPD, DKA, ARF, appy, cholecystitis, CVA, Diverticulitis, Homicidal, Suicidal, threat to staff... and all critical care pts) @ -No Disposition Clinical Impression: Upper respiratory tract infection Disposition: HOME SELF-CARE Condition: Good Instructions (If sedation given, give patient instructions): Upper Respiratory Infection (ED) Is patient prescribed a controlled substance at d/c from ED?: No Referrals: None,Stated [Primary Care Provider] - 1-2 days Time of Disposition: 14:29
[2024-05-15 14:53] LABS: Influenza A Not Detected (Not Detectd); Influenza B Not Detected (Not Detectd); RSV Not Detected (Not Detectd)
== END 2024-05-15 15:01 | disposition home or self-care (01) ==
LOC: EC 13:12
DX: J06.9 Acute upper respiratory infection, unspecified (principal); F17.290 Nicotine dependence, other tobacco product, uncomplicated; Z91.018 Allergy to other foods; Z88.0 Allergy status to penicillin
CPT/HCPCS: 87636; 99284

== ENCOUNTER 2024-05-29 10:16 | Inpatient (IN) | payer OTHER, MEDICAID ==
--- NOTE | 2024-05-29 11:09 | ED ---
Psych HPI - General Source: patient, police, RN notes reviewed Mode of arrival: ambulatory Limitations: no limitations <Js Dobbins - Last Filed: 05/29/24 14:39> <Lico Wilson - Last Filed: 05/29/24 15:31> - General Chief Complaint: Psychiatric Symptoms Stated Complaint: Petition Time Seen by Provider: 05/29/24 10:34 - History of Present Illness Initial Comments: 39-year-old female presents emergency department with police for psychiatric evaluation. Patient made threats of harm herself with a gun. Patient does have a history of psychiatric issues. She denies any drug use today but has a history of methamphetamine use and occasional alcohol use. She is seen here recent [facility] for dental pain. She states she was also kicked out of [facility]. Denies being homicidal (Js Dobbins) - Related Data Home Medications Medication Instructions Recorded Confirmed clindamycin HCL [Cleocin] 450 mg PO DIRECTED 05/29/24 05/29/24 Previous Rx's Medication Instructions Recorded Docusate [Colace] 100 mg PO DAILY 30 Days #30 cap 05/09/24 Nicotine Gum (Polacrilex) 2 mg BUCCAL Q4HR PRN 30 Days #180 05/09/24 [Nicorette] pieceofgum Prazosin [Minipress] 1 mg PO HS 30 Days #30 cap 05/09/24 QUEtiapine [SEROquel] 50 mg PO HS 30 Days #30 tab 05/09/24 Sertraline [Zoloft] 50 mg PO HS 30 Days #30 tab 05/09/24 busPIRone HCL [Buspar] 15 mg PO BID PRN 30 Days #120 05/09/24 tablet traZODone HCL [Desyrel] 50 mg PO HS 30 Days #30 tab 05/09/24 Allergies Allergy/AdvReac Type Severity Reaction Status Date / Time chocolate Allergy Anaphylaxis Verified 05/29/24 13:13 coconut Allergy Unknown Verified 05/29/24 13:13 Penicillins Allergy Rash/Hives Verified 05/29/24 13:13 Review of Systems ROS Other: All systems not noted in ROS Statement are negative. <Js Dobbins - Last Filed: 05/29/24 14:39> ROS Other: All systems not noted in ROS Statement are negative. <Lico Wilson - Last Filed: 05/29/24 15:31> ROS Statement: Those systems with pertinent positive or pertinent negative responses have been documented in the HPI. Past Medical History Past Medical History: No Reported History Additional Past Medical History / Comment(s): KIDNEY STONES, PCOS, MRSA in mouth 01/29 History of Any Multi-Drug Resistant Organisms: MRSA Date of last positivie culture/infection: 12/29/20 MDRO Source:: mouth Past Surgical History: Section, Cholecystectomy, Tubal Ligation Past Psychological History: Depression Smoking Status: Current every day smoker, Vaper Past Alcohol Use History: Occasional Past Drug Use History: Marijuana, Methamphetamine - Past Family History Mother Family Medical History: Liver Disease <Js Dobbins - Last Filed: 05/29/24 14:39> General Exam Limitations: no limitations General appearance: alert, in no apparent distress Head exam: Present: atraumatic, normocephalic, normal inspection Eye exam: Present: normal appearance, PERRL, EOMI. Absent: scleral icterus, conjunctival injection, periorbital swelling Neck exam: Present: normal inspection, full ROM. Absent: tenderness, meningismus, lymphadenopathy Respiratory exam: Present: normal lung sounds bilaterally. Absent: respiratory distress, wheezes, rales, rhonchi, stridor Cardiovascular Exam: Present: regular rate, normal rhythm, normal heart sounds. Absent: systolic murmur, diastolic murmur, rubs, gallop, clicks Neurological exam: Present: alert, oriented X3 Psychiatric exam: Present: anxious Skin exam: Present: warm, dry, intact, normal color. Absent: rash <Js Dobbins - Last Filed: 05/29/24 14:39> Course Vital Signs 05/29/24 10:58 Temperature 97.7 F Pulse Rate 77 Respiratory 17 Rate Blood Pressure 142/95 O2 Sat by Pulse 100 Oximetry Medical Decision Making <Js Dobbins - Last Filed: 05/29/24 14:39> <Lico Wilson - Last Filed: 05/29/24 15:31> - Medical Decision Making Was pt. sent in by a medical professional or institution (, PA, AUTOMATIC EDGER, urgent care, hospital, or retirement...) When possible be specific @ -No Did you speak to anyone other than the patient for history (EMS, parent, family, police, friend...)? What history was obtained from this source @ -police Who brought patient in for evaluation Did you review nursing and triage notes (agree or disagree)? Why? @ -I reviewed and agree with nursing and triage notes Were old charts reviewed (outside hosp., previous admission, EMS record, old EKG, old radiological studies, urgent care reports/EKG's, retirement records)? Report findings @ -No old charts were reviewed Differential Diagnosis (chest pain, altered mental status, abdominal pain women, abdominal pain men, vaginal bleeding, weakness, fever, dyspnea, syncope, headache, dizziness, GI bleed, back pain, seizure, CVA, palpatations, mental health, musculoskeletal)? @ -Differential Mental Health Depression, anxiety, bipolar, psychosis, schizophrenia, borderline personality, situational depression, adjustment disorder, behavioral disorder, brain tumor, malingering, substance abuse, encephalopathy, medication reaction, dementia, hypothyroidism, degenerative neurologic disorder, lupus.... This is not meant to be all-inclusive list EKG interpreted by me (3pts min.). @ -[None X-rays interpreted by me (1pt min.). @ -None done CT interpreted by me (1pt min.). @ -None done U/S interpreted by me (1pt. min.). @ -None done What testing was considered but not performed or refused? (CT, X-rays, U/S, labs)? Why? @ -None What meds were considered but not given or refused? Why? @ -None Did you discuss the management of the patient with other professionals (professionals i.e. , PA, AUTOMATIC EDGER, lab, RT, psych nurse, director of social media marketing, supervisor front, teacher, air force senior officer, case folder)? Give summary @ -EPS evaluated the patient and recommended inpatient treatment Was smoking cessation discussed for >3mins.? @ -No Was critical care preformed (if so, how long)? @ -No Were there social determinants of health that impacted care today? How? (Homelessness, low income, unemployed, alcoholism, drug addiction, transportation, low edu. Level, literacy, decrease access to med. care, nursing home, rehab)? @ -No Was there de-escalation of care discussed even if they declined (Discuss DNR or withdrawal of care, Hospice)? DNR status @ -No What co-morbidities impacted this encounter? (DM, HTN, Smoking, COPD, CAD, Cancer, CVA, ARF, Chemo, Hep., AIDS, mental health diagnosis, sleep apnea, morbid obesity)? @ -None Was patient admitted / discharged? Hospital course, mention meds given and route, prescriptions, significant lab abnormalities, going to OR and other pertinent info. @ -[Admitted to 3 W. Undiagnosed new problem with uncertain prognosis? @ -No Drug Therapy requiring intensive monitoring for toxicity (Heparin, Nitro, Insulin, Cardizem)? @ -No Were any procedures done? @ -No Diagnosis/symptom? @ -Depression, suicide ideation Acute, or Chronic, or Acute on Chronic? @ -Acute Uncomplicated (without systemic symptoms) or Complicated (systemic symptoms)? @ -uncomplicated Side effects of treatment? @ -No Exacerbation, Progression, or Severe Exacerbation? @ -No Poses a threat to life or bodily function? How? (Chest pain, USA, CT, pneumonia, PE, COPD, DKA, ARF, appy, cholecystitis, CVA, Diverticulitis, Homicidal, Suicidal, threat to staff... and all critical care pts) @ -No (Js Dobbins) Clinical certificate completed by myself. Patient has been admitted to inpatient psychiatry. (Lico Wilson) - Lab Data Lab Results 05/29/24 Range/Units 14:55 SARS-CoV-2 (PCR) Not Detected (Not Detectd) Disposition Time of Disposition: 14:41 <Js Dobbins - Last Filed: 05/29/24 14:39> <Lico Wilson - Last Filed: 05/29/24 15:31> Clinical Impression: Suicidal ideation, Major depressive disorder without psychotic features Disposition: TRANSFER TO PSYCH HOSP/UNIT Referrals: None,Stated [Primary Care Provider] - 1-2 days
[2024-05-29] MEDS: LORazepam 1 MG TAB PO STA (14:48)
[2024-05-29] MEDS ORDERED: LORazepam 1 MG TAB PO PRN (17:21)
[2024-05-29] MEDS: LORazepam 2 MG/ML INJ IM PRN (18:36)
[2024-05-29] MEDS: HALOPERIDOL LACTATE 5 MG/ML 1 ML VIAL IM PRN (18:36)
[2024-05-29] MEDS ORDERED: LORazepam 2 MG/ML INJ IM PRN (22:12)
[2024-05-29] MEDS ORDERED: MAGNESIUM HYDROXIDE 2,400 MG/30 ML CUP PO PRN (22:12)
[2024-05-29] MEDS ORDERED: IBUPROFEN 600 MG TAB PO PRN (22:12)
[2024-05-29] MEDS ORDERED: MAG HYDROX/AL HYDROX/SIMETH 355 ML BOTTLE PO PRN (22:12)
[2024-05-29] MEDS: PRAZOSIN 1 MG CAP PO SCH (23:19)
[2024-05-30] MEDS: haloperidoL 5 MG TAB PO PRN (08:27)
[2024-05-30] MEDS: LORazepam 1 MG TAB PO PRN (08:28)
[2024-05-30] MEDS: DOCUSATE 100 MG CAP PO SCH (08:58)
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
[2024-05-30 13:41] LABS: Basophils % (A) 0 %; Eosinophils # (A) 0.1 k/uL (0-0.7); Eosinophils % (A) 1 %; HCT 33.1 % (34.0-46.0); HGB 10.2 gm/dL (11.4-16.0); Hypochromasia Marked; Lymphocytes % (A) 30 %; MCH 26.8 pg (25.0-35.0); MCHC 30.8 g/dL (31.0-37.0); Monocytes # (A) 0.4 k/uL (0-1.0); Monocytes % (A) 5 %; Neutrophils % (A) 61 %; Platelet Count 234 k/uL (150-450); RBC 3.81 m/uL (3.80-5.40); RDW 14.3 % (11.5-15.5); WBC 6.6 k/uL (3.8-10.6)
[2024-05-30 13:49] LABS: ALT 14 U/L (4-34); AST 22 U/L (14-36); African American GFR (CKD) >90 (>60 ml/min/1.73 sqM); Albumin 3.6 g/dL (3.5-5.0); Alkaline Phosphatase 54 U/L (38-126); Anion Gap 9 mmol/L; Blood Urea Nitrogen 10 mg/dL (7-17); Calcium 8.9 mg/dL (8.4-10.2); Carbon Dioxide 22 mmol/L (22-30); Chloride 107 mmol/L (98-107); Glucose 78 mg/dL (74-99); Non-African American GFR(CKD) >90 (>60 ml/min/1.73 sqM); Potassium 4.1 mmol/L (3.5-5.1); Sodium 138 mmol/L (137-145); Total Bilirubin 0.8 mg/dL (0.2-1.3); Total Protein 6.5 g/dL (6.3-8.2)
[2024-05-30 14:14] VITALS: TEMP 97.6
[2024-05-30 19:36] LABS: Chol/HDL Ratio 2.73 Ratio; LDL Cholesterol,Calculated 56.2 mg/dL (0.0-131.0); VLDL Calculation 10.32 mg/dL (5.00-40.00)
[2024-05-30] MEDS: risperiDONE 0.5 MG TAB PO SCH (20:45)
[2024-05-30] MEDS: SERTRALINE 50 MG TAB PO SCH (20:45)
[2024-05-30] MEDS: traZODone HCL 50 MG TAB PO SCH (20:46)
[2024-05-30] MEDS: ACETAMINOPHEN TAB 325 MG TAB PO PRN (20:50)
[2024-05-31] MEDS ORDERED: DOCUSATE 100 MG CAP PO PRN (10:22)
[2024-05-31] MEDS: ARIPiprazole 10 MG TAB PO SCH (10:49)
--- NOTE | 2024-05-31 10:55 | P.PN ---
Progress Note - Text Progress Note Date: 05/31/24 Interval History: Patient was seen laying in bed and was directable and agreeable to speak with mortgage underwriter in the office. She denied any dizziness and reports her pain has improved. X-ray did not reveal any acute fractures. Patient was encouraged to continue to take Tylenol or ibuprofen for pain as needed. She otherwise reports stability in terms of her mood. Continues to express a desire to go to rehab however does not want to go to [place] for this. She states if no other rehabs are available for her insurance, she will likely return to her cousins. She requests to get put back on Abilify maintaina has she had a previous good response to this medication. She otherwise reports good sleep. At this time patient denies any suicidal or homicidal ideations, intent or plan. Patient denies any auditory, visual hallucinations and denies any paranoia or delusions. Patient denies any side effects from the medications and has been compliant with meds. Mental Status Exam: General Appearance: Patient appears to be stated age is alert, directable, and cooperative. Disheveled appearance Behavior: Patient is calmly seated without any agitated behavior. Speech: Patient's speech is fluent and nonpressured. Mood/Affect: Mood is improving mildly, affect is congruent and constricted. Suicidality/Homicidality: Patient denies having any suicidal or homicidal ideation intent or plan. Perceptions: Patient denies any visual hallucinations and denies any auditory hallucinations Though content/process: There is no evidence of any delusional thought content and thought process is linear and logical. Memory and concentration: AOX3, grossly intact for the purposes of this session Judgment and insight: Improving mildly Assessment Major depressive disorder, recurrent Psychosis, unspecified, rule out substance-induced psychotic disorder Stimulant use disorder Nicotine dependence History of PTSD Plan: -Patient continues to meet criteria for inpatient psychiatric admission for symptom stabilization and safety. Patient has signed adult voluntary form and medication consent and was placed in patient's chart. -Medications: Change Risperdal to Abilify 10 mg daily with a plan to transition to [facility] over the weekend. Continue Zoloft 50 mg at bedtime for depression, trazodone 50 mg at bedtime for insomnia, prazosin 1 mg at bedtime for insomnia -When necessary Ativan and Haldol for agitation/aggression. -Labs: TSH low, free T4 ordered today. UDS pending -NRT -nicotine patch -SW on board for discharge planning. Encouraged the patient to participate in milieu. Anticipate discharge to rehab versus cousins early next week
--- NOTE | 2024-05-31 12:58 | P.MDCNMH ---
History of Present Illness H&P Date: 05/31/24 Patient is a 39-year-old female with past medical history of possible dental abscess treated with clindamycin recently, depression, substance abuse, who presented to the ER for psychiatric evaluation. She was just recently discharged on 05/09/2024 Hospitalist service consulted for medical management. On admission patient is febrile, with normal heart rate, BP mildly elevated 136/85, satting well on room air. Blood work significant for no leukocytosis, stable hemoglobin 10.2, CMP unrema rkable, A1c 4.9, TSH 0.4, LDL 56 Patient denies chest pain, shortness of breath, abdominal pain, nausea, vomiting, urinary, she says that she have 1 BM a months but also mentioned that she just had a BM. Pertinent positives and negatives as discussed in HPI, a complete review of systems was performed and all other systems are negative. Patient seen and examined at bedside. Vital signs reviewed General: nontoxic, no distress, appears at stated age Derm: warm, dry Head: atraumatic, normocephalic, symmetric Eyes: EOMI, no lid lag, anicteric sclera, pupils equal round reactive to light ENT: Nose and ears atraumatic Neck: No thyromegaly, supple Mouth: no lip lesion, mucus membranes moist Cardiovascular: S1S2 reg, no murmur, no edema Lungs: clear to auscultation bilateral, no rhonchi, no rales, no wheeze, no accessory muscle use Abdominal: soft, nontender to palpation, no guarding, no appreciable organomegaly Ext: no gross muscle atrophy, muscle strength muscle strength 5 out of 5 in all 4 extremities, no contractures Neuro: CN II-XII grossly intact Psych: Alert, oriented, appropriate affect Assessment/Plan: Elevated blood pressure readings without diagnosis of hypertension Continue to monitor blood pressure, if persistently elevated above 130/80, can consider initiating antihypertensive medication. Reported chronic constipation: daily miralax, senna PRN Low TSH: Check free T4 Depression Substance abuse Management per primary psychiatry team Past Medical History Past Medical History: No Reported History Additional Past Medical History / Comment(s): KIDNEY STONES, PCOS, MRSA in mouth 01/29 History of Any Multi-Drug Resistant Organisms: MRSA Date of last positivie culture/infection: 12/29/20 MDRO Source:: mouth Past Surgical History: Section, Cholecystectomy, Tubal Ligation Past Psychological History: Depression Smoking Status: Current every day smoker, Vaper Past Alcohol Use History: Occasional Past Drug Use History: Marijuana, Methamphetamine - Past Family History Mother Family Medical History: Liver Disease Medications and Allergies Home Medications Medication Instructions Recorded Confirmed Type Docusate [Colace] 100 mg PO DAILY 30 Days #30 cap 05/09/24 05/29/24 Rx Nicotine Gum (Polacrilex) 2 mg BUCCAL Q4HR PRN 30 Days #180 05/09/24 05/29/24 Rx [Nicorette] pieceofgum Prazosin [Minipress] 1 mg PO HS 30 Days #30 cap 05/09/24 05/29/24 Rx QUEtiapine [SEROquel] 50 mg PO HS 30 Days #30 tab 05/09/24 05/29/24 Rx Sertraline [Zoloft] 50 mg PO HS 30 Days #30 tab 05/09/24 05/29/24 Rx busPIRone HCL [Buspar] 15 mg PO BID PRN 30 Days #120 05/09/24 05/29/24 Rx tablet traZODone HCL [Desyrel] 50 mg PO HS 30 Days #30 tab 05/09/24 05/29/24 Rx clindamycin HCL [Cleocin] 450 mg PO DIRECTED 05/29/24 05/29/24 History Allergies Allergy/AdvReac Type Severity Reaction Status Date / Time chocolate Allergy Anaphylaxis Verified 05/29/24 13:13 coconut Allergy Unknown Verified 05/29/24 13:13 Penicillins Allergy Rash/Hives Verified 05/29/24 13:13 Physical Exam Vitals: Vital Signs Temp Pulse BP Pulse Ox 05/30/24 14:13 97.6 F 102 H 127/82 99 Cranial Nerve Examination - Cranial Nerves Cranial Nerve II- Optic: Intact Cranial Nerve III- Oculomotor: Intact Cranial Nerve IV- Trochlear: Intact Cranial Nerve V- Trigeminal: Intact Cranial Nerve - Abducens: Intact Cranial Nerve VII- Facial: Intact Cranial Nerve VIII- Auditory: Intact Cranial Nerve IX- Glossopharyngeal: Intact Cranial Nerve X- Vagus: Intact Cranial Nerve XI- Accessory: Intact Cranial Nerve XII- Hypoglossal: Intact Results CBC & Chem 7: 05/30/24 13:00 05/30/24 13:00 Labs: Abnormal Lab Results - Last 24 Hours (Table) 05/30/24 05/30/24 Range/Units 13:00 13:00 Hgb 10.2 L (11.4-16.0) gm/dL Hct 33.1 L (34.0-46.0) % MCHC 30.8 L (31.0-37.0) g/dL HDL Cholesterol 38.50 L (40.00-60.00) mg/dL TSH 0.443 L (0.465-4.680) mIU/L
[2024-05-31] MEDS ORDERED: SENNOSIDES 8.6 MG TAB PO PRN (13:01)
[2024-05-31] MEDS: PETROLATUM, WHITE OINT 50 GM TUBE TOPICAL PRN (16:05)
[2024-06-01] MEDS: polyethylene glycoL 3350 17 GM POWD.PACK PO SCH (10:16)
[2024-06-01] MEDS: ARIPiprazole 15 MG TAB PO SCH (10:17)
--- NOTE | 2024-06-01 11:23 | P.PN ---
Progress Note - Text Progress Note Date: 06/01/24 Interval History: Patient was seen in bed and was directable and agreeable to speak with ad copy writer in the office. She received as needed Haldol/Ativan yesterday for paranoia and anxiety. She continues to express paranoia today and noted that Haldol was effective yesterday this. She expresses otherwise a desire to go to a fdc since she has not followed up with access for rehab, appearing precontemplative at the moment. She does report an improvement in her mood but does report an increase in anxiety. She was encouraged to reach out to her quarantine officer given her upcoming court date on Tuesday needing to be rescheduled. Numbers provided today for this. At this time patient denies any suicidal or homicidal ideations, intent or plan. Patient denies any auditory, visual hallucinations and denies any delusions. Patient denies any side effects from the medications and has been compliant with meds. Mental Status Exam: General Appearance: Patient appears to be stated age is alert, directable, and cooperative. Disheveled appearance Behavior: Patient is calmly seated without any agitated behavior. Speech: Patient's speech is fluent and nonpressured. Mood/Affect: Mood is improving mildly, affect is congruent and blunted but reactive. Suicidality/Homicidality: Patient denies having any suicidal or homicidal ideation intent or plan. Perceptions: Patient denies any visual hallucinations and denies any auditory hallucinations Though content/process: There is evidence of paranoia, no delusional thoughts expressed. Memory and concentration: AOX3, grossly intact for the purposes of this session Judgment and insight: Improving mildly Assessment Major depressive disorder, recurrent Psychosis, unspecified, rule out substance-induced psychotic disorder Anxiety, unspecified Stimulant use disorder Nicotine dependence History of PTSD Plan: -Patient continues to meet criteria for inpatient psychiatric admission for symptom stabilization and safety. Patient has signed adult voluntary form and medication consent and was placed in patient's chart. -Medications: Increase Abilify to 15 mg daily for psychosis with the ultimate plan to transition to SOLIS, increase Zoloft to 100 mg at bedtime for depression/anxiety, continue trazodone 50 mg at bedtime for insomnia, prazosin 1 mg at bedtime for insomnia -When necessary Ativan and Haldol for agitation/aggression. -Labs: TSH low, free T4 within normal limits. -NRT -nicotine patch -SW on board for discharge planning. Encouraged the patient to participate in milieu. Anticipate discharge to fdc early next week
[2024-06-01] MEDS: SERTRALINE 100 MG TAB PO SCH (20:04)
[2024-06-01] MEDS: NICOTINE GUM (POLACRILEX) 2 MG GUM BUCCAL PRN (20:05)
[2024-06-01 20:08] VITALS: PULSE 126; RESP 16
[2024-06-01 21:12] LABS: Glucose,Whole Blood 100 mg/dL (70-110)
[2024-06-01 22:08] VITALS: BP 65/41
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
== END 2024-06-01 21:22 | disposition home or self-care (01) | DRG 885 ==
LOC: EC 10:16 → 3MHU 21:53
PROVIDERS: ADMIT Psychiatry & Neurology Psychiatry; ATTEND Psychiatry & Neurology Psychiatry
DX: F33.3 Major depressive disorder, recurrent, severe with psychotic symptoms (principal); Z59.01 Sheltered homelessness; R45.851 Suicidal ideations; F15.10 Other stimulant abuse, uncomplicated; R45.1 Restlessness and agitation; F17.210 Nicotine dependence, cigarettes, uncomplicated; F41.9 Anxiety disorder, unspecified; F43.10 Post-traumatic stress disorder, unspecified; K59.09 Other constipation; Z56.0 Unemployment, unspecified; Z63.5 Disruption of family by separation and divorce; Z79.899 Other long term (current) drug therapy; Z87.442 Personal history of urinary calculi; Z91.52 Personal history of nonsuicidal self-harm; Z88.0 Allergy status to penicillin
CPT/HCPCS: 80053; 80061; 82075; 83036; 84439; 84443; 85025; 87635; 96372; 99285

== ENCOUNTER 2024-06-01 21:36 | Inpatient (IN) | payer OTHER, MEDICAID ==
--- NOTE | 2024-06-01 21:46 | ED ---
Chest Pain HPI <Patrick Pena Sanaz - Last Filed: 06/02/24 08:43> - General Source: patient Mode of arrival: ambulatory Limitations: no limitations - History of Present Illness MD Complaint: chest pain -: minutes(s) Onset: during rest Pain Location: substernal Pain Radiation: none Severity: severe Severity scale (1-10): 0 Quality: sharp, other (Burning) Consistency: constant Improves With: nothing Worsens With: nothing Treatments Prior to Arrival: none <Carlton Purdy - Last Filed: 06/10/24 09:13> - General Chief Complaint: Chest Pain Stated Complaint: Chest pain Time Seen by Provider: 06/01/24 21:38 - History of Present Illness Initial Comments: This patient is a 39-year-old woman who is brought here from the [facility]. unit to have evaluation of substernal chest pain. The patient describes as a sharp aching and there is a burning component. The pain is constant she has not noted worsening or relieving factors. The patient on the unit was noted to be mildly hypotensive and therefore brought here to have evaluation. Patient also was short of breath and felt hot. She has not noted actual fever. No cough or sputum. No leg pain or swelling. No change in urination or bowel movements. (Carlton Purdy) - Related Data Home Medications Medication Instructions Recorded Confirmed clindamycin HCL [Cleocin] 450 mg PO DIRECTED 05/29/24 06/02/24 Previous Rx's Medication Instructions Recorded Nicotine Gum (Polacrilex) 2 mg BUCCAL Q4HR PRN 30 Days #180 05/09/24 [Nicorette] pieceofgum FLUoxetine HCL [PROzac] 40 mg PO DAILY 30 Days #60 cap 06/05/24 Ferrous Sulfate [Iron (65 MG 325 mg PO W/LUNCH 30 Days #30 tab 06/05/24 Elemental)] Prazosin [Minipress] 1 mg PO HS 30 Days #30 cap 06/05/24 busPIRone HCL 15 mg PO BID PRN 30 Days #60 tab 06/05/24 busPIRone HCl [Buspar] 15 mg PO BID PRN 30 Days #60 tab 06/05/24 diphenhydrAMINE & Zinc Cream 1 applic TOPICAL BID 30 Days #28 gm 06/05/24 [Benadryl Cream] Allergies Allergy/AdvReac Type Severity Reaction Status Date / Time chocolate Allergy Anaphylaxis Verified 06/02/24 09:28 coconut Allergy Unknown Verified 06/02/24 09:28 Penicillins Allergy Rash/Hives Verified 06/02/24 09:28 Review of Systems ROS Other: All systems not noted in ROS Statement are negative. <Patrick Pena - Last Filed: 06/02/24 08:43> ROS Other: All systems not noted in ROS Statement are negative. Constitutional: Denies: fever, chills Respiratory: Denies: cough, dyspnea Cardiovascular: Reports: chest pain. Denies: palpitations, orthopnea, edema, syncope Gastrointestinal: Denies: abdominal pain, nausea, vomiting, diarrhea Genitourinary: Denies: dysuria, hematuria Musculoskeletal: Denies: back pain Skin: Denies: rash Neurological: Denies: headache, weakness <RajwinderCarlton - Last Filed: 06/10/24 09:13> ROS Statement: Those systems with pertinent positive or pertinent negative responses have been documented in the HPI. EKG Findings - EKG Results: EKG: interpreted by ERMD, sinus rhythm (Rate 60 bpm), normal axis, normal ST/T - Blocks, [place], Hypertrophy, ST Abn: QRS axis and voltage: low voltage (<0.5 MV total QRS and <1.0 MV in each precordial lead) <RajwinderCarlton - Last Filed: 06/10/24 09:13> Past Medical History Past Medical History: No Reported History Additional Past Medical History / Comment(s): KIDNEY STONES, PCOS, MRSA in mouth 01/29 History of Any Multi-Drug Resistant Organisms: MRSA Date of last positivie culture/infection: 12/29/20 MDRO Source:: mouth Past Surgical History: Section, Cholecystectomy, Tubal Ligation Past Psychological History: Depression Smoking Status: Current every day smoker, Vaper Past Alcohol Use History: Occasional Past Drug Use History: Marijuana, Methamphetamine - Past Family History Mother Family Medical History: Liver Disease <Carlton Purdy - Last Filed: 06/10/24 09:13> General Exam General appearance: alert, in no apparent distress Head exam: Present: atraumatic, normocephalic Eye exam: Present: normal appearance. Absent: scleral icterus, conjunctival injection ENT exam: Present: normal oropharynx Neck exam: Present: normal inspection Respiratory exam: Present: normal lung sounds bilaterally. Absent: respiratory distress, wheezes, rales, rhonchi, stridor, accessory muscle use Cardiovascular Exam: Present: regular rate, normal rhythm, normal heart sounds. Absent: systolic murmur, diastolic murmur, rubs, gallop GI/Abdominal exam: Present: soft. Absent: distended, tenderness, guarding, rebound, rigid, mass Extremities exam: Present: normal inspection, normal capillary refill. Absent: pedal edema, calf tenderness Back exam: Present: normal inspection. Absent: CVA tenderness (R), CVA tenderness (L) Neurological exam: Present: alert Skin exam: Present: warm, dry, intact, normal color. Absent: rash <Carlton Purdy - Last Filed: 06/10/24 09:13> Course Vital Signs 06/01/24 06/01/24 06/01/24 21:38 22:37 23:00 Temperature 98.3 F Pulse Rate 68 62 65 Respiratory 18 20 19 Rate Blood Pressure 107/69 100/60 126/83 O2 Sat by Pulse 98 98 98 Oximetry 06/02/24 06/02/24 06/02/24 00:00 01:00 02:00 Temperature Pulse Rate 70 63 56 L Respiratory 19 15 16 Rate Blood Pressure 109/68 104/58 92/51 O2 Sat by Pulse 97 74 L 96 Oximetry 06/02/24 06/02/24 06/02/24 05:00 06:00 08:00 Temperature 98 F Pulse Rate 56 L 55 L 86 Respiratory 26 H 20 20 Rate Blood Pressure 103/66 107/71 110/60 O2 Sat by Pulse 96 98 Oximetry 06/02/24 06/02/24 09:00 10:14 Temperature Pulse Rate 60 68 Respiratory 16 16 Rate Blood Pressure 110/60 110/60 O2 Sat by Pulse 98 98 Oximetry Chest Pain MDM <Patrick Pena - Last Filed: 06/02/24 08:43> <Carlton Purdy - Last Filed: 06/10/24 09:13> - MDM I was approached by the nurse at 8:35 AM regarding patient's clinical status. I did not initially see or evaluate the patient. Patient had been boarding in the emergency department for approximately 11 hours. According to documentation patient was seen and evaluated after she started to have some chest pain on inpatient psych floor. She was brought to the ER for evaluation. According to nurse patient had really been cleared to go back to inpatient psych however there was no medical documentation stating that. Vitals labs and imaging reviewed. Labs are unremarkable. Vital signs are stable. Urinalysis questionable for urinary tract infection. Pending urine culture.. Patient seen and evaluated at 8:42 AM denies any symptoms. She is resting comfortably no acute distress. Patient is low heart score. Will require outpatient stress test. States that she feels at baseline and would like to go back to the inpatient psych floor. (Patrick Pena) The patient had chest x-ray that I interpreted as negative for acute infiltrate, pneumothorax, congestive heart failure Was pt. sent in by a medical professional or institution ([facility], [facility], urgent care, hospital, or senior living...) When possible be specific @ -[No] Did you speak to anyone other than the patient for history (EMS, parent, family, police, friend...)? What history was obtained from this source @ -[No] Did you review nursing and triage notes (agree or disagree)? Why? @ -[I reviewed and agree with nursing and triage notes] Were old charts reviewed (outside hosp., previous admission, EMS record, old EKG, old radiological studies, urgent care reports/EKG's, senior living records)? Report findings @ -[No old charts were reviewed] Differential Diagnosis (chest pain, altered mental status, abdominal pain women, abdominal pain men, vaginal bleeding, weakness, fever, dyspnea, syncope, headache, dizziness, GI bleed, back pain, seizure, CVA, palpatations, mental health, musculoskeletal)? @ -[Differential Chest Pain: Stable Angina, Unstable Angina, STEMI, NSTEMI Aortic Dissection, Pneumothorax, Musculoskeletal, Esophageal Spasm GERD, Cholecystitis, Pancreatitis, Zoster, this is not meant to be an all-inclusive list. EKG interpreted by me (3pts min.). @ -[I interpreted as above] X-rays interpreted by me (1pt min.). @ -[I interpreted as above CT interpreted by me (1pt min.). @ -[None done] U/S interpreted by me (1pt. min.). @ -[None done] What testing was considered but not performed or refused? (CT, X-rays, U/S, labs)? Why? @ -[None] What meds were considered but not given or refused? Why? @ -[None] Did you discuss the management of the patient with other professionals (professionals i.e. , PA, [employer] CAPTAIN, lab, RT, psych nurse, social work manager, talent associate, teacher, aeronautical engineering officer, housing case manager)? Give summary @ -[No] Was smoking cessation discussed for >3mins.? @ -[No] Was critical care preformed (if so, how long)? @ -[No] Were there social determinants of health that impacted care today? How? (Homelessness, low income, unemployed, alcoholism, drug addiction, transportation, low edu. Level, literacy, decrease access to med. care, correction, rehab)? @ -[No] Was there de-escalation of care discussed even if they declined (Discuss DNR or withdrawal of care, Hospice)? DNR status @ -[No] What co-morbidities impacted this encounter? (DM, HTN, Smoking, COPD, CAD, Cancer, CVA, ARF, Chemo, Hep., AIDS, mental health diagnosis, sleep apnea, morbid obesity)? @ -[None] Was patient admitted / discharged? Hospital course, mention meds given and route, prescriptions, significant lab abnormalities, going to OR and other pertinent info. @ -[This patient is a 39-year-old woman brought from 3 [facility]. to have evaluation of chest pain. At this point the patient is pending second troponin and then may be cleared to return to the 3 [facility]. unit. Undiagnosed new problem with uncertain prognosis? @ -[No] Drug Therapy requiring intensive monitoring for toxicity (Heparin, Nitro, Insulin, Cardizem)? @ -[No] Were any procedures done? @ -[No] Diagnosis/symptom? @ -[Acute chest pain Acute, or Chronic, or Acute on Chronic? @ -[Acute Uncomplicated (without systemic symptoms) or Complicated (systemic symptoms)? @ -[Uncomplicated Side effects of treatment? @ -[No] Exacerbation, Progression, or Severe Exacerbation? @ -[No] Poses a threat to life or bodily function? How? (Chest pain, [place], [place], pneumonia, PE, COPD, DKA, ARF, appy, cholecystitis, CVA, Diverticulitis, Homicidal, Suicidal, threat to staff... and all critical care pts) @ -[Undetermined at time of signout All treatments are based on ideal body weight as in ED triage (Carlton Purdy) Disposition <Patrick Pena - Last Filed: 06/02/24 08:43> <Carlton Purdy - Last Filed: 06/10/24 09:13> Clinical Impression: Chest pain Disposition: TRANSFER TO PSYCH HOSP/UNIT Condition: Stable
--- NOTE | 2024-06-01 22:04 | XR ---
EXAMINATION TYPE: XR chest 2V DATE OF EXAM: 06/01/2024 9:58 PM COMPARISON: 05/30/2019 CLINICAL INDICATION: Female, 39 years old with history of Chest Pain, TECHNIQUE: XR chest 2V view(s) obtained. FINDINGS: The heart size is normal. The pulmonary vasculature is normal. The lungs are clear. IMPRESSION: 1. No acute pulmonary process. [facility], , 06/01/2024 10:01 PM
[2024-06-01] MEDS: ASPIRIN 81 MG PO STA (22:35)
[2024-06-01 22:49] LABS: Basophils % (A) 0 %; Eosinophils # (A) 0.2 k/uL (0-0.7); Eosinophils % (A) 2 %; HCT 32.8 % (34.0-46.0); HGB 10.4 gm/dL (11.4-16.0); Hypochromasia Slight; Lymphocytes # (A) 2.1 k/uL (1.0-4.8); Lymphocytes % (A) 22 %; MCH 27.2 pg (25.0-35.0); MCHC 31.8 g/dL (31.0-37.0); MCV 85.4 fL (80.0-100.0); Mean Platelet Volume 9.1; Monocytes # (A) 0.4 k/uL (0-1.0); Monocytes % (A) 4 %; Neutrophils # (A) 6.6 k/uL (1.3-7.7); Neutrophils % (A) 71 %; Platelet Count 279 k/uL (150-450); RBC 3.84 m/uL (3.80-5.40); RDW 14.3 % (11.5-15.5); WBC 9.4 k/uL (3.8-10.6)
[2024-06-01 22:50] LABS: Appearance,Urine Cloudy (Clear); Bilirubin,Urine Negative (Negative); Blood,Urine Moderate (Negative); Color,Urine Yellow; Glucose,Urine (UA) Negative (Negative); Hyaline Casts,Urine 48 /lpf (0-2); Ketones,Urine Trace (Negative); Leukocyte Esterase,Urine Moderate (Negative); Mucus,Urine Many /hpf; Nitrite,Urine Negative (Negative); Protein,Urine 1+ (Negative); RBC,Urine 142 /hpf (0-5); Specific Gravity,Urine 1.033 (1.001-1.035); Squamous Epithelial Cell,Urine 3 /hpf (0-4); WBC,Urine 47 /hpf (0-5)
[2024-06-01 23:05] LABS: ALT 16 U/L (4-34); AST 22 U/L (14-36); African American GFR (CKD) >90 (>60 ml/min/1.73 sqM); Alkaline Phosphatase 45 U/L (38-126); Anion Gap 12 mmol/L; Blood Urea Nitrogen 11 mg/dL (7-17); Calcium 9.1 mg/dL (8.4-10.2); Carbon Dioxide 23 mmol/L (22-30); Chloride 102 mmol/L (98-107); Glucose 115 mg/dL (74-99); Non-African American GFR(CKD) >90 (>60 ml/min/1.73 sqM); Potassium 3.8 mmol/L (3.5-5.1); Sodium 137 mmol/L (137-145); Total Bilirubin 0.5 mg/dL (0.2-1.3); Total Protein 6.9 g/dL (6.3-8.2)
[2024-06-02] MEDS: SODIUM CHLORIDE 0.9% 500 ML 500 ML IV STA (01:01)
[2024-06-02 09:17] LABS: Basophils % (A) 0 %; Eosinophils # (A) 0.2 k/uL (0-0.7); Eosinophils % (A) 2 %; HGB 10.3 gm/dL (11.4-16.0); Hypochromasia Moderate; Lymphocytes % (A) 33 %; MCH 26.6 pg (25.0-35.0); MCHC 31.2 g/dL (31.0-37.0); MCV 85.5 fL (80.0-100.0); Mean Platelet Volume 9.2; Monocytes # (A) 0.4 k/uL (0-1.0); Monocytes % (A) 4 %; Neutrophils # (A) 5.2 k/uL (1.3-7.7); Neutrophils % (A) 58 %; Platelet Count 276 k/uL (150-450); RBC 3.86 m/uL (3.80-5.40); RDW 14.2 % (11.5-15.5)
[2024-06-02 09:30] LABS: ALT 14 U/L (4-34); AST 18 U/L (14-36); African American GFR (CKD) >90 (>60 ml/min/1.73 sqM); Albumin 3.6 g/dL (3.5-5.0); Alkaline Phosphatase 48 U/L (38-126); Anion Gap 5 mmol/L; Blood Urea Nitrogen 9 mg/dL (7-17); Calcium 8.9 mg/dL (8.4-10.2); Carbon Dioxide 28 mmol/L (22-30); Chloride 105 mmol/L (98-107); Glucose 91 mg/dL (74-99); Non-African American GFR(CKD) 88 (>60 ml/min/1.73 sqM); Potassium 4.3 mmol/L (3.5-5.1); Sodium 138 mmol/L (137-145); Total Bilirubin 0.5 mg/dL (0.2-1.3); Total Protein 6.4 g/dL (6.3-8.2)
[2024-06-02 09:33] LABS: Partial Thromboplastin Time 25.2 sec (22.0-30.0); Prothrombin Time 10.7 sec (10.0-12.5)
[2024-06-02] MEDS ORDERED: MAG HYDROX/AL HYDROX/SIMETH 355 ML BOTTLE PO PRN (09:53)
[2024-06-02] MEDS ORDERED: MAGNESIUM HYDROXIDE 2,400 MG/30 ML CUP PO PRN (09:53)
[2024-06-02] MEDS ORDERED: LORazepam 1 MG TAB PO PRN (09:53)
[2024-06-02] MEDS ORDERED: traZODone HCL 50 MG TAB PO PRN (09:53)
--- NOTE | 2024-06-02 11:13 | P.MDCNMH ---
History of Present Illness H&P Date: 06/02/24 Chief Complaint: medical consult for mhu, med mgmt Patient is a 39-year-old female with past medical history of possible dental abscess treated with clindamycin recently, iron deficiency anemia, depression, cocaine/methamphetamine substance abuse, high risk sexual encounters, who presented to the ER for psychiatric evaluation. She was just recently sent to ER for chest pain and returned to unit today after ACS was ruled out. Hospitalist service consulted for medical management. On readmission, patient is afebrile, 118/68, heart rate 67, 97% on room air. Blood work significant for no leukocytosis, stable hemoglobin 10.3, CMP unremarkable, A1c 4.9, TSH 0.4, LDL 56 Patient does report history of cocaine and methamphetamine abuse taken by route of intranasal absorption via rolled up dollar bill, she reportedly does not share substances with other users and denies IV drug use. She reports sexual encounters, but always uses condoms. Pertinent positives and negatives as discussed in HPI, a complete review of systems was performed and all other systems are negative. Patient seen and examined at bedside. Vital signs reviewed Gen: In NAD, non-toxic HEENT: normocephalic, atraumatic, hearing acuity is intant, mucous membranes moist CVS: perfusing all extremities well, no pitting edema, Respiratory: symmetric chest expansion, no accessory muscle use, GI: soft, NTTP, ND, : no suprapubic tenderness, no CVA tenderness MSK/Derm: no rashes, cyanosis Neuro: CN II-XII intact, no motor weakness, Psych: cooperative, euthymic mood, judgment and insight is intact Assessment/Plan: Iron deficiency anemia -Reduce twice daily iron to daily 325mg Cocaine/methamphetamine abuse -Care per primary team Possible high risk sexual encounters Pyuria Microscopic hematuria Dental abscess -Obtain STI panel: Hepatitis B, hepatitis C, HIV, syphilis panel, chlamydia/gonorrhea -Patient already remains on clindamycin, continue home medication as prescribed previously Major depressive disorder Substance abuse -Management per primary psychiatry team Past Medical History Past Medical History: No Reported History Additional Past Medical History / Comment(s): KIDNEY STONES, PCOS, MRSA in mouth 01/29 History of Any Multi-Drug Resistant Organisms: MRSA Date of last positivie culture/infection: 12/29/20 MDRO Source:: mouth Past Surgical History: Section, Cholecystectomy, Tubal Ligation Past Psychological History: Depression Smoking Status: Current every day smoker Past Alcohol Use History: Daily Past Drug Use History: Marijuana, Methamphetamine Additional Drug Use History / Comment(s): Admits to using ETOH daily. Meth occassionally with friends. Started ETOH at age of 13. Meth one year ago. - Past Family History Mother Family Medical History: Liver Disease Medications and Allergies Home Medications Medication Instructions Recorded Confirmed Type Docusate [Colace] 100 mg PO DAILY 30 Days #30 cap 05/09/24 06/02/24 Rx Nicotine Gum (Polacrilex) 2 mg BUCCAL Q4HR PRN 30 Days #180 05/09/24 06/02/24 Rx [Nicorette] pieceofgum Prazosin [Minipress] 1 mg PO HS 30 Days #30 cap 05/09/24 06/02/24 Rx QUEtiapine [SEROquel] 50 mg PO HS 30 Days #30 tab 05/09/24 06/02/24 Rx Sertraline [Zoloft] 50 mg PO HS 30 Days #30 tab 05/09/24 06/02/24 Rx busPIRone HCL [Buspar] 15 mg PO BID PRN 30 Days #120 05/09/24 06/02/24 Rx tablet traZODone HCL [Desyrel] 50 mg PO HS 30 Days #30 tab 05/09/24 06/02/24 Rx clindamycin HCL [Cleocin] 450 mg PO DIRECTED 05/29/24 06/02/24 History Allergies Allergy/AdvReac Type Severity Reaction Status Date / Time chocolate Allergy Anaphylaxis Verified 06/02/24 09:28 coconut Allergy Unknown Verified 06/02/24 09:28 Penicillins Allergy Rash/Hives Verified 06/02/24 09:28 Physical Exam Osteopathic Statement: *. No significant issues noted on an osteopathic structural exam other than those noted in the History and Physical/Consult. Vitals: Vital Signs Temp Pulse Pulse Resp BP BP Pulse Ox 06/02/24 10:37 97.4 F L 67 18 118/68 97 06/02/24 10:14 68 16 110/60 98 06/02/24 09:00 60 16 110/60 98 06/02/24 08:00 98 F 86 20 110/60 98 06/02/24 06:00 55 L 20 107/71 96 02/22/25 05:00 56 L 26 H 103/66 06/02/24 02:00 56 L 16 92/51 96 06/02/24 01:00 63 15 104/58 74 L 06/02/24 00:00 70 19 109/68 97 06/01/24 23:00 65 19 126/83 98 06/01/24 22:37 62 20 100/60 98 06/01/24 21:38 98.3 F 68 18 107/69 98 Intake and Output 06/01/24 06/02/24 06/02/24 22:59 06:59 14:59 Other: Weight 90.718 kg 98.43 kg Cranial Nerve Examination - Cranial Nerves Cranial Nerve II- Optic: Intact Cranial Nerve III- Oculomotor: Intact Cranial Nerve IV- Trochlear: Intact Cranial Nerve V- Trigeminal: Intact Cranial Nerve - Abducens: Intact Cranial Nerve VII- Facial: Intact Cranial Nerve VIII- Auditory: Intact Cranial Nerve IX- Glossopharyngeal: Intact Cranial Nerve X- Vagus: Intact Cranial Nerve XI- Accessory: Intact Cranial Nerve XII- Hypoglossal: Intact Results CBC & Chem 7: 06/02/24 09:06 06/02/24 09:06 Labs: Abnormal Lab Results - Last 24 Hours (Table) 06/01/24 06/01/24 06/01/24 Range/Units 22:08 22:30 22:30 Hgb 10.4 L (11.4-16.0) gm/dL Hct 32.8 L (34.0-46.0) % Glucose 115 H (74-99) mg/dL Urine Appearance Cloudy H (Clear) Urine Protein 1+ H (Negative) Urine Ketones Trace H (Negative) Urine Blood Moderate H (Negative) Ur Leukocyte Esterase Moderate H (Negative) Urine RBC 142 H (0-5) /hpf Urine WBC 47 H (0-5) /hpf Urine WBC Clumps Rare H (None) /hpf Hyaline Casts 48 H (0-2) /lpf Urine Mucus Many H (None) /hpf 06/02/24 Range/Units 09:06 Hgb 10.3 L (11.4-16.0) gm/dL Hct 33.0 L (34.0-46.0) % Glucose (74-99) mg/dL Urine Appearance (Clear) Urine Protein (Negative) Urine Ketones (Negative) Urine Blood (Negative) Ur Leukocyte Esterase (Negative) Urine RBC (0-5) /hpf Urine WBC (0-5) /hpf Urine WBC Clumps (None) /hpf Hyaline Casts (0-2) /lpf Urine Mucus (None) /hpf
[2024-06-02] MEDS: FERROUS SULFATE 325 MG TAB PO SCH (11:33)
[2024-06-02] MEDS: DOCUSATE 100 MG CAP PO SCH (11:33)
[2024-06-02] MEDS: CLINDAMYCIN 150 MG CAP PO SCH (11:33)
[2024-06-02] MEDS: FLUoxetine HCL 20 MG CAP PO SCH (14:35)
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
[2024-06-02] MEDS: PRAZOSIN 1 MG CAP PO SCH (20:20)
[2024-06-02] MEDS: traZODone HCL 50 MG TAB PO SCH (20:20)
[2024-06-02] MEDS ORDERED: QUEtiapine 50 MG TAB PO SCH (21:00)
[2024-06-02] MEDS ORDERED: SERTRALINE 50 MG TAB PO SCH (21:00)
[2024-06-03] MEDS: QUEtiapine 25 MG TAB PO SCH (00:20)
[2024-06-03] MEDS: busPIRone HCl 5 MG TAB PO PRN (11:22)
--- NOTE | 2024-06-03 11:29 | P.PN ---
Progress Note - Text Progress Note Date: 06/03/24 Interval history: Patient was seen wandering the hallways and was directable and agreeable to s peak with specifications writer. She claims that she is doing a bit better today. She refused the Seroquel last night claims that "does not that medication cause you to probably have a stroke?". We spoke more about the risks benefits and side effects of the medication, specifications writer offered alternatives including Risperdal which she states that she has had good results within the past and wanted to try that tonight. Claims that she is seeing "shadows". States that her anxiety and mood has been mildly improving at this time. Has an increase in appetite. Claims that she was able to sleep a bit better last night. States that she needs to go to court tomorrow morning in [facility], was fairly evasive about what the charges are. At this time patient denies any suicidal or homicidal ideations intent or plan. Denies any Auditory. Patient denies any side effects from the medications and has been compliant with meds. Mental status exam: General Appearance: Patient appears to be stated age is alert, directable, and cooperative. Poor eye contact Behavior: No agitated behavior. Patient is calm and directable, somewhat evasive Speech: Patient's speech is fluent and nonpressured. Mood/Affect: Mood is improving mildly, affect is congruent and constricted. Improving mildly Suicidality/Homicidality: Patient denies having any suicidal or homicidal ideation intent or plan. Perceptions: Patient denies any auditory or visual hallucinations. Though content/process: There is no evidence of any delusional thought content and thought process is linear and goal-directed. Focused on discharge, minim izing Memory and concentration: AOX3, grossly intact for the purposes of this session Judgment and insight: Poor, improving mildly Assessment/Plan: Continue with current diagnosis. Patient continues to meet criteria for inpatient psychiatric admission for symptom stabilization and safety. Patient will be maintained on current psychotropic medication regimen, patient requested to have Seroquel discontinued, replaced with Risperdal 1 mg nightly for psychosis/mood stabilization. Monitor for medication compliance and for any psychotropic medication side effects. Will continue to monitor ongoing response to treatment. Encouraged participation in milieu.
[2024-06-03 13:23] LABS: Hepatitis B Core IgM Nonreactive (Nonreactive); Hepatitis C IgG Antibody Nonreactive (Nonreactive)
[2024-06-03 14:21] LABS: Chol/HDL Ratio 3.18 Ratio; VLDL Calculation 13.26 mg/dL (5.00-40.00)
[2024-06-03] MEDS: haloperidoL 5 MG TAB PO PRN (15:12)
[2024-06-03 15:57] LABS: Hepatitis B Surface AB- Quant 3.5 mIU/mL
[2024-06-03] MEDS: risperiDONE 1 MG TAB PO SCH (21:13)
[2024-06-04 07:25] VITALS: RESP 16; TEMP 97.8
[2024-06-04] MEDS: FLUoxetine HCL 20 MG CAP PO SCH (08:26)
--- NOTE | 2024-06-04 12:19 | P.PN ---
Progress Note - Text Progress Note Date: 06/04/24 Interval History: Patient was seen in her room and was directable and agreeable to speak with wr iter in the office. Patient notably appears more bright in affect, reactive. He mentions experiencing chest pain over the weekend that has since subsided. Lab work and EKG were all unremarkable. She feels as though both the Abilify and Seroquel contributing to increased heart rate however denying any adverse effects on the Risperdal. She denied any visual hallucinations, no longer seeing shadows. She reports good sleep and is on board with transitioning to SOLIS today given her history of medication nonadherence. She was encouraged to follow-up with [facility] as she asked when the next dose of SOLIS will be due and how she will be able to get it. She states she wishes to be discharged to either a custodial however if none are available in this area that she wishes to be discharged to her uncle's house locally. At this time patient denies any suicidal or homicidal ideations, intent or plan. Patient denies any auditory, visual hallucinations and denies any paranoia or delusions. Patient denies any side effects from the medications and has been compliant with meds. Mental Status Exam: General Appearance: Patient appears to be stated age is alert, directable, and cooperative. Improved hygiene and grooming. Behavior: Patient is calmly seated without any agitated behavior. Speech: Patient's speech is fluent and nonpressured. Mood/Affect: Mood is improving mildly, affect is congruent and reactive, more bright. Suicidality/Homicidality: Patient denies having any suicidal or homicidal ideation intent or plan. Perceptions: Patient denies any visual hallucinations and denies any auditory hallucinations Though content/process: There is no evidence of any delusional thought content and thought process is linear and goal-directed. Memory and concentration: AOX3, grossly intact for the purposes of this session Judgment and insight: Historically poor however improving mildly Assessment Major depressive disorder, recurrent Psychosis, unspecified Stimulant use disorder Nicotine dependence History of PTSD Plan: -Patient continues to meet criteria for inpatient psychiatric admission for symptom stabilization and safety. Patient has signed adult voluntary form and medication consent and was placed in patient's chart. -Medications: Transition to Risperdal Uzedy 100 mg subcutaneous every 2 months, next dose being due on 07/30/2024. Can discontinue oral Risperdal and continue Prozac 40 mg daily for depression, prazosin 1 mg at bedtime for nightmares, trazodone 50 mg at bedtime for insomnia -When necessary Ativan and Haldol for agitation/aggression. -Labs: Reviewed -NRT -nicotine patch -SW on board for discharge planning. Encouraged the patient to participate in milieu. Anticipate discharge to custodial versus uncle's tomorrow pending transitioning to long-acting injectable.
[2024-06-04 13:09] LABS: N. gonorrhoeae,PCR Negative (Negative)
[2024-06-04 14:50] LABS: HIV 2 AB Non-Reactive (Non-Reactive); HIV AB P24 Non-Reactive (Non-Reactive); HIV P24 AG Non-Reactive (Non-Reactive)
[2024-06-04] MEDS: risperiDONE 100 MG/0.28 ML SYR (NO COST) SQ ONE (14:59)
[2024-06-04] MEDS: NICOTINE GUM (POLACRILEX) 2 MG GUM BUCCAL PRN (16:45)
[2024-06-04] MEDS: ACETAMINOPHEN TAB 325 MG TAB PO PRN (21:32)
[2024-06-05 09:42] VITALS: BP 129/85; PULSE 85
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
== END 2024-06-05 16:00 | disposition home or self-care (01) | DRG 885 ==
LOC: EC 21:36 → 3MHU 06-02 09:41
PROVIDERS: ADMIT Psychiatry & Neurology Psychiatry; ATTEND Psychiatry & Neurology Psychiatry
DX: F33.9 Major depressive disorder, recurrent, unspecified (principal); F22 Delusional disorders; Z59.00 Homelessness unspecified; E11.9 Type 2 diabetes mellitus without complications; E28.2 Polycystic ovarian syndrome; D50.9 Iron deficiency anemia, unspecified; F14.10 Cocaine abuse, uncomplicated; R45.851 Suicidal ideations; F15.10 Other stimulant abuse, uncomplicated; Z59.82 Transportation insecurity; Z56.0 Unemployment, unspecified; F43.10 Post-traumatic stress disorder, unspecified; F41.9 Anxiety disorder, unspecified; K04.7 Periapical abscess without sinus; R31.29 Other microscopic hematuria; G47.00 Insomnia, unspecified; F17.210 Nicotine dependence, cigarettes, uncomplicated; Z91.148 Patient's other noncompliance with medication regimen for other reason; Z79.899 Other long term (current) drug therapy; Z86.14 Personal history of Methicillin resistant Staphylococcus aureus infection; Z91.52 Personal history of nonsuicidal self-harm; Z88.0 Allergy status to penicillin
CPT/HCPCS: 36415; 71046; 80053; 80061; 81001; 83036; 83735; 84443; 84484; 85025; 85610; 85730; 86631; 86632; 86705; 86706; 86707; 86780; 86803; 87390; 87591; 93005; 99285